=== PATIENT | female | born 1940 | race Caucasian/White ===

== ENCOUNTER 2021-07-31 06:48 | Observation (INO) | payer OTHER ==
[2021-07-31 07:45] LABS: Hematocrit 33.9 % (36.0-45.0); MPV 8.9 fL (7.6-11.3)
--- NOTE | 2021-07-31 08:19 | RAD REPORT ---
EXAM DESCRIPTION: [facility] Single View07/31/2021 8:12 am CLINICAL HISTORY: Shortness of breath COMPARISON: 2016 FINDINGS: Mild to moderate bilateral pulmonary opacities. The heart is mildly enlarged. Pacemaker l daina are in place. Small pleural effusions IMPRESSION: Mild to moderate CHF
[2021-07-31 08:44] LABS: Potassium 4.4 mmol/L (3.5-5.1); Troponin High Sensitivity 46.5 pg/mL (<58.9)
--- NOTE | 2021-07-31 11:03 | ER ---
Nurse's Notes [facility] Name: Shilpi Pierson Age: 80 yrs Sex: Female : 1940 Arrival Date: 07/31/2021 Time: 06:49 Bed 3 Private MD: Diagnosis: Heart failure, unspecified Presentation: 07/31 06:59 Chief complaint: EMS states: pt has been short of breath since yesterday, got worse sm5 throughout the night. Coronavirus screen: Vaccine status: Patient reports receiving the 2nd dose of the covid vaccine. Ebola Screen: No symptoms or risks identified at this time. Initial Sepsis Screen: Does the patient meet any 2 criteria? No. Patient's initial sepsis screen is negative. Does the patient have a suspected source of infection? No. Patient's initial sepsis screen is negative. Risk Assessment: Do you want to hurt yourself or someone else? Patient reports no desire to harm self or others. Onset of symptoms was July 30, 2021. 06:59 Method Of Arrival: EMS: [place] [address] 06:59 Acuity: MARIA D 3 sm5 Triage Assessment: 07:03 General: Appears in no apparent distress. Behavior is cooperative. Pain: Denies pain. sm5 Neuro: No deficits noted. Geronimo Agitation-Sedation Scale (RASS): 0 - Alert and Calm Level of Consciousness is awake, alert, obeys commands, Oriented to person, place, time, situation. Cardiovascular: No deficits noted. Capillary refill < 3 seconds Patient's skin is warm and dry. Respiratory: Reports shortness of breath Airway is patent Trachea midline Respiratory effort is even, unlabored. GI: No deficits noted. Historical: - Allergies: 07:00 Actos; sm5 07:00 Benicar; sm5 07:00 Lisinopril; sm5 07:00 Simvastatin; sm5 07:00 Famotidine; sm5 07:00 Losartan; sm5 07:00 olmesartan; sm5 07:00 pioglitazone; sm5 07:00 Tramadol HCl; sm5 11:05 lactose (bulk); vg1 11:05 Lactulose; vg1 - Home Meds: 11:05 Amlodarone [Active]; clopidogrel 75 mg oral tab [Active]; diphenhydramine HCl 25 mg vg1 Oral tab [Active]; ferrous sulfate 325 mg (65 mg iron) Oral cpER [Active]; apixaban 5 mg oral tab [Active]; folic acid 1 mg Oral tab [Active]; amlodipine 5 mg tab [Active]; clonidine HCl 0.1 mg Oral tab [Active]; ezetimibe 10 mg oral tab [Active]; furosemide 40 mg Oral tab [Active]; isosorbide mononitrate 30 mg Oral Tb24 [Active]; melatonin 5 mg Oral tab [Active]; metformin 500 mg Oral tab [Active]; metoprolol tartrate 50 mg Oral tab [Active]; spironolactone 25 mg Oral tab [Active]; - PMHx: 07:00 Diabetes - NIDDM; Hypertension; Anemia; ventricular tachycardia; Congestive heart sm5 failure; Gastroesophageal reflux disease; - Immunization history:: Client reports receiving the 2nd dose of the Covid vaccine. - Social history:: Smoking status: Patient/guardian denies using tobacco, but has a distant history of tobacco abuse. Screenin:30 Abuse screen: Denies threats or abuse. Denies injuries from another. Nutritional jl7 screening: No deficits noted. Tuberculosis screening: No symptoms or risk factors identified. Fall Risk IV access (20 points). Total Morales Fall Scale indicates No Risk (0-24 pts). Assessment: 07:05 General: Appears in no apparent distress. uncomfortable, Behavior is calm, cooperative, jl7 appropriate for age. Pain: Denies pain. Neuro: Level of Consciousness is awake, alert, obeys commands, Oriented to person, place, time, situation. Cardiovascular: Denies chest pain, Heart tones present Patient's skin is warm and dry. Respiratory: Airway is patent Respiratory effort is even, unlabored, Respiratory pattern is regular, symmetrical, Breath sounds are clear in right upper lobe, left upper lobe, left posterior upper lobe and right posterior upper lobe Breath sounds with crackles in left posterior lower lobe, right posterior middle lobe and right posterior lower lobe. Derm: Skin is pink, warm \T\ dry. 08:00 Reassessment: Patient appears in no apparent distress at this time. No changes from jl7 previously documented assessment. Patient and/or family updated on plan of care and expected duration. Pain level reassessed. Patient is alert, oriented x 3, equal unlabored respirations, skin warm/dry/pink. 09:00 Reassessment: Patient appears in no apparent distress at this time. No changes from jl7 previously documented assessment. Patient and/or family updated on plan of care and expected duration. Pain level reassessed. Patient is alert, oriented x 3, equal unlabored respirations, skin warm/dry/pink. 09:53 Reassessment: Pt's daughter at bedside, Dr. Flores at bedside discussing results and jl7 POC. 11:13 Reassessment: Admitting physician at bedside assessing pt, gave VO for ADA 1800 diet. jl7 12:00 Reassessment: Patient appears in no apparent distress at this time. No changes from jl7 previously documented assessment. Patient and/or family updated on plan of care and expected duration. Pain level reassessed. Patient is alert, oriented x 3, equal unlabored respirations, skin warm/dry/pink. Vital Signs: 06:59 BP 157 / 51; Pulse 63; Resp 18; Temp 97.6(O); Pulse Ox 99% on R/A; Weight 66 kg; Height [facility] 5 ft. (152.40 cm); 07:30 BP 143 / 67; Pulse 61; Resp 15; Pulse Ox 98% on R/A; jl7 08:22 BP 144 / 49; Pulse 61; Resp 17; Pulse Ox 100% ; jl7 09:54 BP 150 / 50; Pulse 67; Resp 15; Pulse Ox 98% on R/A; jl7 11:00 BP 137 / 54; Pulse 67; Resp 15; Pulse Ox 96% ; jl7 12:00 BP 152 / 50; Pulse 75; Resp 16; Pulse Ox 98% ; jl7 13:00 BP 135 / 54; Pulse 70; Resp 15; Pulse Ox 95% ; jl7 14:00 BP 151 / 50; Pulse 73; Resp 16; Pulse Ox 95% ; jl7 06:59 Body Mass Index 28.42 (66.00 kg, 152.40 cm) 5 ED Course: 06:49 Patient arrived in ED. eb 07:00 Triage completed. sm5 07:03 Juan Carlos Flores MD is Attending Physician. kdr 07:03 Arm band placed on right wrist. 5 07:19 Laverne Buckner, CHER is Primary Nurse. jl7 07:30 Patient has correct armband on for positive identification. Bed in low position. Call [facility] light in reach. Side rails up X2. Client placed on continuous cardiac and pulse oximetry monitoring. NIBP monitoring applied. Warm blanket given. 07:30 Initial lab(s) drawn, by me, sent to lab. EKG done, by ED staff, reviewed by Juan Carlos Flores MD. Inserted saline lock: 22 gauge in left forearm, using aseptic technique. Blood collected. 08:14 XRAY Chest (1 view) In Process Unspecified. EDMS 08:24 Lab(s) recollected. jl7 11:01 Gomez Narvaez MD is Hospitalizing Provider. kdr 14:37 Hemoglobin A1c Sent. zm 14:45 No provider procedures requiring assistance completed. Patient admitted, IV remains in jl place. intact, No redness/swelling at site. Administered Medications: No medications were administered Medication: 09:54 VIS not applicable for this client. jl Outcome: 11:02 Decision to Hospitalize by Provider. kdr 14:45 Admitted to Med/surg accompanied by tech, family with patient, via wheelchair, room [facility] 408, with chart, Report called to [facility] 14:45 Condition: stable 14:45 Discharge instructions given to patient, family, Instructed on the need for admit, Demonstrated understanding of instructions. 14:46 Patient left the ED. [facility] Signatures: Dispatcher [employer] EDCT Juan Carlos Flores MD MD kdr Laverne Buckner, RN RN jl7 Ivana Saldana Victoria, RN RN vg1 Randee Hoang, RN RN sm5 Xiao Foss Corrections: (The following items were deleted from the chart) 09:54 09:00 BP 150 / 50; Pulse 67bpm; Resp 15bpm; Pulse Ox 98% RA; 7 7 14:43 11:13 Reassessment: Dr. Beauchamp at bedside assessing pt, gave VO for ADA 1800 [facility]
--- NOTE | 2021-07-31 11:03 | EDPHYS ---
Physician Documentation [facility] Name: Shilpi Pierson Age: 80 yrs Sex: Female : 1940 Arrival Date: 07/31/2021 Time: 06:49 Bed 3 Private MD: ED Physician Juan Carlos Flores HPI: 07/31 08:42 This 80 yrs old Female presents to ER via EMS with complaints of Shortness of breath. kdr 08:42 The patient has shortness of breath at rest, with light activity. Onset: The kdr symptoms/episode began/occurred gradually, yesterday. Duration: The symptoms are continuous, and are steadily getting worse. The patient's shortness of breath is aggravated by exertion, talking, is alleviated by nothing. Associated signs and symptoms: The patient has no apparent associated signs or symptoms. Severity of symptoms: At their worst the symptoms were mild in the emergency department the symptoms are unchanged. The patient has not experienced similar symptoms in the past. The patient has not recently seen a physician. Patient presents from [facility] in via EMS. She is has mild's of breath since yesterday. He has no other complaints. She is awake alert and oriented. She is nontoxic-appearing and knee at this time.. Historical: - Allergies: 07:00 Actos; sm5 07:00 Benicar; sm5 07:00 Lisinopril; sm5 07:00 Simvastatin; sm5 07:00 Famotidine; sm5 07:00 Losartan; sm5 07:00 olmesartan; sm5 07:00 pioglitazone; sm5 07:00 Tramadol HCl; sm5 11:05 lactose (bulk); vg1 11:05 Lactulose; vg1 - Home Meds: 11:05 Amlodarone [Active]; clopidogrel 75 mg oral tab [Active]; diphenhydramine HCl 25 mg vg1 Oral tab [Active]; ferrous sulfate 325 mg (65 mg iron) Oral cpER [Active]; apixaban 5 mg oral tab [Active]; folic acid 1 mg Oral tab [Active]; amlodipine 5 mg tab [Active]; clonidine HCl 0.1 mg Oral tab [Active]; ezetimibe 10 mg oral tab [Active]; furosemide 40 mg Oral tab [Active]; isosorbide mononitrate 30 mg Oral Tb24 [Active]; melatonin 5 mg Oral tab [Active]; metformin 500 mg Oral tab [Active]; metoprolol tartrate 50 mg Oral tab [Active]; spironolactone 25 mg Oral tab [Active]; - PMHx: 07:00 Diabetes - NIDDM; Hypertension; Anemia; ventricular tachycardia; Congestive heart sm5 failure; Gastroesophageal reflux disease; - Immunization history:: Client reports receiving the 2nd dose of the Covid vaccine. - Social history:: Smoking status: Patient/guardian denies using tobacco, but has a distant history of tobacco abuse. ROS: 08:42 Constitutional: Negative for fever, chills, and weight loss, Eyes: Negative for injury, kdr pain, redness, and discharge, ENT: Negative for injury, pain, and discharge, Neck: Negative for injury, pain, and swelling, Cardiovascular: Negative for chest pain, palpitations, and edema, Abdomen/GI: Negative for abdominal pain, nausea, vomiting, diarrhea, and constipation, Back: Negative for injury and pain, : Negative for injury, bleeding, discharge, and swelling, MS/Extremity: Negative for injury and deformity, Skin: Negative for injury, rash, and discoloration, Neuro: Negative for headache, weakness, numbness, tingling, and seizure activity. Psych: Negative for depression, anxiety, suicide ideation, homicidal ideation, and hallucinations, Allergy/Immunology: Negative for hives, rash, and allergies, Endocrine: Negative for neck swelling, polydipsia, polyuria, polyphagia, and marked weight changes, Hematologic/Lymphatic: Negative for swollen nodes, abnormal bleeding, and unusual bruising. 08:42 Respiratory: Positive for cough, with no reported sputum, shortness of breath, at rest. Negative for dyspnea on exertion, hemoptysis, orthopnea, pleurisy, sputum production, wheezing. Exam: 07:31 ECG was reviewed by the Attending Physician. kdr 08:42 Constitutional: This is a well developed, well nourished patient who is awake, alert, kdr and in no acute distress. Head/Face: Normocephalic, atraumatic. Eyes: Pupils equal round and reactive to light, extra-ocular motions intact. Lids and lashes normal. Conjunctiva and sclera are non-icteric and not injected. Cornea within normal limits. Periorbital areas with no swelling, redness, or edema. Neck: Trachea midline, no thyromegaly or masses palpated, and no cervical lymphadenopathy. Supple, full range of motion without nuchal rigidity, or vertebral point tenderness. No Meningismus. Chest/axilla: Normal chest wall appearance and motion. Nontender with no deformity. No lesions are appreciated. Cardiovascular: Regular rate and rhythm with a normal S1 and S2. No gallops, murmurs, or rubs. Normal PMI, no JVD. No pulse deficits. Abdomen/GI: Soft, non-tender, with normal bowel sounds. No distension or tympany. No guarding or rebound. No evidence of tenderness throughout. Back: No spinal tenderness. No costovertebral tenderness. Full range of motion. Skin: Warm, dry with normal turgor. Normal color with no rashes, no lesions, and no evidence of cellulitis. MS/ Extremity: Pulses equal, no cyanosis. Neurovascular intact. Full, normal range of motion. Neuro: Awake and alert, GCS 15, oriented to person, place, time, and situation. Cranial nerves II-XII grossly intact. Motor strength 5/5 in all extremities. Sensory grossly intact. Cerebellar exam normal. Normal gait. Psych: Awake, alert, with orientation to person, place and time. Behavior, mood, and affect are within normal limits. 08:42 Respiratory: the patient does not display signs of respiratory distress, Respirations: normal, Breath sounds: rales, that are mild, are heard diffusely, wheezing: is not appreciated. Vital Signs: 06:59 BP 157 / 51; Pulse 63; Resp 18; Temp 97.6(O); Pulse Ox 99% on R/A; Weight 66 kg; Height sm5 5 ft. (152.40 cm); 07:30 BP 143 / 67; Pulse 61; Resp 15; Pulse Ox 98% on R/A; jl7 08:22 BP 144 / 49; Pulse 61; Resp 17; Pulse Ox 100% ; jl7 09:54 BP 150 / 50; Pulse 67; Resp 15; Pulse Ox 98% on R/A; jl7 11:00 BP 137 / 54; Pulse 67; Resp 15; Pulse Ox 96% ; jl7 12:00 BP 152 / 50; Pulse 75; Resp 16; Pulse Ox 98% ; jl7 13:00 BP 135 / 54; Pulse 70; Resp 15; Pulse Ox 95% ; jl7 14:00 BP 151 / 50; Pulse 73; Resp 16; Pulse Ox 95% ; jl7 06:59 Body Mass Index 28.42 (66.00 kg, 152.40 cm) 5 MDM: 08:42 Data reviewed: vital signs, lab test result(s), radiologic studies. Counseling: I had a kdr detailed discussion with the patient and/or guardian regarding: the historical points, exam findings, and any diagnostic results supporting the discharge/admit diagnosis, lab results, radiology results. 11:02 Patient medically screened. [facility] 07/31 07:16 Order name: Basic Metabolic Panel; Complete Time: 09:46 kdr 07/31 07:16 Order name: CBC with Diff; Complete Time: 09:46 kdr 07/31 07:16 Order name: Troponin HS; Complete Time: 09:46 kdr 07/31 09:47 Order name: PROBNP; Complete Time: 10:40 kdr 07/31 11:25 Order name: SARS-COV-2 RT PCR (Document "Date of Onset" if Symptomatic) 07/31 13:09 Order name: NT PRO-BNP [facility] 07/31 13:09 Order name: T4 Free [facility] 07/31 13:09 Order name: Thyroid Stimulating Hormone [facility] 07/31 13:09 Order name: Urinalysis [facility] 07/31 13:09 Order name: Basic Metabolic Panel [facility] 07/31 13:09 Order name: Basic Metabolic Panel [facility] 07/31 13:09 Order name: CBC with Automated Diff [facility] 07/31 13:09 Order name: CBC with Automated Diff [facility] 07/31 13:14 Order name: Hemoglobin A1c [facility] 07/31 07:16 Order name: XRAY Chest (1 view); Complete Time: 09:46 kdr 07/31 07:16 Order name: EKG; Complete Time: 07:17 kdr 07/31 07:16 Order name: Cardiac monitoring; Complete Time: 07:19 kdr 07/31 07:16 Order name: EKG - Nurse/Tech; Complete Time: 07:19 kdr 07/31 07:16 Order name: IV Saline Lock; Complete Time: 07:19 kdr 07/31 07:16 Order name: Labs collected and sent; Complete Time: 07:19 kdr 07/31 07:16 Order name: O2 Per Protocol; Complete Time: 07:19 kdr 06/12 07:16 Order name: O2 Sat Monitoring; Complete Time: 07:19 kdr 07/31 07:53 Order name: Labs - recollect needed: recollect the green top hemolyzed; Complete Time: iw 08:20 07/31 11:12 Order name: Diet Ada 1800 [place]; Complete Time: 11:13 jl7 07/31 13:14 Order name: Lipid Profile EDMS EC:31 Rate is 64 beats/min. Rhythm is regular, Sinus Rhythm with Right bundle branch block. kdr QRS [place] is Normal. IN interval is normal. QRS interval is normal. QT interval is normal. Clinical impression: Cardiac ischemia. Administered Medications: No medications were administered Disposition Summary: 07/31/21 11:02 Hospitalization Ordered Hospitalization Status: Inpatient Admission kdr Provider: Gomez Narvaez kdr Location: Telemetry/MedSurg (Inpatient) kdr Condition: Fair kdr Problem: an acute exacerbation kdr Symptoms: have improved kdr Bed/Room Type: Standard kdr Room Assignment: 408(07/31/21 14:26) eb Diagnosis - Heart failure, unspecified kdr Forms: - Medication Reconciliation Form kdr - SBAR form kdr Signatures: Dispatcher [employer] EDMS Juan Carlos Flores MD MD kdr Anuradha Davis, RN CHER iw Ivana Saldana Victoria RN RN vg1 Randee Hoang RN RN sm5 Corrections: (The following items were deleted from the chart) 14:26 11:02 kdr eb
[2021-07-31] MEDS ORDERED: ZOLPIDEM TARTRATE 5 MG TABLET PO PRN (13:03)
[2021-07-31] MEDS ORDERED: ACETAMINOPHEN 500 MG TAB PO PRN (13:03)
[2021-07-31] MEDS ORDERED: ONDANSETRON 4 MG/2 ML VIAL IV PRN (13:03)
[2021-07-31] MEDS ORDERED: HYDROCODONE/APAP 5/325 MG TAB PO PRN (13:09)
--- NOTE | 2021-07-31 13:13 | P.HP ---
Certification for Inpatient Patient admitted to: Inpatient With expected LOS: >2 Midnights Patient will require the following post-hospital care: None Practitioner: I am a practitioner with admitting privileges, knowledge of patient current condition, hospital course, and medical plan of care. Services: Services provided to patient in accordance with Admission requirements found in Title 42 Section 412.3 of the Code of Federal Regulations Patient History Date of Service: 07/31/21 Reason for admission: SOB History of Present Illness: Patient is an 80-year-old female with a past medical history significant for hypertension, DM 2, anemia, CHF, GERD who presents with complaint of worsening shortness of breath. Patient is a poor historian and unable to provide accurate history. Patient reported that she has been having shortness of breath for quite long time but symptom become worse this morning. Patient reported associated signs and symptoms of nasal congestion, runny nose, sore throat, cough and orthopnea. Patient denies any other signs or symptoms. Symptoms are aggravated by exertion and relieved by nothing. Patient decided to present to the hospital due to worsening symptoms Allergies lisinopril Allergy (Unverified 07/23/15 15:30) Unknown olmesartan [From Benicar] Allergy (Unverified 07/23/15 15:30) Unknown pioglitazone [From Actos] Allergy (Unverified 07/23/15 15:30) Unknown simvastatin Allergy (Unverified 07/23/15 15:30) Unknown Home medications list reviewed: No - Past Medical/Surgical History -: HLD -: DM2 -: HTN -: CHF -: GERD Past Surgical History: Reviewed- Non-Contributory - Family History Family History: Reviewed- Non-Contributory - Social History Smoking Status: Never smoker Alcohol use: No CD- Drugs: No Caffeine use: Yes Place of Residence: Home Review of Systems General: Unremarkable Eyes: Unremarkable ENT: Nose Congestion, Throat Pain Respiratory: Cough, Shortness of Breath, SOB with Excertion, Other (orthopnea) Cardiovascular: Unremarkable Gastrointestinal: Unremarkable Genitourinary: Unremarkable Integumentary: Unremarkable Neurological: Unremarkable Physical Examination - Physical Exam General: Alert, Oriented x3, Cooperative HEENT: Normocephalic, PERRLA Neck: Supple, 2+ carotid pulse no bruit, JVD not distended Respiratory: Diminished Cardiovascular: No edema, Normal pulses, Regular rate/rhythm Capillary refill: <2 Seconds Gastrointestinal: Normal bowel sounds, Soft and benign Musculoskeletal: No clubbing, No swelling, No erythema, No tenderness Neurological: Normal speech, Normal strength at 5/5 x4 extr - Studies Laboratory Data (last 24 hrs) 07/31/21 08:14: Sodium 140, Potassium 4.4, BUN 14, Creatinine 0.62, Glucose 154 H 07/31/21 07:35: WBC 6.2, Hgb 11.1 L, Hct 33.9 L, Plt Count 216 Assessment and Plan - Plan --Acute on chronic systolic or diastolic CHF exacerbation. Echocardiogram pending. Patient placed on diuresis with Lasix. Daily weight and strict I/O. Continue supportive care. --DM2. BS monitoring sliding scale insulin. --Hypertension. Poorly controlled. Continue home medication when available. We will manage BP with hydralazine as needed.. --GERD. Continue Protonix. --Anemia of chronic disease. H&H stable. We will continue to monitor hemoglobin and transfuse if less than 7.0. --HLD. Continue statin. --Cough. Chest x-ray indicates mild to moderate bilateral pulmonary opacities. CT chest to rule out pneumonia. Continue antitussives and flonase --Allergic rhinitis. Continue home medication. --DVT prophylaxis with heparin subq Plan to discharge in: Greater than 2 days - Advance Directives Does patient have a Living Will: No Does patient have a Durable POA for Healthcare: No - Code Status/Comfort Care Code Status Assessed: Yes Code Status: Full Code Physician Review: Patient Assessed, Agree with Above Assessment and Plan Critical Care: No
[2021-07-31 13:48] LABS: Thyroid Stimulating Hormone 1.1 uIU/mL (0.360-3.740)
[2021-07-31] MEDS ORDERED: MELATONIN 5 MG TABLET PO PRN (14:42)
[2021-07-31] MEDS ORDERED: HYDRALAZINE HCL 20 MG/ML VIAL IV PRN (14:54)
[2021-07-31] MEDS ORDERED: GUAIFENESIN/DM 5 ML UCUP PO PRN (15:00)
[2021-07-31 15:46] VITALS: BMI 28.4
[2021-07-31] MEDS: FUROSEMIDE 40 MG/4 ML VIAL IV SCH (16:49)
[2021-07-31] MEDS: INSULIN -REGULAR HUMAN 50 UNIT/0.5 ML ML SQ SCH ×2 (16:57→21:01)
[2021-07-31] MEDS ORDERED: HEPARIN 5000 UNIT/ML 1 ML VIAL SQ SCH (17:00)
[2021-07-31 17:55] LABS: Urine Bilirubin Negative (Negative); Urine Blood 3+ (Negative); Urine Color Yellow (Yellow); Urine Glucose Trace (Negative); Urine Protein Negative (Negative); Urine Urobilinogen 0.2 mg/dL (0.2-1.0)
[2021-07-31 17:56] LABS: Urine Appearance SL CLOUDY (Clear); Urine Microscopic Reflex ORDER UMIC
[2021-07-31 18:00] LABS: Urine Bacteria <20 /HPF (<20); Urine RBC LOADED /HPF (NONE SEEN)
[2021-07-31] MEDS: cloNIDine HCL 0.1 MG TAB PO SCH (18:39)
[2021-07-31] MEDS: FLUTICASONE 50MCG NASAL SPRAY NAS SCH (20:59)
[2021-07-31] MEDS ORDERED: TRAZODONE 50 MG TABLET PO SCH (21:00)
[2021-07-31] MEDS: AMLODIPINE 5 MG TAB PO SCH (21:00)
[2021-07-31] MEDS: APIXABAN 5 MG TABLET PO SCH (21:00)
[2021-07-31] MEDS: OXYMETAZOLINE HCL 0.05% 15ML NAS SCH (21:00)
[2021-07-31] MEDS: BUSPIRONE HCL 15 MG TABLET PO SCH (21:01)
[2021-08-01 06:42] LABS: Absolute Lymphocytes (CBC) 2.5 K/uL (0.7-4.9); Hematocrit 39.6 % (36.0-45.0); Lymphocytes % 37.3 % (15.3-44.8); MPV 10.2 fL (7.6-11.3); RBC Red Blood Cell Count 4.35 M/uL (3.86-4.86)
[2021-08-01] MEDS: INSULIN -REGULAR HUMAN 50 UNIT/0.5 ML ML SQ SCH ×2 (07:30→12:09)
[2021-08-01] MEDS: OXYMETAZOLINE HCL 0.05% 15ML NAS SCH ×2 (08:15→09:06)
[2021-08-01] MEDS: cloNIDine HCL 0.1 MG TAB PO SCH (08:16)
[2021-08-01] MEDS: AMLODIPINE 5 MG TAB PO SCH (08:16)
[2021-08-01] MEDS: APIXABAN 5 MG TABLET PO SCH (08:17)
[2021-08-01] MEDS: FUROSEMIDE 40 MG/4 ML VIAL IV SCH (08:17)
[2021-08-01 08:18] LABS: Magnesium 1.9 mg/dL (1.8-2.4); Phosphorus 2.8 mg/dL (2.5-4.9); Potassium 3.5 mmol/L (3.5-5.1)
[2021-08-01] MEDS: FLUTICASONE 50MCG NASAL SPRAY NAS SCH (08:18)
[2021-08-01] MEDS ORDERED: FOLIC ACID 1 MG TABLET PO SCH (09:00)
[2021-08-01] MEDS ORDERED: FERROUS SULFATE 325 MG TAB PO SCH (09:00)
[2021-08-01] MEDS ORDERED: DOCUSATE NA 100 MG CAP PO SCH (09:00)
[2021-08-01] MEDS ORDERED: CLOPIDOGREL 75 MG TABLET PO SCH (09:00)
[2021-08-01] MEDS ORDERED: FEXOFENADINE 180 MG TAB PO SCH (09:00)
[2021-08-01] MEDS ORDERED: SPIRONOLACTONE 25 MG TABLET PO SCH (09:00)
[2021-08-01] MEDS ORDERED: POTASSIUM CL SA 10 MEQ TAB PO ONE (09:00)
[2021-08-01] MEDS ORDERED: AMIODARONE HCL 200 MG TAB PO SCH (09:00)
[2021-08-01] MEDS: BUSPIRONE HCL 15 MG TABLET PO SCH ×2 (09:07→13:39)
[2021-08-01 09:15] LABS: Platelet Estimate ADEQ; Platelets, Giant FEW; White Blood Cell Scan OK (OK)
[2021-08-01 09:16] LABS: Blood Morphology Comment NOT SEEN (NOT SEEN)
[2021-08-01 10:18] VITALS: O2SAT 96
[2021-08-01 12:37] VITALS: BP 151/53; TEMP 98.3
--- NOTE | 2021-08-01 13:36 | EKG ---
Test Date: 2021-07-31 Test Time: 07:02:27 Motor Equipment Commanding Officer: JARON MEASUREMENT RESULTS: Intervals: Rate: 64 NE: 204 QRSD: 138 QT: 460 QTc: 474 [place]: P: 78 NE: 204 QRS: 84 T: -62 INTERPRETIVE STATEMENTS: Normal sinus rhythm Right bundle branch block Septal infarct, age undetermined Lateral infarct, age undetermined T wave abnormality, consider inferior ischemia Abnormal ECG Compared to ECG 07/23/2015 11:20:34 Myocardial infarct finding now present T-wave abnormality now present Possible ischemia now present ST (T wave) deviation no longer present Electronically Signed On 08-01-21 13:34:02 CDT by Jason Carroll
--- NOTE | 2021-08-01 13:57 | ECHO ---
HEIGHT: 5 ft 0 in WEIGHT: 137 lb 5 oz DATE OF STUDY: 08/01/[address]: Sakina Bermudez 2-DIMENSIONAL: YES M.MODE: YES DOPPLER: YES COLOR FLOW: YES TDS: PORTABLE: YES DEFINITY: BUBBLE STUDY: DIAGNOSIS: CONGESTIVE HEART FAILURE CARDIAC HISTORY: CATHERIZATION: YES SURGERY: NO PROSTHETIC VALVE: NO PACEMAKER: YES MEASUREMENTS (cm) DIASTOLIC (NORMALS) SYSTOLIC (NORMALS) IVSd 1.2 (0.6-1.2) LA Diam 3.1 (1.9-4.0) LVEF 60-65% LVIDd 4.5 (3.5-5.7) LVIDs 2.7 (2.0-3.5) %FS 40% LVPWd 1.3 (0.6-1.2) Ao Diam 2.4 (2.0-3.7) 2 DIMENSIONAL ASSESSMENT: RIGHT ATRIUM: NORMAL LEFT ATRIUM: NORMAL RIGHT VENTRICLE: NORMAL LEFT VENTRICLE: LEFT VENTRICULAR HYPERTROPHY TRICUSPID VALVE: NORMAL MITRAL VALVE: NORMAL PULMONIC VALVE: NORMAL AORTIC VALVE: NORMAL PERICARDIAL EFFUSION: NONE AORTIC ROOT: NORMAL LEFT VENTRICULAR WALL MOTION: NORMAL DOPPLER/COLOR FLOW: MILD MITRAL REGURGITATION. MILD TRICUSPID REGURGITATION. COMMENTS: NORMAL LEFT VENTRICULAR EJECTION FRACTION 60-65%. NORMAL WALL MOTION. MILD MITRAL REGURGITATION. MILD TRICUSPID REGURGITATION. MILD CONCENTRIC LEFT VENTRICULAR HYPERTROPHY. TECHNOLOGIST: BOY HODGSON
--- NOTE | 2021-08-01 14:33 | P.DS ---
Admission Date: 07/31/21 Discharge Date: 08/01/21 Disposition: [place] HOME/HOME HEALTH CARE Discharge Condition: GOOD Reason for Admission: SOB Brief History of Present Illness: 80-year-old female with a past medical history significant for hypertension, DM 2, anemia, CHF, GERD who presents with complaint of worsening shortness of breath. Patient is a poor historian and unable to provide accurate history. Patient reported that she has been having shortness of breath for quite long time but symptom become worse this morning. Patient reported associated signs and symptoms of nasal congestion, runny nose, sore throat, cough and orthopnea. Patient denies any other signs or symptoms. Symptoms are aggravated by exertion and relieved by nothing. Patient decided to present to the hospital due to worsening symptoms Hospital Course: Problem List acute on chronic diastolic CHF exacerbation DM2 HTN GERD anemia of chronic disease HLD Patient was found to be in mild CHF exacerbation Chest x-ray noted mild-mod bilateral pulmonary edema. She had significant improvement of her symptoms after given IV lasix. Her renal function remained stable and she was breathing comfortably on room air. Cardiology was consulted. Dr. Ribeiro recommended obtaining an echocardiogram prior to discharge. Patient was deemed stable for discharge. Lasix increased from 40mg daily to twice daily. Recommend daily weights. Follow up with Cardiology in 1 week. Echocardiogram (08/01/21): normal LVEF: 60-65%. normal wall motion. mild mitral regurgitation. mild tricuspid regurgitation. mild concentric LVH Vital Signs/Physical Exam: Temp Pulse Resp BP Pulse Ox 98.3 F 72 18 151/53 H 98 08/01/21 12:00 08/01/21 12:00 08/01/21 12:00 08/01/21 12:00 08/01/21 12:00 General: Alert, In no apparent distress, Oriented x3 HEENT: Sclerae nonicteric Respiratory: Clear to auscultation bilaterally Cardiovascular: No edema, Regular rate/rhythm Gastrointestinal: Soft and benign, Non-distended, No tenderness Musculoskeletal: No contractures, No tenderness Laboratory Data at Discharge: WBC 6.7 K/uL (4.3-10.9) 08/01/21 06:00 Hgb 12.7 g/dL (12.0-15.0) 08/01/21 06:00 Hct 39.6 % (36.0-45.0) D 08/01/21 06:00 Plt Count 134 K/uL (152-406) L D 08/01/21 06:00 Sodium 139 mmol/L (136-145) 08/01/21 07:15 Potassium 3.5 mmol/L (3.5-5.1) 08/01/21 07:15 BUN 9 mg/dL (7-18) 08/01/21 07:15 Creatinine 0.55 mg/dL (0.55-1.3) 08/01/21 07:15 Glucose 176 mg/dL (74-106) H 08/01/21 07:15 Phosphorus 2.8 mg/dL (2.5-4.9) 08/01/21 07:15 Magnesium 1.9 mg/dL (1.8-2.4) 08/01/21 07:15 Triglycerides 139 mg/dL (<150) 07/31/21 08:14 Cholesterol 170 mg/dL (<200) 07/31/21 08:14 HDL Cholesterol 49 mg/dL (40-60) 07/31/21 08:14 Cholesterol/HDL Ratio 3.47 07/31/21 08:14 Home Medications: Acetaminophen [Tylenol Extra Strength] 1 tab PO TID 07/31/21 Amiodarone HCl [Cordarone*] 0.5 tab PO DAILY 07/31/21 Amlodipine [Norvasc*] 5 mg PO BID 07/31/21 Apixaban [Eliquis] 5 mg PO BID 07/31/21 Buspirone HCl 15 mg PO TID 07/31/21 Clopidogrel Bisulfate [Plavix*] 1 tab PO DAILY 07/31/21 Docusate Sodium 100 mg PO DAILY 07/31/21 Ezetimibe [Zetia*] 10 mg PO BEDTIME 07/31/21 Ferrous Sulfate [Ferrous Sulfate*] 1 tab PO DAILY 07/31/21 Fexofenadine HCl 180 mg PO DAILY 07/31/21 Folic Acid 1 mg PO DAILY 07/31/21 Melatonin 5 mg PO BEDTIME 07/31/21 Metformin HCl 1,000 mg PO BID 07/31/21 Oxymetazoline HCl [Dristan] 2 spray IH BID 07/31/21 Spironolactone [Aldactone*] 25 mg PO DAILY 07/31/21 Trazodone HCl 50 mg PO BEDTIME 07/31/21 cloNIDine HCL [Clonidine HCl] 1 tab PO BID 07/31/21 glipiZIDE [Glipizide] 1 tab PO DAILY 07/31/21 Furosemide 40 mg PO BID 30 Days #60 tablet 08/01/21 New Medications: Furosemide 40 mg PO BID 30 Days #60 tablet Followup: Tate Ribeiro MD [ACTIVE - CAN ADMIT] - 1 Week (Call for appoint ment) Unknown,U [Primary Care Provider] - 1-2 Weeks (call for appointment.) Time spent managing pt's care (in minutes): 40
--- NOTE | 2021-08-04 20:35 | CON ---
Date of Consultation: 08/01/2021 Reason For Consultation: Congestive heart failure. History Of Present Illness: Ms. Pierson is 80 years old. Has a complicated past medical history includ ing gastroesophageal reflux disease, anemia, ventricular tachycardia, congestive heart failure that i s chronic diastolic, hypertension, diabetes, GERD and dyslipidemia. Came in with congestive heart fa ilure by symptoms on x-ray. Denied chest pain. Denied nausea, vomiting, diaphoresis. Denied pedal edema. Denied palpitations or syncope. Denied fever or chills. Her symptoms were more mostly dyspn ea on exertion. Past Medical History: Status stated above. Allergies: INCLUDE LISINOPRIL, PEPCID, OLMESARTAN, TRAMADOL, LOSARTAN, AND HYDROCHLOROTHIAZIDE. Review of Systems: Negative. Social History: Negative. Family History: Negative. Medications: Include Eliquis, amiodarone, Aldactone, Plavix, insulin, Norvasc, clonidine, Lasix, Zet ia, metformin, and glipizide. Physical Examination: Vital Signs: Stable, afebrile. HEENT: Negative. Neck: Supple with no bruits, lymphadenopathy, JVD, or thyromegaly. Chest: Revealed some rales at both bases. Cardiac: Revealed regular rhythm and rate with S4 gallops. No murmurs or rubs. Abdomen: Benign. Extremities: Revealed no clubbing, cyanosis, or edema. Diagnostic Data: Within normal limits except for a BNP of 2814. Impression And Plan: 1.Congestive heart failure. Has diuresed overnight. She is almost asymptomatic today. I think her congestive heart failure is chronic and diastolic and we will continue her present regimen. 2.Gastroesophageal reflux disease. 3.Anemia, stable. 4.Ventricular tachycardia, on amiodarone and Eliquis, stable at this point. 5.Hypertension, well controlled. 6.Diabetes, well controlled. 7.Dyslipidemia, well controlled. I am comfortable with Ms. Pierson going home. I will follow up with her in the near future. Continue her present regimen at home. I will increase her Lasix on an as-ne eded basis. HORTENSIA/DOCL Voice ID: [id number] Report ID: [id number]
== END 2021-08-01 15:00 | disposition home health service (06) ==
LOC: ER 06:48 → INTOOBSV 12:58 → ERHOLD 12:58 → 4TH 14:41
PROVIDERS: ADMIT Hospitalist; ATTEND Hospitalist
DX: I11.0 Hypertensive heart disease with heart failure (principal); I50.33 Acute on chronic diastolic (congestive) heart failure; I47.2 Ventricular tachycardia; E11.9 Type 2 diabetes mellitus without complications; D63.8 Anemia in other chronic diseases classified elsewhere; E78.5 Hyperlipidemia, unspecified; K21.9 Gastro-esophageal reflux disease without esophagitis; R05.9 Cough, unspecified; J30.9 Allergic rhinitis, unspecified; G89.29 Other chronic pain; M54.9 Dorsalgia, unspecified; Z95.810 Presence of automatic (implantable) cardiac defibrillator; Z79.01 Long term (current) use of anticoagulants; Z79.84 Long term (current) use of oral hypoglycemic drugs; Z79.02 Long term (current) use of antithrombotics/antiplatelets; Z79.4 Long term (current) use of insulin; Z79.899 Other long term (current) drug therapy; Z88.8 Allergy status to other drugs, medicaments and biological substances; Z88.6 Allergy status to analgesic agent; Z20.822 Contact with and (suspected) exposure to COVID-19
CPT/HCPCS: 93005; 93306; 85025 ×2; 80048 ×2; 36415 ×2; 83735; 84100; 80061; 82947 ×4; 84443; 83036; 84484; 84439; 83880 ×2; 71045; 99285; U0003; J1815 ×2; J1940 ×2; G0378 ×3; 81003; 81015; J0360; J1644

== ENCOUNTER 2021-09-02 02:42 | Observation (INO) | payer OTHER ==
[2021-09-02 03:41] LABS: Absolute Lymphocytes (CBC) 0.9 K/uL (0.7-4.9); Hematocrit 28.5 % (36.0-45.0); Lymphocytes % 12.9 % (15.3-44.8); MCV 91.1 fL (80-100); MPV 8.3 fL (7.6-11.3); RBC Red Blood Cell Count 3.13 M/uL (3.86-4.86)
[2021-09-02 03:43] LABS: Protime INR 1.57
[2021-09-02 04:09] LABS: ALT/SGPT 18 U/L (12-78); Albumin 3.2 g/dL (3.4-5.0); Alkaline Phosphatase 96 U/L (45-117); BUN Blood Urea Nitrogen 18 mg/dL (7-18); Bicarbonate 25 mmol/L (21-32); Bilirubin Total 0.2 mg/dL (0.2-1.0); Glomerular Filtration Rate 76 ml/min (=/>90); Glucose Level 125 mg/dL (74-106); NT PRO-BNP 2574 pg/mL (<450); Protein, Total 7.2 g/dL (6.4-8.2); Sodium Level 140 mmol/L (136-145); Troponin High Sensitivity 32.7 pg/mL (<58.9)
[2021-09-02 04:10] LABS: AST/SGOT 15 U/L (15-37); Bilirubin Direct < 0.1 mg/dL (0-0.2); Magnesium 1.6 mg/dL (1.8-2.4); Potassium 3.9 mmol/L (3.5-5.1)
--- NOTE | 2021-09-02 04:31 | ER ---
Nurse's Notes [facility] Name: Shilpi Pierson Age: 80 yrs Sex: Female : 1940 Arrival Date: 09/02/2021 Time: 02:44 Bed 14 Private MD: Diagnosis: Chest pain, unspecified;Acute on chronic combined systolic (congestive) and diastolic (congestive) heart failure Presentation: 09/02 02:44 Chief complaint: EMS states: Pt is from [facility]. She woke up around 0130 to go to [facility] the bathroom and had sudden onset of chest pain that starts at the right side and radiates to the left and to the jaw. She rates it at 2/10 but states that it hasn't gotten any better or worse since it started. She says its Dully and achy. She has a pacemaker. Coronavirus screen: Vaccine status: Patient reports being unvaccinated. Coronavirus screen: Vaccine status: Patient reports receiving the 2nd dose of the covid vaccine. Ebola Screen: No symptoms or risks identified at this time. Initial Sepsis Screen: Does the patient meet any 2 criteria? No. Patient's initial sepsis screen is negative. Does the patient have a suspected source of infection? No. Patient's initial sepsis screen is negative. Risk Assessment: Do you want to hurt yourself or someone else? Patient reports no desire to harm self or others. Onset of symptoms was September 02, 2021. 02:44 Method Of Arrival: EMS: [facility] kd3 02:44 Acuity: MARIA D 3 kd3 Triage Assessment: 02:50 General: Appears in no apparent distress. Behavior is calm, cooperative. Pain: kd3 Complains of pain in chest. Cardiovascular: Patient's skin is warm and dry. Historical: - Allergies: 02:50 Actos; kd3 02:50 Famotidine; kd3 02:50 Benicar; kd3 02:50 lactose (bulk); kd3 02:50 Lactulose; kd3 02:50 Lisinopril; kd3 02:50 Losartan; kd3 02:50 olmesartan; kd3 02:50 pioglitazone; kd3 02:50 Simvastatin; kd3 02:50 Tramadol HCl; kd3 - Home Meds: 02:50 diphenhydramine HCl 25 mg Oral tab [Active]; isosorbide mononitrate 30 mg Oral Tb24 kd3 [Active]; 06:49 amlodipine 5 mg tab 1 tab 2 times a day [Active]; clopidogrel 75 mg Oral tab 1 tab once kd3 daily [Active]; ferrous sulfate 325 mg (65 mg iron) Oral cpER daily [Active]; furosemide 40 mg Oral tab 1 tab 2 times per day [Active]; clonidine HCl 0.1 mg Oral tab 1 tab 2 times per day [Active]; apixaban 5 mg Oral tab 1 tab 2 times per day [Active]; folic acid 1 mg Oral tab once daily [Active]; melatonin 5 mg Oral tab nightly [Active]; metformin 1,000 mg oral tab 1 tab 2 times per day [Active]; ezetimibe 10 mg Oral tab 1 tab nightly [Active]; metoprolol tartrate 50 mg Oral tab 1 tab 2 times per day [Active]; spironolactone 25 mg Oral tab 1 tab once daily [Active]; amiodarone 100 mg Oral tab 1 tab once daily [Active]; buspirone 15 mg Oral tab 1 tab 3 times a day [Active]; docusate sodium 100 mg Oral cap 1 cap once daily [Active]; Dristan Long Lasting 0.05 % nasal spry 2 sprays 2 times per day [Active]; fexofenadine 180 mg Oral tab 1 tab once daily [Active]; fluticasone propionate 50 mcg/actuation nasal spsn 1 spray 2 times per day [Active]; glipizide 5 mg Oral tab 1 tab once daily [Active]; lidocaine patch Q 24 hrs [Active]; trazodone 50 mg Oral tab 1 tab bedtime [Active]; - PMHx: 02:50 Anemia; Congestive heart failure; Diabetes - NIDDM; Hypertension; ventricular kd3 tachycardia; Gastroesophageal reflux disease; - Immunization history:: Adult Immunizations up to date. - Social history:: Smoking status: unknown. Screenin:52 Abuse screen: Denies threats or abuse. Denies injuries from another. Nutritional kd3 screening: No deficits noted. Tuberculosis screening: No symptoms or risk factors identified. Fall Risk None identified. Assessment: 02:53 Pain: Pain radiates to left submandibular area Pain began suddenly. kd3 Vital Signs: 02:44 BP 175 / 45; Pulse 60; Resp 18; Temp 97.7; Pulse Ox 96% ; Weight 66.22 kg; Pain 2/10; kd3 06:13 BP 132 / 44; Pulse 60; Resp 17; Pulse Ox 98% on R/A; kd3 09:25 Weight 65.77 kg; Height 5 ft. (152.40 cm); jl7 09:25 Body Mass Index 28.32 (65.77 kg, 152.40 cm) jl7 ED Course: 02:44 Patient arrived in ED. kd3 02:44 Danna Worthington, RN is Primary Nurse. kd3 02:50 Triage completed. kd3 02:50 Arm band placed on right wrist. kd3 02:52 Patient has correct armband on for positive identification. Client placed on continuous kd3 cardiac and pulse oximetry monitoring. NIBP monitoring applied. 02:52 No provider procedures requiring assistance completed. Patient maintains SpO2 kd3 saturation greater than 95% on room air. 02:57 Mumtaz Guerrero MD is Attending Physician. 7 03:18 XRAY Chest (1 view) In Process Unspecified. EDMS 04:30 Anupam Alves is Hospitalizing Provider. [facility] 07:00 Patient admitted, IV remains in place. intact, No redness/swelling at site. Pt with 22 jl7 G diffusics in left AC inserted on previous shift. 08:22 Primary Nurse role handed off by Danna Worthington, CHER jl7 08:22 Laverne Buckner, CHER is Primary Nurse. jl7 Administered Medications: 04:22 Not Given (Patient Refused): morphine 2 mg IVP once over 4 mins kd3 04:22 Not Given (Patient Refused): Zofran (Ondansetron) 4 mg IVP once; over 2 minutes kd3 04:55 Drug: Lasix (furosemide) 40 mg Route: IVP; Site: left forearm; kd3 06:13 Follow up: Response: No adverse reaction kd3 Medication: 02:53 VIS not applicable for this client. kd3 Outcome: 04:31 Decision to Hospitalize by Provider. 7 07:00 Admitted to ER Hold. Please see [facility] for further documentation. jl7 07:00 Condition: stable 07:00 Discharge instructions given to patient, family, Instructed on the need for admit, Demonstrated understanding of instructions. 10:23 Patient left the ED. jl7 Signatures: Dispatcher [employer] Laverne Banks RN RN jl7 Mumtaz Guerrero MD MD mh7 Danna Worthington RN RN kd3 Corrections: (The following items were deleted from the chart) 07:02 02:50 Home Meds: amlodarone; kd3 kd3 07:02 02:50 Home Meds: amlodipine 5 mg tab; kd3 kd3 07:02 02:50 Home Meds: clopidogrel 75 mg Oral tab; kd3 kd3 07:02 02:50 Home Meds: ferrous sulfate 325 mg (65 mg iron) Oral cpER; kd3 kd3 07:02 02:50 Home Meds: furosemide 40 mg Oral tab; kd3 kd3 07:02 02:50 Home Meds: clonidine HCl 0.1 mg Oral tab; kd3 kd3 07:02 02:50 Home Meds: apixaban 5 mg Oral tab; kd3 kd3 07:02 02:50 Home Meds: folic acid 1 mg Oral tab; kd3 kd3 07:02 02:50 Home Meds: melatonin 5 mg Oral tab; kd3 kd3 07:02 02:50 Home Meds: metformin 500 mg Oral tab; kd3 kd3 07:02 02:50 Home Meds: ezetimibe 10 mg Oral tab; kd3 kd3 07:02 02:50 Home Meds: metoprolol tartrate 50 mg Oral tab; kd3 kd3 07:02 02:50 Home Meds: spironolactone 25 mg Oral tab; kd3 kd3
--- NOTE | 2021-09-02 04:31 | EDPHYS ---
Physician Documentation [facility] Name: Shilpi Pierson Age: 80 yrs Sex: Female : 1940 Arrival Date: 09/02/2021 Time: 02:44 Bed 14 Private MD: ED Physician Mumtaz Guerrero HPI: 09/02 03:05 This 80 yrs old Female presents to ER via EMS with complaints of Chest Pain. [facility] 03:05 The patient or guardian reports chest pain that is located primarily in the anterior mh7 chest wall, left. Onset: just prior to arrival, today. 03:05 The pain radiates to left neck. Associated signs and symptoms: Pertinent negatives: 7 abdominal pain, cough, diaphoresis, dizziness, headache, lower extremity pain, lower extremity swelling, lightheadedness, nausea, near syncope, palpitations, recent travel, shortness of breath, syncope, vomiting. The chest pain is described as aching, dull. Duration: The patient or guardian reports multiple episodes, that are intermittent, that wax and wane, with no pattern. Modifying factors: The symptoms are alleviated by nothing. the symptoms are aggravated by nothing. Severity of pain: At its worst the pain was moderate today, in the emergency department the pain has improved moderately. Historical: - Allergies: 02:50 Actos; kd3 02:50 Famotidine; kd3 02:50 Benicar; kd3 02:50 lactose (bulk); kd3 02:50 Lactulose; kd3 02:50 Lisinopril; kd3 02:50 Losartan; kd3 02:50 olmesartan; kd3 02:50 pioglitazone; kd3 02:50 Simvastatin; kd3 02:50 Tramadol HCl; kd3 - Home Meds: 02:50 diphenhydramine HCl 25 mg Oral tab [Active]; isosorbide mononitrate 30 mg Oral Tb24 kd3 [Active]; 06:49 amlodipine 5 mg tab 1 tab 2 times a day [Active]; clopidogrel 75 mg Oral tab 1 tab once kd3 daily [Active]; ferrous sulfate 325 mg (65 mg iron) Oral cpER daily [Active]; furosemide 40 mg Oral tab 1 tab 2 times per day [Active]; clonidine HCl 0.1 mg Oral tab 1 tab 2 times per day [Active]; apixaban 5 mg Oral tab 1 tab 2 times per day [Active]; folic acid 1 mg Oral tab once daily [Active]; melatonin 5 mg Oral tab nightly [Active]; metformin 1,000 mg oral tab 1 tab 2 times per day [Active]; ezetimibe 10 mg Oral tab 1 tab nightly [Active]; metoprolol tartrate 50 mg Oral tab 1 tab 2 times per day [Active]; spironolactone 25 mg Oral tab 1 tab once daily [Active]; amiodarone 100 mg Oral tab 1 tab once daily [Active]; buspirone 15 mg Oral tab 1 tab 3 times a day [Active]; docusate sodium 100 mg Oral cap 1 cap once daily [Active]; Dristan Long Lasting 0.05 % nasal spry 2 sprays 2 times per day [Active]; fexofenadine 180 mg Oral tab 1 tab once daily [Active]; fluticasone propionate 50 mcg/actuation nasal spsn 1 spray 2 times per day [Active]; glipizide 5 mg Oral tab 1 tab once daily [Active]; lidocaine patch Q 24 hrs [Active]; trazodone 50 mg Oral tab 1 tab bedtime [Active]; - PMHx: 02:50 Anemia; Congestive heart failure; Diabetes - NIDDM; Hypertension; ventricular kd3 tachycardia; Gastroesophageal reflux disease; - Immunization history:: Adult Immunizations up to date. - Social history:: Smoking status: unknown. ROS: 03:05 Constitutional: Negative for fever, chills, and weight loss, Eyes: Negative for injury, mh7 pain, redness, and discharge, Neck: Negative for injury, pain, and swelling, Respiratory: Negative for shortness of breath, cough, wheezing, and pleuritic chest pain, Abdomen/GI: Negative for abdominal pain, nausea, vomiting, diarrhea, and constipation, Back: Negative for injury and pain, : Negative for injury, bleeding, discharge, and swelling, MS/Extremity: Negative for injury and deformity, Skin: Negative for injury, rash, and discoloration, Neuro: Negative for headache, weakness, numbness, tingling, and seizure, Psych: Negative for depression, anxiety, suicide ideation, homicidal ideation, and hallucinations, Allergy/Immunology: Negative for hives, rash, and allergies, Endocrine: Negative for neck swelling, polydipsia, polyuria, polyphagia, and marked weight changes, Hematologic/Lymphatic: Negative for swollen nodes, abnormal bleeding, and unusual bruising. Exam: 03:05 Constitutional: This is a well developed, well nourished patient who is awake, alert, mh7 and in no acute distress. Head/Face: Normocephalic, atraumatic. Eyes: Pupils equal round and reactive to light, extra-ocular motions intact. Lids and lashes normal. Conjunctiva and sclera are non-icteric and not injected. Cornea within normal limits. Periorbital areas with no swelling, redness, or edema. Neck: Trachea midline, no thyromegaly or masses palpated, and no cervical lymphadenopathy. Supple, full range of motion without nuchal rigidity, or vertebral point tenderness. No Meningismus. Chest/axilla: Normal chest wall appearance and motion. Nontender with no deformity. No lesions are appreciated. Cardiovascular: Regular rate and rhythm with a normal S1 and S2. No gallops, murmurs, or rubs. Normal PMI, no JVD. No pulse deficits. Respiratory: Lungs have equal breath sounds bilaterally, clear to auscultation and percussion. No rales, rhonchi or wheezes noted. No increased work of breathing, no retractions or nasal flaring. Abdomen/GI: Soft, non-tender, with normal bowel sounds. No distension or tympany. No guarding or rebound. No evidence of tenderness throughout. Back: No spinal tenderness. No costovertebral tenderness. Full range of motion. Skin: Warm, dry with normal turgor. Normal color with no rashes, no lesions, and no evidence of cellulitis. MS/ Extremity: Pulses equal, no cyanosis. Neurovascular intact. Full, normal range of motion. Neuro: Awake and alert, GCS 15, oriented to person, place, time, and situation. Cranial nerves II-XII grossly intact. Motor strength 5/5 in all extremities. Sensory grossly intact. Cerebellar exam normal. Normal gait. Psych: Awake, alert, with orientation to person, place and time. Behavior, mood, and affect are within normal limits. Vital Signs: 02:44 BP 175 / 45; Pulse 60; Resp 18; Temp 97.7; Pulse Ox 96% ; Weight 66.22 kg; Pain 2/10; kd3 06:13 BP 132 / 44; Pulse 60; Resp 17; Pulse Ox 98% on R/A; kd3 09:25 Weight 65.77 kg; Height 5 ft. (152.40 cm); jl7 09:25 Body Mass Index 28.32 (65.77 kg, 152.40 cm) 7 MDM: 04:28 Differential diagnosis: abnormal EKG, acute myocardial infarction, acute pericarditis, mh7 anxiety, coronary artery disease chest wall pain, congestive heart failure costochondritis, esophagitis, gastroesophageal reflux disease (GERD), peptic ulcer disease, pericarditis, pleurisy, pneumonia, pneumothorax. HEART Score: History: Highly Suspicious (2), ECG: Non specific repolarization disturbance / LBTB / PM (1), Age: > or = 65 years (2), Risk Factors: > or = 3 Risk factors for atherosclerotic disease (2), [Hypercholesterolemia] [Hypertension] [DM] Troponin: < or = 1 x Normal Limit (0), Total Score = 7. Data reviewed: vital signs, nurses notes, old medical records, lab test result(s), cardiac enzymes, CBC, electrolytes, EKG, radiologic studies, plain films. Data interpreted: Pulse oximetry: on room air is 96 %. Interpretation: normal. Counseling: I had a detailed discussion with the patient and/or guardian regarding: the historical points, exam findings, and any diagnostic results supporting the discharge/admit diagnosis, the presence of at least one elevated blood pressure reading (>120/80) during this emergency department visit, lab results, radiology results, the need for further work-up and treatment in the hospital. 04:31 Patient medically screened. 09/02 02:58 Order name: Basic Metabolic Panel; Complete Time: 04:16 09/02 02:58 Order name: CBC with Diff; Complete Time: 03:55 09/02 02:58 Order name: LFT's; Complete Time: 04:16 09/02 02:58 Order name: Magnesium; Complete Time: 04:16 09/02 02:58 Order name: NT PRO-BNP; Complete Time: 04:16 09/02 02:58 Order name: PT-INR; Complete Time: 03:55 09/02 02:58 Order name: Troponin HS; Complete Time: 04:16 09/02 02:58 Order name: XRAY Chest (1 view) [facility] 09/02 03:42 Order name: COVID-19 SARS RT PCR (Document "Date of Onset" if Symptomatic); Complete vc1 Time: 05:04 09/02 08:13 Order name: Urine Dipstick-Ancillary [facility] 09/02 09:39 Order name: Hemoglobin A1c [facility] 09/02 09:46 Order name: Troponin High Sensitivity [facility] 09/02 09:46 Order name: Lipid Profile [facility] 09/02 09:46 Order name: Thyroid Stimulating Hormone [facility] 09/02 02:58 Order name: EKG; Complete Time: 02:59 [facility] 09/02 02:58 Order name: Cardiac monitoring; Complete Time: 03:03 [facility] 09/02 02:58 Order name: EKG - Nurse/Tech; Complete Time: 03:03 [facility] 09/02 02:58 Order name: IV Saline Lock; Complete Time: 03:29 [facility] 09/02 02:58 Order name: Labs collected and sent; Complete Time: 03:27 [facility] 09/02 02:58 Order name: O2 Per Protocol; Complete Time: 03:03 [facility] 09/02 02:58 Order name: O2 Sat Monitoring; Complete Time: 03:03 [facility] Administered Medications: 04:22 Not Given (Patient Refused): morphine 2 mg IVP once over 4 mins kd3 04:22 Not Given (Patient Refused): Zofran (Ondansetron) 4 mg IVP once; over 2 minutes kd3 04:55 Drug: Lasix (furosemide) 40 mg Route: IVP; Site: left forearm; kd3 06:13 Follow up: Response: No adverse reaction kd3 Disposition Summary: 09/02/21 04:31 Hospitalization Ordered Hospitalization Status: Inpatient Admission [facility] Provider: Anupam Alves Condition: Stable [facility] Problem: an acute exacerbation [facility] Symptoms: have improved [facility] Bed/Room Type: Standard [facility]09[facility] 05:21[facility] Room Assignment: ERHOLD-(09/02/21 05:21) mw Diagnosis - Chest pain, unspecified [facility] - Acute on chronic combined systolic (congestive) and diastolic (congestive) heart [facility] failure Forms: - Medication Reconciliation Form [facility] - SBAR form [facility] Signatures: Dispatcher [employer] EDZahra Francisco RN RN mw Mumtaz Guerrero MD MD [facility] Danna Worthington RN RN kd3 Isabel Rodriguez PA PA sb3 Corrections: (The following items were deleted from the chart) 05:21 04:31 Telemetry/MedSurg (Inpatient) [facility] 05:21 04:31 [facility] 07:02 02:50 Home Meds: amlodarone; kd3 kd3 07:02 02:50 Home Meds: amlodipine 5 mg tab; kd3 kd3 07:02 02:50 Home Meds: clopidogrel 75 mg Oral tab; kd3 kd3 07:02 02:50 Home Meds: ferrous sulfate 325 mg (65 mg iron) Oral cpER; kd3 kd3 07:02 02:50 Home Meds: furosemide 40 mg Oral tab; kd3 kd3 07:02 02:50 Home Meds: clonidine HCl 0.1 mg Oral tab; kd3 kd3 07:02 02:50 Home Meds: apixaban 5 mg Oral tab; kd3 kd3 07:02 02:50 Home Meds: folic acid 1 mg Oral tab; kd3 kd3 07:02 02:50 Home Meds: melatonin 5 mg Oral tab; kd3 kd3 07:02 02:50 Home Meds: metformin 500 mg Oral tab; kd3 kd3 07:02 02:50 Home Meds: ezetimibe 10 mg Oral tab; kd3 kd3 07:02 02:50 Home Meds: metoprolol tartrate 50 mg Oral tab; kd3 kd3 07:02 02:50 Home Meds: spironolactone 25 mg Oral tab; kd3 kd3
[2021-09-02] MEDS ORDERED: FUROSEMIDE 20 MG/ 2ML VIAL ONE (04:41)
--- NOTE | 2021-09-02 04:45 | P.HP ---
Certification for Inpatient Patient admitted to: Observation With expected LOS: <2 Midnights Patient will require the following post-hospital care: None Practitioner: I am a practitioner with admitting privileges, knowledge of patient current condition, hospital course, and medical plan of care. Services: Services provided to patient in accordance with Admission requirements found in Title 42 Section 412.3 of the Code of Federal Regulations Patient History Date of Service: 09/02/21 Reason for admission: Chest Pain History of Present Illness: Patient is an 80-year-old female with hypertension, NIDDM, diastolic CHF, anemia, and GERD who presented [facility] the ED [facility]. Patient had a sudden onset of chest pain at 0130 that starts in the right side of her chest and radiates to her left arm and jaw. She reports it as a 2 out of 10 but is constant and dull/achy. Patient is hypertensive at 175/45 upon arrival to ED. EKG within normal limits. Labs significant for hemoglobin 9.5, magnesium 1.6, proBNP 2500, troponin 32.7. Chest x-ray and urine pending. COVID negative. She was given Lasix in the ED. ED provider wishes for patient for observation. Allergies famotidine Allergy (Verified 07/31/21 15:51) Hallucinations lactulose Allergy (Verified 07/31/21 15:51) GI intolerance lisinopril Allergy (Verified 07/31/21 15:51) Hives olmesartan [From Benicar] Allergy (Verified 07/31/21 15:51) Hives pioglitazone [From Actos] Allergy (Verified 07/31/21 15:51) Hives simvastatin Allergy (Verified 07/31/21 15:51) Hives tramadol Allergy (Verified 07/31/21 15:51) Hallucinations hydrochloric acid Allergy (Uncoded 07/31/21 15:51) Hives Losartan potassium Allergy (Uncoded 07/31/21 15:51) Hives Home medications list reviewed: Yes Home Medications: Acetaminophen [Tylenol Extra Strength] 1 tab PO TID 07/31/21 Amiodarone HCl [Cordarone*] 0.5 tab PO DAILY 07/31/21 Amlodipine [Norvasc*] 5 mg PO BID 07/31/21 Apixaban [Eliquis] 5 mg PO BID 07/31/21 Buspirone HCl 15 mg PO TID 07/31/21 Clopidogrel Bisulfate [Plavix*] 1 tab PO DAILY 07/31/21 Docusate Sodium 100 mg PO DAILY 07/31/21 Ezetimibe [Zetia*] 10 mg PO BEDTIME 07/31/21 Ferrous Sulfate [Ferrous Sulfate*] 1 tab PO DAILY 07/31/21 Fexofenadine HCl 180 mg PO DAILY 07/31/21 Folic Acid 1 mg PO DAILY 07/31/21 Melatonin 5 mg PO BEDTIME 07/31/21 Metformin HCl 1,000 mg PO BID 07/31/21 Oxymetazoline HCl [Dristan] 2 spray IH BID 07/31/21 Spironolactone [Aldactone*] 25 mg PO DAILY 07/31/21 Trazodone HCl 50 mg PO BEDTIME 07/31/21 cloNIDine HCL [Clonidine HCl] 1 tab PO BID 07/31/21 glipiZIDE [Glipizide] 1 tab PO DAILY 07/31/21 Furosemide 40 mg PO BID 30 Days #60 tablet 08/01/21 - Past Medical/Surgical History Diabetic: Yes -: HLD -: DM2 -: HTN -: CHF -: Anemia -: GERD -: Cardiac stent x1 -: Pacemaker with Debrillator -: Ablations x2 in April and May 2021 Psychosocial/ Personal History: Patient lives at [facility]. - Family History Father -: Cancer - Social History Smoking Status: Never smoker Alcohol use: No CD- Drugs: No Caffeine use: Yes Place of Residence: [place] Review of Systems Cardiovascular: Chest Pain Physical Examination - Physical Exam General: Alert, In no apparent distress HEENT: Atraumatic, PERRLA, EOMI, Sclerae nonicteric Neck: Supple, 2+ carotid pulse no bruit, No LAD, Without JVD or thyroid abnormality Respiratory: Clear to auscultation bilaterally, Normal air movement Cardiovascular: Regular rate/rhythm, Normal S1 S2 Gastrointestinal: Normal bowel sounds, No tenderness Musculoskeletal: No tenderness Integumentary: No rashes Neurological: Normal speech, Normal strength at 5/5 x4 extr, Normal tone, Normal affect - Studies Laboratory Data (last 24 hrs) 09/02/21 03:28: PT 17.4 H, INR 1.57 09/02/21 03:28: WBC 7.2, Hgb 9.5 L, Hct 28.5 L, Plt Count 268 09/02/21 03:28: Sodium 140, Potassium 3.9, BUN 18, Creatinine 0.79, Glucose 125 H, Magnesium 1.6 L, Total Bilirubin 0.2, AST 15, ALT 18, Alkaline Phosphatase 96 Assessment and Plan - Problems (Diagnosis) (1) Chest pain Current Visit: Yes Status: Acute Qualifiers: Chest pain type: unspecified Qualified Code(s): R07.9 - Chest pain, unspecified (2) CHF (congestive heart failure) Current Visit: Yes Status: Acute Qualifiers: Heart failure type: diastolic Heart failure chronicity: acute on chronic Qualified Code(s): I50.33 - Acute on chronic diastolic (congestive) heart failure (3) Type 2 diabetes mellitus Current Visit: Yes Status: Chronic Qualifiers: Diabetes mellitus watermelon inspector insulin use: without watermelon inspector use Diabetes mellitus complication status: with kidney complications Diabetes mellitus complication detail: with chronic kidney disease Chronic kidney disease stage: stage 2 (mild) Qualified Code(s): E11.22 - Type 2 diabetes mellitus with diabetic chronic kidney disease; N18.2 - Chronic kidney disease, stage 2 (mild) (4) Hypertension Current Visit: Yes Status: Acute (5) Anemia Current Visit: Yes Status: Acute Qualifiers: Anemia type: unspecified type Qualified Code(s): D64.9 - Anemia, unspecified - Plan -Initial troponin negative. Will recheck in 6 hours. -Cardiology consult. Monitor on telemetry. Recent echo with preserved EF -Aspirin daily. We will hold off on statin as patient has simvastatin allergy -Hgb 9.5 (down from 12.7 1 month ago). Continue to monitor CBC. -Lipid panel pending -[facility] Accu-Cheks and mild sliding scale insulin diabetic diet -Hydralazine as needed -Monitor and replete electrolytes per protocol -Reconcile continue home medication -Home Eliquis for VTE PPx -Full code Discharge Plan: [place] Plan to discharge in: 24 Hours - Advance Directives Does patient have a Living Will: No Does patient have a Durable POA for Healthcare: No - Code Status/Comfort Care Code Status Assessed: Yes (Full) Critical Care: No Time Spent Managing Pts Care (In Minutes): 50
[2021-09-02] MEDS ORDERED: INSULIN -REGULAR HUMAN 50 UNIT/0.5 ML ML SQ SCH (07:31)
[2021-09-02] MEDS ORDERED: ONDANSETRON 4 MG/2 ML VIAL IV PRN (07:31)
[2021-09-02] MEDS ORDERED: HYDRALAZINE HCL 20 MG/ML VIAL IV PRN (07:31)
[2021-09-02] MEDS ORDERED: ACETAMINOPHEN 500 MG TAB PO PRN (07:31)
[2021-09-02] MEDS ORDERED: ASPIRIN 325 MG TAB PO ONE (08:00)
[2021-09-02] MEDS ORDERED: APIXABAN 5 MG TABLET PO SCH (09:00)
[2021-09-02 09:30] VITALS: BMI 28.3
[2021-09-02 09:45] LABS: Thyroid Stimulating Hormone 0.935 uIU/mL (0.360-3.740); Troponin High Sensitivity 30.3 pg/mL (<58.9)
[2021-09-02 10:36] VITALS: TEMP 97.7
[2021-09-02 10:38] VITALS: BP 132/44; O2SAT 98
--- NOTE | 2021-09-02 13:06 | P.DS ---
Admission Date: 09/02/21 Discharge Date: 09/02/21 Disposition: ROUTINE DISCHARGE Discharge Condition: GOOD Reason for Admission: Chest Pain - Problems (1) History of ventricular tachycardia Status: Acute (2) Chest pain Status: Acute Qualifiers: Chest pain type: unspecified Qualified Code(s): R07.9 - Chest pain, unspecified (3) Hypertension Status: Acute (4) Type 2 diabetes mellitus Status: Chronic Qualifiers: Diabetes mellitus chcf insulin use: without ad terminal makeup operator use Diabetes mellitus complication status: with kidney complications Diabetes mellitus complication detail: with chronic kidney disease Chronic kidney disease stage: stage 2 (mild) Qualified Code(s): E11.22 - Type 2 diabetes mellitus with diabetic chronic kidney disease; N18.2 - Chronic kidney disease, stage 2 (mild) (5) Chronic diastolic heart failure Status: Acute Brief History of Present Illness: Patient is an 80-year-old female with hypertension, NIDDM, diastolic CHF, anemia, and GERD who presented to the ED via EMS from group home. Patient had a sudden onset of chest pain at 0130 that started in the right side of her chest and radiated to her left arm and jaw. She reported it as a 2 out of 10 but constant and dull/achy. Patient was hypertensive at 175/45 upon arrival to ED. EKG within normal limits. Labs significant for hemoglobin 9.5, magnesium 1.6, proBNP 2500, troponin 32.7. Chest x-ray demonstrated interstitial edema and pleural effusion. COVID negative. She was given Lasix in the ED and hospitalized for further management. Hospital Course: Patient placed under observation on the medical floor. Her troponin trended negative. She was seen by cardiology who recommended no further intervention. She has an appointment to follow-up with an EP next week Sunday. Dr. Ribeiro recommended discharge to follow-up with the EP as outpatient. Patient was asymptomatic during the hospital stay. ACS ruled out. Patient is deemed stable for discharge. Vital Signs/Physical Exam: Temp Pulse Resp BP Pulse Ox 97.7 F 60 17 132/44 L 09/02/21 02:44 09/02/21 06:13 09/02/21 06:13 09/02/21 06:13 General: Alert, In no apparent distress, Oriented x3 HEENT: Mucous membr. moist/pink Neck: JVD not distended Respiratory: Clear to auscultation bilaterally, Normal air movement Cardiovascular: No edema, Regular rate/rhythm, Normal S1 S2 Gastrointestinal: Normal bowel sounds, Soft and benign, Non-distended Musculoskeletal: No swelling Integumentary: No rashes Neurological: Normal strength at 5/5 x4 extr Laboratory Data at Discharge: WBC 7.2 K/uL (4.3-10.9) 09/02/21 03:28 Hgb 9.5 g/dL (12.0-15.0) L 09/02/21 03:28 Hct 28.5 % (36.0-45.0) L 09/02/21 03:28 Plt Count 268 K/uL (152-406) 09/02/21 03:28 PT 17.4 SECONDS (9.5-12.5) H 09/02/21 03:28 INR 1.57 09/02/21 03:28 Sodium 140 mmol/L (136-145) 09/02/21 03:28 Potassium 3.9 mmol/L (3.5-5.1) 09/02/21 03:28 BUN 18 mg/dL (7-18) 09/02/21 03:28 Creatinine 0.79 mg/dL (0.55-1.3) 09/02/21 03:28 Glucose 125 mg/dL (74-106) H 09/02/21 03:28 Magnesium 1.6 mg/dL (1.8-2.4) L 09/02/21 03:28 Total Bilirubin 0.2 mg/dL (0.2-1.0) 09/02/21 03:28 AST 15 U/L (15-37) 09/02/21 03:28 ALT 18 U/L (12-78) 09/02/21 03:28 Alkaline Phosphatase 96 U/L (45-117) 09/02/21 03:28 Triglycerides 155 mg/dL (<150) H 09/02/21 08:55 Cholesterol 155 mg/dL (<200) 09/02/21 08:55 HDL Cholesterol 42 mg/dL (40-60) 09/02/21 08:55 Cholesterol/HDL Ratio 3.69 09/02/21 08:55 Home Medications: Amiodarone HCl [Cordarone*] 0.5 tab PO DAILY 07/31/21 Amlodipine [Norvasc*] 5 mg PO BID 07/31/21 Apixaban [Eliquis] 5 mg PO BID 07/31/21 Buspirone HCl 15 mg PO TID 07/31/21 Clopidogrel Bisulfate [Plavix*] 1 tab PO DAILY 07/31/21 Docusate Sodium 100 mg PO DAILY 07/31/21 Ezetimibe [Zetia*] 10 mg PO BEDTIME 07/31/21 Ferrous Sulfate [Ferrous Sulfate*] 1 tab PO DAILY 07/31/21 Fexofenadine HCl 180 mg PO DAILY 07/31/21 Folic Acid 1 mg PO DAILY 07/31/21 Melatonin 5 mg PO BEDTIME 07/31/21 Metformin HCl 1,000 mg PO BID 07/31/21 Oxymetazoline HCl [Dristan] 2 spray IH BID 07/31/21 Spironolactone [Aldactone*] 25 mg PO DAILY 07/31/21 Trazodone HCl 50 mg PO BEDTIME 07/31/21 cloNIDine HCL [Clonidine HCl] 1 tab PO BID 07/31/21 glipiZIDE [Glipizide] 1 tab PO DAILY 07/31/21 Furosemide 40 mg PO BID 30 Days #60 tablet 08/01/21 Isosorbide Mononitrate [Isosorbide Mononitrate ER] 30 mg PO DAILY 09/02/21 Metoprolol Tartrate [Lopressor] 50 mg PO BID 09/02/21 Diet: AHA Activity: Ad perico Followup: NONE,NONE [Primary Care Provider] -
--- NOTE | 2021-09-03 09:03 | EKG ---
Test Date: 2021-09-02 Test Time: 02:54:36 Linen Room Attendant: STARR MEASUREMENT RESULTS: Intervals: Rate: 60 MI: 218 QRSD: 132 QT: 522 QTc: 522 [place]: P: MI: 218 QRS: 89 T: -45 INTERPRETIVE STATEMENTS: Electronic atrial pacemaker Right bundle branch block Septal infarct, age undetermined Lateral infarct, age undetermined Abnormal ECG Compared to ECG 07/31/2021 07:02:27 Sinus rhythm no longer present T-wave abnormality no longer present Possible ischemia no longer present Myocardial infarct finding still present Electronically Signed On 09-03-21 09:02:39 CDT by Tate Ribeiro
--- NOTE | 2021-09-03 12:18 | CON ---
Date of Consultation: 09/02/[address] Alves for chest pain on 09/02/2021. I saw the patient on 09/02/2021. Reason For Consultation: Chest pain. History Of Present Illness: Ms. Pierson is an 80-year-old woman. She has a past medical history of ane colin, congestive heart failure, diabetes, hypertension, ventricular tachycardia, and gastroesophageal reflux disease. She has a history of defibrillator and multiple ventricular tachycardia ablations by Dr. Thomason in [place]. She has an appointment with them coming up in the near future and come s in with left-sided atypical sharp chest pain without any nausea, vomiting, diaphoresis, PND, orthop karla, pedal edema, palpitations, or syncope. Has not felt that she had any cardiac shocks. Allergies: HER ALLERGY LIST IS LONG AND IT INCLUDES ACTOS, FAMOTIDINE, BENICAR, LACTOSE, LACTULOSE, LISINOPRIL, LOSARTAN, OLMESARTAN, SIMVASTATIN, AND TRAMADOL. Review of Systems: Negative. Social History: Negative. Family History: Negative. Medications: At home include amlodipine, clopidogrel, iron, clonidine, Lasix, Eliquis, melatonin, me tformin, Zetia, metoprolol, spironolactone, amiodarone, buspirone, fexofenadine. She also takes glip izide, trazodone, and Flonase. Physical Examination: General: She was pleasant, in no acute distress. Vital Signs: Stable, afebrile, sinus rhythm. HEENT: Negative. Neck: Supple with no bruit. Chest: Clear to auscultation and percussion. Cardiac: Exam revealed a regular rhythm and rate. No murmurs, gallops, or rubs. Abdomen: Benign. Extremities: Revealed no clubbing, cyanosis, or edema. Diagnostic Data: Hemoglobin was 9.5. Creatinine was normal. BNP was 2574. EKG showed electronic a trial pacemaker. Chest x-ray was unremarkable. Impression And Plan: Atypical chest pain. This is definitely not an acute coronary syndrome. Her E KG is unremarkable. Her troponin is negative. Her BNP is elevated. This elevation is secondary to chronic congestive heart failure. She has followup with the alarm investigator, Dr. Thomason ne xt week and I think she needs to continue to see them in the near future. I do not recommend any car dia workup at this point. She has had an extensive cardiac workup in [place]. I will continue her present regimen as far as the medication is concerned. Her other problems including anemia, diabetes , hypertension, ventricular tachycardia, gastroesophageal reflux disease, congestive heart failure, s eem to be stable at this point. As stated earlier, she has had 2 ablations for her ventricular tachy cardia. An echocardiogram in July of 2021 showed an ejection fraction of 60% to 65%, so surely has m ostly left ventricular hypertrophy and mild diastolic congestive heart failure. Her defibrillator pr esence is for ventricular tachycardia. CTA of the chest was negative for pulmonary embolus. I am co mfortable with her going home. Continue on present regimen and we will be [facility] if she needs to. HORTENSIA/ASHLEY Voice ID: [id number] Report ID: [id number]
--- NOTE | 2021-09-03 20:13 | RAD REPORT ---
EXAM DESCRIPTION: RAD - Chest Single View - 09/02/2021 3:17 am CLINICAL HISTORY: The patient is 80 years old and is Female; CHEST PAIN TECHNIQUE: Frontal view of the chest. COMPARISON: No relevant prior studies available. FINDINGS: Lungs: Prominent interstitial markings suggestive of interstitial edema. Patchy bibasilar opacities. Pleural space: Blunting of the costophrenic angles suggestive of bilateral pleural effusions. No pneumothorax. Heart: Unremarkable. Mediastinum: Unremarkable. Bones/joints: Unremarkable. Vasculature: Aortic calcifications. Tubes, lines and devices: Left-sided pacemaker. IMPRESSION: 1. Blunting of the costophrenic angles suggestive of bilateral pleural effusions. 2. Prominent interstitial markings suggestive of interstitial edema. 3. Patchy bibasilar opacities. Electronically signed by: Rubén Maurer MD 09/02/2021 5:53 AM CDT Due to temporary technical issues with the PACS/Fluency reporting system, reports are being signed by the in house radiologists without review as a courtesy to insure prompt reporting. The interpreting radiologist is fully responsible for the content of the report.
--- OUTSIDE RECORDS SUMMARY | 2021-09-08 06:27 | XMS REPORT | Continuity of Care Document ---
:[address] [facility] t Address [address] [place] [address] Care Team Providers Name Role Phone Yudith Daley MD Primary Care Physician Freddy Nair Attending Clinician Unavailable [id number] Attending Clinician Unavailable EMMANUEL Attending Clinician Unavailable GAMAL Attending Clinician Unavailable Doctor Unassigned, Name Attending Clinician Unavailable Emmanuel HOPE Attending Clinician COSME Attending Clinician Unavailable YAKELIN Attending Clinician Unavailable MINDY PAPPAS Attending Clinician Unavailable SONA NOONAN Attending Clinician Unavailable Keila Attending Clinician Unavailable Freddy Nair Admitting Clinician Unavailable [id number] Admitting Clinician Unavailable COSME Admitting Clinician Unavailable MINDY PAPPAS Admitting Clinician Unavailable SONA NOONAN Admitting Clinician Unavailable Yudith Daley Admitting Clinician Unavailable Physician, Primary or Family Admitting Clinician Unavailabl e Payers Payer Name Policy Type Policy Number Effective Date Expiration Date Sabino MORRELL HUMM [id number] [employer] CHOICE [id number] 2020 00:00:00 Problems Condition Condition Condition Status Onset Resolution Last Treating Co mments Source Name Details Category Date Date Treatment Clinician Date ICD ICD Disease Active Univers (implantab (implantab 5-04 it y of le le 00:00: [place] cardiovert cardiovert 00 Me dical er-defibri er-defibri Br anch llator) in llator) in place place Coronary Coronary Disease Active Unive rs artery artery 5-04 ity of disease disease 00:00: [place] involving involving 00 Medi vee [place] coronary coronary artery of artery of [place] heart heart without without angina angina pectoris pectoris SVT SVT Disease Active Univers (supravent (supravent 3-05 it y of ricular ricular 00:00: [place] tachycardi tachycardi 00 Me dical a) a) Branch V-tach V-tach Disease Active Univers 2-23 ity of 00:00: [place] 00 Medical Branch Chest Chest Disease Active Overview: Univer s pain, pain, 2-23 Formattin ity of unspecifie unspecifie 00:00: g of this [place] d type d type 00 note Medical might be Branch different from the original. Added automatic ally from request for surgery [id number] Wide-compl Wide-compl Disease Active U nivers ex ex 2-10 ity of tachycardi tachycardi 00:[place] a [place] 00 [place] Elevated Elevated Disease Active Unive rs troponin troponin 4-28 ity of 00:00: [place] 00 Medical Branch Hypertensi Hypertensi Disease Active U nivers ve ve 4-28 ity of emergency emergency 00:00: [place] [facility] Medical Branch Altered Altered Disease Active Univers mental mental 4-28 ity of state state 00:00: [place] Medical Branch Epigastric Epigastric Disease Active U nivers pain pain 4-28 ity of 00:00: [place] Medical Branch Diabetes Diabetes Disease Active Unive rs type 2, type 2, ity of controlled controlled [place] [facility] Branch Hyperlipid Hyperlipid Disease Active U nivers emia emia ity of [facility] Benign Benign Disease Active Univers essential essential ity of HTN HTN [facility] Chronic Chronic Disease Active Univers diastolic diastolic ity of heart heart [place] failure failure Medical Branch Osteoporos Osteoporos Disease Active U nivers is is ity of [facility] Allergies, Adverse Reactions, Alerts Allergy Allergy Status Severity Reaction(s) Onset Inactive Treating Comm ents Source Name Type Date Date Clinician olmesjohnathon DA Active [place] HIVES [facility] an 2-23 Clear 00:00: [address] lactulos DA Active [place] NAUSEA, [facility] e VOMITTING 2-23 Clear 00:00: [place] 00 [facility] famotidi DA Active [place] ANXIETY, [facility] ne HALLUCINATIO 2-23 Mary r N 00:00: [place] 00 [facility] simvasta DA Active [place] HIVES [facility] tin 2-23 Clear 00:00: [place] 00 [facility] losartan DA Active MO HIVES [facility] 2-23 Clear 00:00: [place] [facility] pioglita DA Active [place] HIVES [facility] zone 2-23 Clear 00:00: [place] 00 [facility] Famotidi Propensi Active Hallucinatio 2019-0 Univers ne ty to ns 10-28 ity of adverse 00:00: [place] reaction 00 Medical s Branch FAMOTIDI DRUG Active Anxiety 2020-0 Univers NE INGREDI 10-28 ity of 00:00: [place] 00 Medical Branch Pioglita Propensi Active Hives 2020-0 Univer s zone ty to 6- ity of adverse 00:00: [place] reaction 00 Medical s Branch Olmesart Propensi Active Hives 2020-0 Univer s an ty to 6- ity of Medoxomi adverse 00:00: [place] l reaction 00 Medical s Branch Hydrochl Propensi Active Hives 2020-0 Univer s oric ty to 6- ity of Acid adverse 00:00: [place] reaction 00 Medical s Branch Lactose Propensi Active Nausea 2020-0 Univers ty to and/or 6- ity of adverse Vomiting 00:00: [place] reaction 00 Medical s Branch Lisinopr Propensi Active Hives 2020-0 Univer s il ty to 6-03 ity of adverse 00:00: [place] reaction 00 Medical s Branch Losartan Propensi Active Hives 2020-0 Univer s Potassiu ty to 6- ity of m adverse 00:00: [place] reaction 00 Medical s Branch Simvasta Propensi Active Hives 2020-0 Univer s tin ty to 6- ity of adverse 00:00: [place] reaction 00 Medical s Branch PIOGLITA DRUG Active Hives 2020-0 Univers ZONE INGREDI 6- ity of 00:00: [place] 00 Medical Branch OLMESART DRUG Active Hives 2020-0 Univers AN INGREDI 6-03 ity of MEDOXOMI 00:00: [place] L 00 Medical Branch HYDROCHL DRUG Active Hives 2020-0 Univers ORIC INGREDI 6- ity of ACID 00:00: [place] 00 Medical Branch LACTOSE DRUG Active N/V 2020-0 Univers INGREDI 6-03 ity of 00:00: [place] 00 Medical Branch LISINOPR DRUG Active Hives 2020-0 Univers IL INGREDI 6- ity of 00:00: [place] 00 Medical Branch LOSARTAN DRUG Active Hives 2020-0 Univers POTASSIU INGREDI 6- ity of M 00:00: [place] 00 Medical Branch SIMVASTA DRUG Active Hives 2020-0 Univers TIN INGREDI 6- ity of 00:00: [place] 00 Medical Branch Social History Social Habit Start Date Stop Date Quantity Comments Source History of tobacco Cigarette Smoker [facility] Exposure to 2021-07-12 2021-07-22 Not sure [facility] SARS-CoV-2 (event) 00:00:00 15:13:00 [facility] Alcohol intake 2021-06-22 2021-06-22 Ex-drinker [facility] 00:00:00 00:00:00 (finding) [facility] Cigarettes smoked 2021-04-13 2021-04-13 Univers ity of current (pack per 00:00:00 00:00:00 ) - Reported Branch Tobacco use and 2021-04-13 2021-04-13 Former smokeless Uni versity of exposure 00:00:00 00:00:00 tobacco user [facility] Sex [birth year] At [birth year] Universit y of 00:00:00 00:00:00 [facility] Smoking Status Start Date Stop Date Source Ex-smoker 2021-04-13 00:00:00 2021-04-13 00:00:00 Universi ty of [facility] Medications Ordered Filled Start Stop Current Ordering Indication Dosage Frequency Signature Comments Components Source Medication Medication Date Date Medication? Clinician (SIG) Name Name acetaminoph Yes 500mg Take 500 U nivers en 500 mg 5-04 mg by ity of tablet 12:03: mouth [place] [id number] every 6 Medical (six) Branch hours as needed for Pain. Melatonin 5 Yes Take by Un [place] mg tablet 5-04 mouth. ity of 12:03: [place] [id number] Medical Branch acetaminoph 2021-0 Yes 500mg Take 500 U nivers en 500 mg 5-04 mg by ity of tablet 12:03: mouth [place] [id number] every 6 Medical (six) Branch hours as needed for Pain. Melatonin 5 2021-0 Yes Take by Un [place] mg tablet 5-04 mouth. ity of 12:03: [place] [address] Medical Branch acetaminoph 2021-0 Yes 500mg Take 500 U nivers en 500 mg 5-04 mg by ity of tablet 12:03: mouth [place] [id number] every 6 Medical (six) Branch hours as needed for Pain. Melatonin 5 2021-0 Yes Take by Un [place] mg tablet 5-04 mouth. ity of 12:: [place] [address] Medical Branch acetaminoph 0 Yes 500mg Take 500 U nivers en 500 mg 5-04 mg by ity of tablet 12:03: mouth [place] [address] every 6 Medical (six) Branch hours as needed for Pain. Melatonin 5 2021-0 Yes Take by Un [place] mg tablet 5-04 mouth. ity of 12:03: [place] [address] Medical Branch acetaminoph 0 Yes 500mg Take 500 U nivers en 500 mg 5-04 mg by ity of tablet 12:03: mouth [place] [address] every 6 Medical (six) Branch hours as needed for Pain. Melatonin 5 2021-0 Yes Take by Un [place] mg tablet 5-04 mouth. ity of 12:03: [place] [address] Medical Branch acetaminoph 2021-0 Yes 500mg Take 500 U nivers en 500 mg 5-04 mg by ity of tablet 12:03: mouth [place] [id number] every 6 Medical (six) Branch hours as needed for Pain. Melatonin 5 2021-0 Yes Take by Un [place] mg tablet 5-04 mouth. ity of 12:03: [place] [address] Medical Branch clopidogreL 2021-0 Yes [id number] 75mg Take 1 Univers 75 mg 5-04 tablet by ity of tablet 00:00: mouth [place] 00 daily. Medical Branch amiodarone 2021-0 Yes 100mg Take 1 Univ ers 100 mg 5-04 tablet by ity of tablet 00:00: mouth [place] 00 daily. Medical Branch apixaban 5 2021-0 Yes 5mg Take 1 Unive rs mg tablet 5-04 tablet by ity o f 00:00: mouth 2 [place] 00 (two) Medical times Branch daily. clopidogreL 2022-0 Yes [id number] 75mg Take 1 Univers 75 mg 5-04 tablet by ity of tablet 00:00: mouth [place] 00 daily. Medical Branch amiodarone 2-0 Yes 100mg Take 1 Univ ers 100 mg 5-04 tablet by ity of tablet 00:00: mouth [place] 00 daily. Medical Branch apixaban 5 2021-0 Yes 5mg Take 1 Unive rs mg tablet 5-04 tablet by ity o f 00:00: mouth 2 (two) Medical times Branch daily. clopidogreL 2022-0 Yes [id number] 75mg Take 1 Univers 75 mg 5-04 tablet by ity of tablet 00:00: mouth [place] 00 daily. Medical Branch amiodarone 2-0 Yes 100mg Take 1 Univ ers 100 mg 5-04 tablet by ity of tablet 00:00: mouth [place] 00 daily. Medical Branch apixaban 5 2021-0 Yes 5mg Take 1 Unive rs mg tablet 5-04 tablet by ity o f 00:00: mouth (two) Medical times Branch daily. clopidogreL 2-0 Yes [id number] 75mg Take 1 Univers 75 mg 5-04 tablet by ity of tablet 00:00: mouth [place] 00 daily. Medical Branch amiodarone 2-0 Yes 100mg Take 1 Univ ers 100 mg 5-04 tablet by ity of tablet 00:00: mouth [place] 00 daily. Medical Branch apixaban 5 2-0 Yes 5mg Take 1 Unive rs mg tablet 5-04 tablet by ity o f 00:00: mouth (two) Medical times Branch daily. clopidogreL 2022-0 Yes [id number] 75mg Take 1 Univers 75 mg 5-04 tablet by ity of tablet 00:00: mouth [place] 00 daily. Medical Branch amiodarone 2-0 Yes 100mg Take 1 Univ ers 100 mg 5-04 tablet by ity of tablet 00:00: mouth [place] 00 daily. Medical Branch apixaban 5 2-0 Yes 5mg Take 1 Unive rs mg tablet 5-04 tablet by ity o f 00:00: mouth 2 00 (two) Medical times Branch daily. clopidogreL 2022-0 Yes [id number] 75mg Take 1 Univers 75 mg 5-04 tablet by ity of tablet 00:00: mouth 00 daily. Medical Branch amiodarone 2021-0 Yes 100mg Take 1 Univ ers 100 mg 5-04 tablet by ity of tablet 00:00: mouth daily. Medical Branch apixaban 5 2021-0 Yes 5mg Take 1 Unive rs mg tablet 5-04 tablet by ity o f 00:00: mouth (two) Medical times Branch daily. ezetimibe 2021-0 Yes [id number] 10mg Take 1 Un [place] 10 mg 2-26 tablet by ity of tablet 00:00: mouth 00 daily. Medical Branch metoprolol 2021-0 Yes [id number] 50mg Take 1 U nivers tartrate 50 2-26 tablet by ity of mg tablet 00:00: mouth (two) Medical times Branch daily. ezetimibe 2021-0 Yes [id number] 10mg Take 1 [place] 10 mg 2-26 tablet by ity of tablet 00:00: mouth daily. Medical Branch metoprolol 2021-0 Yes [id number] 50mg Take 1 U nivers tartrate 50 2-26 tablet by ity of mg tablet 00:00: mouth (two) Medical times Branch daily. ezetimibe 2021-0 Yes [id number] 10mg Take 1 [place] 10 mg 2-26 tablet by ity of tablet 00:00: mouth daily. Medical Branch metoprolol 2021-0 Yes [id number] 50mg Take 1 U nivers tartrate 50 2-26 tablet by ity of mg tablet 00:00: mouth (two) Medical times Branch daily. ezetimibe 2021-0 Yes [id number] 10mg Take 1 Un [place] 10 mg 2-26 tablet by ity of tablet 00:00: mouth 00 daily. Medical Branch metoprolol 2021-0 Yes [id number] 50mg Take 1 U nivers tartrate 50 2-26 tablet by ity of mg tablet 00:00: mouth (two) Medical times Branch daily. ezetimibe 2021-0 Yes [id number] 10mg Take 1 [place] 10 mg 2-26 tablet by ity of tablet 00:00: mouth 00 daily. Medical Branch metoprolol 2022-0 Yes [id number] 50mg Take 1 U nivers tartrate 50 2-26 tablet by ity of mg tablet 00:00: mouth (two) Medical times Branch daily. ezetimibe 0 Yes [id number] 10mg Take 1 Un [place] 10 mg 2-26 tablet by ity of tablet 00:00: mouth 00 daily. Medical Branch metoprolol 0 Yes [id number] 50mg Take 1 U nivers tartrate 50 2-26 tablet by ity of mg tablet 00:00: mouth (two) Medical times Branch daily. spironolact Yes [id number] 25mg Take 1 Univers one 25 mg 2-17 tablet by ity o f tablet 00:00: mouth 00 daily. Medical Branch cloNIDine Yes [id number] .1mg Take 1 U nivers 0.1 mg 2-17 tablet by ity of tablet 00:00: mouth (two) Medical times Branch daily. furosemide Yes [id number] 40mg Take 1 Un [place] 40 mg 2-17 tablet by ity of tablet 00:00: mouth 00 daily. Medical Branch spironolact Yes [id number] 25mg Take 1 Univers one 25 mg 2-17 tablet by ity o f tablet 00:00: mouth 00 daily. Medical Branch cloNIDine 0 Yes [id number] .1mg Take 1 U nivers 0.1 mg 2-17 tablet by ity of tablet 00:00: mouth (two) Medical times Branch daily. furosemide 0 Yes [id number] 40mg Take 1 Un [place] 40 mg 2-17 tablet by ity of tablet 00:00: mouth 00 daily. Medical Branch spironolact 0 Yes [id number] 25mg Take 1 Univers one 25 mg 2-17 tablet by ity o f tablet 00:00: mouth 00 daily. Medical Branch cloNIDine Yes [id number] .1mg Take 1 U nivers 0.1 mg 2-17 tablet by ity of tablet 00:00: mouth 00 (two) Medical times Branch daily. furosemide 0 Yes [id number] 40mg Take 1 Un [place] 40 mg 2-17 tablet by ity of tablet 00:00: mouth 00 daily. Medical Branch spironolact Yes [id number] 25mg Take 1 Univers one 25 mg 2-17 tablet by ity o f tablet 00:00: mouth 00 daily. Medical Branch cloNIDine Yes [id number] .1mg Take 1 U nivers 0.1 mg 2-17 tablet by ity of tablet 00:00: mouth (two) Medical times Branch daily. furosemide Yes [id number] 40mg Take 1 [place] 40 mg 2-17 tablet by ity of tablet 00:00: mouth 00 daily. Medical Branch spironolact Yes [id number] 25mg Take 1 Univers one 25 mg 2-17 tablet by ity o f tablet 00:00: mouth 00 daily. Medical Branch cloNIDine Yes [id number] .1mg Take 1 U nivers 0.1 mg 2-17 tablet by ity of tablet 00:00: mouth (two) Medical times Branch daily. furosemide Yes [id number] 40mg Take 1 [place] 40 mg 2-17 tablet by ity of tablet 00:00: mouth daily. Medical Branch spironolact Yes [id number] 25mg Take 1 Univers one 25 mg 2-17 tablet by ity o f tablet 00:00: mouth daily. Medical Branch cloNIDine Yes [id number] .1mg Take 1 U nivers 0.1 mg 2-17 tablet by ity of tablet 00:00: mouth (two) Medical times Branch daily. furosemide Yes [id number] 40mg Take 1 [place] 40 mg 2-17 tablet by ity of tablet 00:00: mouth daily. Medical Branch amLODIPine 0 Yes [id number] 5mg Take 1 Un [place] 5 mg tablet 9-01 tablet by ity of 00:00: mouth (two) Medical times Branch daily. metFORMIN 2020-0 Yes [id number] 1000mg Take 2 Univers 500 mg 9-01 tablets by ity of tablet 00:00: mouth (two) Medical times Branch daily with meals. amLODIPine Yes [id number] 5mg Take 1 [place] 5 mg tablet 9-01 tablet by ity of 00:00: mouth (two) Medical times Branch daily. metFORMIN 2020-0 Yes [id number] 1000mg Take 2 Univers 500 mg 9-01 tablets by ity of tablet 00:00: mouth (two) Medical times Branch daily with meals. amLODIPine 2020-0 Yes [id number] 5mg Take 1 [place] 5 mg tablet 9-01 tablet by ity of 00:00: mouth (two) Medical times Branch daily. metFORMIN 2020-0 Yes [id number] 1000mg Take 2 Univers 500 mg 9-01 tablets by ity of tablet 00:00: mouth (two) Medical times Branch daily with meals. amLODIPine 2020-0 Yes [id number] 5mg Take 1 [place] 5 mg tablet 9-01 tablet by ity of 00:00: mouth () Medical times Branch daily. metFORMIN 2020-0 Yes [id number] 1000mg Take 2 Univers 500 mg 9-01 tablets by ity of tablet 00:00: mouth () Medical times Branch daily with meals. amLODIPine 2020-0 Yes [id number] 5mg Take 1 [place] 5 mg tablet 9-01 tablet by ity of 00:00: mouth () Medical times Branch daily. metFORMIN 2020-0 Yes [id number] 1000mg Take 2 Univers 500 mg 9-01 tablets by ity of tablet 00:00: mouth () Medical times Branch daily with meals. amLODIPine 2020-0 Yes [id number] 5mg Take 1 Un [place] 5 mg tablet 9-01 tablet by ity of 00:00: mouth () Medical times Branch daily. metFORMIN 2020-0 Yes [id number] 1000mg Take 2 Univers 500 mg 9-01 tablets by ity of tablet 00:00: mouth (two) Medical times Branch daily with meals. carvediloL 2020-0 Yes Elevated 12.5mg Take 1 Univers 12.5 mg 5-06 troponin tablet by ity of tablet 00:00: mouth (two) Medical times Branch daily with meals. cloNIDine 2020-0 Yes Elevated .1mg Take 1 [place] 0.1 mg 5-06 troponin tablet by ity of tablet 00:00: mouth (two) Medical times Branch daily. carvediloL 2021-0 Yes Elevated 12.5mg Take 1 Univers 12.5 mg 5-06 troponin tablet by ity of tablet 00:00: mouth 2 [place] 00 (two) Medical times Branch daily with meals. cloNIDine Yes Elevated .1mg Take 1 Un [place] 0.1 mg 5-06 troponin tablet by ity of tablet 00:00: mouth 2 [place] 00 (two) Medical times Branch daily. sennosides- Yes Chronic 1{tbl} Take 1 Univers docusate 5-05 diastolic tablet by i ty of sodium 00:00: heart mouth [place] 8.6-50 mg 00 failure daily. Medic al per tablet Branch SITagliptin Yes Chronic 25mg Take 1 U nivers 25 mg 5-05 diastolic tablet by ity of tablet 00:00: heart mouth [place] 00 failure daily. Medical Branch sennosides- Yes Chronic 1{tbl} Take 1 Univers docusate 5-05 diastolic tablet by i ty of sodium 00:00: heart mouth [place] 8.6-50 mg 00 failure daily. Medic al per tablet Branch SITagliptin Yes Chronic 25mg Take 1 U nivers 25 mg 5-05 diastolic tablet by ity of tablet 00:00: heart mouth [place] 00 failure daily. Medical Branch aspirin Yes 81mg Take 81 mg Univ ers (ASPIR-81) 5-04 by mouth ity o f 81 mg EC 19:43: daily. [place] tablet 44 Taking 2 Medical tabs 81mg Branch po daily nitroglycer Yes .4mg Place 0.4 U nivers in 0.4 mg 5-04 mg under ity of sublingual 19:43: the tongue [place] tablet 44 every 5 Medical (five) Branch minutes as needed for Chest pain. fexofenadin Yes 180mg Take 180 U nivers e 180 mg 5-04 mg by ity of tablet 19:43: mouth [place] 44 daily. Medical Branch acetaminoph Yes 500mg Take 500 U nivers en 500 mg 5-04 mg by ity of tablet 19:43: mouth [place] 44 every 6 Medical (six) Branch hours as needed for Pain. Melatonin 5 Yes Take by Un [place] mg tablet 5-04 mouth. ity of 19:43: [place] 44 Medical Branch aspirin Yes 81mg Take 81 mg Univ ers (ASPIR-81) 5-04 by mouth ity o f 81 mg EC 19:43: daily. [place] tablet 44 Taking 2 Medical tabs 81mg Branch po daily nitroglycer Yes .4mg Place 0.4 U nivers in 0.4 mg 5-04 mg under ity of sublingual 19:43: the tongue [place] tablet 44 every 5 Medical (five) Branch minutes as needed for Chest pain. fexofenadin Yes 180mg Take 180 U nivers e 180 mg 5-04 mg by ity of tablet 19:43: mouth [place] 44 daily. Medical Branch acetaminoph Yes 500mg Take 500 U nivers en 500 mg 5-04 mg by ity of tablet 19:43: mouth [place] 44 every 6 Medical (six) Branch hours as needed for Pain. Melatonin 5 Yes Take by Un [place] mg tablet 5-04 mouth. ity of 19:43: [place] 44 Medical Branch carvediloL 2020- No Chronic 12.5mg Take 1 Univers 12.5 mg 5-04 05-06 diastolic tablet by i ty of tablet 00:00: 00:00 heart mouth 2 [place] 00 :00 failure (two) Medical times Branch daily with meals. cloNIDine 2020- No Chronic .1mg Take 1 [place] 0.1 mg 5-04 05-06 diastolic tablet by it y of tablet 00:00: 00:00 heart mouth 2 [place] 00 :00 failure (two) Medical times Branch daily. carvediloL 2020- No Chronic 12.5mg Take 1 Univers 12.5 mg 5-04 05-06 diastolic tablet by i ty of tablet 00:00: 00:00 heart mouth 2 [place] 00 :00 failure (two) Medical times Branch daily with meals. cloNIDine 2020- No Chronic .1mg Take 1 [place] 0.1 mg 5-04 05-06 diastolic tablet by it y of tablet 00:00: 00:00 heart mouth 2 [place] 00 :00 failure (two) Medical times Branch daily. Lancets Yes Controlled TEST BLOOD Univers (ACCU-CHEK 4-01 type 2 SUGAR ity of SOFTCLIX 00:00: diabetes DIRECTED [place] LANCETS) 00 mellitus ( THREE Medi [facility] Misc with other TIMES Branch circulatory DAILY ) complicatio n, without long-term current use of insulin Lancets Yes Controlled TEST BLOOD Univers (ACCU-CHEK 4-01 type 2 SUGAR ity of SOFTCLIX 00:00: diabetes DIRECTED [place] LANCETS) 00 mellitus ( THREE [facility] Misc with other TIMES Branch circulatory DAILY ) complicatio n, without long-term current use of insulin Lancets Yes [id number] TEST BLOOD Univers (ACCU-CHEK 4-01 SUGAR ity o f SOFTCLIX 00:00: DIRECTED [place] LANCETS) 00 ( THREE Medical Misc TIMES Branch DAILY ) Lancets Yes [id number] TEST BLOOD Univers (ACCU-CHEK 4-01 SUGAR ity o f SOFTCLIX 00:00: DIRECTED [place] LANCETS) 00 ( THREE Medical Misc TIMES Branch DAILY ) Lancets Yes [id number] TEST BLOOD Univers (ACCU-CHEK 4-01 SUGAR ity o f SOFTCLIX 00:00: DIRECTED [place] LANCETS) 00 ( THREE Medical Misc TIMES Branch DAILY ) Lancets Yes [id number] TEST BLOOD Univers (ACCU-CHEK 4-01 SUGAR ity o f SOFTCLIX 00:00: DIRECTED [place] LANCETS) 00 ( THREE Medical Misc TIMES Branch DAILY ) Lancets Yes [id number] TEST BLOOD Univers (ACCU-CHEK 4-01 SUGAR ity o f SOFTCLIX 00:00: DIRECTED [place] LANCETS) 00 ( THREE Medical Misc TIMES Branch DAILY ) Lancets Yes [id number] TEST BLOOD Univers (ACCU-CHEK 4-01 SUGAR ity o f SOFTCLIX 00:00: DIRECTED [place] LANCETS) 00 ( THREE Medical Misc TIMES Branch DAILY ) METFORMIN Yes Controlled TAKE 2 Univers 500 mg 3-19 type 2 TABLETS ity of tablet 00:00: diabetes TWICE [place] 00 mellitus DAILY WITH Medic al without MEALS Branch complicatio n, without long-term current use of insulin METFORMIN Yes Controlled TAKE 2 Univers 500 mg 3-19 type 2 TABLETS ity of tablet 00:00: diabetes TWICE [place] 00 mellitus DAILY WITH Medic al without MEALS Branch complicatio n, without long-term current use of insulin ibandronate 2021- No Localized 150mg Take 1 Univers 150 mg 03-11 osteoporosi tablet by ity of tablet 00:00: 05:59 s with mouth once [place] 00 :00 current every Medical pathologica month. Branch l fracture with delayed healing, subsequent encounter ibandronate 2021- No Localized 150mg Take 1 Univers 150 mg 03-11 osteoporosi tablet by ity of tablet 00:00: 05:59 s with mouth once [place] 00 :00 current every Medical pathologica month. Branch l fracture with delayed healing, subsequent encounter ergocalcife 2020- No Vitamin D [id number] Take 1 Univers rol, 03-11 12-30 deficiency capsule by it y of vitamin d2, 00:00: 05:59 mouth once [place] 1,250 mcg 00 :00 every Medical (50,000 month for Branch unit) 12 doses. capsule ergocalcife 2020- No Vitamin D [id number] Take 1 Univers rol, 03-11-30 deficiency capsule by it y of vitamin d2, 00:00: 05:59 mouth once [place] 1,250 mcg 00 :00 every Medical (50,000 month for Branch unit) 12 doses. capsule glycerin, Yes Slow 1{suppo Insert 1 U nivers adult, 02-26 transit sitory} Suppositor i ty of suppository 00:00: constipatio y into 00 n rectum as Medical needed for Branch Constipati on. glipiZIDE Yes Controlled 10mg Take 1 Univers 10 mg 02-26 type 2 tablet by ity of tablet 00:00: diabetes mouth [place] 00 mellitus daily. Medical without Branch complicatio n, without long-term current use of insulin spironolact Yes Essential 12.5mg Take 0.5 Univers one 25 mg 08 hypertensio tablets by ity of tablet 00:00: n mouth [place] 00 daily. Medical Branch glycerin, Yes Slow 1{suppo Insert 1 U nivers adult, 08 transit sitory} Suppositor i ty of suppository 00:00: constipatio y into 00 n rectum as Medical needed for Branch Constipati on. glipiZIDE Yes Controlled 10mg Take 1 Univers 10 mg 08 type 2 tablet by ity of tablet 00:00: diabetes mouth mellitus daily. Medical without Branch complicatio n, without long-term current use of insulin spironolact Yes Essential 12.5mg Take 0.5 Univers one 25 mg 08 hypertensio tablets by ity of tablet 00:00: n mouth daily. Medical Branch glycerin, Yes [id number] 1{suppo Insert 1 Univers adult, 1-08 sitory} Suppositor ity of suppository 00:00: y [place] 00 rectum as Medical needed for Branch Constipati on. glycerin, Yes [id number] 1{suppo Insert 1 Univers adult, 1-08 sitory} Suppositor ity of suppository 00:00: y [place] 00 rectum as Medical needed for Branch Constipati on. glycerin, Yes [id number] 1{suppo Insert 1 Univers adult, 1-08 sitory} Suppositor it[place] Medical needed for Branch Constipati on. glycerin, Yes [id number] 1{suppo Insert 1 Univers adult, 1-08 sitory} Suppositor ity of suppository 00:00[place] rectum as Medical needed for Branch Constipati on. glycerin, Yes [id number] 1{suppo Insert 1 Univers adult, 1-08 sitory} Suppositor ity of suppository 00:00: [place] rectum as Medical needed for Branch Constipati on. glycerin, Yes [id number] 1{suppo Insert 1 Univers adult, 1-08 sitory} Suppositor ity of suppository 00:00: [place] rectum as Medical needed for Branch Constipati on. FUROSEMIDE 2019-02 Yes Benign TAKE 1 Uni vers 40 mg 2-14 essential TABLET ity of tablet 00:00: HTN EVERY DAY Medical Branch AMLODIPINE 2019-02 Yes Benign TAKE 1 Uni vers 5 mg tablet 2-14 essential TABLET i ty of 00:00: HTN TWICE DAILY Medical Branch FUROSEMIDE 2019-02 Yes Benign TAKE 1 Uni vers 40 mg 2-14 essential TABLET ity of tablet 00:00: HTN EVERY DAY [place] 00 Medical Branch AMLODIPINE 2019-02 Yes Benign TAKE 1 Uni vers 5 mg tablet 2-14 essential TABLET i ty of 00:00: HTN TWICE [place] 00 DAILY Medical Branch blood sugar 2019- Yes Controlled Use as Univers diagnostic 2- type 2 directed ity of (CONTOUR 00:00: diabetes [place] NEXT TEST 00 mellitus Medica l STRIPS) with other Branch strip circulatory complicatio n, without long-term current use of insulin blood sugar 2019-02 Yes Controlled Use as Univers diagnostic 2- type 2 directed ity of (CONTOUR 00:00: diabetes [place] NEXT TEST 00 mellitus Medica l STRIPS) with other Branch strip circulatory complicatio n, without long-term current use of insulin blood sugar 2019-02 Yes [id number] Use as Univers diagnostic 2- directed ity o f (CONTOUR 00:00: [place] NEXT TEST 00 Medical STRIPS) Branch strip blood sugar 2019-02 Yes [id number] Use as Univers diagnostic 2- directed ity o f (CONTOUR 00:00: [place] NEXT TEST 00 Medical STRIPS) Branch strip blood sugar 2020 Yes [id number] Use as Univers diagnostic 2-02 directed ity o f (CONTOUR 00:00: [place] NEXT TEST 00 Medical STRIPS) Branch strip blood sugar 2020- Yes [id number] Use as Univers diagnostic 2- directed ity o f (CONTOUR 00:00: [place] NEXT TEST 00 Medical STRIPS) Branch strip blood sugar 2020- Yes [id number] Use as Univers diagnostic 2-02 directed ity o f (CONTOUR 00:00: [place] NEXT TEST 00 Medical STRIPS) Branch strip blood sugar 2020- Yes [id number] Use as Univers diagnostic 2-02 directed ity o f (CONTOUR 00:00: [place] NEXT TEST 00 Medical STRIPS) Branch strip flash 2020-0 Yes Controlled 1{kit} 1 Kit Uni vers glucose 9-10 type 2 CONTINUOUS ity of scanning 00:00: diabetes . [place] reader 00 mellitus Medical (FREESTYLE with other [facility], [facility]1983 MEETA 14 circulatory DAY READER) complicatio Misc n, without long-term current use of insulin flash Yes Controlled 1{each} 1 Each U nivers glucose 9-10 type 2 every 2 ity of sensor 00:00: diabetes (two) [place] (FREESTYLE 00 mellitus weeks. Med ical MEETA 14 with other Branc h DAY SENSOR) circulatory Kit complicatio n, without long-term current use of insulin flash 2020-0 Yes Controlled 1{kit} 1 Kit Uni vers glucose 9-10 type 2 CONTINUOUS ity of scanning 00:00: diabetes . [place] reader 00 mellitus Medical (FREESTYLE with other Bra [facility], [facility]–1983 MEETA 14 circulatory DAY READER) complicatio Misc n, without long-term current use of insulin flash 2020-0 Yes Controlled 1{each} 1 Each U nivers glucose 9-10 type 2 every 2 ity of sensor 00:00: diabetes (two) [place] (FREESTYLE 00 mellitus weeks. Med ical MEETA 14 with other Branc h DAY SENSOR) circulatory Kit complicatio n, without long-term current use of insulin flash 2020-0 Yes [id number] 1{kit} 1 Kit Unive rs glucose 9-10 CONTINUOUS ity of scanning 00:00: . [place] reader 00 Medical (FREESTYLE Branch MEETA 14 DAY READER) Misc flash 2020-0 Yes [id number] 1{each} 1 Each Uni vers glucose 9-10 every 2 ity of sensor 00:00: (two) [place] (FREESTYLE 00 weeks. Medical MEETA 14 Branch DAY SENSOR) Kit flash 2020-0 Yes [id number] 1{kit} 1 Kit Unive rs glucose 9-10 CONTINUOUS ity of scanning 00:00: . [place] reader 00 Medical (FREESTYLE Branch MEETA 14 DAY READER) Misc flash 2020-0 Yes [id number] 1{each} 1 Each Uni vers glucose 9-10 every 2 ity of sensor 00:00: (two) [place] (FREESTYLE 00 weeks. Medical MEETA 14 Branch DAY SENSOR) Kit flash 2020-0 Yes [id number] 1{kit} 1 Kit Unive rs glucose 9-10 CONTINUOUS ity of scanning 00:00: . [place] reader 00 Medical (FREESTYLE Branch MEETA 14 DAY READER) Misc flash 2020-0 Yes [id number] 1{each} 1 Each Uni vers glucose 9-10 every 2 ity of sensor 00:00: (two) [place] (FREESTYLE 00 weeks. Medical MEETA 14 Branch DAY SENSOR) Kit flash 2020-0 Yes [id number] 1{kit} 1 Kit Unive rs glucose 9-10 CONTINUOUS ity of scanning 00:00: . [place] reader 00 Medical (FREESTYLE Branch MEETA 14 DAY READER) Misc flash 2020-0 Yes [id number] 1{each} 1 Each Uni vers glucose 9-10 every 2 ity of sensor 00:00: (two) [place] (FREESTYLE 00 weeks. Medical MEETA 14 Branch DAY SENSOR) Kit flash 2020-0 Yes [id number] 1{kit} 1 Kit Unive rs glucose 9-10 CONTINUOUS ity of scanning 00:00: . [place] reader 00 Medical (FREESTYLE Branch MEETA 14 DAY READER) Misc flash 2020-0 Yes [id number] 1{each} 1 Each Uni vers glucose 9-10 every 2 ity of sensor 00:00: (two) [place] (FREESTYLE 00 weeks. Medical MEETA 14 Branch DAY SENSOR) Kit flash 2020-0 Yes [id number] 1{kit} 1 Kit Unive rs glucose 9-10 CONTINUOUS ity of scanning 00:00: . [place] reader 00 Medical (FREESTYLE Branch MEETA 14 DAY READER) Misc flash 2020-0 Yes [id number] 1{each} 1 Each Uni vers glucose 9-10 every 2 ity of sensor 00:00: (two) [place] (FREESTYLE 00 weeks. Medical MEETA 14 Branch DAY SENSOR) Kit triamcinolo 2020-0 Yes Venous Apply to Univers ne 7-16 stasis area(s) 2 ity of acetonide 00:00: dermatitis (two) [place] 0.1 % cream 00 of both times Medi vee lower daily. Branch extremities ketoconazol 2020-0 Yes Intertrigo Apply to Univers e 2 % cream 7-16 area(s) ity o f 00:00: daily. [place] 00 Beneath Medical breasts Branch triamcinolo 2020-0 Yes Venous Apply to Univers ne 7-16 stasis area(s) 2 ity of acetonide 00:00: dermatitis (two) [place] 0.1 % cream 00 of both times Medi vee lower daily. Branch extremities ketoconazol 2020-0 Yes Intertrigo Apply to Univers e 2 % cream 7-16 area(s) ity o f 00:00: daily. [place] 00 Beneath Medical breasts Branch triamcinolo 2020-0 Yes [id number] Apply to Univers ne 7-16 area(s) 2 ity of acetonide 00:00: (two) [place] 0.1 % cream 00 times Medical daily. Branch ketoconazol 2020-0 Yes [id number] Apply to Univers e 2 % cream 7-16 area(s) ity o f 00:00: daily. [place] 00 Beneath Medical breasts Branch triamcinolo 2020-0 Yes [id number] Apply to Univers ne 7-16 area(s) 2 ity of acetonide 00:00: (two) [place] 0.1 % cream 00 times Medical daily. Branch ketoconazol 2020-0 Yes [id number] Apply to Univers e 2 % cream 7-16 area(s) ity o f 00:00: daily. [place] 00 Beneath Medical breasts Branch triamcinolo 2020-0 Yes [id number] Apply to Univers ne 7-16 area(s) 2 ity of acetonide 00:00: (two) [place] 0.1 % cream 00 times Medical daily. Branch ketoconazol 2020-0 Yes [id number] Apply to Univers e 2 % cream 7-16 area(s) ity o f 00:00: daily. [place] 00 Beneath Medical breasts Branch triamcinolo 2020-0 Yes [id number] Apply to Univers ne 7-16 area(s) 2 ity of acetonide 00:00: (two) [place] 0.1 % cream 00 times Medical daily. Branch ketoconazol 2020-0 Yes [id number] Apply to Univers e 2 % cream 7-16 area(s) ity o f 00:00: daily. [place] 00 Beneath Medical breasts Branch triamcinolo 2020-0 Yes [id number] Apply to Univers ne 7-16 area(s) 2 ity of acetonide 00:00: (two) [place] 0.1 % cream 00 times Medical daily. Branch ketoconazol 2020-0 Yes [id number] Apply to Univers e 2 % cream 7-16 area(s) ity o f 00:00: daily. [place] 00 Beneath Medical breasts Branch triamcinolo 2020-0 Yes [id number] Apply to Univers ne 7-16 area(s) 2 ity of acetonide 00:00: (two) [place] 0.1 % cream 00 times Medical daily. Branch ketoconazol 2020-0 Yes [id number] Apply to Univers e 2 % cream 7-16 area(s) ity o f 00:00: daily. [place] 00 Beneath Medical breasts Branch clotrimazol 2020-0 Yes Tinea pedis Apply to Univers e 1 % 7-02 of both area(s) at ity o f topical 00:00: feet bedtime. [place] cream 00 Medical Branch clotrimazol 2020-0 Yes Tinea pedis Apply to Univers e 1 % 7-02 of both area(s) at ity o f topical 00:00: feet bedtime. [place] cream 00 Medical Branch clotrimazol 2020-0 Yes [id number] Apply to Univers e 1 % 7-02 area(s) at ity of topical 00:00: bedtime. [place] cream 00 Medical Branch clotrimazol 2020-0 Yes [id number] Apply to Univers e 1 % 7-02 area(s) at ity of topical 00:00: bedtime. [place] cream 00 Medical Branch clotrimazol 2020-0 Yes [id number] Apply to Univers e 1 % 7-02 area(s) at ity of topical 00:00: bedtime. [place] cream 00 Medical Branch clotrimazol 2020-0 Yes [id number] Apply to Univers e 1 % 7-02 area(s) at ity of topical 00:00: bedtime. [place] cream 00 Medical Branch clotrimazol 2020-0 Yes [id number] Apply to Univers e 1 % 7-02 area(s) at ity of topical 00:00: bedtime. [place] cream 00 Medical Branch clotrimazol 2020-0 Yes [id number] Apply to Univers e 1 % 7-02 area(s) at ity of topical 00:00: bedtime. [place] cream 00 Medical Branch ciclopirox 2020-0 Yes Onychomycos Apply to Univers (PENLAC) 8 6-03 is area(s) at ity of % solution 00:00: bedtime. [place] 00 Apply to Medical Nails. Branch ciclopirox 2020-0 Yes Onychomycos Apply to Univers (PENLAC) 8 6-03 is area(s) at ity of % solution 00:00: bedtime. [place] 00 Apply to Medical Nails. Branch ciclopirox 2020-0 Yes [id number] Apply to Univers (PENLAC) 8 6-03 area(s) at ity of % solution 00:00: bedtime. [place] 00 Apply to Medical Nails. Branch ciclopirox 2020-0 Yes [id number] Apply to Univers (PENLAC) 8 6-03 area(s) at ity of % solution 00:00: bedtime. [place] 00 Apply to Medical Nails. Branch ciclopirox 2020-0 Yes [id number] Apply to Univers ([facility]) 8 6-03 area(s) at ity of % solution 00:00: bedtime. [place] 00 Apply to Medical Nails. Branch ciclopirox 2020-0 Yes [id number] Apply to [facility]) 8 6-03 area(s) at ity of % solution 00:00: bedtime. [place] 00 Apply to Medical Nails. Branch ciclopirox 2020-0 Yes [id number] Apply to [facility]) 8 6-03 area(s) at ity of % solution 00:00: bedtime. [place] 00 Apply to Medical Nails. Branch ciclopirox 2020-0 Yes [id number] Apply to [facility]) 8 6-03 area(s) at ity of % solution 00:00: bedtime. [place] 00 Apply to Medical Nails. Branch Immunizations Ordered Filled Immunization Date Status Comments [facility] e Immunization Name Name Influenza Virus 2020-11-24 Completed Universit y of Vaccine,quad 00:00:00 [place] Medica l Im,preserve Free Branch 65+ Influenza Virus 2020-11-24 Completed Universit y of Vaccine,quad 00:00:00 [place] Medica [facility] Im,preserve Free Branch 65+ Influenza Virus 2020-11-24 Completed Universit y of Vaccine,quad 00:00:00 [place] Medica l Im,preserve Free Branch 65+ Influenza Virus 2020-11-24 Completed Universit y of Vaccine,quad 00:00:00 [place] Medica l Im,preserve Free Branch 65+ Influenza Virus 2020-11-24 Completed Universit y of Vaccine,quad 00:00:00 [place] Medica l Im,preserve Free Branch 65+ Influenza Virus 2020-11-24 Completed Universit y of Vaccine,quad 00:00:00 [place] Medica l Im,preserve Free Branch 65+ SARS-COV-2 COVID-19 2020-04-28 Completed Unive rsity of MODERNA VACCINE 00:00:00 [place] [facility] ica Branch SARS-COV-2 COVID-19 2020-04-28 Completed Unive rsity of MODERNA VACCINE 00:00:00 [facility] Branch SARS-COV-2 COVID-19 2020-04-28 Completed Unive rsity of MODERNA VACCINE 00:00:00 [place] [facility] ical Branch SARS-COV-2 COVID-19 2020-04-28 Completed Unive rsity of MODERNA VACCINE 00:00:00 [place] [facility] Branch SARS-COV-2 COVID-19 2020-04-28 Completed Unive rsity of MODERNA VACCINE 00:00:00 [place] [facility] Branch SARS-COV-2 COVID-19 2020-04-28 Completed Unive rsity of MODERNA VACCINE 00:00:00 [place] [facility] Branch SARS-COV-2 COVID-19 2020-03-30 Completed Unive rsity of MODERNA VACCINE 00:00:00 [place] [facility] Branch SARS-COV-2 COVID-19 2020-03-30 Completed Unive rsity of MODERNA VACCINE 00:00:00 [facility] Branch SARS-COV-2 COVID-19 2020-03-30 Completed Unive rsity of MODERNA VACCINE 00:00:00 [place] [facility] Branch SARS-COV-2 COVID-19 2020-03-30 Completed Unive rsity of MODERNA VACCINE 00:00:00 [facility] Branch SARS-COV-2 COVID-19 2020-03-30 Completed Unive rsity of MODERNA VACCINE 00:00:00 [facility] Branch SARS-COV-2 COVID-19 2020-03-30 Completed Unive rsity of MODERNA VACCINE 00:00:00 [facility] Branch Influenza High Dose 2019-11-27 Completed Unive rsity of Quad 00:00:00 [place] [facility] Branch Influenza High Dose 2019-11-27 Completed Unive rsity of Quad 00:00:00 [facility] Branch Influenza High Dose 2019-11-27 Completed Unive rsity of Quad 00:00:00 [facility] Branch Influenza High Dose 2019-11-27 Completed Unive rsity of Quad 00:00:00 [facility] Branch Influenza High Dose 2019-11-27 Completed Unive rsity of Quad 00:00:00 [facility] Influenza High Dose 2019-11-27 Completed Unive rsity of Quad 00:00:00 [facility] Influenza High Dose 2019-11-27 Completed Unive rsity of Quad 00:00:00 [facility] Influenza High Dose 2019-11-27 Completed Unive rsity of Quad 00:00:00 [place] [facility] Branch Pneumococcal 13 2014-07-27 Completed Universit y of Conjugate, PCV13 00:00:00 [place] Me dical (Prevnar 13) Branch Pneumococcal 13 2014-07-27 Completed Universit y of Conjugate, PCV13 00:00:00 [place] Me dical (Prevnar 13) Branch Pneumococcal 13 2014-07-27 Completed Universit y of Conjugate, PCV13 00:00:00 [place] Me dical (Prevnar 13) Branch Pneumococcal 13 2014-07-27 Completed Universit y of Conjugate, PCV13 00:00:00 [place] Me dical (Prevnar 13) Branch Pneumococcal 13 2014-07-27 Completed Universit y of Conjugate, PCV13 00:00:00 [place] Me dical (Prevnar 13) Branch Pneumococcal 13 2014-07-27 Completed Universit y of Conjugate, PCV13 00:00:00 [place] Me dical (Prevnar 13) Branch Pneumococcal 13 2014-07-27 Completed Universit y of Conjugate, PCV13 00:00:00 [place] Me dical (Prevnar 13) Branch Pneumococcal 13 2014-07-27 Completed Universit y of Conjugate, PCV13 00:00:00 [place] Me dical (Prevnar 13) Branch Pneumococcal 2010-06-19 Completed University o f Polysaccharide, 00:00:00 [place] Med ical PPSV23 (PNEUMOVAX) Branch Pneumococcal 2010-06-19 Completed University o f Polysaccharide, 00:00:00 [place] Med ical PPSV23 (PNEUMOVAX) Branch Pneumococcal 2010-06-19 Completed University o f Polysaccharide, 00:00:00 [place] Med ical PPSV23 (PNEUMOVAX) Branch Pneumococcal 2010-06-19 Completed University o f Polysaccharide, 00:00:00 [place] Med ical PPSV23 (PNEUMOVAX) Branch Pneumococcal 2010-06-19 Completed University o f Polysaccharide, 00:00:00 [place] Med ical PPSV23 (PNEUMOVAX) Branch Pneumococcal 2010-06-19 Completed University o f Polysaccharide, 00:00:00 [place] Med ical PPSV23 (PNEUMOVAX) Branch Pneumococcal 2010-06-19 Completed University o f Polysaccharide, 00:00:00 [place] Med ical PPSV23 (PNEUMOVAX) Branch Pneumococcal 2010-06-19 Completed University o f Polysaccharide, 00:00:00 [place] Med ical PPSV23 (PNEUMOVAX) Branch Vital Signs Vital Name Observation Time Observation Value Comments Source Systolic blood 2021-07-22 20:31:00 131 mm[Hg] Univer sity of pressure [place] [facility] Diastolic blood 2021-07-22 20:31:00 62 mm[Hg] Unive rsity of pressure [facility] Heart rate 2021-07-22 20:31:00 63 /min Universi ty of [place] [facility] Respiratory rate 2021-07-22 20:31:00 15 /min Univ ersity of [place] [facility] Body weight 2021-07-22 20:31:00 64.864 kg Universi ty of [place] [facility] BMI 2021-07-22 20:31:00 27.93 kg/m2 Universi ty of [place] [facility] [place] Oxygen saturation in 2021-07-22 20:31:00 96 /min [facility] Arterial blood by [facility] Pulse oximetry Branch Systolic blood 2020-06-24 19:53:00 139 mm[Hg] Univer sity of pressure [place] [facility] Diastolic blood 2020-06-24 19:53:00 78 mm[Hg] Unive rsity of pressure [place] [facility] Heart rate 2020-06-24 19:52:00 82 /min Universi ty of [place] [facility] Body temperature 2020-06-24 19:52:00 36.44 [facility] ersity of [place] [facility] Respiratory rate 2020-06-24 19:52:00 18 /min [facility] [place] [facility] [place] Body height 2020-06-24 19:52:00 157.5 cm Universi ty of [place] [facility] Body weight 2020-06-24 19:52:00 67.359 kg Universi ty of [place] [facility] BMI 2020-06-24 19:52:00 27.16 kg/m2 Universi ty of [place] [facility] Procedures Procedure Date / Time Performing Clinician Source Performed AUTHORIZATION FOR 2021-08-25 05:01:00 Doctor Unassigned, No Univ ersity [facility] RELEASE OF PHI Name Medical Branch AUTHORIZATION FOR 2021-08-19 05:01:00 Doctor Unassigned, No Univ ersity [facility] RELEASE OF PHI Name Medical Branch EXTERNAL PROVIDER - ADC 2021-07-22 05:01:00 Doctor Unassigned, N o [facility] CARDIOLOGY Name Medical Branch Plan of Care Planned Activity Planned Date Details Comments Source Future Scheduled 2029-08-12 Screening for University of Test 00:00:00 osteoporosis [place] [facility] (procedure) [code = Branch [id number]] Future Scheduled 2029-08-12 Screening for University of Test 00:00:00 osteoporosis [place] [facility] (procedure) [code = Branch [id number]] Future Scheduled 2021-06-19 Creatinine University of Test 00:00:00 measurement [place] [facility] (procedure) [code = Branch [id number]] Future Scheduled 2021-06-19 Creatinine University of Test 00:00:00 measurement [place] [facility] (procedure) [code = Branch [id number]] Future Scheduled 2021-06-15 Calculated low Universit y of Test 00:00:00 density lipoprotein [place] Me dical cholesterol level Branch (procedure) [code = 903117297] Future Scheduled 2021-06-15 Calculated low Universit y of Test 00:00:00 density lipoprotein [place] Me dical cholesterol level Branch (procedure) [code = 292604232] Future Scheduled 2020-12-15 Hemoglobin A1c Universit y of Test 00:00:00 measurement [place] [facility] (procedure) [code = Branch [id number]] Future Scheduled 2020-12-15 Hemoglobin A1c Universit y of Test 00:00:00 measurement [place] [facility] (procedure) [code = Branch [id number]] Future Scheduled 2020-09-15 Diabetic foot University of Test 00:00:00 examination [place] [facility] (regime/therapy) Branch [code = 733847573] Future Scheduled 2020-09-15 Diabetic foot University of Test 00:00:00 examination [place] [facility] (regime/therapy) Branch [code = 663087838] Future Scheduled 2020-09-11 Examination of Universit y of Test 00:00:00 retina (procedure) [place] Med ical [code = 082134775] Branch Future Scheduled 2020-09-11 Examination of Universit y of Test 00:00:00 retina (procedure) [place] Med ical [code = 166007385] Branch Future Scheduled 2020-08-20 Depression screening Uni versity of Test 00:00:00 (procedure) [code = [place] [facility] dical 310510654] Branch Future Scheduled 2020-08-20 Depression screening Uni versity of Test 00:00:00 (procedure) [code = [place] [facility] dical 166854450] Branch Future Scheduled 2020-07-22 DTaP,Tdap,and Td Postponed from Unive rsity of Test 00:00:00 Vaccines (1 - Tdap) 09/10/1959 [place] Me dical [code = (Alternative Branch DTaP,Tdap,and Td Guidelines) Vaccines (1 - Tdap)] Future Scheduled 2020-07-22 Microalbumin University of Test 00:00:00 measurement, urine, [place] Me dical quantitative Branch (procedure) [code = 182203253] Future Scheduled 2020-07-22 Zoster Recombinant Postponed from Uni versity of Test 00:00:00 Vaccine (SHINGRIX) 1990 [place] Med ical (1 of 2) [code = (Insurance / Branch Zoster Recombinant Financial) Vaccine (SHINGRIX) (1 of 2)] Future Scheduled 2020-07-22 DTaP,Tdap,and Td Postponed from Unive rsity of Test 00:00:00 Vaccines (1 - Tdap) 09/10/1959 [place] Me dical [code = (Alternative Branch DTaP,Tdap,and Td Guidelines) Vaccines (1 - Tdap)] Future Scheduled 2020-07-22 Microalbumin University of Test 00:00:00 measurement, urine, [place] Me dical quantitative Branch (procedure) [code = 431813649] Future Scheduled 2020-07-22 Zoster Recombinant Postponed from Uni versity of Test 00:00:00 Vaccine (SHINGRIX) 1990 [place] Med ical (1 of 2) [code = (Insurance / Branch Zoster Recombinant Financial) Vaccine (SHINGRIX) (1 of 2)] Future Scheduled 2005 Medicare Annual Universi ty of Test 00:00:00 Wellness Visit [place] [facility] (procedure) [code = Branch [id number]] Future Scheduled 2005 Medicare Annual Universi ty of Test 00:00:00 Wellness Visit [place] [facility] (procedure) [code = Branch [id number]] Future Scheduled 1958 Hepatitis C University of Test 00:00:00 screening [place] [facility] (procedure) [code = Branch 063495424] Future Scheduled 1958 Hepatitis C University of Test 00:00:00 screening [place] [facility] (procedure) [code = Branch 964326827] Future Scheduled 1956 SARS-CoV-2 University of Test 00:00:00 (COVID-19) Vaccine [place] [facility] ical (1) [code = Branch SARS-CoV-2 (COVID-19) Vaccine (1)] Future Scheduled 1956 SARS-CoV-2 University [facility] 00:00:00 (COVID-19) Vaccine [place] Med ical (1) [code = Branch SARS-CoV-2 (COVID-19) Vaccine (1)] Encounters Start End Encounter Admission Attending Care Care Encounter Source Date/Time Date/Time Type Type Clinicians Facility Department ID 2021-05-23 Outpatient 3 Korey ENCPL RAMANDEEP [id number] ENC[facility] 09:07:35 Freddy 0404 2021-05-19 Outpatient 3 Korey ENCPL RAMANDEEP [id number] ENC[facility] 10:32:01 Freddy 0331 2021-05-16 Outpatient 3 [id number] [facility] REF [id number] ENC[facility] 14:15:44 0328 2021-05-13 Outpatient 3 [id number] [facility] REF [id number] ENC[facility] 10:38:18 0325 2021-05-12 Outpatient 3 [id number] ENC[facility] REF [id number] ENC[facility] 11:13:53 0324 2021-10-28 2021-10-28 Outpatient Radha BENITEZ [facility] [id number] Univers 13:00:00 13:00:00 FABIANA gipson [facility] 2021-09-05 2021-09-05 Outpatient [facility] [id number] [place] 00:00:00 00:00:[address] 2021-08-25 2021-08-25 Orders Doctor NO [id number] Univers 00:00:00 00:00:00 Only Unassigned, [place] [id number] ity of [place] [facility] [id number] [place] [phone] [address] 2021-08-19 2021-08-19 Orders Doctor NO [id number] Univers 00:00:00 00:00:00 Only Unassigned, [place] [id number] ity of [place] [facility] [id number] [place] [phone] [address] 2021-08-16 2021-08-16 Patient Doctor SCREKHA [id number] Univers 00:00:00 00:00:00 Secure Msg Unassigned, ANGLESUZI [id number] ity of [place] [id number] [place] [phone] [place] [facility] NAL [address] [place] [address] 2021-08-04 2021-08-04 Patient Emmanuel, [facility] [id number] [place] [facility] 00:00:00 00:00:00 Secure Msg Fabiana MOREAU [id number] ity of [id number] [place] [phone] [place] NAL [address] [place] [address] 2021-07-22 2021-07-22 [facility] [id number] Univers 15:00:00 15:47:37 Visit Fabiana MOREAU [id number] ity of [id number] [place] [phone] [facility] NAL [address] [place] [address] 2021-07-22 2021-07-22 Orders Doctor NO [id number] Univers 00:00:00 00:00:00 Only Unassigned, [place] [id number] ity of [place] [facility] [id number] [place] as [phone] [address] 2021-06-20 2021-06-20 Outpatient [facility] [id number] [place] 00:00:00 00:00:00 MONTSE Perez [address] [facility]ardo 2021-05-05 2021-06-08 Inpatient AGUIAR, [facility] 012 [id number] [place] 00:00:00 00:00:00 EVETTE Mdeina Method i 2021-05-27 2021-05-27 Outpatient Radha HAMLIN [facility] [id number] [facility] 11:20:00 11:20:00 GREGG [id number] [facility] 2021-04-18 2021-05-05 Inpatient X ABU [facility] [id number] [facility] 21:13:00 16:22:00 sharonda PAPPAS [facility] 2021-04-13 2021-04-16 Outpatient U SHAISTA [facility] [id number] [facility] 19:50:00 15:30:00 TANYA [facility] 2021-04-13 2021-04-13 Emergency EM Williamsu, [facility] FATOU [id number] [facility] 10:18:00 19:26:00 Jed [id number] [facility] 2021-04-13 2021-04-13 Emergency EM Williamsu, [facility] [id number] [facility] 10:18:00 19:26:00 Jed 20 [facility] Results Test Description Test Time Test Comments Results Result Comments Source SARS-CoV-2 (COVID-19) RNA [Presence] in Respiratory sp ecimen by 2021-06-08 14:03:47 DAYSI with probe detection Test Item Value Reference Range Interpretation Comme nts SARS-CoV-2 (COVID-19) RNA [Presence] in Respiratory specimen by Not detected DAYSI with probe detection (test code = 95558-7) Whether patient is employed in a healthcare setting (test code = Un known 23792-0) Whether the patient has symptoms related to condition of interest U nknown (test code = 48305-1) Whether the patient was hospitalized for condition of interest Unkn own (test code = 68993-0) Whether the patient was admitted to intensive care unit (ICU) for U nknown condition of interest (test code = 89712-5) Whether patient resides in a congregate care setting (test code = U nknown 15326-8) status (test code = 96688-4) Unknown Date and time of symptom onset (test code = 80519-3) Unknown SARS-CoV-2 (COVID-19) RNA [Presence] in Respiratory specimen by DAYSI with probe [id number] 15:19:43 Test Item Value Reference Range Interpretation Comments SARS-CoV-2 (COVID-19) RNA Not detected [Presence] in Respiratory specimen by DAYSI with probe detection (test code = 56802-5) Whether patient is employed in a Unknown healthcare setting (test code = 29040-3) Whether the patient has symptoms Unknown related to condition of interest (test code = 78149-2) Whether the patient was Unknown hospitalized for condition of interest (test code = 77020-5) Whether the patient was admitted Unknown to intensive care unit (ICU) for condition of interest (test code = 48752-0) Whether patient resides in a Unknown congregate care setting (test code = 98155-9) status (test code = Unknown 89081-3) Date and time of symptom onset Unknown (test code = 44242-1) SARS-CoV-2 (COVID-19) RNA [Presence] in Respiratory specimen by DAYSI with probe [id number] 01:10:48 Test Item Value Reference Range Interpretation Comments SARS-CoV-2 (COVID-19) RNA Not detected [Presence] in Respiratory specimen by DAYSI with probe detection (test code = 95017-2) Whether patient is employed in a Unknown healthcare setting (test code = 11192-8) Whether the patient has symptoms Unknown related to condition of interest (test code = 97020-3) Whether the patient was Unknown hospitalized for condition of interest (test code = 76226-6) Whether the patient was admitted Unknown to intensive care unit (ICU) for condition of interest (test code = 40667-2) Whether patient resides in a Unknown congregate care setting (test code = 23068-3) status (test code = Unknown 12234-8) Date and time of symptom onset Unknown (test code = 59776-7) SARS-CoV-2 (COVID-19) RNA [Presence] in Respiratory specimen by DAYSI with probe [id number] 23:22:41 Test Item Value Reference Range Interpretation Comments SARS-CoV-2 (COVID-19) RNA Not detected [Presence] in Respiratory specimen by DAYSI with probe detection (test code = 38512-9) Whether patient is employed in a Unknown healthcare setting (test code = 31610-3) Whether the patient has symptoms Unknown related to condition of interest (test code = 52183-3) Whether the patient was Unknown hospitalized for condition of interest (test code = 99460-6) Whether the patient was admitted Unknown to intensive care unit (ICU) for condition of interest (test code = 01600-9) Whether patient resides in a Unknown congregate care setting (test code = 19181-0) status (test code = Unknown 60544-7) Date and time of symptom onset Unknown (test code = 95149-9) COVID 19 INHOUSE [id number] 18:14:00 Test Item Value Reference Range Interpretation Comments COVID 19 INHOUSE Negative Negative A negative result is AG (test code = presumptive and should be [id number]) confirmedwith a n FDA authorized mole cular assay, if necessary fo rpatient management.A po sitive result does not rule out co-infections w ithother pathogens.This test detects both viable (li ve) and non-viable,SARS -CoV, and SARS-CoV-2. Travis t performance dep ends on theamount of vi mihai (antigen) in e sample.This travis t has not been FDA cleare d or approved; the t est hasbeen authorized by [employer] [facility] [employer] under an Emergency Use Authorization(E UA) for use by laboratories certified under the CLIA thatmeet the requirements to perform moderate, high or waivedcomplexit y tests. TROP-I HIGH [id number] 16:38:00 Test Item Value Reference Range Interpretation Comments TROP-I HIGH 41 ng/L 0-34 H CAUTION: Units of the SENSITIVITY (test current te st methodology code = TROPIHS) (ng/L) diffe rfrom the prior test methodolog y (ng/mL) by a factor of 1000. 99th Percentile Upper Reference Limit (URL): Females: 34 ng/LMales: 54 ng/L In order to distin guish acute elevations of h igh sensitivitytrop onin from other clinical conditions, the FourthUnive rsal Definition of M yocardial Infarction stre ssesclinical assessment and the demonstration o f a rise and/orfall in s erial troponin result s above the URL. These resu lts were obtained using Siemens [employer] IM TnI Hreagent. Results from di fferent methodologies s hould not becompared to o ne another as quantitative results and URLs mayvary by method. TROP-I HIGH [id number] 13:08:00 Test Item Value Reference Range Interpretation Comments TROP-I HIGH 41 ng/L 0-34 H CAUTION: Units of the SENSITIVITY (test current te st methodology code = TROPIHS) (ng/L) diffe rfrom the prior test methodolog y (ng/mL) by a factor of 1000. 99th Percentile Upper Reference Limit (URL): Females: 34 ng/LMales: 54 ng/L In order to distin guish acute elevations of h igh sensitivitytrop onin from other clinical conditions, the FourthUnive rsal Definition of M yocardial Infarction stre ssesclinical assessment and the demonstration o f a rise and/orfall in s erial troponin result s above the URL. These resu lts were obtained using Siemens [employer] IM TnI Hreagent. Results from di fferent methodologies s hould not becompared to o ne another as quantitative results and URLs mayvary by method. LIPOPROTEIN [id number] 12:15:00 Test Item Value Reference Range Interpretation Comments LIPOPROTEIN LDL 145.9 mg/dL 0-100 H <100 OPT [id number] (test code = LDL) NEAR OPTI MAL/ABOVE [id number] [id number] 89 HIGH>OA=901 VE RY HIGH*Guidelines provided by the National Choles terol EducationProgra m Adult Treatment Panel III B-TYPE NATRIURETIC [id number] 11:21:00 Test Item Value Reference Range Interpretation Comments B-TYPE NATRIURETIC PEPTIDE (test 259.0 PG/ML 0-100 H code = BNP) PROTHROMBIN [id number] 11:15:00 Test Item Value Reference Range Interpretation Comments PROTHROMBIN TIME 12.0 SECONDS 9.3-12.9 N PATIENT (test code = PTP) INTERNATIONAL NORMAL 1.1 0.8-1.2 N TARGET RATIO (test code = INR BY IN DICATION INR) Indication INR1. Prophyl axis of venous thrombos is 2.0 - 3. 0 (orthopedic karen prema), Prophylaxis of venous thrombos is (other than hig h-risk surgery), Joy tment of Deep Vein Thrombosis/Pulm onary Embolism, Preve ntion of systemic emb olism - Tissue heart va lves, Acute Myocardia l Infarction (to prevent systemic embo lism), Valvular heart disease, Atri al Fibrillation, Bileaflet mecha nical valve in aortic position.2. Mec hanical prosthetic valv es (high risk), 2.5 - 3.5 Presence of Lupus Anticoagu lant or Antiphospholi pid Antibodies, Pre vention of systemic e mbolism - Acute Myocard ial Infarction (t o prevent recurre nt infarct). BASIC METABOLIC [id number] 11:14:00 Test Item Value Reference Range Interpretation Comments SODIUM (test code = NA) 142 mEq/L 134-147 N POTASSIUM (test code = 4.2 mEq/L 3.4-5.0 N K) CHLORIDE (test code = 105 mEq/L 100-108 N CL) CARBON DIOXIDE (test 26 mEq/l 21-33 N code = CO2) ANION GAP (test code = 16 0-20 N GAP) GLUCOSE (test code = 189 mg/dL 70-110 H GLU) BLOOD UREA NITROGEN 26 mg/dL 7-18 H (test code = BUN) GLOMERULAR FILTRATION 60.2 70-80 L Units of measure = RATE (test code = GFR) ml/mi n/1.73 m2 CREATININE (test code = 0.9 mg/dL 0.6-1.3 N CREAT) CALCIUM (test code = 9.1 mg/dL 8.0-10.5 N CA) HEPATIC FUNCTION [id number] 11:14:00 Test Item Value Reference Range Interpretation Comments TOTAL PROTEIN (test code = PROT) 7.0 g/dL 6.4-8.2 N ALBUMIN (test code = ALB) 4.00 g/dL 3.4-5.0 N BILIRUBIN TOTAL (test code = BILT) 0.60 mg/dL 0.0-1.0 N BILIRUBIN DIRECT (test code = 0.10 MG/DL 0.0-0.30 N BILD) SGOT/AST (test code = AST) 17 IUnit/L 15-37 N SGPT/ALT (test code = ALT) 12 IUnit/L 30-65 L ALKALINE PHOSPHATASE TOTAL (test 82 IUnit/L 20-125 N code = ALKP) BILIRUBIN INDIRECT (test code = 0.50 MG/DL BILIND) [id number] 11:14:00 Test Item Value Reference Range Interpretation Comments MAGNESIUM (test code = MAG) 1.78 mg/dL 1.80-2.40 L TROP-I HIGH [id number] 11:14:00 Test Item Value Reference Range Interpretation Comments TROP-I HIGH 38 ng/L 0-34 H CAUTION: Units of the SENSITIVITY (test current te st methodology code = TROPIHS) (ng/L) diffe rfrom the prior test methodolog y (ng/mL) by a factor of 1000. 99th Percentile Upper Reference Limit (URL): Females: 34 ng/LMales: 54 ng/L In order to distin ish acute elevations of h igh sensitivitytrop onin from other clinical conditions, the FourthUnive rsal Definition of M yocardial Infarction stre ssesclinical assessment and the demonstration o f a rise and/orfall in s erial troponin result s above the URL. These resu lts were obtained using Siemens [employer] IM TnI Hreagent. Results from di fferent methodologies s hould not becompared to o ne another as quantitative results and URLs mayvary by method. CBC W/AUTO [id number] 10:56:00 Test Item Value Reference Range Interpretation Comments WHITE BLOOD CELL (test code = 8.9 x10 3/uL 4.5-11.0 N WBC) RED BLOOD CELL (test code = 3.74 x10 6/uL 3.54-5.02 N RBC) HEMOGLOBIN (test code = HGB) 11.4 g/dL 11.0-15.0 N HEMATOCRIT (test code = HCT) 35.0 % 33.0-45.0 N MEAN CELL VOLUME (test code = 93.6 fL 81.0-99.0 N MCV) MEAN CELL HGB (test code = MCH) 30.5 pg 27.0-33.0 N MEAN CELL HGB CONCETRATION 32.6 g/dL 33.0-37.0 L (test code = MCHC) RED CELL DISTRIBUTION WIDTH CV 13.0 % 11.5-14.5 N (test code = RDW) PLATELET COUNT (test code = 178 x10 3/uL 150-400 N PLT) NEUTROPHIL % (test code = NT%) 78.8 % 56.0-77.0 H LYMPHOCYTE % (test code = LY%) 11.5 % 14.0-32.0 L NEUTROPHIL # (test code = NT#) 7.00 x10 3/uL 2.0-7.6 N LYMPHOCYTE # (test code = LY#) 1.02 x10 3/uL 1.0-3.8 N MANUAL DIFF REQUIRED (test code NO = MDIFF) RED CELL DISTRIBUTION WIDTH SD 44.3 fL 37.0-54.0 N (test code = RDW-SD) MEAN PLATELET VOLUME (test code 11.5 fL 7.0-9.0 H = MPV) IMMATURE GRANULOCYTE % (test 0.3 % 0.0-2.0 N code = IG%) MONOCYTE % (test code = MO%) 7.5 % 4.8-9.0 N EOSINOPHIL % (test code = EO%) 1.3 % 0.3-3.7 N BASOPHIL % (test code = BA%) 0.6 % 0.0-2.0 N NUCLEATED RBC % (test code = 0.0 % 0-0 N NRBC%) IMMATURE GRANULOCYTE # (test 0.03 x10 3/uL 0.00-0.03 N code = IG#) MONOCYTE # (test code = MO#) 0.67 x10 3/uL 0.1-0.8 N EOSINOPHIL # (test code = EO#) 0.12 x10 3/uL 0.0-0.2 N BASOPHIL # (test code = BA#) 0.05 x10 3/uL 0.0-0.2 N NUCLEATED RBC # (test code = 0.00 x10 3/uL 0.0-0.1 N NRBC#) - XR CHEST 1 [id number] 00:00:00 [facility] RADHA LAKEName: SHILPI PIERSON : 1940 Sex: F FAX: Jed Bentley DO [phone] [place]: St: REG Name: [facility]ILPI PIERSON [facility] [place] : 1940 Age/S: 80/F [address] [place] [address] BlvdUnit #: [id number] [place]: [place] [address] Phys: Jed Pedraza DO Acct: [id number] Dis Date: Status: R EG ER PHONE #: [phone] Exam Date: 04/13/20211106 FAX #: [phone] Reason: Chest Pain EXAMS: CPT CODE: [id number] XR CHEST 1 V 06097 PROCEDURE INFORMATION: Exam: XR Chest Exam date and time: 04/13/2021 10:57 AM Age: 80 years old Clinical indication: Pain; Chest pressure; Additional info: Chest pain TECHNIQUE: Imaging protocol: XR of the chest. Views: 1 view. COMPARISON: No relevant prior studies available. FINDINGS: Lungs: The lungs are hypoinflated. No consolidation or interstitial edema. Pleural spaces: No pleural effusion. No pneumothorax. Heart/Mediastinum: Borderline cardiomegaly. Vasculature: Aortic arch calcifications are present. Bones/joints: No acute abnormality. IMPRESSION: No acute cardiopulmonary process. at 1123 Reported and signed by: Alex Grey M.D. CC: Jed Pedraza DO Technologist: RT Tammy(R) TrnscrdDate/Time/By: 04/13/2021 (1123) : By: [email or web address] Orig Print D/T: S: 04/13/2021 (6829) PAGE 1 Signed Report
== END 2021-09-02 10:25 | disposition home or self-care (01) ==
LOC: ER 02:42 → ERHOLD 04:42
PROVIDERS: ADMIT Internal Medicine; ATTEND Internal Medicine
DX: R07.89 Other chest pain (principal); I13.0 Hypertensive heart and chronic kidney disease with heart failure and stage 1 through stage 4 chronic kidney disease, or unspecified chronic kidney disease; I50.32 Chronic diastolic (congestive) heart failure; N18.2 Chronic kidney disease, stage 2 (mild); E11.22 Type 2 diabetes mellitus with diabetic chronic kidney disease; I47.2 Ventricular tachycardia; D64.9 Anemia, unspecified; K21.9 Gastro-esophageal reflux disease without esophagitis; E78.5 Hyperlipidemia, unspecified; Z95.810 Presence of automatic (implantable) cardiac defibrillator; Z95.5 Presence of coronary angioplasty implant and graft; Z79.01 Long term (current) use of anticoagulants; Z79.84 Long term (current) use of oral hypoglycemic drugs; Z79.899 Other long term (current) drug therapy; Z88.6 Allergy status to analgesic agent; Z88.8 Allergy status to other drugs, medicaments and biological substances; Z20.822 Contact with and (suspected) exposure to COVID-19; Z80.9 Family history of malignant neoplasm, unspecified
CPT/HCPCS: 36415; 71045; 80048; 80061; 80076; 83036; 83735; 83880; 84443; 84484; 85025; 85610; 93005; 96374; 97161; 99285; G0378; J1940; U0003

== ENCOUNTER 2021-10-17 21:36 | Inpatient (IN) | payer OTHER ==
--- OUTSIDE RECORDS SUMMARY | 2021-10-17 21:53 | XMS REPORT | Continuity of Care Document ---
:1940 Author Organization [facility] t Address [address] [place] [address] Care Team Providers Name Role Phone KYRA DALEY Primary Care Physician Unavailable Freddy Nair Rahil Attending Clinician Unavailable [id number] Attending Clinician Unavailable FABIANA BENITEZ Attending Clinician Unavailable Angie Tirado MD Attending Clinician Kasia Deleon RN Attending Clinician Unavailable Paddy HOPE, Carlito Jackson Attending Clinician [phone] Doctor Unassigned, [place] Attending Clinician Unavailable Fabiana Benitez MD Attending Clinician Alissa Wright MD Attending Clinician Romaine Rodriguez MD Attending Clinician Aurora Lal CRNA Attending Clinician [phone] Catrina Gonsalez NP Attending Clinician [phone] GREGG HAMLIN Attending Clinician Unavailable Ashley Ramírez MD Attending Clinician Saqib Colón Attending Clinician [phone] Mando Bhakta MD Attending Clinician Sathya Adame Attending Clinician JARED GALICIA Attending Clinician Unavailable DASHAWN NOONAN Attending Clinician Unavailable Jed Pedraza Attending Clinician Unavailable Freddy Nair Rahil Admitting Clinician Unavailable [id number] Admitting Clinician Unavailable ALISSA WRIGHT Admitting Clinician Unavailable JARED GALICIA Admitting Clinician Unavailable DASHAWN NOONAN Admitting Clinician Unavailable Kyra Daley Admitting Clinician Unavailable Physician, No Primary or Family Admitting Clinician Unavaila ble Payers Payer Name Policy Type Policy Number Effective Date Expiration Date Sabino MORRELL HUMM [id number] HU[employer] CHOICE [id number] 2020 00:00:00 Problems Condition Condition Condition Status Onset Resolution Last Treating Co mments Source Name Details Category Date Date Treatment Clinician Date Nonischemi Nonischemi Disease Active M ethodi c c 7-18 st cardiomyop cardiomyop 00:00: [facility] spita athy athy 00 l ICD ICD Disease Active Univers (implantab (implantab 5-04 it y of le le 00:00: [place] cardiovert cardiovert 00 Me dical er-defibri er-defibri Br anch llator) in llator) in place place Coronary Coronary Disease Active Unive rs artery artery 5-04 ity of disease disease 00:00: [place] involving involving 00 Medi vee yocha dehe yocha dehe Branch coronary coronary artery of artery of yocha dehe yocha dehe heart heart without without angina angina pectoris pectoris VT VT Disease Active Overview: Method i (ventricul (ventricul 3-[address] ar ar 00:00: g of this Hospita tachycardi tachycardi 00 note l a) a) might be different from the original. Added automatic ally from request for surgery [id number] SVT SVT Disease Active Univers (supravent (supravent 3-05 it y of ricular ricular 00:00: [place] tachycardi tachycardi 00 Me dical a) a) Branch V-tach V-tach Disease Active Univers 2-23 ity of 00:00: [place] 00 Medical Branch Chest Chest Disease Active Overview: Univer s pain, pain, 2-23 Formattin ity of unspecifie unspecifie 00:00: g of this [place] d type d type 00 note Medical might be Branch different from the original. Added automatic ally from request for surgery [id number] Wide-compl Wide-compl Disease Active U nivers ex ex 2-10 ity of tachycardi [place]cardi [place] Elevated Elevated Disease Active Unive rs troponin troponin 4-28 ity of 00:: [place] [facility] Hypertensi Hypertensi Disease Active U nivers ve ve 4-28 ity of emergency emergency [place] Altered Altered Disease Active [facility] mental mental 4-28 ity of state state 00:00: [place] [facility] Branch Epigastric Epigastric Disease Active U nivers pain pain 4-28 ity of 00:00: [address] Branch Diabetes Diabetes Disease Active Unive rs type 2, type 2, [facility] Hyperlipid Hyperlipid Disease Active U nivers emia emia ity of [facility] Benign Benign Disease Active Univers essential essential ity of HTN HTN [facility] Chronic Chronic Disease Active Univers diastolic diastolic ity of heart heart [place] failure failure [facility] Osteoporos Osteoporos Disease Active U nivers is is ity of [facility] Allergies, Adverse Reactions, Alerts Allergy Allergy Status Severity Reaction(s) Onset Inactive Treating Comm ents Source Name Type Date Date Clinician Tramadol Propensi Active Hallucinatio Per Methodi ty to ns 3-[address] adverse 00:00: (daughter Hospit a reaction 00 s) l s to drug Famotidi Propensi Active Hallucinatio Methodi ne ty to ns 3-17 st adverse 00:00: Hospita reaction 00 l s to drug Hydrochl Propensi Active Hives Method i oric ty to 3-17 st Acid adverse 00:00: Hospita reaction 00 l s to drug Lactose Propensi Active GI Methodi ty to Intolerance 3-17 st adverse 00:00: Hospita reaction 00 l s to drug Lisinopr Propensi Active Hives Method i il ty to 3-17 st adverse 00:00: Hospita reaction 00 l s to drug Losartan Propensi Active Hives Method i Potassiu ty to 3-17 st m adverse 00:00: Hospita reaction 00 l s to drug Olmesart Propensi Active Hives Method i an ty to 3-17 st Medoxomi adverse 00:00: Hospita l reaction 00 l s to drug Pioglita Propensi Active Hives Method i zone ty to 3-17 st adverse 00:00: Hospita reaction 00 l s to drug Simvasta Propensi Active Hives Method i tin ty to 317 st adverse 00:00: Hospita reaction 00 l s to drug ol[place]art DA Active [place] HIVES [facility] an 2-23 Clear 00:00: [place] [facility] lactulos DA Active MO NAUSEA, [facility] e VOMITTING 2-23 Clear 00:00: [place] [facility] famotidi DA Active MO ANXIETY, [facility] ne HALLUCINATIO -23 Mary r N 00:00: [place] [facility] simvasta DA Active MO HIVES [facility] tin 2-23 Clear 00:00: [place] 00 [facility] losartan DA Active MO HIVES H[facility] 2-23 Clear 00:00: [place] 00 [facility] pioglita DA Active MO HIVES [facility] zone 2-23 Clear 00:00: [place] 00 [facility] Lactulos Propensi Active GI Method i e ty to Intolerance 23 st adverse 00:00: Hospita reaction 00 l s to drug Famotidi Propensi Active Hallucinatio 2020-0 Univers ne ty to ns 10-28 ity of adverse 00:00: [place] reaction 00 Medical s Branch FAMOTIDI DRUG Active Anxiety 2020-0 Univers NE INGREDI 10-28 ity of 00:00: [place] 00 Medical Branch Pioglita Propensi Active Hives 2019-0 Univer s zone ty to 07-22 ity of adverse 00:00: [place] reaction 00 Medical s Branch [place] Propensi Active Hives 2020-0 Univer s an ty to 07-22 ity of Medoxomi adverse 00:00: [place] l reaction 00 Medical s Branch Hydrochl Propensi Active Hives 2019-0 Univer s oric ty to 6- ity of Acid adverse 00:00: [place] reaction 00 Medical s Branch Lactose Propensi Active Nausea 2020-0 Univers ty to and/or 6-03 ity of adverse Vomiting 00:00: [place] reaction 00 Medical s Branch Lisinopr Propensi Active Hives 2020-0 Univer s il ty to 6- ity of adverse 00:00: [...] DRUG Active Hives 2020-0 Univers ZONE INGREDI 6-03 ity of 00:00: [place] 00 Medical Branch OLMESART DRUG Active Hives 2020-0 Univers AN INGREDI 6-03 ity of MEDOXOMI 00:00: [place] L 00 Medical Branch HYDROCHL DRUG Active Hives 2020-0 Univers ORIC INGREDI 6-03 ity of ACID 00:00: [place] 00 Medical Branch LACTOSE DRUG Active N/V 2020-0 Univers INGREDI 6-03 ity of 00:00: [place] 00 Medical Branch LISINOPR DRUG Active Hives 2020-0 Univers IL INGREDI 6-03 ity of 00:00: [place] 00 Medical Branch LOSARTAN DRUG Active Hives 2020-0 Univers POTASSIU INGREDI 6-03 ity of M 00:00: [place] 00 Medical Branch SIMVASTA DRUG Active Hives 2020-0 Univers TIN INGREDI 6-03 ity of 00:00: [place] 00 Medical Branch Social History Social Habit Start Date Stop Date Quantity Comments Source History of tobacco Current smoker [facility] Exposure to 2021-07-12 2021-07-22 Not sure [facility] SARS-CoV-2 (event) 00:00:00 15:13:00 [facility] Alcohol intake 2021-06-22 2021-06-22 Ex-drinker [facility] 00:00:00 00:00:00 (finding) [facility] Tobacco use and 2021-05-05 2021-05-05 Smokeless [facility] exposure 00:00:00 00:00:00 tobacco non-user Hospital Cigarettes smoked 2021-04-13 2021-04-13 Univers ity of current (pack per 00:00:00 00:00:00 ) - Reported Branch Sex Ass[birth year] At [birth year] [facility] 00:00:00 00:00:00 Hospital Smoking Status Start Date Stop Date Source Ex-smoker 2021-05-05 00:00:00 2021-05-05 00:00:[address] [facility] Medications Ordered Filled Start Stop Current Ordering Indication Dosage Frequency Signature Comments Components Source Medication Medication Date Date Medication? Clinician (SIG) Name Name fexofenadin Yes 180mg QD Take 1 Met hodi e (MINAL) 10-[address] 180 MG 13:55: (180 mg Hospita tablet 27 total) by l mouth daily. lactase Yes Take by Methodi 9,000 unit 10-[address] tablet 13:51: needed. Hospita 32 l calcium Yes Chew as Methodi carbonate-s 10-[address] imethicone 13:51: Hospita 750-80 mg 32 l tablet,chew able docusate Yes QD Take by Method i sodium 10-[address] (STOOL 13:51: daily. Hospita SOFTENER 32 l ORAL) oxymetazoli Yes Q.5D into each M ethodi ne HCl 10-[address] (DRISTAN 13:51: (two) Hospita LONG 32 times a l LASTING day. NASL) apixaban Yes 5mg Q.5D Take 5 mg Meth medardo (ELIQUIS) 5 - by mouth 2 st mg tablet 13:51: (two) Hospita 32 times a l day. fluticasone 0 Yes 50ug Q.5D 1 spray by Methodi propionate - Each Nare st (FLONASE) 13:51: route 2 Hospi ta 50 32 (two) l mcg/actuati times a on nasal day. spray folic acid Yes 1mg QD Take 1 mg Me thodi (FOLVITE) 1 -[address] MG tablet 13:51: daily. Hospit a 32 l glipiZIDE 0 Yes 5mg QD Take 5 mg Met hodi (GLUCOTROL) - by mouth st 5 MG tablet 13:51: daily. Hosp betty 32 l traZODone 0 Yes 50mg QD Take 50 mg Me thodi (DESYREL) - by mouth st 50 MG 13:51: nightly. Hospita tablet 32 l empaglifloz 2021-0 Yes 25mg QD Take 1 Meth medardo in 10-14 tablet (25 st (Jardiance) 13:51: mg total) H ospita 25 mg 32 by mouth l tablet daily. lidocaine 4 Yes Apply Metho di % adhesive 10-[address] patch,medic 13:51: Hospit a ated 32 l acetaminoph 0 Yes 1000mg Q.[id number] Take 1,000 Methodi en 10-[id number] (TYLENOL) 13:51: 3D mouth 3 Hospi ta 500 MG 32 (three) l tablet times a day. amLODIPine 2021-0 Yes 5mg Q.5D Take 5 mg Me thodi (NORVASC) 5 -[address] mg tablet 13:51: (two) Hospita 32 times a l day. clonIDINE 2021-0 Yes .1mg Q.5D Take 0.1 Meth medardo (CATAPRES) 8-[address] 0.1 MG 13:51: mouth 2 Hospita tablet 32 (two) l times a day. ezetimibe 2021-0 Yes 10mg QD Take 10 mg Me thodi (ZETIA) 10 - by mouth st mg tablet 13:51: daily. Hospit a 32 l furosemide 2021-0 Yes 40mg Q.5D Take 40 mg M ethodi (LASIX) 40 -[address] mg tablet 13:51: (two) Hospita 32 times a l day. isosorbide 2021-0 Yes 30mg QD Take 30 mg M ethodi mononitrate -[address] (IMDUR) 30 13:51: daily. Hospi ta MG 24 hr 32 l tablet melatonin 5 2021-0 Yes 5mg QD Take 1 Meth medardo mg tablet - tablet (5 st tablet 13:51: mg total) Hospit a 32 by mouth l nightly. metFORMIN 2021-0 Yes 1000mg Q.5D Take 1,000 Methodi (GLUCOPHAGE 8-[address] ) 500 mg 13:51: mouth 2 Hospit a tablet 32 (two) l times a day with meals. metoprolol 0 Yes 50mg Q.5D Take 50 mg M ethodi tartrate 8-[address] (LOPRESSOR) 13:51: (two) Hospi ta 50 mg 32 times a l tablet day. sennosides- 0 Yes 1{tbl} QD Take 1 Me thodi docusate 8-[address] sodium 13:51: mouth Hospita (SENOKOT-S) 32 daily. l 8.6-50 mg per tablet spironolact 0 Yes 25mg QD Take 25 mg Methodi one 8-[address] (ALDACTONE) 13:51: daily. Hosp betty 25 MG 32 l tablet busPIRone 0 Yes 15mg Q.[id number] Take 15 mg Methodi (BUSPAR) 15 6-29 [id number] by mouth [address] MG tablet 00:00: 3D (three) Hospi ta 00 times a l day. acetaminoph 0 Yes 500mg Take 500 U nivers en 500 mg 5-04 mg by ity of tablet 12:03: mouth [place] [address] every 6 Medical (six) Branch hours as needed for Pain. Melatonin 5 0 Yes Take by Uni vers mg tablet 5-04 mouth. ity of 12:03: [place] [address] Medical Branch acetaminoph 2021-0 Yes 500mg Take 500 U nivers en 500 mg 5-04 mg by ity of tablet 12:03: mouth [place] [address] every 6 Medical (six) Branch hours as needed for Pain. Melatonin 5 0 Yes Take by Uni vers mg tablet 5-04 mouth. ity of 12:03: [place] [address] Medical Branch acetaminoph 2021-0 Yes 500mg Take 500 U nivers en 500 mg 5-04 mg by ity of tablet 12:03: mouth [place] [address] every 6 Medical (six) Branch hours as needed for Pain. Melatonin 5 0 Yes Take by Uni vers mg tablet 5-04 mouth. ity of 12:03: [place] [address] Medical Branch acetaminoph 2021-0 Yes 500mg Take 500 U nivers en 500 mg 5-04 mg by ity of tablet 12:03: mouth [place] 52 every 6 Medical (six) Branch hours as needed for Pain. Melatonin 5 2021-0 Yes Take by Uni vers mg tablet 5-04 mouth. ity of 12:03: 52 Medical Branch acetaminoph 2021-0 Yes 500mg Take 500 U nivers en 500 mg 5-04 mg by ity of tablet 12:03: mouth [place] 52 every 6 Medical (six) Branch hours as needed for Pain. Melatonin 5 2021-0 Yes Take by Uni vers mg tablet 5-04 mouth. ity of 12:03: 52 Medical Branch acetaminoph 0 Yes 500mg Take 500 U nivers en 500 mg 5-04 mg by ity of tablet 12:03: mouth [place] 52 every 6 Medical (six) Branch hours as needed for Pain. Melatonin 5 2021-0 Yes Take by Uni vers mg tablet 5-04 mouth. ity of 12:03: 52 Medical Branch clopidogreL 2021-0 Yes [id number] 75mg Take 1 Univers 75 mg 5-04 [...] 00 (two) Medical times Branch daily. clopidogreL 2021-0 Yes [id number] 75mg Take 1 Univers 75 mg 5-04 [...] 00 (two) Medical times Branch daily. clopidogreL 2-0 Yes [id number] 75mg Take 1 Univers 75 mg 5-04 [...] mouth (two) Medical times Branch daily. clopidogreL 2021-0 Yes [id number] 75mg Take 1 Univers 75 mg 5-04 [...] mouth (two) Medical times Branch daily. clopidogreL 2021-0 Yes [id number] 75mg Take 1 Univers 75 mg 5-04 tablet by ity of tablet 00:00: mouth 00 daily. Medical Branch amiodarone 2021-0 Yes 100mg Take 1 Univ ers 100 mg 5-04 tablet by ity of tablet 00:00: mouth 00 daily. Medical Branch apixaban 5 2021-0 Yes 5mg Take 1 Unive rs mg tablet 5-04 tablet by ity o f 00:00: mouth (two) Medical times Branch daily. clopidogreL 2021-0 Yes [id number] 75mg Take 1 Univers 75 mg 5-04 tablet by ity of tablet 00:00: mouth 00 daily. Medical Branch amiodarone 2021-0 Yes 100mg Take 1 Univ ers 100 mg 5-04 tablet by ity of tablet 00:00: mouth 00 daily. Medical Branch apixaban 5 2021-0 Yes 5mg Take 1 Unive rs mg tablet 5-04 tablet by ity o f 00:00: mouth (two) Medical times Branch daily. ticagrelor 2021-0 2021- No 90mg Q.5D Take 90 mg Methodi (BRILINTA) 06-20-[address] 90 mg 16:14: 00:00 (two) Hospita tablet 43 :00 times a l day. doxycycline 2021-0 2021- No 100mg Q.5D Take 100 Methodi (VIBRAMYCIN 06-20 05-[address] ) 100 MG 16:13: 00:00 mouth 2 Hospi ta capsule 42 :00 (two) l times a day. SITagliptin 2021- No 25mg QD Take 25 mg Methodi (JANUVIA) 06-[address] 25 MG 15:22: 00:00 daily. Hospita tablet 05 :00 l glipiZIDE No 10mg QD Take 10 mg M ethodi (GlucotroL) 06-[address] 10 MG 15:20: 00:00 daily. Hospita tablet 12 :00 l amIODarone Yes 100mg QD Take 0.5 Me thodi (PACERONE) 06-[address] 200 MG 00:00: (100 mg Hospita tablet 00 total) by l mouth daily. diphenhydrA Yes 25mg Take 1 Meth medardo MINE - tablet (25 st (BENADRYL) 00:00: mg total) Ho spita 25 mg 00 by mouth l tablet as needed for itching. clopidogreL 2022- No 75mg QD Take 1 Met hodi (PLAVIX) 75 06-20-03 tablet (75 s t mg tablet 00:00: 04:59 mg total) Ho spita 00 :00 by mouth l daily. clopidogreL 2021- No 75mg QD Take 1 Met hodi (PLAVIX) 75 -03 26- tablet (75 s t mg tablet 00:00: 00:00 mg total) Ho spita 00 :00 by mouth l daily. amIODarone 2021- No 200mg QD Take 1 Met hodi (PACERONE) -03 26- tablet st 200 MG 00:00: 00:00 (200 mg Hospita tablet 00 :00 total) by l mouth daily. diphenhydrA 2021- No 1{tbl} Take 1 M ethodi MINE -27 05-[address] (BENADRYL) 00:00: 00:00 mouth as Ho spita 25 mg 00 :00 needed. l tablet ferrous 2021- Yes 325mg QD Take 1 Methodi sulfate 325 4-[address] (65 FE) MG 00:00: mouth Hospit a tablet 00 daily. l aspirin 2021- No 81mg QD Take 81 mg Met hodi (ECOTRIN) 06-09-[address] 81 MG 19:00: 00:00 daily. Hospita enteric 10 :00 l coated tablet mexiletine 2021- No 150mg Q.[id number] Take 150 Methodi (MEXITIL) 06-09-[id number] 150 MG 19:00: 00:00 3D mouth 3 Hospita capsule 10 :00 (three) l times a day. ibuprofen Yes 400mg Take 400 Met hodi (ADVIL) 400 4-[address] MG tablet 00:00: mouth as Hosp betty 00 needed. l lidocaine 2021- No 1{patch Q24H Place 1 M ethodi (LIDODERM) 06-09 } patch on st 5 % 00:00: 04:59 the skin Hospita 00 :00 daily for l 30 days. Remove & Discard patch within 12 hours or as directed by folic acid No 1mg QD Take 1 Meth medardo (FOLVITE) 1 06-08 tablet (1 st MG tablet 00:00: 04:59 mg total) Ho spita 00 :00 by mouth l daily for 30 days. triamcinolo 2021- No .625mg Q.5D Apply Me thodi ne 06-[address] acetonide 00:00: 04:59 topically Ho spita (triamcinol 00 :00 2 (two) l one 50 mg times a in day for 30 lubriderm) days. 50 mg lotion pantoprazol 2021- No 40mg QD Take 1 Met hodi e 06-08 tablet (40 st (PROTONIX) 00:00: 00:00 mg total) H ospita 40 MG EC 00 :00 by mouth l tablet daily for 30 days. apixaban 2021- No 5mg Q.5D Take 1 Method i (ELIQUIS) 5 06-07- tablet (5 st mg tablet 00:00: 04:59 mg total) Ho spita 00 :00 by mouth 2 l (two) times a day for 30 days. amIODarone 0 2021- No 200mg Q.5D Take 1 Met hodi (PACERONE) 4-19 05-[address] 200 MG 00:00: 00:00 (200 mg Hospita tablet 00 :00 total) by l mouth every 12 (twelve) hours for 30 days. ezetimibe 2021-0 Yes [id number] 10mg Take 1 Un [place] 10 mg 2-26 tablet by ity of tablet 00:00: mouth 00 daily. Medical Branch metoprolol 2021-0 Yes [id number] 50mg Take 1 U nivers tartrate 50 2-26 tablet by ity of mg tablet 00:00: mouth (two) Medical times Branch daily. ezetimibe 2021-0 Yes [id number] 10mg Take 1 Un [place] 10 mg 2-26 tablet by ity of tablet 00:00: mouth 00 daily. Medical Branch metoprolol 2021-0 Yes [id number] 50mg Take 1 U nivers tartrate 50 2-26 tablet by ity of mg tablet 00:00: mouth (two) Medical times Branch daily. ezetimibe 2021-0 Yes [id number] 10mg Take 1 Un [place] 10 mg 2-26 tablet by ity of tablet 00:00: mouth 00 daily. Medical Branch metoprolol 2021-0 Yes [id number] 50mg Take 1 U nivers tartrate 50 2-26 tablet by ity of mg tablet 00:00: mouth (two) Medical times Branch daily. ezetimibe 2021-0 Yes [id number] 10mg Take 1 Un [place] 10 mg 2-26 tablet by ity of tablet 00:00: mouth 00 daily. Medical Branch metoprolol 2021-0 Yes [id number] 50mg Take 1 U nivers tartrate 50 2-26 tablet by ity of mg tablet 00:00: mouth (two) Medical times Branch daily. ezetimibe 2021-0 Yes [id number] 10mg Take 1 Un [place] 10 mg 2-26 tablet by ity of tablet 00:00: mouth 00 daily. Medical Branch metoprolol 2021-0 Yes [id number] 50mg Take 1 U nivers tartrate 50 2-26 tablet by ity of mg tablet 00:00: mouth (two) Medical times Branch daily. ezetimibe 0 Yes [id number] 10mg Take 1 Un [place] 10 mg 2-26 tablet by ity of tablet 00:00: mouth 00 daily. Medical Branch metoprolol 0 Yes [id number] 50mg Take 1 U nivers tartrate 50 2-26 tablet by ity of mg tablet 00:00: mouth (two) Medical times Branch daily. spironolact 0 Yes [id number] 25mg Take 1 Univers one 25 mg 2-17 tablet by ity o f tablet 00:00: mouth 00 daily. Medical Branch cloNIDine Yes [id number] .1mg Take 1 U nivers 0.1 mg 2-17 tablet by ity of tablet 00:00: mouth (two) Medical times Branch daily. furosemide 0 Yes [id number] 40mg Take 1 Un [place] 40 mg 2-17 tablet by ity of tablet 00:00: mouth 00 daily. Medical Branch spironolact 0 Yes [id number] 25mg Take 1 Univers one 25 mg 2-17 tablet by ity o f tablet 00:00: mouth 00 daily. Medical Branch cloNIDine 0 Yes [id number] .1mg Take 1 U nivers 0.1 mg 2-17 tablet by ity of tablet 00:00: mouth (two) Medical times Branch daily. furosemide 0 Yes [id number] 40mg Take 1 Un [place] 40 mg 2-17 tablet by ity of tablet 00:00: mouth 00 daily. Medical Branch spironolact 0 Yes [id number] 25mg Take 1 Univers one 25 mg 2-17 tablet by ity o f tablet 00:00: mouth 00 daily. Medical Branch cloNIDine 2021-0 Yes [id number] .1mg Take 1 U nivers 0.1 mg 2-17 tablet by ity of tablet 00:00: mouth (two) Medical times Branch daily. furosemide 2021-0 Yes [id number] 40mg Take 1 Un [place] 40 mg 2-17 tablet by ity of tablet 00:00: mouth 00 daily. Medical Branch spironolact 0 Yes [id number] 25mg Take 1 Univers one 25 mg 2-17 tablet by ity o f tablet 00:00: mouth daily. Medical Branch cloNIDine 2021-0 Yes [id number] .1mg Take 1 U nivers 0.1 mg 2-17 tablet by ity of tablet 00:00: mouth (two) Medical times Branch daily. furosemide 2021-0 Yes [id number] 40mg Take 1 Un [place] 40 mg 2-17 tablet by ity of tablet 00:00: mouth 00 daily. Medical Branch spironolact 2021-0 Yes [id number] 25mg Take 1 Univers one 25 mg 2-17 tablet by ity o f tablet 00:00: mouth 00 daily. Medical Branch cloNIDine 2021-0 Yes [id number] .1mg Take 1 U nivers 0.1 mg 2-17 tablet by ity of tablet 00:00: mouth (two) Medical times Branch daily. furosemide Yes [id number] 40mg Take 1 Un [place] 40 mg 2-17 tablet by ity of tablet 00:00: mouth daily. Medical Branch spironolact 0 Yes [id number] 25mg Take 1 Univers one 25 mg 2-17 tablet by ity o f tablet 00:00: mouth daily. Medical Branch cloNIDine 0 Yes [id number] .1mg Take 1 U nivers 0.1 mg 2-17 tablet by ity of tablet 00:00: mouth (two) Medical times Branch daily. furosemide 2021-0 Yes [id number] 40mg Take 1 Un [place] 40 mg 2-17 tablet by ity of tablet 00:00: mouth daily. Medical Branch amLODIPine 2020-0 Yes [id number] 5mg Take 1 Un [place] 5 mg tablet 9-01 tablet by ity of 00:00: mouth (two) Medical times Branch daily. metFORMIN 2020-0 Yes [id number] 1000mg Take 2 Univers 500 mg 9-01 tablets by ity of tablet 00:00: mouth (two) Medical times Branch daily with meals. amLODIPine 2020-0 Yes [id number] 5mg Take 1 Un [place] 5 mg tablet 9-01 tablet by ity of 00:00: mouth (two) Medical times Branch daily. metFORMIN 2020-0 Yes [id number] 1000mg Take 2 Univers 500 mg 9-01 tablets by ity of tablet 00:00: mouth (two) Medical times Branch daily with meals. amLODIPine 2021-0 Yes [id number] 5mg Take 1 Un [place] 5 mg tablet 9-01 tablet by ity of 00:00: mouth (two) Medical times Branch daily. metFORMIN 2020-0 Yes [id number] 1000mg Take 2 Univers 500 mg 9-01 tablets by ity of tablet 00:00: mouth (two) Medical times Branch daily with meals. amLODIPine 2020-0 Yes [id number] 5mg Take 1 Un [place] 5 mg tablet 9-01 tablet by ity of 00:00: mouth (two) Medical times Branch daily. metFORMIN 2020-0 Yes [id number] 1000mg Take 2 Univers 500 mg 9-01 tablets by ity of tablet 00:00: mouth (two) Medical times Branch daily with meals. amLODIPine 2020-0 Yes [id number] 5mg Take 1 Un [place] 5 mg tablet 9-01 tablet by ity of 00:00: mouth (two) Medical times Branch daily. metFORMIN 2020-0 Yes [id number] 1000mg Take 2 Univers 500 mg 9-01 tablets by ity of tablet 00:00: mouth (two) Medical times Branch daily with meals. amLODIPine 2020-0 Yes [id number] 5mg Take 1 Un [place] 5 mg tablet 9-01 tablet by ity of 00:00: mouth (two) Medical times Branch daily. metFORMIN 2020-0 Yes [id number] 1000mg Take 2 Univers 500 mg 9-01 tablets by ity of tablet 00:00: mouth (two) Medical times Branch daily with meals. carvediloL 2020-0 Yes Elevated 12.5mg Take 1 Univers 12.5 mg 5-06 troponin tablet by ity of tablet 00:00: mouth (two) Medical times Branch daily with meals. cloNIDine 2021-0 Yes Elevated .1mg Take 1 Un hayley [...] i ty of sodium 00:00: heart mouth [place] 8.6-50 mg 00 failure daily. Medic al [...] for Pain. Melatonin 5 Yes Take by Uni vers mg tablet 5-04 mouth. ity of 19:43: [...] for Pain. Melatonin 5 Yes Take by Uni vers mg tablet 5-04 mouth. ity of 19:43: [place] 44 Medical Branch carvediloL 2020- No Chronic 12.5mg Take 1 Univers 12.5 mg 5-04 05-06 diastolic tablet by i ty of tablet 00:00: 00:00 heart mouth 2 [place] 00 :00 failure (two) Medical times Branch daily with meals. cloNIDine 2020- No Chronic .1mg Take 1 Un [place] 0.1 mg 5-04 05-06 diastolic tablet by it y of tablet 00:00: 00:00 heart mouth 2 [place] 00 :00 failure (two) Medical times Branch daily. carvediloL 2020- No Chronic 12.5mg Take 1 Univers 12.5 mg 5-04 05-06 diastolic tablet by i ty of tablet 00:00: 00:00 heart mouth 2 [place] 00 :00 failure (two) Medical times Branch daily with meals. cloNIDine 2020- No Chronic .1mg Take 1 Un hayley 0.1 mg 5-04 05-06 diastolic tablet by it y of tablet 00:00: 00:00 heart mouth 2 [place] 00 :00 failure (two) Medical times Branch daily. Lancets Yes Controlled TEST BLOOD Univers (ACCU-CHEK 4-01 type 2 SUGAR ity of SOFTCLIX 00:00: diabetes DIRECTED ( [place] [facility] 00 mellitus THREE Medica l Misc with other TIMES Branch circulatory DAILY ) complicatio n, without long-term current use of insulin Lancets Yes Controlled TEST BLOOD Univers (ACCU-CHEK 4-01 type 2 SUGAR ity of SOFTCLIX 00:00: diabetes DIRECTED ( [place] LANCETS) 00 mellitus THREE Medica l Misc with other TIMES Branch circulatory DAILY ) complicatio n, without long-term current use of insulin Lancets Yes [id number] TEST BLOOD Univers (ACCU-CHEK 4-01 SUGAR ity o f SOFTCLIX 00:00: DIRECTED ( [place] LANCETS) 00 THREE Medical Misc TIMES Branch DAILY ) Lancets Yes [id number] TEST BLOOD Univers (ACCU-CHEK 4-01 SUGAR ity o f SOFTCLIX 00:00: DIRECTED ( [place] LANCETS) 00 THREE Medical Misc TIMES Branch DAILY ) Lancets Yes [id number] TEST BLOOD Univers (ACCU-CHEK 4-01 SUGAR ity o f SOFTCLIX 00:00: DIRECTED ( [place] LANCETS) 00 THREE Medical Misc TIMES Branch DAILY ) Lancets Yes [id number] TEST BLOOD Univers (ACCU-CHEK 4-01 SUGAR ity o f SOFTCLIX 00:00: DIRECTED ( [place] LANCETS) 00 THREE Medical Misc TIMES Branch DAILY ) Lancets Yes [id number] TEST BLOOD Univers (ACCU-CHEK 4-01 SUGAR ity o f SOFTCLIX 00:00: DIRECTED ( [place] LANCETS) 00 THREE Medical Misc TIMES Branch DAILY ) Lancets Yes [id number] TEST BLOOD Univers (ACCU-CHEK 4-01 SUGAR ity o f SOFTCLIX 00:00: DIRECTED ( [place] LANCETS) 00 THREE Medical Misc TIMES Branch DAILY ) [...] subsequent encounter ergocalcife 2020- No Vitamin D 00233V Take 1 Univers rol, 03-11 12-30 deficiency capsule by it y of vitamin d2, 00:00: 05:59 mouth once [place] 1,250 mcg 00 :00 every Medical (50,000 month for Branch unit) 12 doses. capsule ergocalcife 2020- No Vitamin D 94293D Take 1 Univers rol, 03-11-30 deficiency capsule by it y of vitamin d2, 00:00: 05:59 mouth once [place] 1,250 mcg 00 :00 every Medical (50,000 month for Branch unit) 12 doses. capsule glycerin, Yes Slow 1{suppo Insert 1 U nivers adult, 02-26 transit sitory} Suppositor i ty of suppository 00:00: constipatio y into n rectum as Medical needed for Branch Constipati on. glipiZIDE Yes Controlled 10mg Take 1 Univers 10 mg 08 type 2 tablet by ity of tablet 00:00: diabetes mouth 00 mellitus daily. Medical without Branch complicatio n, without long-term current use of insulin spironolact Yes Essential 12.5mg Take 0.5 Univers one 25 mg 02-26 hypertensio tablets by ity of tablet 00:00: [...] 12.5mg Take 0.5 Univers one 25 mg 1-08 hypertensio tablets by ity of tablet 00:00: n mouth 00 daily. Medical Branch glycerin, Yes [id number] 1{suppo Insert 1 Univers adult, 1-08 sitory} Suppositor ity of suppository 00:00: [place] rectum as Medical needed for Branch Constipati on. glycerin, Yes [id number] 1{suppo Insert 1 Univers adult, 1-08 sitory} Suppositor ity of suppository 00:00: [place] rectum as Medical needed for Branch Constipati on. glycerin, Yes [id number] 1{suppo Insert 1 Univers adult, 1-08 sitory} Suppositor ity of suppository 00:00: y [place] rectum as Medical needed for Branch Constipati on. glycerin, Yes [id number] 1{suppo Insert 1 Univers adult, 1-08 sitory} Suppositor ity of suppository 00:00: y [place] 00 rectum as Medical needed for Branch Constipati on. glycerin, Yes [id number] 1{suppo Insert 1 Univers adult, 1-08 sitory} Suppositor ity of suppository 00:00: y [place] 00 rectum as Medical needed for Branch Constipati on. glycerin, Yes [id number] 1{suppo Insert 1 Univers adult, 1-08 sitory} [...] HTN TWICE [place] 00 DAILY Medical Branch FUROSEMIDE 2019-02 Yes Benign TAKE 1 Uni vers 40 mg 2-14 essential TABLET ity of tablet 00:00: HTN EVERY DAY Medical Branch AMLODIPINE 2020-1 Yes Benign TAKE 1 Uni vers 5 mg tablet 2-14 essential TABLET i ty of 00:00: HTN TWICE [place] 00 DAILY Medical Branch blood sugar 2020- Yes Controlled Use as Univers diagnostic 2-02 type 2 directed ity of (CONTOUR 00:00: diabetes [place] NEXT TEST 00 mellitus Medica l STRIPS) with other Branch strip circulatory complicatio n, without long-term current use of insulin blood sugar 2020 Yes Controlled Use as Univers diagnostic 2-02 type 2 directed ity of (CONTOUR 00:00: diabetes [place] NEXT TEST 00 mellitus Medica l STRIPS) with other Branch strip circulatory complicatio n, without long-term current use of insulin blood sugar 2020 Yes [id number] Use as Univers diagnostic 2-02 directed ity o f (CONTOUR 00:00: [place] NEXT TEST 00 Medical STRIPS) Branch strip blood sugar 2020- Yes [id number] Use as Univers diagnostic 2-02 directed ity o f (CONTOUR 00:00: [place] NEXT TEST 00 Medical STRIPS) Branch strip blood sugar 2020- Yes [id number] Use as Univers diagnostic 2-02 directed ity o f (CONTOUR 00:00: [place] NEXT TEST 00 Medical STRIPS) Branch strip blood sugar 2020- Yes [id number] Use as Univers diagnostic 2-02 directed ity o f (CONTOUR 00:00: [place] NEXT TEST 00 Medical STRIPS) Branch strip blood sugar 2020- Yes [id number] Use as Univers diagnostic 2-02 directed ity o f (CONTOUR 00:00: [place] NEXT TEST 00 Medical STRIPS) Branch strip blood sugar 2020- Yes [id number] Use as Univers diagnostic 2-02 directed ity o f (CONTOUR 00:00: [place] NEXT TEST 00 Medical STRIPS) Branch strip flash 2020-0 Yes Controlled 1{kit} 1 Kit Uni vers glucose 9-10 type 2 CONTINUOUS ity of scanning 00:00: diabetes . [place] reader 00 mellitus Medical (FREESTYLE with other [facility] MEETA 14 circulatory DAY READER) complicatio Misc n, without long-term current use of insulin flash 2020-0 Yes Controlled 1{each} 1 Each U nivers glucose 9-10 type 2 every 2 ity of sensor 00:00: diabetes (two) [place] (FREESTYLE 00 mellitus weeks. Med ical MEETA 14 with other Branc h DAY SENSOR) circulatory Kit complicatio n, without long-term current use of insulin flash 2020-0 Yes Controlled 1{kit} 1 Kit Uni vers glucose 9-10 type 2 CONTINUOUS ity of scanning 00:00: diabetes . [place] reader 00 mellitus Medical (FREESTYLE with other [facility] MEETA 14 circulatory DAY READER) complicatio Misc n, without long-term current use of insulin flash 2020-0 Yes Controlled 1{each} 1 Each U nivers glucose 9-10 type 2 every 2 ity of sensor 00:00: diabetes (two) [place] (FREESTYLE 00 mellitus weeks. Med ical MEETA 14 with other Branc h DAY SENSOR) circulatory Kit complicatio n, without long-term current use of insulin flash 2020-0 Yes [id number] 1{kit} 1 Kit Unive rs glucose 9-10 CONTINUOUS ity of scanning 00:00: . [place] reader 00 Medical (FREESTYLE Branch MEETA 14 DAY READER) Misc flash 2020-0 Yes [id number] 1{each} 1 Each Uni vers glucose 9-10 every 2 ity of sensor 00:00: (two) [place] (FREESTYLE 00 weeks. Medical MEETA 14 Branch DAY SENSOR) Kit flash 2020-0 Yes [id number] 1{kit} 1 Kit Unive rs glucose 9-10 CONTINUOUS ity of scanning 00:00: . [place] reader 00 Medical (FREESTYLE Branch MEETA 14 DAY READER) Misc flash 2020-0 Yes [id number] 1{each} 1 Each Uni vers glucose 9-10 every 2 ity of sensor 00:00: (two) [place] (FREESTYLE 00 weeks. Medical MEETA 14 Branch DAY SENSOR) Kit flash 2020-0 Yes [id number] 1{kit} 1 Kit Unive rs glucose 9-10 CONTINUOUS ity of scanning 00:00: . [place] reader 00 Medical (FREESTYLE Branch MEETA 14 DAY READER) Misc flash 2020-0 Yes [id number] 1{each} 1 Each Uni vers glucose 9-10 every 2 ity of sensor 00:00: (two) [place] (FREESTYLE 00 weeks. Medical MEETA 14 Branch DAY SENSOR) Kit flash 2020-0 Yes [id number] 1{kit} 1 Kit Unive rs glucose 9-10 CONTINUOUS ity of scanning 00:00: . [place] reader 00 Medical (FREESTYLE Branch MEETA 14 DAY READER) Misc flash 2020-0 Yes [id number] 1{each} 1 Each Uni vers glucose 9-10 every 2 ity of sensor 00:00: (two) [place] (FREESTYLE 00 weeks. Medical MEETA 14 Branch DAY SENSOR) Kit flash 2020-0 Yes [id number] 1{kit} 1 Kit Unive rs glucose 9-10 CONTINUOUS ity of scanning 00:00: . [place] reader 00 Medical (FREESTYLE Branch MEETA 14 DAY READER) Misc flash 2020-0 Yes [id number] 1{each} 1 Each Uni vers glucose 9-10 every 2 ity of sensor 00:00: (two) [place] (FREESTYLE 00 weeks. Medical MEETA 14 Branch DAY SENSOR) Kit flash 2020-0 Yes [id number] 1{kit} 1 Kit Unive rs glucose 9-10 CONTINUOUS ity of scanning 00:00: . [place] reader 00 Medical (FREESTYLE Branch MEETA 14 DAY READER) Misc flash 2020-0 Yes [id number] 1{each} 1 Each Uni vers glucose 9-10 every 2 ity of sensor 00:00: (two) [place] (FREESTYLE 00 weeks. Medical MEETA 14 Branch [...] Beneath Medical breasts Branch triamcinolo 2020-0 Yes [id number] Apply to Univers ne 7-16 area(s) 2 ity of acetonide 00:00: (two) [place] 0.1 % cream 00 times Medical daily. Branch ketoconazol 2020-0 Yes [id number] Apply to Univers e 2 % cream 7-16 area(s) ity o f 00:00: daily. [place] 00 Beneath Medical breasts Branch triamcinolo 2020-0 Yes [id number] Apply to Univers ne 7-16 area(s) 2 ity of acetonide 00:00: (two) [place] 0.1 % cream 00 times Medical daily. Branch ketoconazol 2020-0 Yes [id number] Apply to Univers e 2 % cream 7-16 area(s) ity o f 00:00: daily. [place] 00 Beneath Medical breasts Branch triamcinolo 2020-0 Yes [id number] Apply to Univers ne 7-16 area(s) 2 ity of acetonide 00:00: (two) [place] 0.1 % cream 00 times Medical daily. Branch ketoconazol 2020-0 Yes [id number] Apply to Univers e 2 % cream 7-16 area(s) ity o f 00:00: daily. [place] 00 Beneath Medical breasts Branch triamcinolo 2020-0 Yes [id number] Apply to Univers ne 7-16 area(s) 2 ity of acetonide 00:00: (two) [place] 0.1 % cream 00 times Medical daily. Branch ketoconazol 2020-0 Yes [id number] Apply to Univers e 2 % cream 7-16 area(s) ity o f 00:00: daily. [place] 00 Beneath Medical breasts Branch triamcinolo 2020-0 Yes [id number] Apply to Univers ne 7-16 area(s) 2 ity of acetonide 00:00: (two) [place] 0.1 % cream 00 times Medical daily. Branch ketoconazol 2020-0 Yes [id number] Apply to Univers e 2 % cream 7-16 area(s) ity o f 00:00: daily. [place] 00 Beneath Medical breasts Branch triamcinolo 2020-0 Yes [id number] Apply to Univers ne 7-16 area(s) 2 ity of acetonide 00:00: (two) [place] 0.1 % cream 00 times Medical daily. Branch ketoconazol 2020-0 Yes [id number] Apply to Univers e 2 % cream 7-16 area(s) ity o f 00:00: daily. [place] 00 Beneath Medical breasts Branch ketoconazol 2020-0 Yes Apply Metho di e (NIZORAL) 7-[address] 2 % cream 00:00: Hospita 00 l triamcinolo 2020-0 Yes Apply Metho di ne 7-[address] (KENALOG) 00:00: Hospita 0.1 % cream 00 l clotrimazol 2020-0 Yes Tinea pedis Apply to Univers e 1 % 7-02 of both area(s) at ity o f topical 00:00: feet bedtime. [place] cream 00 Medical Branch clotrimazol 2020-0 Yes Tinea pedis Apply to Univers e 1 % 7-02 of both area(s) at ity o f topical 00:00: feet bedtime. [place] cream 00 Medical Branch clotrimazol 2020-0 Yes [id number] Apply to Univers e 1 % 7-02 area(s) at ity of topical 00:00: bedtime. [place] cream 00 Medical Branch clotrimazol 2020-0 Yes [id number] Apply to Univers e 1 % 7-02 area(s) at ity of topical 00:00: bedtime. [place] cream 00 Medical Branch clotrimazol 2020-0 Yes [id number] Apply to Univers e 1 % 7-02 area(s) at ity of topical 00:00: bedtime. [place] cream 00 Medical Branch clotrimazol 2020-0 Yes [id number] Apply to Univers e 1 % 7-02 area(s) at ity of topical 00:00: bedtime. [place] cream 00 Medical Branch clotrimazol 2020-0 Yes [id number] Apply to Univers e 1 % 7-02 area(s) at ity of topical 00:00: bedtime. [place] cream 00 Medical Branch clotrimazol 2020-0 Yes [id number] Apply to Univers e 1 % 7-02 area(s) at ity of topical 00:00: bedtime. [place] cream 00 Medical Branch clotrimazol 2020-0 Yes Apply Metho di e 7-[address] (LOTRIMIN) 00:00: Hospita 1 % cream 00 l ciclopirox 2020-0 Yes Onychomycos Apply to Univers (PENLAC) 8 6-03 is area(s) at ity of % solution 00:00: bedtime. [place] 00 Apply to Medical Nails. Branch ciclopirox 2020-0 Yes Onychomycos Apply to Univers (PENLAC) 8 6-03 is area(s) at ity of % solution 00:00: bedtime. [place] 00 Apply to Medical Nails. Branch ciclopirox 2020-0 Yes [id number] Apply to Univers ([facility]) 8 6-03 area(s) at ity of % solution 00:00: bedtime. [place] 00 Apply to Medical Nails. Branch ciclopirox 2020-0 Yes [id number] Apply to Univers ([facility]) 8 6-03 area(s) at ity of % solution 00:00: bedtime. [place] 00 Apply to Medical Nails. Branch ciclopirox 2020-0 Yes [id number] Apply to Univers ([facility]) 8 6-03 area(s) at ity of % solution 00:00: bedtime. [place] 00 Apply to Medical Nails. Branch ciclopirox 2020-0 Yes [id number] Apply to Univers ([facility]) 8 6-03 area(s) at ity of % solution 00:00: bedtime. [place] 00 Apply to Medical Nails. Branch ciclopirox 2020-0 Yes [id number] Apply to Univers ([facility]) 8 6-03 area(s) at ity of % solution 00:00: bedtime. [place] 00 Apply to Medical Nails. Branch ciclopirox 2020-0 Yes [id number] Apply to Univers ([facility]) 8 6-03 area(s) at ity of % solution 00:00: bedtime. [place] 00 Apply to Medical Nails. Branch ciclopirox 2020-0 Yes Apply Method i ([facility]) 8 6-[address] % solution 00:00: Hospita 00 l Immunizations Ordered Filled Immunization Date Status Comments [facility] e Immunization Name Name Influenza Virus [...] Completed Unive rsity of MODERNA VACCINE 00:00:00 [facility] Branch SARS-COV-2 COVID-19 2020-04-28 Completed Unive rsity of MODERNA VACCINE 00:00:00 [facility] SARS-COV-2 COVID-19 2020-04-28 Completed Unive rsity of MODERNA VACCINE 00:00:00 [facility] SARS-COV-2 COVID-19 2020-04-28 Completed Unive rsity of MODERNA VACCINE 00:00:00 [facility] SARS-COV-2 COVID-19 2020-04-28 Completed Unive rsity of MODERNA VACCINE 00:00:00 [facility] SARS-COV-2 COVID-19 2020-04-28 Completed Unive rsity of MODERNA VACCINE 00:00:00 [facility] SARS-COV-2 COVID-19 2020-03-30 Completed Unive rsity of MODERNA VACCINE 00:00:00 [facility] SARS-COV-2 COVID-19 2020-03-30 Completed Unive rsity of MODERNA VACCINE 00:00:00 [facility] SARS-COV-2 COVID-19 2020-03-30 Completed Unive rsity of MODERNA VACCINE 00:00:00 [facility] SARS-COV-2 COVID-19 2020-03-30 Completed Unive rsity of MODERNA VACCINE 00:00:00 [facility] SARS-COV-2 COVID-19 2020-03-30 Completed Unive rsity of MODERNA VACCINE 00:00:00 [facility] SARS-COV-2 COVID-19 2020-03-30 Completed Unive rsity of MODERNA VACCINE 00:00:00 [facility] Influenza High Dose 2019-11-27 Completed Unive rsity of Quad 00:00:00 [facility] Influenza High Dose 2019-11-27 Completed Unive rsity of Quad 00:00:00 [facility] Influenza High Dose 2019-11-27 Completed Unive rsity of Quad 00:00:00 [facility] Influenza High Dose 2019-11-27 Completed Unive rsity of Quad 00:00:00 [facility] Influenza High Dose 2019-11-27 Completed Unive rsity of Quad 00:00:00 [facility] Influenza High Dose 2019-11-27 Completed Unive rsity of Quad 00:00:00 [facility] Influenza High Dose 2019-11-27 Completed Unive rsity of Quad 00:00:00 [facility] Influenza High Dose 2019-11-27 Completed Unive rsity of Quad 00:00:00 [facility] Pneumococcal 13 2014-07-27 Completed Universit y of Conjugate, PCV13 00:00:00 [place] Me dical (Prevnar 13) Branch Pneumococcal 13 2014-07-27 Completed Universit y of Conjugate, PCV13 00:00:00 [place] Ne dical (Prevnar 13) Branch Pneumococcal 13 2014-07-27 [...] 2010-06-19 Completed University o f Polysaccharide, 00:00:00 [place] Med ical PPSV23 (PNEUMOVAX) Branch Vital Signs Vital Name Observation Time Observation Value Comments Source Systolic blood 2021-07-22 20:31:00 131 mm[Hg] Univer sity [facility] Diastolic blood 2021-07-22 20:31:00 62 [facility]Hg[facility] 2021-07-22 20:31:00 63 /min [facility] Respiratory rate 2021-07-22 20:31:00 15 /min [facility] Body weight 2021-07-22 20:31:00 64.864 kg [facility] BMI 2021-07-22 20:31:00 27.93 kg/m2 [facility] Oxygen saturation in 2021-07-22 20:31:00 96 /min [facility] Arterial blood by [facility] Pulse oximetry Branch Systolic blood 2020-06-24 19:53:00 139 mm[Hg] Univer [facility] Diastolic blood 2020-06-24 19:53:00 78 mm[Hg] [facility] rate 2020-06-24 19:52:00 82 /min [facility] Body temperature 2020-06-24 19:52:00 36.44 Almaz [facility] Respiratory rate 2020-06-24 19:52:00 18 /min [facility] Body height 2020-06-24 19:52:00 157.5 cm [facility] Body weight 2020-06-24 19:52:00 67.359 kg [facility] BMI 2020-06-24 19:52:00 27.16 kg/m2 [facility] Systolic blood 2021-10-14 18:41:00 119 mm[Hg] [facility] pressure Diastolic blood 2021-10-14 18:41:00 64 mm[Hg] [facility] pressure Heart rate 2021-10-14 18:41:00 72 /min [facility] Respiratory rate 2021-10-14 18:41:00 16 /min [facility] Body height 2021-10-14 18:41:00 152.4 cm [facility] Body weight 2021-10-14 18:41:00 58.514 kg [facility] BMI 2021-10-14 18:41:00 25.19 kg/m2 [facility] Oxygen saturation in 2021-10-14 18:41:00 100 /min [facility] Arterial blood by Pulse oximetry Body temperature 2021-06-08 12:28:12 36.17 Almaz [facility] Procedures Procedure Date / Time Performing Clinician Source Performed INTERLEUKIN 2 RECEPTOR 2021-10-14 21:00:00 [facility] C-REACTIVE PROTEIN 2021-10-14 21:00:00 [facility] SEDIMENTATION RATE 2021-10-14 21:00:00 [facility] ANGIOTENSIN CONVERTING 2021-10-14 21:00:00 [facility] ENZYME KAPPA LAMBDA FREE LIGHT 2021-10-14 21:00:00 [facility] CHAIN WITH RATIO T3 2021-10-14 21:00:00 [facility] spital T4, FREE 2021-10-14 21:00:00 [facility] spital THYROID STIMULATING 2021-10-14 21:00:00 [facility] HORMONE T4 2021-10-14 21:00:00 [facility] spital BASIC METABOLIC PANEL 2021-10-14 21:00:00 [facility] NT-PROBNP 2021-10-14 21:00:00 [facility] spital HC COMPLETE BLD COUNT 2021-10-14 21:00:00 [facility] W/AUTO DIFF ESTIMATED GFR 2021-10-14 21:00:00 Angie Tirado [facility] TROPONIN T 2021-10-14 21:00:00 Angie Tirado [facility] ECG 12-LEAD 2021-09-05 18:31:44 Paddy [facility] V. AUTHORIZATION FOR RELEASE 2021-08-25 05:01:00 Doctor Unassigned, No [facility] AUTHORIZATION FOR RELEASE 2021-08-19 05:01:00 Doctor Unassigned, No [facility] EXTERNAL PROVIDER - ADC 2021-07-22 05:01:00 Doctor Unassigned, N o [facility] CARDIOLOGY [facility] ECG 12-LEAD 2021-06-20 20:30:59 Paddy [facility] V. POC GLUCOSE 2021-06-08 22:01:00 Alissa Wright Ho spital POC GLUCOSE 2021-06-08 17:28:00 WrightAlissa larson Ho spital XR CHEST 1 VW PORTABLE 2021-06-08 14:39:00 Bhupinder Vizcaino [facility] [place] [facility] COVID-19 QUALITATIVE 2021-06-08 14:35:00 Simone Hull [facility] RT-PCR POC GLUCOSE 2021-06-08 13:30:00 Alissa Wright Ho spital POC GLUCOSE 2021-06-08 11:01:00 WrightAlissa larson Ho spital POC GLUCOSE 2021-06-08 05:37:00 WrightAlissa larson Ho spital POC GLUCOSE 2021-06-08 01:34:00 Alissa Wright Ho spital POC GLUCOSE 2021-06-07 23:18:00 WrightAlissa larson Ho spital POC GLUCOSE 2021-06-07 18:50:00 Alissa Wright Ho spital COVID-19 QUALITATIVE 2021-06-07 18:17:00 [facility] 2021-06-07 13:07:00 Wright, Alissa [facility] POC GLUCOSE 2021-06-07 09:38:00 Wright, Alissa [facility] POC GLUCOSE 2021-06-07 02:49:00 Wright, Alissa [facility] POC GLUCOSE 2021-06-06 22:42:00 Wright, Alissa [facility] POC GLUCOSE 2021-06-06 16:48:00 Wright, Alissa [facility] POC GLUCOSE 2021-06-06 12:38:00 Wright, Alissa [facility] HC COMPLETE BLD COUNT 2021-06-06 09:30:00 Kurtis [facility] W/AUTO DIFF BASIC METABOLIC PANEL 2021-06-06 09:30:00 Kurtis [facility] ESTIMATED GFR 2021-06-06 09:30:00 Wright, Alissa [facility] POC GLUCOSE 2021-06-06 09:29:00 Wright, Alissa [facility] POC GLUCOSE 2021-06-06 05:32:00 Wright, Alissa [facility] POC GLUCOSE 2021-06-06 01:43:00 Wright, Alissa [facility] POC GLUCOSE 2021-06-05 21:58:00 Wright, Alissa [facility] POC GLUCOSE 2021-06-05 17:02:00 Wright, Alissa [facility] HC COMPLETE BLD COUNT 2021-06-05 15:55:00 Simone Hull [facility] W/AUTO DIFF TTE LIMITED, WO CONTRAST, 2021-06-05 14:21:00 Rangel Pan, [facility] WO DOPPLER ([id number]) Dorothy POC GLUCOSE 2021-06-05 12:29:00 Wright, Alissa [facility] BASIC METABOLIC PANEL 2021-06-05 09:01:00 Jaydon Hill [facility] [place] HC COMPLETE BLD COUNT 2021-06-05 09:01:00 Jaydon Hill [facility] W/AUTO DIFF [place] MAGNESIUM LEVEL 2021-06-05 09:01:00 Jaydon Hill [facility] PHOSPHORUS LEVEL 2021-06-05 09:01:00 [facility] 2021-06-05 09:01:00 [facility]SE 2021-06-05 05:37:00 Alissa Wright Ho spital POC GLUCOSE 2021-06-05 02:04:00 WrightAlissa larson [facility] POC GLUCOSE 2021-06-04 21:56:00 WrightAlissa larson [facility] HC COMPLETE BLD COUNT 2021-06-04 19:34:[address] [facility] W/AUTO DIFF PROTHROMBIN TIME WITH INR 2021-06-04 19:34:00 [facility] PARTIAL THROMBOPLASTIN 2021-06-04 19:34:[address] [facility] TIME (PTT) POC GLUCOSE 2021-06-04 17:28:00 Alissa Wright Ho spital POC GLUCOSE 2021-06-04 12:20:00 WrightAlissa larson [facility] POC GLUCOSE 2021-06-04 09:48:00 WrightAlissa larson Ho spital MAGNESIUM LEVEL 2021-06-04 08:58:00 [place] [facility] COMPLETE BLD COUNT 2021-06-04 08:58:[address] [facility] W/AUTO DIFF BASIC METABOLIC PANEL 2021-06-04 08:58:[address] [facility] ESTIMATED GFR 2021-06-04 08:58:00 WrightAlissa larson Ho spital POC GLUCOSE 2021-06-04 06:02:00 Alissa Wright [facility] POC GLUCOSE 2021-06-04 02:21:00 Alissa Wright [facility] POC GLUCOSE 2021-06-04 01:48:00 Alissa Wright [facility] POC GLUCOSE 2021-06-04 01:46:00 Alissa Wright [facility] POC GLUCOSE 2021-06-03 21:19:00 Alissa Wright [facility] POC GLUCOSE 2021-06-03 17:21:00 WrightOrin larsonta [facility] POC GLUCOSE 2021-06-03 13:00:00 WrightOrin larsonta [facility] POC GLUCOSE 2021-06-03 09:31:00 Wright, Alissa [facility] sp[facility] HC COMPLETE BLD COUNT 2021-06-03 09:27:00 [facility]/AUTO DIFF COMPREHENSIVE METABOLIC 2021-06-03 09:27:00 [facility] PANEL MAGNESIUM LEVEL 2021-06-03 09:27:00 Beverley Eldridge Ho spital ESTIMATED GFR 2021-06-03 09:27:00 Beverley Eldridge [facility] POC GLUCOSE 2021-06-03 05:40:00 WrightOrin larsonta [facility] POC GLUCOSE 2021-06-03 02:11:00 WrightOrinta [facility] POC GLUCOSE 2021-06-02 21:55:00 WrightOrinta [facility] sp[facility] HEMOGLOBIN & HEMATOCRIT 2021-06-02 21:38:00 [facility] 2021-06-02 19:00:00 Norman Johnson [facility] W DOPPLER ([id number]) [facility] POC GLUCOSE 2021-06-02 15:26:00 Orin Wrightta [facility] POC GLUCOSE 2021-06-02 12:22:00 WrightOrinta [facility] HC COMPLETE BLD COUNT 2021-06-02 10:37:00 [facility] DIFF COMPREHENSIVE METABOLIC 2021-06-02 10:37:00 Chente, [facility] PANEL MAGNESIUM LEVEL 2021-06-02 10:37:00 Beverley Eldridge Ho [facility]ital ESTIMATED GFR 2021-06-02 10:37:00 Michelle Eldridge [facility] POC GLUCOSE 2021-06-02 10:36:00 WrightOrinta [facility] POC GLUCOSE 2021-06-02 06:56:00 Abiodun Wrightchita [facility] spital POC GLUCOSE 2021-06-02 01:23:00 [facility]SE 2021-06-01 21:23:00 [facility] POC GLUCOSE 2021-06-01 19:43:00 [facility] POC GLUCOSE 2021-06-01 18:02:00 [facility] ECG PRE/POST OP 2021-06-01 17:57:45 [facility] V. EP COMPLETE EP STUDY W 2021-06-01 17:20:17 [facility] ABLATION [place] F. CV SELECTIVE CORONARY 2021-06-01 17:20:17 [facility] ANGIOGRAPHY F. ACTIVATED CLOTTING TIME 2021-06-01 17:11:00 [facility] ARTERIAL BLOOD GAS, 2021-06-01 17:06:00 [facility] CORRECTED SODIUM LEVEL, SYRINGE 2021-06-01 17:06:00 [facility] POTASSIUM, SYRINGE 2021-06-01 17:06:00 [facility] HEMOGLOBIN, SYRINGE 2021-06-01 17:06:00 [facility] IONIZED CALCIUM, ARTERIAL 2021-06-01 17:06:00 [facility] GLUCOSE LEVEL, SYRINGE 2021-06-01 17:06:00 [facility] HC COMPLETE BLD COUNT 2021-06-01 17:00:00 [facility] W/AUTO DIFF V. BASIC METABOLIC PANEL 2021-06-01 17:00:00 [facility] V. PROTHROMBIN TIME WITH INR 2021-06-01 17:00:00 [facility] V. PARTIAL THROMBOPLASTIN 2021-06-01 17:00:00 [facility] TIME (PTT) V. ESTIMATED GFR 2021-06-01 17:00:00 Paddy [facility] V. ACTIVATED CLOTTING TIME 2021-06-01 16:56:00 [facility] ARTERIAL BLOOD GAS, 2021-06-01 16:17:00 [facility] CORRECTED SODIUM LEVEL, SYRINGE 2021-06-01 16:17:00 [facility] POTASSIUM, SYRINGE 2021-06-01 16:17:00 [facility] IONIZED CALCIUM, ARTERIAL 2021-06-01 16:17:00 [facility] HEMOGLOBIN, SYRINGE 2021-06-01 16:17:00 [facility] GLUCOSE LEVEL, SYRINGE 2021-06-01 16:17:00 [facility] LACTIC ACID, SYRINGE 2021-06-01 16:17:00 [facility] ARTERIAL LINE 2021-06-01 14:00:52 [facility] ANESTHESIA INTUBATION 2021-06-01 13:54:00 [facility] POC GLUCOSE 2021-06-01 12:28:00 Alissa Wright [facility] POC GLUCOSE 2021-06-01 10:27:00 Alissa Wright [facility] HC COMPLETE BLD COUNT 2021-06-01 10:20:00 [facility]FF COMPREHENSIVE METABOLIC 2021-06-01 10:20:00 Chente [facility] PANEL MAGNESIUM LEVEL 2021-06-01 10:20:00 Beverley Eldridge Ho spital PHOSPHORUS LEVEL 2021-06-01 10:20:00 Beverley Eldridge H ospital ESTIMATED GFR 2021-06-01 10:20:00 Beverley Eldridge Ho spital POC GLUCOSE 2021-06-01 05:46:00 Alissa Wright [facility]ital POC GLUCOSE 2021-06-01 01:48:00 Alissa Wright [facility]ital POC GLUCOSE 2021-05-31 22:58:00 Alissa Wright [facility]ital POC GLUCOSE 2021-05-31 16:21:00 Alissa Wright Ho [facility]ital POC GLUCOSE 2021-05-31 12:36:00 Alissa Wright [facility]ital TYPE AND SCREEN 2021-05-31 10:53:00 [facility] F. BASIC METABOLIC PANEL 2021-05-31 10:53:00 [facility] HC COMPLETE BLD COUNT 2021-05-31 10:53:00 [facility] W/AUTO DIFF MAGNESIUM LEVEL 2021-05-31 10:53:00 Kalee Cordero Ho spital ESTIMATED GFR 2021-05-31 10:53:00 Kalee Cordero spital POC GLUCOSE 2021-05-31 10:52:00 Alissa Wright Ho [facility]ital POC GLUCOSE 2021-05-31 07:13:00 Alissa Wright [facility] US RENAL 2021-05-31 02:35:00 Bhupinder Vizcaino Ho spital POC GLUCOSE 2021-05-31 02:17:00 Alissa Wright Ho spital COVID-19 QUALITATIVE 2021-05-30 23:25:00 [facility] RT-PCR F. POC GLUCOSE 2021-05-30 22:44:00 Alissa Wright Ho [facility]ital POC GLUCOSE 2021-05-30 16:47:00 Alissa Wright [facility] POC GLUCOSE 2021-05-30 12:48:00 Alissa Wright [facility] HC COMPLETE BLD COUNT 2021-05-30 09:23:00 [facility] W/AUTO DIFF BASIC METABOLIC PANEL 2021-05-30 09:23:00 [facility] MAGNESIUM LEVEL 2021-05-30 09:23:00 [facility] PHOSPHORUS LEVEL 2021-05-30 09:23:00 [facility] ESTIMATED GFR 2021-05-30 09:23:00 Maxime [facility] POC GLUCOSE 2021-05-30 09:04:00 Alissa Wright [facility] POC GLUCOSE 2021-05-30 05:31:00 Alissa Wright [facility] POC GLUCOSE 2021-05-30 01:53:00 Alissa Wright [facility] CV PACEMAKER DEFIB ILR 2021-05-30 00:00:00 Catrina Gonsalez [facility] INTERROGATION F. POC GLUCOSE 2021-05-29 21:39:00 Alissa Wright [facility] POC GLUCOSE 2021-05-29 19:50:00 Alissa Wright spital POC GLUCOSE 2021-05-29 17:04:00 Alissa Wright [facility] POC GLUCOSE 2021-05-29 13:14:00 Alissa Wright spital URINE CULTURE 2021-05-29 11:55:00 [facility] URINALYSIS SCREEN AND 2021-05-29 11:55:00 [facility] MICROSCOPY, WITH REFLEX TO CULTURE XR ABDOMEN 1 VW PORTABLE 2021-05-29 11:30:00 [facility] HC COMPLETE BLD COUNT 2021-05-29 10:09:00 [facility] W/AUTO DIFF COMPREHENSIVE METABOLIC 2021-05-29 10:09:00 [facility] PANEL MAGNESIUM LEVEL 2021-05-29 10:09:00 [facility] PHOSPHORUS LEVEL 2021-05-29 10:09:00 [facility] ESTIMATED GFR 2021-05-29 10:09:00 [facility] POC GLUCOSE 2021-05-29 08:49:00 Alissa Wright spital POC GLUCOSE 2021-05-29 04:29:00 Wright, Alissa [facility] POC GLUCOSE 2021-05-29 00:57:00 Wright, Alissa [facility] POC GLUCOSE 2021-05-28 20:50:00 Wright, Alissa [facility] POC GLUCOSE 2021-05-28 16:20:00 Wright, Alissa [facility] POC GLUCOSE 2021-05-28 12:39:00 Wright, Alissa [facility] BASIC METABOLIC PANEL 2021-05-28 10:33:00 [facility] COMPLETE BLD COUNT 2021-05-28 10:33:00 [facility] W/AUTO DIFF MAGNESIUM LEVEL 2021-05-28 10:33:00 [facility] PHOSPHORUS LEVEL 2021-05-28 10:33:00 [facility] ESTIMATED GFR 2021-05-28 10:33:00 [facility] POC GLUCOSE 2021-05-28 09:39:00 Wright, Alissa [facility] POC GLUCOSE 2021-05-28 06:40:00 Wright, Alissa [facility] POC GLUCOSE 2021-05-28 06:05:00 Wright, Alissa [facility] POC GLUCOSE 2021-05-28 03:43:00 Wright, Alissa [facility] POC GLUCOSE 2021-05-28 02:09:00 Wright, Alissa [facility] POC GLUCOSE 2021-05-27 21:00:00 Wright, Alissa [facility] POC GLUCOSE 2021-05-27 16:51:00 Wright, Alissa [facility] POC GLUCOSE 2021-05-27 12:28:00 Wright, Alissa [facility] POC GLUCOSE 2021-05-27 10:48:00 Wright, Alissa [facility] BASIC METABOLIC PANEL 2021-05-27 10:46:00 Princess Carvalho [facility] HC COMPLETE BLD COUNT 2021-05-27 10:46:00 [facility] W/AUTO DIFF MAGNESIUM LEVEL 2021-05-27 10:46:00 Adi [facility] PHOSPHORUS LEVEL 2021-05-27 10:46:00 Adi [facility] ESTIMATED GFR 2021-05-27 10:46:00 Jasbirabraham [facility] POC GLUCOSE 2021-05-27 08:35:00 WrightAlissa larson [facility] POC GLUCOSE 2021-05-27 06:22:00 Wright, Alissa [facility] POC GLUCOSE 2021-05-27 01:42:00 WrightAlissa [facility] POC GLUCOSE 2021-05-26 21:22:00 WrightAlissa larson [facility] POC GLUCOSE 2021-05-26 16:37:00 WrightAlissa alrson [facility] POC GLUCOSE 2021-05-26 12:44:00 WrightAlissa larson [facility] POC GLUCOSE 2021-05-26 09:59:00 WrightAbiodun larsonAlissaevans [facility] spital MAGNESIUM LEVEL 2021-05-26 05:53:00 Sudario, [facility] BASIC METABOLIC PANEL 2021-05-26 05:53:00 Sudario, [facility] ESTIMATED GFR 2021-05-26 05:53:00 Sudario, [facility] PHOSPHORUS LEVEL 2021-05-26 05:53:00 Sudario, [facility] POC GLUCOSE 2021-05-26 05:30:00 Alissa Wright spital ECG 12-LEAD 2021-05-26 05:25:53 [facility] F. POC GLUCOSE 2021-05-26 01:45:00 Alissa Wright Ho spital POC GLUCOSE 2021-05-25 20:43:00 WrightAlissa larson [facility] ECG 12-LEAD 2021-05-25 17:39:01 [facility] POC [facility]SE 2021-05-25 16:38:00 WrightAlissa larson [facility] POC GLUCOSE 2021-05-25 13:25:00 WrightAlissa larson Ho spital HC COMPLETE BLD COUNT 2021-05-25 09:56:00 [facility] W/AUTO DIFF COMPREHENSIVE METABOLIC 2021-05-25 09:56:00 SudBhupinder alfaro [facility] PANEL MAGNESIUM LEVEL 2021-05-25 09:56:00 [facility] ESTIMATED GFR 2021-05-25 09:56:00 Sudario [facility] POC GLUCOSE 2021-05-25 09:48:00 WrightAlissa larson [facility] POC GLUCOSE 2021-05-25 09:18:00 WrightOrin larsonta [facility] POC GLUCOSE 2021-05-25 05:34:00 WrightAlissa larson [facility] POC GLUCOSE 2021-05-25 01:55:00 WrightOrin larsonta [facility] POC GLUCOSE 2021-05-24 22:15:00 Alissa Wright [facility] POC GLUCOSE 2021-05-24 16:56:00 WrightAlissa larson [facility] POC GLUCOSE 2021-05-24 12:53:00 WrightOrin larsonta [facility] POC GLUCOSE 2021-05-24 10:35:00 WrightAlissa larson [facility] HC COMPLETE BLD COUNT 2021-05-24 10:32:00 [facility] W/AUTO DIFF BASIC METABOLIC PANEL 2021-05-24 10:32:00 [facility] MAGNESIUM LEVEL 2021-05-24 10:32:00 [facility] PHOSPHORUS LEVEL 2021-05-24 10:32:00 [facility] ESTIMATED GFR 2021-05-24 10:32:00 [facility] POC GLUCOSE 2021-05-24 05:55:00 WrightAlissa larson [facility] POC GLUCOSE 2021-05-24 02:46:00 WrightAlissa larson [facility] POC GLUCOSE 2021-05-24 00:30:00 WrightAlissa larson [facility] POC GLUCOSE 2021-05-23 22:30:00 WrightAlissa larson Ho spital TTE LIMITED, WO CONTRAST, 2021-05-23 19:00:00 Norman Johnson [facility] W DOPPLER ([id number]) [facility] POC GLUCOSE 2021-05-23 16:54:00 WrightAlissa larson Ho [facility]ital POC GLUCOSE 2021-05-23 12:42:00 WrightAlissa larson Ho spital POC GLUCOSE 2021-05-23 10:36:00 WrightAlissa larson Ho spital HC COMPLETE BLD COUNT 2021-05-23 09:42:00 [facility] W/AUTO DIFF BASIC METABOLIC PANEL 2021-05-23 09:42:00 [facility] ESTIMATED GFR 2021-05-23 09:42:00 [facility] MAGNESIUM LEVEL 2021-05-23 09:42:00 [facility] ECG 12-LEAD 2021-05-23 06:59:26 Alissa Wright Ho spital POC GLUCOSE 2021-05-23 06:24:00 WrightAlissa larson Ho spital POC GLUCOSE 2021-05-23 01:09:00 WrightAlissa larson Ho spital CV PACEMAKER DEFIB ILR 2021-05-23 00:00:00 Catrina Gonsalez [facility] INTERROGATION F. POC GLUCOSE 2021-05-22 21:49:00 Alissa Wright Ho spital POC GLUCOSE 2021-05-22 16:29:00 WrightAlissa larson Ho spital POC GLUCOSE 2021-05-22 12:56:00 WrightAlissa larson Ho spital POC GLUCOSE 2021-05-22 09:29:00 Alissa Wright Ho spital BASIC METABOLIC PANEL 2021-05-22 09:25:00 Alissa Wright [facility] MAGNESIUM LEVEL 2021-05-22 09:25:00 Alissa Wright Ho spital PHOSPHORUS LEVEL 2021-05-22 09:25:00 Alissa Wright H ospital ESTIMATED GFR 2021-05-22 09:25:00 lAissa Wright Ho spital MAGNESIUM LEVEL 2021-05-22 08:12:00 [facility] BASIC METABOLIC PANEL 2021-05-22 08:12:00 [facility] COMPLETE BLD COUNT 2021-05-22 08:12:00 [facility] W/AUTO DIFF HEPATIC FUNCTION PANEL 2021-05-22 08:12:00 [facility] THYROID STIMULATING 2021-05-22 08:12:00 [facility] HORMONE ECG 12-LEAD 2021-05-22 08:02:08 [facility] Zoroastrian Ho spital ECG 12-LEAD 2021-05-22 07:27:49 Misael [facility] POC GLUCOSE 2021-05-22 04:24:00 WrightAlissa larson [facility] POC GLUCOSE 2021-05-22 01:32:00 WrightAlissa larson [facility] POC GLUCOSE 2021-05-21 22:30:00 Alissa Wright [facility] POC GLUCOSE 2021-05-21 17:13:00 Alissa Wright [facility] POC GLUCOSE 2021-05-21 12:34:00 Alissa Wright [facility] POC GLUCOSE 2021-05-21 09:09:00 WrightAlissa larson [facility] HC COMPLETE BLD COUNT 2021-05-21 09:04:00 [facility] W/AUTO DIFF BASIC METABOLIC PANEL 2021-05-21 09:04:00 [facility] MAGNESIUM LEVEL 2021-05-21 09:04:00 [facility] ESTIMATED GFR 2021-05-21 09:04:00 [facility] POC GLUCOSE 2021-05-21 00:48:00 Alissa Wright [facility] POC GLUCOSE 2021-05-20 21:36:00 Alissa Wright spital ARTERIAL BLOOD GAS 2021-05-20 20:50:00 [facility] AMMONIA LEVEL 2021-05-20 20:49:00 [facility]iodun [facility] IONIZED CALCIUM 2021-05-20 18:31:00 [facility] IONIZED CALCIUM 2021-05-20 16:37:00 [facility] POC GLUCOSE 2021-05-20 16:27:00 Abiodun Wrightchievans [facility] TROPONIN T 2021-05-20 13:44:00 [facility] POC GLUCOSE 2021-05-20 12:41:00 [facility] URINE CULTURE 2021-05-20 11:26:00 [facility] URINALYSIS SCREEN AND 2021-05-20 08:45:00 [facility] MICROSCOPY, WITH REFLEX TO CULTURE HC COMPLETE BLD COUNT 2021-05-20 06:06:00 Olga Lidia Dominguez [facility] W/AUTO DIFF Izu[place]or BASIC METABOLIC PANEL 2021-05-20 06:05:00 [facility] MAGNESIUM LEVEL 2021-05-20 06:05:00 [facility] PHOSPHORUS LEVEL 2021-05-20 06:05:00 [facility] ESTIMATED GFR 2021-05-20 06:05:00 [facility] TROPONIN T 2021-05-20 06:05:00 [facility] POC GLUCOSE 2021-05-20 06:05:00 [facility]iodun [facility] spital ECG 12-LEAD 2021-05-20 06:03:04 [facility] POC GLUCOSE 2021-05-20 02:09:00 Abiodun Wrightchita [facility] POC GLUCOSE 2021-05-19 21:30:00 Alissa Wright spital POC GLUCOSE 2021-05-19 16:37:00 Kyle Alissa [facility] POC GLUCOSE 2021-05-19 12:32:00 Wright, Alissa [facility] HC COMPLETE BLD COUNT 2021-05-19 09:58:00 [facility]FF Izu[place]or COMPREHENSIVE METABOLIC 2021-05-19 09:58:00 Alberto [facility] PANEL Izu[place] PHOSPHORUS LEVEL 2021-05-19 09:58:00 Olga Lidia Dominguez [facility] [place] ESTIMATED GFR 2021-05-19 09:58:00 Olga Lidia Dominguez [facility] [place] POC GLUCOSE 2021-05-19 09:57:00 WrightAbiodun larsonAlissa [facility] POC GLUCOSE 2021-05-19 06:28:00 Wright, Alissa [facility] POC GLUCOSE 2021-05-19 05:54:00 WrightAbiodunAlissa [facility] POC GLUCOSE 2021-05-19 02:01:00 WrightAbiodunAlissa [facility] POC GLUCOSE 2021-05-18 21:40:00 Wright, Alissa [facility] POC GLUCOSE 2021-05-18 16:47:00 Wright, Alissa [facility] POC GLUCOSE 2021-05-18 12:36:00 Wright, Alissa [facility] HC COMPLETE BLD COUNT 2021-05-18 09:57:00 [facility] Izu[place]or COMPREHENSIVE METABOLIC 2021-05-18 09:57:00 Alberto [facility] PANEL I[place] PHOSPHORUS LEVEL 2021-05-18 09:57:00 Olga Lidia Dominguez [facility] [place] ESTIMATED GFR 2021-05-18 09:57:00 Olga Lidia Dominguez [facility] [place] POC GLUCOSE 2021-05-18 09:54:00 WrightAbiodun larsonAlissa [facility] POC GLUCOSE 2021-05-18 04:57:00 WrightAbiodunAlissa [facility] POC GLUCOSE 2021-05-18 01:02:00 Alissa Wright Ho spital POC GLUCOSE 2021-05-17 21:30:00 Alissa Wright Ho spital ECG 12-LEAD 2021-05-17 16:17:37 Alissa Wright Ho spital POC GLUCOSE 2021-05-17 15:56:00 Alissa Wright Ho spital CV MRI W CONTRAST FOR 3D 2021-05-17 14:40:57 Norman Johnson [facility] LV SCAR ASSESSMENT [place] POC GLUCOSE 2021-05-17 12:33:00 Alissa Wright Ho spital CBC WITH PLATELET AND 2021-05-17 12:15:00 Kurtis [facility] DIFFERENTIAL BASIC METABOLIC PANEL 2021-05-17 12:15:00 Kurtis [facility] ESTIMATED GFR 2021-05-17 12:15:00 Alissa Wright Ho spital POC GLUCOSE 2021-05-17 09:56:00 Alissa Wright Ho spital URINALYSIS, AUTOMATED 2021-05-17 07:34:00 Sherie Sánchez [facility] WITH MICROSCOPY POC GLUCOSE 2021-05-17 05:00:00 Alissa Wright Ho spital POC GLUCOSE 2021-05-17 01:14:00 Alissa Wright Ho spital POC GLUCOSE 2021-05-16 22:47:00 Alissa Wright Ho spital VENIPUNC NEED PHYS 2021-05-16 20:04:01 Rosa M Kurtz [facility] SKILL,DX OR RX POC GLUCOSE 2021-05-16 16:24:00 Alissa Wright Ho spital POC GLUCOSE 2021-05-16 13:45:00 Alissa Wright Ho spital POC GLUCOSE 2021-05-16 13:42:00 Alissa Wright Ho spital BASIC METABOLIC PANEL 2021-05-16 09:12:00 Princess Carvalho [facility] HC COMPLETE BLD COUNT 2021-05-16 09:12:00 Princess Carvalho [facility] W/AUTO DIFF MAGNESIUM LEVEL 2021-05-16 09:12:00 Sherie Sánchez [facility] ESTIMATED GFR 2021-05-16 09:12:[address] [facility] POC GLUCOSE 2021-05-16 01:42:00 Alissa Wright Ho spital POC GLUCOSE 2021-05-15 21:59:00 Alissa Wright Ho spital POC GLUCOSE 2021-05-15 18:06:00 Alissa Wright Ho spital POC GLUCOSE 2021-05-15 18:01:00 Alissa Wright Ho spital POC GLUCOSE 2021-05-15 13:26:00 Alissa Wright Ho spital BASIC METABOLIC PANEL 2021-05-15 09:50:00 Jasbir [facility] ESTIMATED GFR 2021-05-15 09:50:00 [facility] HC COMPLETE BLD COUNT 2021-05-15 09:49:00 Jasbir [facility] W/AUTO DIFF POC GLUCOSE 2021-05-15 02:12:00 Alissa Wright Ho spital POC GLUCOSE 2021-05-14 23:26:00 Alissa Wright Ho spital POC GLUCOSE 2021-05-14 17:08:00 Alissa Wright Ho spital POC GLUCOSE 2021-05-14 12:31:00 Alissa Wright Ho spital POC GLUCOSE 2021-05-14 10:21:00 Alissa Wright Ho spital ECG 12-LEAD 2021-05-14 08:37:57 [facility]OL[facility] 2021-05-14 07:36:00 Chad [facility] MAGNESIUM LEVEL 2021-05-14 07:36:00 [facility] ESTIMATED GFR 2021-05-14 07:36:00 [facility] 2021-05-14 05:59:00 Alissa Wright Ho spital POC GLUCOSE 2021-05-14 02:44:00 Alissa Wright [facility] POC GLUCOSE 2021-05-13 21:39:00 Alissa Wright Ho spital URINALYSIS, AUTOMATED 2021-05-13 21:21:00 Alissa Wrgiht [facility] WITH MICROSCOPY POC GLUCOSE 2021-05-13 16:55:00 Alissa Wright Ho spital ECG 12-LEAD 2021-05-13 12:34:33 Alissa Wright Ho spital POC GLUCOSE 2021-05-13 12:32:00 Alissa Wright Ho spital ECG 12-LEAD 2021-05-13 12:30:53 Alissa Wright Ho spital VITAMIN D 25 HYDROXY 2021-05-13 08:26:00 Celestina Garcia [facility] LEVEL COMPREHENSIVE METABOLIC 2021-05-13 08:26:00 Chad [facility] PANEL MAGNESIUM LEVEL 2021-05-13 08:26:00 Chad, [facility] CBC HEMOGRAM 2021-05-13 08:26:00 [facility] ESTIMATED GFR 2021-05-13 08:26:00 [facility] POC GLU[facility]SE 2021-05-13 08:26:00 Alissa Wright spital ECG 12-LEAD 2021-05-13 07:57:[address] HEAD WO CONTRAST 2021-05-13 07:43:17 No Holley [facility] POC GLUCOSE 2021-05-13 04:56:00 Alissa Wright [facility] POC GLUCOSE 2021-05-13 02:18:00 Alissa Wright Ho spital POC GLUCOSE 2021-05-12 21:22:00 Alissa Wright [facility] POC GLUCOSE 2021-05-12 16:30:00 Alissa Wright Ho spital XR CHEST 1 VW PORTABLE 2021-05-12 14:10:00 [facility] POC GLUCOSE 2021-05-12 12:54:00 Alissa Wright spital LACTIC ACID LEVEL 2021-05-12 11:37:00 [facility] POC GLUCOSE 2021-05-12 09:52:00 Alissa Wright spital XR ABDOMEN 1 VW PORTABLE 2021-05-12 09:24:46 [facility] ARTERIAL BLOOD GAS 2021-05-12 09:15:00 [facility] ECG 12-LEAD 2021-05-12 07:54:27 [address] [facility] URINE CULTURE 2021-05-12 07:05:00 Alissa Wright [facility] spital URINALYSIS SCREEN AND 2021-05-12 07:05:00 Sybil [facility] MICROSCOPY, WITH REFLEX TO CULTURE MAGNESIUM LEVEL 2021-05-12 06:46:00 Sathya Adame spital [facility] COMPLETE BLD COUNT 2021-05-12 06:46:00 [facility] W/AUTO DIFF [place] BASIC METABOLIC PANEL 2021-05-12 06:46:00 [facility] LIPID PANEL 2021-05-12 06:46:00 [facility] THYROID STIMULATING 2021-05-12 06:46:00 [facility] HORMONE T4, FREE 2021-05-12 06:46:00 [facility] ESTIMATED GFR 2021-05-12 06:46:00 [facility] VITAMIN B12 LEVEL 2021-05-12 06:45:00 [facility] FOLATE LEVEL 2021-05-12 06:45:00 [facility] BLOOD CULTURE, AEROBIC & 2021-05-12 06:44:00 Kevin giuliana [facility] ANAEROBIC BLOOD CULTURE, AEROBIC & 2021-05-12 06:43:00 [facility] ANAEROBIC LACTIC ACID LEVEL 2021-05-12 06:43:00 Josh Goodman [facility] [place] HEMOGLOBIN A1C 2021-05-12 06:43:00 [facility] POC GLUCOSE 2021-05-12 06:23:00 Alissa Wright Ho spital CT ANGIOGRAM HEAD W WO 2021-05-12 05:35:00 [facility] CONTRAST CT ANGIOGRAM NECK W WO 2021-05-12 05:35:00 [facility] CONTRAST CT HEAD WO CONTRAST 2021-05-12 05:09:16 [facility] POC GLUCOSE 2021-05-12 03:21:00 Alissa Wright spital ECG 12-LEAD 2021-05-12 02:18:33 [facility] XR CHEST 1 VW PORTABLE 2021-05-12 02:15:44 [facility] CBC HEMOGRAM 2021-05-12 02:04:00 [facility] BASIC METABOLIC PANEL 2021-05-12 02:04:00 [facility] LACTIC ACID LEVEL 2021-05-12 02:04:00 [facility] VENOUS BLOOD GAS 2021-05-12 02:04:00 [facility] ESTIMATED GFR 2021-05-12 02:04:00 Alissa Wright Ho spital HEPATIC FUNCTION PANEL 2021-05-12 02:04:00 Alissa Wright [facility] POC GLUCOSE 2021-05-12 01:52:00 Alissa Wright [facility] POC GLUCOSE 2021-05-11 21:49:00 Alissa Wright [facility] POC GLUCOSE 2021-05-11 21:46:00 Alissa Wright spital ECG 12-LEAD 2021-05-11 20:22:49 [facility] Johnson harpreet Mcdermott EP COMPLETE EP STUDY W 2021-05-11 19:51:41 [facility] ABLATION [place] V. ACTIVATED CLOTTING TIME 2021-05-11 19:38:00 [facility] ACTIVATED CLOTTING TIME 2021-05-11 19:16:00 [facility] ACTIVATED CLOTTING TIME 2021-05-11 18:26:00 [facility] ACTIVATED CLOTTING TIME 2021-05-11 17:42:00 [facility] ACTIVATED CLOTTING TIME 2021-05-11 17:06:00 [facility] ACTIVATED CLOTTING TIME 2021-05-11 16:30:00 [facility] ACTIVATED CLOTTING TIME 2021-05-11 15:56:00 [facility] ACTIVATED CLOTTING TIME 2021-05-11 15:33:00 [facility] ACTIVATED CLOTTING TIME 2021-05-11 15:10:00 [facility] ACTIVATED CLOTTING TIME 2021-05-11 13:55:00 [facility] ARTERIAL LINE 2021-05-11 13:50:29 Katarzyna [facility] [place] PA AN ELECTIVE 2021-05-11 13:24:00 Katarzyna [facility] ENDOTRACHEAL AIRWAY [place] POC GLUCOSE 2021-05-11 12:37:00 Alissa Wright Ho spital PROTHROMBIN TIME WITH INR 2021-05-11 09:28:00 [facility] TYPE AND SCREEN 2021-05-11 09:17:00 [facility] V. MAGNESIUM LEVEL 2021-05-11 09:17:00 Sathya Adame Ho spital Kody HC COMPLETE BLD COUNT 2021-05-11 09:17:00 Bhupinder Young [facility] W/AUTO DIFF BASIC METABOLIC PANEL 2021-05-11 09:17:00 [facility] 2021-05-11 09:17:00 Alissa Wright Ho spital POC GLUCOSE 2021-05-11 09:13:00 Alissa Wright Ho spital POC GLUCOSE 2021-05-11 06:44:00 Alissa Wright Ho spital POC GLUCOSE 2021-05-11 06:29:00 Alissa Wright Ho spital POC GLUCOSE 2021-05-11 02:27:00 Alissa Wright Ho spital POC GLUCOSE 2021-05-10 22:31:00 Alissa Wright Ho spital COVID-19 QUALITATIVE 2021-05-10 20:37:00 Wendi [facility] RT-PCR Kody POC GLUCOSE 2021-05-10 17:48:00 Alissa Wright Ho spital MAGNESIUM LEVEL 2021-05-10 11:10:00 Wendi [facility] Kody POC GLUCOSE 2021-05-10 02:48:00 Alissa Wright Ho spital POC GLUCOSE 2021-05-09 23:01:00 Alissa Wright Ho spital CV MRI STRESS TEST W 2021-05-09 15:13:28 Wendi [facility] CONTRAST Kody POC GLUCOSE 2021-05-09 02:38:00 Alissa Wright spital CV PACEMAKER DEFIB ILR 2021-05-09 00:00:00 [facility] POC GLUCOSE 2021-05-08 23:06:00 Alissa Wright Ho spital POC GLUCOSE 2021-05-08 17:38:00 Alissa Wright Ho spital POC GLUCOSE 2021-05-08 12:36:00 Alissa Wright Ho spital HC COMPLETE BLD COUNT 2021-05-08 11:00:00 Kyle [facility] W/AUTO DIFF COMPREHENSIVE METABOLIC 2021-05-08 11:00:00 Wright, [facility] PANEL ESTIMATED GFR 2021-05-08 11:00:00 Alissa Wright Ho spital POC GLUCOSE 2021-05-08 02:08:00 Alissa Wright Ho spital POC GLUCOSE 2021-05-07 21:44:00 WrightAlissa larson Ho spital POC GLUCOSE 2021-05-07 13:04:00 WrightAlissa Ho spital POC GLUCOSE 2021-05-07 10:17:00 WrightAlissa Ho spital COVID-19 ANTI-SPIKE IGG 2021-05-07 09:33:00 [facility] Dashawn HC COMPLETE BLD COUNT 2021-05-07 09:33[facility]00 [facility] COMPREHENSIVE METABOLIC 2021-05-07 09:33:00 [facility] PANEL COVID-19 SEROLOGY PATIENT 2021-05-07 09:33:00 Jovan [facility] SURVEILLANCE Dashawn ESTIMATED GFR 2021-05-07 09:33:00 WrightAlissa larson spital POC GLUCOSE 2021-05-07 04:52:00 WrightAlissa larson Ho spital POC GLUCOSE 2021-05-07 02:10:00 WrightAlissa larson spital TTE COMPLETE, WO 2021-05-06 22:35:00 Pandat [facility] CONTRAST, W DOPPLER Kody (45091) POC GLUCOSE 2021-05-06 22:30:00 WrightAlissa larson spital POC GLUCOSE 2021-05-06 16:22:00 WrightAlissa larson Ho spital POC GLUCOSE 2021-05-06 12:42:00 WrightAlissa larson spital HC COMPLETE BLD COUNT 2021-05-06 09:57:00 Kyle [facility] W/AUTO DIFF COMPREHENSIVE METABOLIC 2021-05-06 09:57:00 Wright, [facility] PANEL ESTIMATED GFR 2021-05-06 09:57:00 WrightAlissa larson spital XR CHEST 1 VW PORTABLE 2021-05-06 01:15:00 PandatSathya [facility] Kody POC GLUCOSE 2021-05-06 00:39:00 WrightAlissa larson spital CV PACEMAKER DEFIB ILR 2021-05-06 00:00:00 Sathya Adame [facility] INTERROGATION Kody ECG 12-LEAD 2021-05-05 23:15:36 Sathya Adame spital Kody POC GLUCOSE 2021-05-05 21:42:00 Alissa Wright spieric Plan of Care Planned Activity Planned Date Details Comments Source Future Scheduled 2029-08-12 Screening for University of Test 00:00:00 osteoporosis [facility] (procedure) [code = Branch [id number]] Future Scheduled 2029-08-12 Screening for University of Test 00:00:00 osteoporosis [facility] (procedure) [code = Branch 239637509] Future Scheduled 2021-10-17 HEPATITIS B VACCINES Met hodist Test 19:06:58 (1 of 3 - 3-dose Hospital series) [code = HEPATITIS B VACCINES (1 of 3 - 3-dose series)] Future Scheduled 2021-10-17 SHINGLES VACCINES (1 Met hodist Test 19:06:58 of 2) [code = Hospital SHINGLES VACCINES (1 of 2)] Future Scheduled 2021-10-17 INFLUENZA VACCINE Method ist Test 19:06:58 [code = INFLUENZA Hospital VACCINE] Future Scheduled 2021-06-19 Creatinine University of Test 00:00:00 measurement [facility] (procedure) [code = Branch 37210041] Future Scheduled 2021-06-19 Creatinine University of Test 00:00:00 measurement [facility] (procedure) [code = Branch 55197914] Future Scheduled 2021-06-15 Calculated low Universit y of Test 00:00:00 density lipoprotein [facility] cholesterol level [facility] (procedure) [code = 025863664] Future Scheduled 2021-06-15 Calculated low Universit y of Test 00:00:00 density lipoprotein [facility] cholesterol level [facility] (procedure) [code = 107586424] Future Scheduled 2020-12-15 Hemoglobin A1c Universit y of Test 00:00:00 measurement [facility] (procedure) [code = Branch 41756365] Future Scheduled 2020-12-15 Hemoglobin A1c Universit y of Test 00:00:00 measurement [facility] (procedure) [code = Branch 82379758] Future Scheduled 2020-09-15 Diabetic foot University of Test 00:00:00 examination [facility] (regime/therapy) Branch [code = 174654134] Future Scheduled 2020-09-15 Diabetic foot University of Test 00:00:00 examination [facility] (regime/therapy) Branch [code = 690388220] Future Scheduled 2020-09-11 Examination of Universit y of Test 00:00:00 retina (procedure) [place] [facility] [code = 927790532] Branch Future Scheduled 2020-09-11 Examination of Universit y of Test 00:00:00 retina (procedure) [facility] [code = 025058006] Branch Future Scheduled 2020-08-20 Depression screening Uni versity of Test 00:00:00 (procedure) [code = [place] [facility] 166130901] Branch Future Scheduled 2020-08-20 Depression screening Uni versity of Test 00:00:00 (procedure) [code = [place] [facility] 930631365] Branch Future Scheduled 2020-07-22 DTaP,Tdap,and Td Postponed from Unive rsity of Test 00:00:00 Vaccines (1 - Tdap) 09/10/1959 [facility] dical [code = (Alternative Branch DTaP,Tdap,and Td Guidelines) Vaccines (1 - Tdap)] Future Scheduled 2020-07-22 Microalbumin University of Test 00:00:00 measurement, urine, [facility] dical quantitative Branch (procedure) [code = 569640288] Future Scheduled 2020-07-22 Zoster Recombinant Postponed from [...] Microalbumin University of Test 00:00:00 measurement, urine, [facility] dical quantitative Branch (procedure) [code = 633931790] Future Scheduled 2020-07-22 Zoster Recombinant Postponed from Uni versity of Test 00:00:00 Vaccine (SHINGRIX) 1990 [facility] (1 of 2) [code = (Insurance / Branch Zoster Recombinant Financial) Vaccine (SHINGRIX) (1 of 2)] Future Scheduled 2005 Medicare Annual Universi ty of Test 00:00:00 Wellness Visit [facility] (procedure) [code = Branch [id number]] Future Scheduled 2005 Medicare Annual Universi ty of Test 00:00:00 Wellness Visit [facility] (procedure) [code = Branch 914682149268780] Future Scheduled 1958 Hepatitis C University of Test 00:00:00 screening [facility] (procedure) [code = Branch 096004514] Future Scheduled 1958 Hepatitis C University of Test 00:00:00 screening [facility] (procedure) [code = Branch 121178142] Future Scheduled 1956 SARS-CoV-2 University of Test 00:00:00 (COVID-19) Vaccine [facility] (1) [code = Branch SARS-CoV-2 (COVID-19) Vaccine (1)] Future Scheduled 1956 SARS-CoV-2 University of Test 00:00:00 (COVID-19) Vaccine [facility] (1) [code = Branch SARS-CoV-2 (COVID-19) Vaccine (1)] Encounters Start End Encounter Admission Attending Care Care Encounter Source Date/Time Date/Time Type Type Clinicians Facility Department ID 2021-05-23 Outpatient 3 YULISSA Nair RAMANDEEP [id number] ENCPL 09:07:35 Freddy 0404 2021-05-19 Outpatient 3 PernellemersonYULISSA RAMANDEEP [id number] ENCPL 10:32:01 Freddy 0331 2021-05-16 Outpatient 3 [id number] ENC[facility] REF [id number] ENCPL 14:15:44 0328 2021-05-13 Outpatient 3 [id number] ENCPL REF [id number] ENCPL 10:38:18 0325 2021-05-12 Outpatient 3 [id number] ENCPL REF [id number] ENCPL 11:13:53 0324 2021-10-28 2021-10-28 [facility] [id number] Univers 13:00:00 13:00:00 FABIANA gipson [facility] 2021-10-17 2021-10-17 Travel 1.2.840.1 1.2.093.665 [id number] Methodi 00:00:00 00:00:[address] 3.430.2.7 0.2.7.3.698 Ho spita .3.600251 084.8 l .8 2021-10-14 2021-10-14 Lab Candida, 1.2.840.1 [id number] 6284 Methodi 15:35:00 15:40:00 [facility] [address]1601.1.[address] 3.430.2.7 Hospit a .3.116818 l .8 2021-10-14 2021-10-14 Office Candida, 1.2.840.1 [id number] 2398 Methodi 13:00:00 15:29:30 Visit [facility] [address]453.1.[address] 3.430.2.7 Hospit a .3.299323 l .8 2021-10-14 2021-10-14 Outpatient [facility] [id number] [place] 00:00:00 00:00:00 [facility] [address] 2021-10-14 2021-10-14 Outpatient [facility] [id number] [place] 00:00:00 00:00:00 [facility] [address] 2021-10-14 2021-10-14 Travel 1.2.840.1 1.2.820.664 0438 [id number] Methodi 00:00:00 00:00:[address] 3.430.2.7 0.2.7.3.698 Ho spita .3.682982 084.8 l .8 2021-10-14 2021-10-14 Telephone Adrienne, 1.2.840.1 [id number] Methodi 00:00:00 00:00:[address] 3.430.2.7 Hospit a .3.569619 l .8 2021-09-05 2021-09-05 Office Valderraban 1.2.840.1 [id number] 21 [id number] Methodi 13:00:00 13:15:00 Visit Carlito perez 44323.1.[address] V. 3.430.2.7 Hospit a .3.309854 l .8 2021-09-05 2021-09-05 Outpatient VALDERRABAN [facility] 209 [id number] [place] 00:00:00 00:00:00 CARLITO Perez [address] 2021-09-05 2021-09-05 Orders Valderraban 1.2.840.1 [id number] 21 [id number] Methodi 00:00:00 00:00:00 Only raghavSumeetCarlito 70964.1.[address] V. 3.430.2.7 Hospit a .3.310319 l .8 2021-09-05 2021-09-05 Travel 1.2.840.1 1.2.374.948 1385 [id number] Methodi 00:00:00 00:00:[address] 3.430.2.7 0.2.7.3.698 Ho spita .3.287356 084.8 l .8 2021-08-25 2021-08-25 Orders Doctor NO 1.2.840.114 [id number] Univers 00:00:00 00:00:00 Only Unassigned, EL 350.1.13.10 ity of [place] [facility] 4.2.7.2.686 Gregory as [phone] [place] [address] Branch 2021-08-19 2021-08-19 Orders Doctor NO 1.2.840.114 [id number] Univers 00:00:00 00:00:00 Only Unassigned, EL 350.1.13.10 ity of [place] [facility] 4.2.7.2.686 Gregory as [phone] [place] [address] Branch 2021-08-16 2021-08-16 Patient Doctor SAUL 1.2.840.114 [id number] Univers 00:00:00 00:00:00 Secure Msg Unassigned, LIZZETH 350.1.13.10 [place] [phone] Ne dicnh NAL 9 [facility] 2021-08-10 2021-08-10 Telephone Valderraban 1.2.840.1 [id number] Methodi 00:00:00 00:00:[address] V. 3.430.2.7 Hospit a .3.894454 l .8 2021-08-10 2021-08-10 Travel 1.2.840.1 1.2.067.436 9383 [id number] Methodi 00:00:00 00:00:[address] 3.430.2.7 0.2.7.3.698 Ho spita .3.628352 084.8 l .8 2021-08-04 2021-08-04 Patient [facility] 1.2.840.114 [id number] Univers 00:00:00 00:00:00 Secure Msg Fabiana MOREAU 350.1.13.10 [place] [phone] [address] 2021-07-22 2021-07-22 Office [facility] 1.2.840.114 [id number] Univers 15:00:00 15:47:37 Visit Fabiana MOREAU 350.1.13.10 it[place] [phone] [address] 2021-07-22 2021-07-22 Orders Doctor NO 1.2.840.114 [id number] Univers 00:00:00 00:00:00 Only Unassigned, EL 350.1.13.10 ity of [place] [facility] 4.2.7.2.686 Gregory as [phone] [facility] 009 Branch 2021-06-22 2021-06-22 Telephone Valderraban 1.2.840.1 [id number] Methodi 00:00:00 00:00:[address] V. 3.430.2.7 Hospit a .3.832363 l .8 2021-06-21 2021-06-21 Telephone Valderraban 1.2.840.1 [id number] Methodi 00:00:00 00:00:[address] V. 3.430.2.7 Hospit a .3.965420 l .8 2021-06-20 2021-06-20 Office Valderraban 1.2.840.1 [id number] 21 [id number] Methodi 15:15:00 16:36:35 Visit oCarlito 25999.1.[address] V. 3.430.2.7 Hospit a .3.541793 l .8 2021-06-20 2021-06-20 Outpatient VALDERRABAN [facility] [id number] [place] 00:00:00 00:00:00 OCARLITO [address] 2021-06-20 2021-06-20 Refill Valderraban 1.2.840.1 [id number] 21 [id number] Methodi 00:00:00 00:00:[address] V. 3.430.2.7 Hospit a .3.090242 l .8 2021-06-20 2021-06-20 Travel 1.2.840.1 1.2.267.522 0111 197640 Methodi 00:00:00 00:00:[address] 3.430.2.7 0.2.7.3.698 Ho spita .3.628806 084.8 l .8 2021-05-05 2021-06-08 [facility], 1.2.840.1 [id number] Methodi 16:25:00 19:00:00 Encounter Alissa 87410.1.[address] 3.430.2.7 Hospit a .3.803211 l .8 2021-05-05 2021-06-08 [facility] [id number] [address] [place] 00:00:00 00:00:00 ALISSA [address] 2021-06-01 2021-06-01 Anesthesia Romaine Rodriguez 1.2.840.1 [id number] Methodi 08:35:00 13:00:00 Event Aurora Lal 45649.1.[address] 3.430.2.7 Hospit a .3.939738 l .8 2021-06-01 2021-06-01 Surgery Valderraban 1.2.840.1 [id number] Methodi 09:00:00 12:10:00 [address]30[address]1.[address] V. 3.430.2.7 Hospit a .3.809092 l .8 2021-05-30 2021-05-30 Orders Delos 1.2.840.1 [id number] Methodi 00:00:00 00:00:00 Only Davin 24723.1.[address] Catrina F. 3.430.2.7 Hosp betty .3.451905 l .8 2021-05-27 2021-05-27 Outpatient Radha [facility] [id number] -[id number] [facility] 11:20:00 11:20:00 GREGG [id number] [facility] 2021-05-23 2021-05-23 Orders Delos 1.2.840.1 [id number] [id number] Methodi 00:00:00 00:00:00 Only Davin 75142.1.[address] Catrina F. 3.430.2.7 Hosp betty .3.614189 l .8 2021-05-19 2021-05-19 Orders Valderraban 1.2.840.1 [id number] Methodi 00:00:00 00:00:00 Only Carlito perez 37018.1.[address] V. 3.430.2.7 Hospit a .3.065552 l .8 2021-05-11 2021-05-11 Anesthesia Ashley Ramírez 1.2.840.1 [id number] [id number] Methodi 08:08:00 15:19:00 Event Saqib Colón 16334.1.[address] 3.430.2.7 Hospit a .3.378477 l .8 2021-05-11 2021-05-11 Surgery Valderraban 1.2.840.1 [id number] 21 [id number] Methodi 08:15:00 11:25:[address] V. 3.430.2.7 Hospit a .3.279110 l .8 2021-05-09 2021-05-09 Orders Nabi, 1.2.840.1 [id number] Methodi 00:00:00 00:00:00 Only Mando 59285.1.[address] 3.430.2.7 Hospit a .3.584413 l .8 2021-05-06 2021-05-06 Orders Pandat, 1.2.840.1 [id number] Methodi 00:00:00 00:00:00 Only [place] [address]183.1.[address] Kody 3.430.2.7 Hospit a .3.132429 l .8 2021-04-18 2021-05-05 Inpatient X U [facility] [id number] Univers 21:13:00 16:22:00 [facility] 2021-05-05 2021-05-05 Orders Valderraban 1.2.840.1 [id number] 21 [id number] Methodi 00:00:00 00:00:00 Only Carlito perez 13650.1.[address] V. 3.430.2.7 Hospit a .3.057561 l .8 2021-04-13 2021-04-16 [facility] [id number] Univers 19:50:00 15:30:00 DASHAWN [facility]cd[facility] 2021-04-13 2021-04-13 Emergency EM AIDEE Pedraza [id number] [facility] 10:18:00 19:26:00 Jed [id number] [facility] 2021-04-13 2021-04-13 Emergency EM Keila, AIDEE HCACL [id number] [facility] 10:18:00 19:26:00 Jed 20 [facility] Results Test Description Test Time Test Comments Results Result Comments Source ECG 12 lead 2021-09-06 16:36:51 Test Item Value Reference Range Interpretation Comme nts Ventricular rate (test code = 253) Atrial rate (test code = 255) PA interval (test code = 266) QRSD interval (test code = 260) QT interval (test code = 264) QTC interval (test code = 265) P axis 1 (test code = 267) QRS axis 1 (test code = 268) T wave axis (test code = 270) EKG impression (test code = 273) Normal sinus rhythm-Right bundle b ranch block-T wave abnormality, consider inferior ischemia-Abnormal ECG-- [facility] [id number] 22:02:00 Test Item Value Reference Range Interpretation Comments POC glucose (test 70 mg/dL 65-99 [employer] N aiden: Bertin code = 48338-0) NarcisaDevic e ID: [id number] able: [facility] [Presence] in Respiratory specimen by DAYSI with probe [id number] 14:03:47 Test Item Value Reference Range Interpretation Comments SARS-CoV-2 (COVID-19) RNA Not detected [Presence] in Respiratory specimen by DAYSI with probe detection (test code = 24189-1) Whether patient is employed in a Unknown healthcare setting (test code = 94544-2) Whether the patient has symptoms Unknown related to condition of interest (test code = 38414-0) Whether the patient was Unknown hospitalized for condition of interest (test code = 17023-6) Whether the patient was admitted Unknown to intensive care unit (ICU) for condition of interest (test code = 16699-0) Whether patient resides in a Unknown congregate care setting (test code = 64116-0) status (test code = Unknown 36430-0) Date and time of symptom onset Unknown (test code = 88948-2) SARS-CoV-2 (COVID-19) RNA [Presence] in Respiratory specimen by DAYSI with probe [id number] 15:19:43 Test Item Value Reference Range Interpretation Comments SARS-CoV-2 (COVID-19) RNA Not detected [Presence] in Respiratory specimen by DAYSI with probe detection (test code = 66935-4) Whether patient is employed in a Unknown healthcare setting (test code = 42436-6) Whether the patient has symptoms Unknown related to condition of interest (test code = 29956-9) Whether the patient was Unknown hospitalized for condition of interest (test code = 13080-2) Whether the patient was admitted Unknown to intensive care unit (ICU) for condition of interest (test code = 03649-8) Whether patient resides in a Unknown congregate care setting (test code = 01314-2) status (test code = Unknown 79329-9) Date and time of symptom onset Unknown (test code = 96601-6) ECG Pre/Post [id number] 01:41:54 Test Item Value Reference Range Interpretation Comments Ventricular rate (test code = 253) Atrial rate (test code = 255) PA interval (test code = 266) QRSD interval (test code = 260) QT interval (test code = 264) QTC interval (test code = 265) P axis 1 (test code = 267) QRS axis 1 (test code = 268) T wave axis (test code = 270) EKG impression (test AV dual-paced rhythm code = 273) with prolonged AV conduction-Abnormal [facility] [id number] 18:07:00 Test Item Value Reference Range Interpretation Comments Activated clotting See_Comment [employer] Name: time (test code = Elianmarian Jarrett 5298) ID: [id number] [A utomated message] The sy stem which generated this result transmitted ref erence range: 96 - 152 sec. The reference range was not used to interpr et this result as robby l/abnormal. [facility], [id number] 17:14:00 Test Item Value Reference Range Interpretation Comments pH, arterial (test code 7.35-7.45 = 2744-1) pCO2, arterial (test See_Comment [Autom ated message] code = 2019-8) The system ich generated this result transmitted ref erence range: 35 - 45 mmHg. The reference r alissa was not used to interpret this result as normal/abnor mal. pO2, arterial (test code See_Comment H [A utomated message] = 2703-7) The system ic h generated this result transmitted ref erence range: 80 - 90 mmHg. The reference r alissa was not used to interpret this result as normal/abnor mal. Temperature, Celsius Degrees C (test code = 8310-5) O2 saturation, arterial 100 % 95-100 (test code = 2708-6) pH, arterial corrected (test code = 49309-1) pCO2, arterial corrected mmHg (test code = 21228-4) pO2, arterial corrected mmHg (test code = 91886-4) Base excess, arterial See_Comment [Auto mated message] (test code = 1925-7) The s tem which generated this result transmitted ref erence range: -2 - 2 m Eq/L. The reference r alissa was not used to interpret this result as normal/abnor mal. Lab Interpretation (test Abnormal code = 29918-6) [facility], [id number] 17:14:00 Test Item Value Reference Range Interpretation Comments Glucose, syringe (test code = 241 mg/dL 65-99 H 2345-7) Lab Interpretation (test code = Abnormal 38981-1) [facility] [id number] 17:14:00 Test Item Value Reference Range Interpretation Comments Hemoglobin, syringe (test code = 8.9 g/dL 12-16 L 718-7) Lab Interpretation (test code = Abnormal 47969-7) [facility], [id number] 17:14:00 Test Item Value Reference Range Interpretation Comments Ionized calcium, arterial (test 1.06 mmol/L 1.11-1.32 L code = 52487-7) Lab Interpretation (test code = Abnormal 25669-5) [facility], [id number] 17:14:00 Test Item Value Reference Range Interpretation Comments Potassium, syringe (test See_Comment H [A utomated message] code = 2007) The system Strobe generated this result transmitted ref erence range: 3.5 - 5. 0 mEq/L. The refe rence range was not u sed to interpret this result as normal/abnor mal. Lab Interpretation (test Abnormal code = 14611-8) [facility], [id number] 17:14:00 Test Item Value Reference Range Interpretation Comments Sodium, syringe (test See_Comment [Auto mated message] The code = 2947-0) system which generated this result tra nsmitted reference range : 135 - 148 mEq/L. The refe rence range was not used to interpret this result as normal/abnormal . [facility], [id number] 16:20:00 Test Item Value Reference Range Interpretation Comments Lactic acid, syringe (test code = 1.3 mmol/L 0.5-2.2 97420-1) [facility]-CoV-2 (COVID-19) RNA [Presence] in Respiratory specimen by DAYSI with probe [id number] 01:10:48 Test Item Value Reference Range Interpretation Comments SARS-CoV-2 (COVID-19) RNA Not detected [Presence] in Respiratory specimen by DAYSI with probe detection (test code = 95973-4) Whether patient is employed in a Unknown healthcare setting (test code = 04855-9) Whether the patient has symptoms Unknown related to condition of interest (test code = 67650-0) Whether the patient was Unknown hospitalized for condition of interest (test code = 76852-2) Whether the patient was admitted Unknown to intensive care unit (ICU) for condition of interest (test code = 73929-8) Whether patient resides in a Unknown congregate care setting (test code = 66317-8) status (test code = Unknown 07322-0) Date and time of symptom onset Unknown (test code = 19465-3) Urine [id number] 13:16:00 Test Item Value Reference Range Interpretation Comments Urine culture (test SEE COMMENT Bacteriu nanette screen code = 6983007) negative. [facility] RNA [Presence] in Respiratory specimen by DAYSI with probe [id number] 23:22:41 Test Item Value Reference Range Interpretation Comments SARS-CoV-2 (COVID-19) RNA Not detected [Presence] in Respiratory specimen by DAYSI with probe detection (test code = 00416-0) Whether patient is employed in a Unknown healthcare setting (test code = 18527-2) Whether the patient has symptoms Unknown related to condition of interest (test code = 07496-2) Whether the patient was Unknown hospitalized for condition of interest (test code = 34663-2) Whether the patient was admitted Unknown to intensive care unit (ICU) for condition of interest (test code = 13897-9) Whether patient resides in a Unknown congregate care setting (test code = 79729-5) status (test code = Unknown 84194-2) Date and time of symptom onset Unknown (test code = 23173-8) COVID 19 INHOUSE [id number] 18:14:00 Test Item Value Reference Range Interpretation Comments COVID 19 INHOUSE Negative Negative A negative result is AG (test code = presumptive and should be [id number]) confirmedwith a n FDA authorized mole cular [...] high or waivedcomplexit y tests. TROP-I HIGH [id number] 16:38:00 Test Item Value Reference Range Interpretation Comments TROP-I HIGH 41 ng/L 0-34 H CAUTION: Units of the SENSITIVITY (test current te st methodology code = TROPIHS) (ng/L) diffe rfrom the prior test methodolog y (ng/mL) by a factor of 1000. 99th Percentile Upper Reference Limit (URL): Females: 34 ng/LMales: 54 n g/L In order to distinguish acute elevations of h igh sensitivitytrop onin from other clinical conditions, the Fourthive rsal Definition of M yocardial Infarction stre ssesclinical assessment and the demonstration o f a rise and/orfall in s erial troponin result s above the URL. These resu lts were obtained using Siemens [employer]ellica IM TnI Hreagent. Results from di fferent methodologies s hould not becompared to o ne another as quantitative results and URLs mayvary by method. TROP-I HIGH [id number] 13:08:00 Test Item Value Reference Range Interpretation Comments TROP-I HIGH 41 ng/L 0-34 H CAUTION: Units of the SENSITIVITY (test current te st methodology code = TROPIHS) (ng/L) diffe rfrom the prior test methodolog y (ng/mL) by a factor of 1000. 99th Percentile Upper Reference Limit (URL): Females: 34 ng/LMales: 54 n g/L In order to distinguish acute elevations of h igh sensitivitytrop onin from other clinical conditions, the Fourthive rsal Definition of M yocardial Infarction stre ssesclinical assessment and the demonstration o f a rise and/orfall in s erial troponin result s above the URL. These resu lts were obtained using Siemens Atellica IM TnI Hreagent. Results from di fferent methodologies s hould not becompared to o ne another as quantitative results and URLs mayvary by method. LIPOPROTEIN [id number] 12:15:00 Test Item Value Reference Range Interpretation Comments LIPOPROTEIN LDL 145.9 mg/dL 0-100 H <100 OPTIMAL 100-129 (test code = LDL) NEAR OPTIM AL/ABOVE [id number] HIGH>BO=173 ELIAN Y HIGH*Guidelines provided by the National [facility] terol EducationProgra m Adult Treatment Panel III B-TYPE NATRIURETIC [id number] 11:21:00 Test Item Value Reference Range Interpretation Comments B-TYPE NATRIURETIC PEPTIDE (test 259.0 PG/ML 0-100 H code = BNP) PROTHROMBIN [id number] 11:15:00 Test Item Value Reference Range Interpretation Comments PROTHROMBIN TIME 12.0 SECONDS 9.3-12.9 N PATIENT (test code = PTP) INTERNATIONAL NORMAL 1.1 0.8-1.2 N TARGET INR BY RATIO (test code = INDICATIO N Indication INR) INR1. Prophylax is of venous thrombos is 2.0 - 3.0 (orthoped ic surgery), Proph ylaxis of venous throm bosis (other than hig h-risk surgery), Treat ment of Deep Vein Thrombosis/Pulm onary Embolism, Preve ntion of systemic emb olism - Tissue heart va lves, Acute Myocardia l Infarction (to prevent systemic emboli sm), Valvular heart disease, Atrial Fibrillation, Bileaflet mecha nical valve in aortic position.2. Mec hanical prosthetic valv es (high risk), 2. 5 - 3.5 Presence of Lup us Anticoagulant o r Antiphospholipi d Antibodies, Pre vention of systemic emb olism - Acute Myocardia l Infarction (to prevent recurrent infar ct). BASIC METABOLIC [id number] 11:14:00 Test Item Value Reference Range Interpretation [...] 9.1 mg/dL 8.0-10.5 N CA) HEPATIC FUNCTION [id number] 11:14:00 Test Item Value Reference Range Interpretation [...] INDIRECT (test code = 0.50 MG/DL BILIND) [id number] 11:14:00 Test Item Value Reference Range Interpretation Comments MAGNESIUM (test code = MAG) 1.78 mg/dL 1.80-2.40 L TROP-I HIGH [id number] 11:14:00 Test Item Value Reference Range Interpretation Comments TROP-I HIGH 38 ng/L 0-34 H CAUTION: Units of the SENSITIVITY (test current te st methodology code = TROPIHS) (ng/L) diffe rfrom the prior test methodolog y (ng/mL) by a factor of 1000. 99th Percentile Upper Reference Limit (URL): Females: 34 ng/LMales: 54 n g/L In order to distinguish acute elevations of h igh sensitivitytrop onin [...] and URLs mayvary by method. CBC W/AUTO [id number] 10:56:00 Test Item Value Reference Range Interpretation [...] 0.0-0.1 N NRBC#) - XR CHEST 1 [id number] 00:00:00 [facility] 1940 Sex: F FAX: Jed Dumont DO [phone] [place]: St: REG Name: FLY FUENTES [facility] : 1940 Age/S: 80/F [address] [place] [address] Bl Unit #: [id number] Loc: [place] [address] Phys: Jed Pedraza DO Acct: [id number] Date: Status: REG ER PHONE #: [phone] Exam Date: 04/13/2021 110 FAX #: [phone] Reason: Chest Pain EXAMS: CPT CODE: [id number] XR CHEST 1 V 97316 PROCEDURE INFORMATION: Exam: XR Chest Exam date and time: 04/13/2021 10:57 AM Age: 80 years old Clinical indication: Pain; Chest pressure; Additional info: Chest pain TECHNIQUE: Imaging protocol: XR of the chest. Views: 1 view. COMPARISON: No relevant prior studies available. FINDINGS: Lungs: The lungs are hypoinflated. No consolidation or int erstitial edema. Pleural spaces: No pleural effusion. No pneumothorax. Heart/Mediastinum: Borderlinecardiomegaly. Vasculature: Aortic arch calcifications are present. Bones/joints: No acute abnormality. IMPRESSION: No acute cardiopulmonary process. at 1123 Reported and signed by: Alex Grey M.D. CC: Jed Pedraza DOTechnologist: RT Munoz (R) Trnscrd Date/Time/By: 04/13/2021 (1992) : By: [email or web address] Orig Print D/T: S: 04/13/2021 (0557) PAGE 1 Signed Report
[2021-10-17 22:12] LABS: Urine Blood 3+ (Negative); Urine Glucose 3+ (Negative); Urine Protein Negative (Negative)
--- NOTE | 2021-10-17 22:31 | RAD REPORT ---
EXAM DESCRIPTION: CT - Head Brain Wo Cont - 10/17/2021 10:23 pm CLINICAL HISTORY: Mental status change, unknown cause COMPARISON: No comparisons TECHNIQUE: Axial 5 mm thick images of the head were obtained without IV contrast. All CT scans are performed using dose optimization technique as appropriate and may include automated exposure control or mA/KV adjustment according to patient size. FINDINGS: No intracranial hemorrhage, mass, edema or shift of mid-line structures. No acute infarcti on changes seen. No cortical edema or sulcal effacement. Physiologic basal ganglia calcifications are present. Moderate severity atrophy seen with ventricles in proportion. Mild for age chronic ischemic change seen in the cerebral white matter. Mastoid air cells and visualized portions of the paranasal sinuses are clear. No acute bony findings. Asymmetry is created by head tilt. IMPRESSION: Negative non-contrast CT head examination for acute finding.
[2021-10-17 23:10] LABS: Absolute Lymphocytes (CBC) 1.4 K/uL (0.7-4.9); Lymphocytes % 18.2 % (15.3-44.8); MCV 92.1 fL (80-100); MPV 8.3 fL (7.6-11.3); RBC Red Blood Cell Count 2.13 M/uL (3.86-4.86)
[2021-10-17 23:13] LABS: Protime INR 1.95
[2021-10-17 23:17] LABS: Hematocrit 19.6 % (36.0-45.0)
[2021-10-17] MEDS ORDERED: CEFTRIAXONE 1000 MG/VIAL ONE (23:32)
[2021-10-17 23:35] LABS: ALT/SGPT 15 U/L (12-78); AST/SGOT 7 U/L (15-37); Albumin 3.5 g/dL (3.4-5.0); Alkaline Phosphatase 61 U/L (45-117); BUN Blood Urea Nitrogen 27 mg/dL (7-18); Bicarbonate 22 mmol/L (21-32); Bilirubin Total 0.4 mg/dL (0.2-1.0); Glomerular Filtration Rate 44 ml/min (=/>90); Glucose Level 177 mg/dL (74-106); Lipase 258 U/L (73-393); Magnesium 2.8 mg/dL (1.8-2.4); NT PRO-BNP 2895 pg/mL (<450); Potassium 3.7 mmol/L (3.5-5.1); Protein, Total 6.8 g/dL (6.4-8.2); Sodium Level 140 mmol/L (136-145); Troponin High Sensitivity 25.5 pg/mL (<58.9)
[2021-10-17 23:36] LABS: Bilirubin Direct < 0.1 mg/dL (0-0.2)
--- NOTE | 2021-10-17 23:37 | ER ---
Nurse's Notes [facility] Name: Shilpi Pierson Age: 81 yrs Sex: Female : 1940 Arrival Date: 10/17/2021 Time: 21:42 Bed 8 Private MD: Diagnosis: GI Bleed/ Gastrointestinal hemorrhage, unspecified;Anemia, unspecified;Altered mental status, unspecified;UTI/ Urinary tract infection, site not specified;Weakness Presentation: 10/17 21:46 Chief complaint: EMS states: AMS off and on x 2 weeks per EMS pt awake and alert x 4 kl upon arirval. Coronavirus screen: Vaccine status: Patient reports receiving the 2nd dose of the covid vaccine. Ebola Screen: Patient negative for fever greater than or equal to 101.5 degrees Fahrenheit, and additional compatible Ebola Virus Disease symptoms. Initial Sepsis Screen: Does the patient meet any 2 criteria? Yes Does the patient have a suspected source of infection? No. Patient's initial sepsis screen is negative. Risk Assessment: Do you want to hurt yourself or someone else? Patient reports no desire to harm self or others. Note pt reports was seen by PCP last week. Onset of symptoms was October 03, 2021. 21:46 Method Of Arrival: EMS: [facility] kl 21:46 Acuity: MARIA D 3 kl Historical: - Allergies: 21:48 Actos; kl 21:48 Benicar; kl 21:48 Famotidine; kl 21:48 lactose (bulk); kl 21:48 Lactulose; kl 21:48 Lisinopril; kl 21:48 Losartan; kl 21:48 olmesartan; kl 21:48 pioglitazone; kl 21:48 Simvastatin; kl 21:48 Tramadol HCl; kl - Home Meds: 21:48 amiodarone 100 mg Oral tab 1 tab once daily [Active]; amlodipine 5 mg tab 1 tab 2 times kl a day [Active]; apixaban 5 mg Oral tab 1 tab 2 times per day [Active]; buspirone 15 mg Oral tab 1 tab 3 TIMES A DAY [Active]; clonidine HCl 0.1 mg Oral tab 1 tab 2 times per day [Active]; clopidogrel 75 mg Oral tab 1 tab once daily [Active]; diphenhydramine HCl 25 mg Oral tab [Active]; docusate sodium 100 mg Oral cap 1 cap once daily [Active]; Dristan Long Lasting 0.05 % nasal spry 2 sprays 2 times per day [Active]; ezetimibe 10 mg Oral tab 1 tab nightly [Active]; ferrous sulfate 325 mg (65 mg iron) Oral cpER daily [Active]; fexofenadine 180 mg Oral tab 1 tab once daily [Active]; fluticasone propionate 50 mcg/actuation nasal spsn 1 spray 2 times per day [Active]; folic acid 1 mg Oral tab once daily [Active]; furosemide 40 mg Oral tab 1 tab 2 times per day [Active]; glipizide 5 mg Oral tab 1 tab once daily [Active]; isosorbide mononitrate 30 mg Oral Tb24 [Active]; lidocaine patch Q 24 hrs [Active]; melatonin 5 mg Oral tab nightly [Active]; metformin 1,000 mg Oral tab 1 tab 2 times per day [Active]; metoprolol tartrate 50 mg Oral tab 1 tab 2 times per day [Active]; spironolactone 25 mg Oral tab 1 tab once daily [Active]; trazodone 50 mg Oral tab 1 tab bedtime [Active]; - PMHx: 21:48 Anemia; Congestive heart failure; Diabetes - NIDDM; Gastroesophageal reflux disease; kl Hypertension; ventricular tachycardia; - Immunization history:: Adult Immunizations up to date. - Social history:: Smoking status: Patient denies any tobacco usage or history of. Screenin:56 Abuse screen: Denies threats or abuse. Nutritional screening: No deficits noted. kl Tuberculosis screening: No symptoms or risk factors identified. Fall Risk None identified. Assessment: 21:54 General: Appears in no apparent distress. comfortable, well groomed, well developed, kl Behavior is calm, cooperative. Pain: Denies pain. Neuro: No deficits noted. Geronimo Agitation-Sedation Scale (RASS): 0 - Alert and Calm Level of Consciousness is awake, alert, obeys commands, Oriented to person, place, time, situation, Security Assurance Analyst are equal bilaterally Moves all extremities. Speech is normal, Facial symmetry appears normal. Cardiovascular: No deficits noted. Rhythm is Respiratory: No deficits noted. Airway is patent Trachea midline Respiratory effort is even, unlabored, Breath sounds are clear bilaterally. GI: No deficits noted. No signs and/or symptoms were reported involving the gastrointestinal system. : No deficits noted. No signs and/or symptoms were reported regarding the genitourinary system. EENT: No deficits noted. No signs and/or symptoms were reported regarding the EENT system. Vital Signs: 21:46 BP 125 / 35; Pulse 70; Resp 16; Temp 98(O); Pulse Ox 100% on R/A; Pain 0/10; kl ED Course: 21:42 Patient arrived in ED. jb 21:46 Tomas Richmond MD is Attending Physician. [facility] 21:48 Triage completed. kl 22:25 CT Head Brain wo Cont In Process Unspecified. EDMS 22:50 XRAY Chest (1 view) In Process Unspecified. EDMS 23:36 Anupam Alves is Hospitalizing Provider. [facility] 10/18 03:15 Missed attempt(s): 18 gauge in right upper arm. Bleeding controlled, band aid applied, bb catheter tip intact. 03:23 Missed attempt(s): 18 gauge in left antecubital area. Bleeding controlled, band aid bb applied, catheter tip intact. 03:47 Type And Screen Sent. 07:00 No provider procedures requiring assistance completed. Patient admitted, IV remains in jl7 place. intact, No redness/swelling at site. 07:00 Patient has correct armband on for positive identification. Client placed on continuous jl7 cardiac and pulse oximetry monitoring. NIBP monitoring applied. 07:00 Arm band placed on right wrist. jl7 07:14 Laverne Buckner, RN is Primary Nurse. jl7 Administered Medications: 10/17 23:45 Drug: Rocephin (cefTRIAXone) 1 grams Route: IV; Rate: per protocol; Site: left forearm; jb4 23:48 Follow up: IV Status: Completed infusion; IV Intake: 10ml [facility] 10/18 00:56 Drug: ProTONIX (pantoprazole) 8 mg/hr Route: IV; Rate: 25 ml/hr; Site: left forearm; kl 01:24 Drug: ProTONIX (pantoprazole) 80 mg Route: IVP; Site: right forearm; kl 04:40 Not Given (Other Intervention Used): NS 0.9% 500 ml IV at bolus once jb4 04:41 Drug: NS 0.9% 250 ml Route: IV; Rate: bolus; Site: right jugular; jb4 Medication: 13:07 VIS not applicable for this client. jl7 Intake: 10/17 23:48 IV: 10ml; Total: 10ml. jb4 Outcome: 23:37 Decision to Hospitalize by Provider. rosa maria 10/18 02:01 Admitted to ER Hold. Please see [facility] for further documentation. paulina 07:00 Condition: stable osmani7 13:07 Patient left the ED. [email or web address] Signatures: Dispatcher [employer] EDMS Rosmery Gallego, CHER RN Tomas García MD MD cha Ballard, Brenda, RN RN Naveen Nur RN RN jbLaverne Vidal RN RN jl7
--- NOTE | 2021-10-17 23:38 | EDPHYS ---
Physician Documentation [facility] Name: Shilpi Pierson Age: 81 yrs Sex: Female : 1940 Arrival Date: 10/17/2021 Time: 21:42 Bed 8 Private MD: ED Physician Tomas Richmond HPI: 10/17 22:06 This 81 yrs old Female presents to ER via EMS with complaints of ams at [place] x rosa maria 2 weeks. 22:06 The patient presents with confusion. Onset: The symptoms/episode began/occurred 2 rosa maria week(s) ago. Possible causes: CVA or TIA, head injury, low blood sugar, sepsis. Associated signs and symptoms: The patient has no apparent associated signs or symptoms. Current symptoms: In the emergency department the patient's symptoms are unchanged from the initial presentation, despite home interventions. Patient's baseline: Neuro:. The patient has not experienced similar symptoms in the past. Historical: - Allergies: 21:48 Actos; kl 21:48 Benicar; kl 21:48 Famotidine; kl 21:48 lactose (bulk); kl 21:48 Lactulose; kl 21:48 Lisinopril; kl 21:48 Losartan; kl 21:48 olmesartan; kl 21:48 pioglitazone; kl 21:48 Simvastatin; kl 21:48 Tramadol HCl; kl - Home Meds: 21:48 amiodarone 100 mg Oral tab 1 tab once daily [Active]; amlodipine 5 mg tab 1 tab 2 times kl a day [Active]; apixaban 5 mg Oral tab 1 tab 2 times per day [Active]; buspirone 15 mg Oral tab 1 tab 3 TIMES A DAY [Active]; clonidine HCl 0.1 mg Oral tab 1 tab 2 times per day [Active]; clopidogrel 75 mg Oral tab 1 tab once daily [Active]; diphenhydramine HCl 25 mg Oral tab [Active]; docusate sodium 100 mg Oral cap 1 cap once daily [Active]; Dristan Long Lasting 0.05 % nasal spry 2 sprays 2 times per day [Active]; ezetimibe 10 mg Oral tab 1 tab nightly [Active]; ferrous sulfate 325 mg (65 mg iron) Oral cpER daily [Active]; fexofenadine 180 mg Oral tab 1 tab once daily [Active]; fluticasone propionate 50 mcg/actuation nasal spsn 1 spray 2 times per day [Active]; folic acid 1 mg Oral tab once daily [Active]; furosemide 40 mg Oral tab 1 tab 2 times per day [Active]; glipizide 5 mg Oral tab 1 tab once daily [Active]; isosorbide mononitrate 30 mg Oral Tb24 [Active]; lidocaine patch Q 24 hrs [Active]; melatonin 5 mg Oral tab nightly [Active]; metformin 1,000 mg Oral tab 1 tab 2 times per day [Active]; metoprolol tartrate 50 mg Oral tab 1 tab 2 times per day [Active]; spironolactone 25 mg Oral tab 1 tab once daily [Active]; trazodone 50 mg Oral tab 1 tab bedtime [Active]; - PMHx: 21:48 Anemia; Congestive heart failure; Diabetes - NIDDM; Gastroesophageal reflux disease; kl Hypertension; ventricular tachycardia; - Immunization history:: Adult Immunizations up to date. - Social history:: Smoking status: Patient denies any tobacco usage or history of. ROS: 22:07 Constitutional: Negative for fever, chills, and weight loss, Eyes: Negative for injury, rosa maria pain, redness, and discharge, ENT: Negative for injury, pain, and discharge, Neck: Negative for injury, pain, and swelling, Cardiovascular: Negative for chest pain, palpitations, and edema, Respiratory: Negative for shortness of breath, cough, wheezing, and pleuritic chest pain, Abdomen/GI: Negative for abdominal pain, nausea, vomiting, diarrhea, and constipation, Back: Negative for injury and pain, : Negative for injury, bleeding, discharge, and swelling, MS/Extremity: Negative for injury and deformity, Skin: Negative for injury, rash, and discoloration, Psych: Negative for depression, anxiety, suicide ideation, homicidal ideation, and hallucinations, Allergy/Immunology: Negative for hives, rash, and allergies, Endocrine: Negative for neck swelling, polydipsia, polyuria, polyphagia, and marked weight changes, Hematologic/Lymphatic: Negative for swollen nodes, abnormal bleeding, and unusual bruising. 22:07 Neuro: Positive for altered mental status, weakness. Exam: 22:07 Constitutional: This is a well developed, well nourished patient who is awake, alert, rosa maria and in no acute distress. Head/Face: Normocephalic, atraumatic. Eyes: Pupils equal round and reactive to light, extra-ocular motions intact. Lids and lashes normal. Conjunctiva and sclera are non-icteric and not injected. Cornea within normal limits. Periorbital areas with no swelling, redness, or edema. ENT: Nares patent. No nasal discharge, no septal abnormalities noted. Tympanic membranes are normal and external auditory canals are clear. Oropharynx with no redness, swelling, or masses, exudates, or evidence of obstruction, uvula midline. Mucous membranes moist. Neck: Trachea midline, no thyromegaly or masses palpated, and no cervical lymphadenopathy. Supple, full range of motion without nuchal rigidity, or vertebral point tenderness. No Meningismus. Chest/axilla: Normal chest wall appearance and motion. Nontender with no deformity. No lesions are appreciated. Cardiovascular: Regular rate and rhythm with a normal S1 and S2. No gallops, murmurs, or rubs. Normal PMI, no JVD. No pulse deficits. Respiratory: Lungs have equal breath sounds bilaterally, clear to auscultation and percussion. No rales, rhonchi or wheezes noted. No increased work of breathing, no retractions or nasal flaring. Abdomen/GI: Soft, non-tender, with normal bowel sounds. No distension or tympany. No guarding or rebound. No evidence of tenderness throughout. Back: No spinal tenderness. No costovertebral tenderness. Full range of motion. Skin: Warm, dry with normal turgor. Normal color with no rashes, no lesions, and no evidence of cellulitis. MS/ Extremity: Pulses equal, no cyanosis. Neurovascular intact. Full, normal range of motion. Neuro: Awake and alert, GCS 15, oriented to person, place, time, and situation. Cranial nerves II-XII grossly intact. Motor strength 5/5 in all extremities. Sensory grossly intact. Cerebellar exam normal. Normal gait. Psych: Awake, alert, with orientation to person, place and time. Behavior, mood, and affect are within normal limits. 22:07 Musculoskeletal/extremity: DVT Exam: No signs of deep vein thrombosis. no pain, no swelling, no tenderness, negative Homans' sign noted on exam, no appreciated bluish discoloration, no erythema, no increased warmth. 23:43 Abdomen/GI: Rectal exam: is unremarkable, rectal tone normal, Stool: guaiac positive, rosa maria black, hemorrhoid(s), are not appreciated, mass, is not appreciated, swelling, is not appreciated, tenderness, is not appreciated, fecal impaction, is not appreciated, Indicators: McBurney's point Liver: no appreciated palpable abnormalities. 23:45 ECG was reviewed by the Attending Physician. [facility] Vital Signs: 21:46 BP 125 / 35; Pulse 70; Resp 16; Temp 98(O); Pulse Ox 100% on R/A; Pain 0/10; kl MDM: 21:46 Patient medically screened. [facility] 22:08 Differential Diagnosis: CVA, electrolyte abnormality, hypoglycemia, pneumonia, sepsis, rosa maria TIA, UTI, volume depletion. Data reviewed: vital signs, nurses notes, lab test result(s), EKG, radiologic studies, CT scan, plain films. Data interpreted: laboratory monitor: rate is 70 beats/min, rhythm is regular, Pulse oximetry: on room air is 100 %. Test interpretation: by ED physician or midlevel provider: ECG, plain radiologic studies. Counseling: I had a detailed discussion with the patient and/or guardian regarding: the historical points, exam findings, and any diagnostic results supporting the discharge/admit diagnosis, lab results, radiology results. 10/17 22:05 Order name: Basic Metabolic Panel; Complete Time: 00: [facility] 10/17 22:05 Order name: CBC with Diff; Complete Time: 23:18 [facility] 10/17 22:05 Order name: LFT's; Complete Time: 00: [facility] 10/17 22:05 Order name: Magnesium; Complete Time: 00:26 [facility] 10/17 22:05 Order name: NT PRO-BNP; Complete Time: 00:26 [facility] 10/17 22:05 Order name: PT-INR; Complete Time: 23:16 [facility] 10/17 22:05 Order name: Troponin HS; Complete Time: 00:26 [facility] 10/17 22:05 Order name: Urine Culture [facility] 10/17 22:05 Order name: SARS RAPID [facility] 10/17 22:05 Order name: Lipase; Complete Time: 00: [facility] 10/17 22:12 Order name: Urine Dipstick-Ancillary; Complete Time: 22:33 [facility] 10/17 23:57 Order name: Type And Screen kl 10/18 00:18 Order name: Packed RBC Leukored [facility] 10/17 22:05 Order name: XRAY Chest (1 view) [facility] 10/17 22:05 Order name: EKG; Complete Time: 22:06 [facility] 10/17 22:05 Order name: CT Head Brain wo Cont; Complete Time: 22:34 [facility] 10/18 04:05 Order name: ABO/RH no charge [facility] 10/18 06:58 Order name: Glucose, Ancillary Testing [facility] 10/18 08:22 Order name: Glucose, Ancillary Testing [facility] 10/18 11:07 Order name: CBC with Automated Diff [facility] 10/18 11:32 Order name: Basic Metabolic Panel [facility] 10/18 11:32 Order name: Magnesium [facility] 10/18 12:01 Order name: Hemoglobin A1c [facility] 10/18 12:12 Order name: Glucose, Ancillary Testing [facility] 10/17 22:05 Order name: Cardiac monitoring; Complete Time: 23:12 [facility] 10/17 22:05 Order name: EKG - Nurse/Tech; Complete Time: 07:41 [facility] 10/17 22:05 Order name: IV Saline Lock; Complete Time: 23:13 [facility] 10/17 22:05 Order name: Labs collected and sent; Complete Time: 23:13 [facility] 10/17 22:05 Order name: O2 Per Protocol; Complete Time: 23:12 [facility] 10/17 22:05 Order name: O2 Sat Monitoring; Complete Time: 23:12 [facility] 10/17 22:05 Order name: Urine Dipstick-Ancillary (obtain specimen) [facility] 10/17 23:34 Order name: IV Saline Lock - Large Bore [facility] 10/17 23:34 Order name: Transfuse [facility] EC:45 Rate is 69 beats/min. Rhythm is regular. QRS [place] is Normal. NE interval is normal. QRS rosa maria interval is normal. QT interval is normal. No Q waves. T waves are Normal. No ST changes noted. Clinical impression: NSR w/ Non-specific ST/T Changes and No evidence of ischemia. Interpreted by me. Reviewed by me. Administered Medications: 23:45 Drug: Rocephin (cefTRIAXone) 1 grams Route: IV; Rate: per protocol; Site: left forearm; [facility] 23:48 Follow up: IV Status: Completed infusion; IV Intake: 10ml 4 10/18 00:56 Drug: ProTONIX (pantoprazole) 8 mg/hr Route: IV; Rate: 25 ml/hr; Site: left forearm; kl 01:24 Drug: ProTONIX (pantoprazole) 80 mg Route: IVP; Site: right forearm; kl 04:40 Not Given (Other Intervention Used): NS 0.9% 500 ml IV at bolus once jb4 04:41 Drug: NS 0.9% 250 ml Route: IV; Rate: bolus; Site: right jugular; jb4 Disposition: 10/17 23:46 Critical Care:. rosa maria Disposition Summary: 10/17/21 23:37 Hospitalization Ordered Hospitalization Status: Inpatient Admission rosa maria Provider: Anupam Alves cha Condition: Fair rosa maria Problem: new rosa maria Symptoms: have improved rosa maria Bed/Room Type: Standard [facility] Location: [facility] ER HOLD(10/17/21 23:53) Room Assignment: ERHOLD-(10/17/21 23:53) Diagnosis - GI Bleed/ Gastrointestinal hemorrhage, unspecified rosa maria - Anemia, unspecified rosa maria - Altered mental status, unspecified rosa maria - UTI/ Urinary tract infection, site not specified rosam aria - Weakness rosa maria Forms: - Medication Reconciliation Form rosa maria - SBAR form rosa maria Critical care time excluding procedures: 23:46 Critical care time: Bedside Care: 20 minutes, Consultation: 5 minutes, Family rosa maria Intervention: 10 minutes. Total time: 35 minutes Signatures: Dispatcher [employer] Rosmery Abel RN RN kl Webb, Martha RN Tomas Perkins MD MD cha Bryson, James, RN RN jb4 Brown, Sophia, PA PA sb3 Corrections: (The following items were deleted from the chart) 23:53 23:37 Telemetry/MedSurg (Inpatient) [facility] 23:53 23:37 [facility]
--- NOTE | 2021-10-18 00:46 | P.HP ---
Certification for Inpatient Patient admitted to: Inpatient With expected LOS: >2 Midnights Patient will require the following post-hospital care: None Practitioner: I am a practitioner with admitting privileges, knowledge of patient current condition, hospital course, and medical plan of care. Services: Services provided to patient in accordance with Admission requirements found in Title 42 Section 412.3 of the Code of Federal Regulations <Isabel Rodriguez - Last Filed: 10/18/21 03:20> Patient History Date of Service: 10/18/21 Primary Care Provider: Leah Reason for admission: AMS, GI Bleed History of Present Illness: Patient is an 80-year-old female with hypertension, NIDDM, diastolic CHF, anemia, afib on eliquis, and GERD who [facility]. FDC reports that patient has been altered on and off for 2 weeks now, however she is oriented x4 upon arrival to the ED. Her labs are significant for hemoglobin 6 (9.5 1.5 months ago), hematocrit 19.6, guaiac positive, urine positive for UTI. She was given Rocephin and started on Protonix drip and 2 units PRBC. Vital signs stable. Head CT negative. During my assessment, patient does appear confused but it is intermittent. She is much more with it when her daughter is present. She is admitted for further evaluation and treatment. Home medications list reviewed: Yes - Past Medical/Surgical History Diabetic: Yes -: HLD -: DM2 -: HTN -: CHF -: Anemia -: GERD -: V TACH -: Cardiac stent x1 -: Pacemaker with Debrillator -: Ablations x2 in April and May 2021 Psychosocial/ Personal History: Patient lives at [facility]. - Family History Father -: Cancer - Social History Smoking Status: Never smoker Alcohol use: No CD- Drugs: No Caffeine use: Yes Place of Residence: Home <MichaelIsabel - Last Filed: 10/18/21 03:20> Date of Service: 10/18/21 <Gomez Narvaez - Last Filed: 10/18/21 17:56> Allergies famotidine Allergy (Verified 07/31/21 15:51) Hallucinations lactulose Allergy (Verified 07/31/21 15:51) GI intolerance lisinopril Allergy (Verified 07/31/21 15:51) Hives olmesartan [From Benicar] Allergy (Verified 07/31/21 15:51) Hives pioglitazone [From Actos] Allergy (Verified 07/31/21 15:51) Hives simvastatin Allergy (Verified 07/31/21 15:51) Hives tramadol Allergy (Verified 07/31/21 15:51) Hallucinations hydrochloric acid Allergy (Uncoded 07/31/21 15:51) Hives Losartan potassium Allergy (Uncoded 07/31/21 15:51) Hives Home Medications: Amiodarone HCl [Cordarone*] 0.5 tab PO DAILY 07/31/21 Amlodipine [Norvasc*] 5 mg PO BID 07/31/21 Apixaban [Eliquis] 5 mg PO BID 07/31/21 Buspirone HCl 15 mg PO TID 07/31/21 Clopidogrel Bisulfate [Plavix*] 1 tab PO DAILY 07/31/21 Docusate Sodium 100 mg PO DAILY 07/31/21 Ezetimibe [Zetia*] 10 mg PO BEDTIME 07/31/21 Folic Acid 1 mg PO DAILY 07/31/21 Melatonin 5 mg PO BEDTIME 07/31/21 Metformin HCl 1,000 mg PO BID 07/31/21 Oxymetazoline HCl [Dristan] 2 spray IH BID 07/31/21 Spironolactone [Aldactone*] 25 mg PO DAILY 07/31/21 Trazodone HCl 50 mg PO BEDTIME 07/31/21 cloNIDine HCL [Clonidine HCl] 1 tab PO BID 07/31/21 glipiZIDE [Glipizide] 1 tab PO DAILY 07/31/21 Furosemide 40 mg PO BID 30 Days #60 tablet 08/01/21 Isosorbide Mononitrate [Isosorbide Mononitrate ER] 30 mg PO DAILY 09/02/21 Review of Systems 10-point ROS is otherwise unremarkable <Isabel Rodriguez - Last Filed: 10/18/21 03:20> Physical Examination - Physical Exam General: Alert, In no apparent distress, Confused, Other (pale) HEENT: Atraumatic, PERRLA, EOMI, Sclerae nonicteric Neck: Supple, 2+ carotid pulse no bruit, No LAD, Without JVD or thyroid abnormality Respiratory: Clear to auscultation bilaterally, Normal air movement Cardiovascular: Regular rate/rhythm, Normal S1 S2 Gastrointestinal: Normal bowel sounds, No tenderness Musculoskeletal: No tenderness Integumentary: No rashes Neurological: Normal speech, Normal strength at 5/5 x4 extr, Normal tone, Normal affect - Studies Laboratory Data (last 24 hrs) 10/17/21 22:50: PT 21.7 H, INR 1.95 10/17/21 22:50: WBC 7.70, Hgb 6.0 L*, Hct 19.6 L*, Plt Count 273 10/17/21 22:50: Sodium 140, Potassium 3.7, BUN 27 H, Creatinine 1.24, Glucose 177 H, Magnesium 2.8 H D, Total Bilirubin 0.4, AST 7 L, ALT 15, Alkaline Phosphatase 61, Lipase 258 <Isabel Rodriguez - Last Filed: 10/18/21 03:20> - Studies Laboratory Data (last 24 hrs) 10/17/21 22:50: PT 21.7 H, INR 1.95 10/17/21 22:50: WBC 7.70, Hgb 6.0 L*, Hct 19.6 L*, Plt Count 273 10/17/21 22:50: Sodium 140, Potassium 3.7, BUN 27 H, Creatinine 1.24, Glucose 177 H, Magnesium 2.8 H D, Total Bilirubin 0.4, AST 7 L, ALT 15, Alkaline Phosphatase 61, Lipase 258 <Gomez Narvaez - Last Filed: 10/18/21 17:56> Assessment and Plan - Problems (Diagnosis) (1) GI bleed Current Visit: Yes Status: Acute Qualifiers: GI bleed type/associated pathology: unspecified gastrointestinal hemorrhage type Qualified Code(s): K92.2 - Gastrointestinal hemorrhage, unspecified (2) AMS (altered mental status) Current Visit: Yes Status: Acute Qualifiers: Altered mental status type: unspecified Qualified Code(s): R41.82 - Altered mental status, unspecified (3) Anemia Current Visit: Yes Status: Acute Qualifiers: Anemia type: unspecified type Qualified Code(s): D64.9 - Anemia, unspecified (4) CHF (congestive heart failure) Current Visit: Yes Status: Chronic Qualifiers: Heart failure type: diastolic Heart failure chronicity: acute on chronic Qualified Code(s): I50.33 - Acute on chronic diastolic (congestive) heart failure (5) Hypertension Current Visit: No Status: Chronic Qualifiers: Hypertension type: primary hypertension Qualified Code(s): I10 - Essential (primary) hypertension (6) Type 2 diabetes mellitus Current Visit: Yes Status: Chronic Qualifiers: Diabetes mellitus half-way insulin use: without intermediate designer use Diabetes mellitus complication status: with kidney complications Diabetes mellitus complication detail: with chronic kidney disease Chronic kidney disease stage: stage 4 (severe) Qualified Code(s): E11.22 - Type 2 diabetes mellitus with diabetic chronic kidney disease; N18.4 - Chronic kidney disease, stage 4 (severe) - Plan -Continue Protonix drip. GI consult -2 units PRBC transfusing. Recheck CBC posttransfusion. -NPO at midnight -Neuro checks -Q6H glucose checks with mild sliding scale. A1C ordered -Physical therapy consult -Continue Rocephin for UTI. Follow urine cultures -Monitor and replete electrolytes per protocol -Reconcile and continue home medications. HOLD home eliquis. -SCDs for VTE ppx -Full code Discharge Plan: Retirement Plan to discharge in: Greater than 2 days - Advance Directives Does patient have a Living Will: No Does patient have a Durable POA for Healthcare: No - Code Status/Comfort Care Code Status Assessed: Yes (Full) Critical Care: No Time Spent Managing Pts Care (In Minutes): 50 <Isabel Rodriguez - Last Filed: 10/18/21 03:20> - Plan Patient seen and examined on rounds this morning. Agree with plan of care as noted above Receiving blood transfusions Reports feeling a little bit better, has had intermittent confusion, feels like it is hard to distinguish reality and from dreams currently patient GI consulted, plan for EGD later today <Gomez Narvaez - Last Filed: 10/18/21 17:56>
[2021-10-18] MEDS ORDERED: PANTOPRAZOLE 40 MG INJ ONE ×3 (00:49→01:06)
[2021-10-18] MEDS ORDERED: NA CHLORIDE 0.9% 250 ML ONE ×3 (00:50→08:25)
[2021-10-18 03:14] LABS: SARS-CoV-2 Antigen Rapid Res Negative (Negative)
[2021-10-18] MEDS ORDERED: NA CHLORIDE 0.9% 500 ML ONE ×2 (04:44→13:26)
[2021-10-18] MEDS: INSULIN -REGULAR HUMAN 50 UNIT/0.5 ML ML SQ SCH ×4 (06:08→21:11)
[2021-10-18] MEDS ORDERED: PANTOPRAZOLE INJ 80 MG in NA CHLORIDE 0.9% 250 ML IV SCH ×2 (06:08→11:00)
[2021-10-18] MEDS ORDERED: ONDANSETRON 4 MG/2 ML VIAL IV PRN (06:08)
[2021-10-18] MEDS ORDERED: ACETAMINOPHEN 500 MG TAB PO PRN (06:08)
--- NOTE | 2021-10-18 08:13 | EKG ---
Test Date: 2021-10-17 Test Time: 23:45:30 Blacksmith Assistant: ALEJANDRO MEASUREMENT RESULTS: Intervals: Rate: 69 [place]: 202 QRSD: 138 QT: 492 QTc: 527 [place]: P: 94 [place]: 202 QRS: 85 T: -58 INTERPRETIVE STATEMENTS: Sinus rhythm with premature atrial complexes Right bundle branch block Possible Lateral infarct, age undetermined T wave abnormality, consider inferior ischemia Abnormal ECG Compared to ECG 09/02/2021 02:54:36 Atrial premature complex(es) now present T-wave abnormality now present Possible ischemia now present Atrial-paced complex(es) or rhythm no longer present Myocardial infarct finding still present Electronically Signed On 10-18-21 08:11:56 CDT by Tate Ribeiro
[2021-10-18] MEDS ORDERED: NA CHLORIDE 0.9% 50 ML ONE (08:25)
[2021-10-18] MEDS ORDERED: CEFTRIAXONE 1000 MG/VIAL ONE (08:25)
[2021-10-18] MEDS: CEFTRIAXONE 1,000 MG in NA CHLORIDE 0.9% 50 ML IVPB SCH (09:00)
[2021-10-18 11:06] LABS: Absolute Lymphocytes (CBC) 1.5 K/uL (0.7-4.9); Hematocrit 29.4 % (36.0-45.0); Lymphocytes % 20.9 % (15.3-44.8); MCV 89.8 fL (80-100); MPV 8.3 fL (7.6-11.3); Magnesium 2.9 mg/dL (1.8-2.4); Potassium 3.6 mmol/L (3.5-5.1); RBC Red Blood Cell Count 3.28 M/uL (3.86-4.86)
[2021-10-18 12:12] VITALS: BMI 26.4
--- NOTE | 2021-10-18 12:38 | RAD REPORT ---
EXAM DESCRIPTION: RAD - Chest Single View - 10/17/2021 10:48 pm CLINICAL HISTORY: 81 years Female COUGH TECHNIQUE: One view of the chest is compared to the prior dated 09/02/2021. FINDINGS: Left chest wall pacemaker again noted. Stable cardiomediastinal silhouette with aortic ath erosclerosis. No evidence of congestive failure. The lungs are clear without focal consolidation, effusion, or pneumothorax. No acute osseous abnormal ities. IMPRESSION: No acute cardiopulmonary abnormalities. Stable exam. Electronically signed by: Ijeoma Hernandez MD 10/17/2021 11:09 PM CDT Due to temporary technical issues with the PACS/Fluency reporting system, reports are being signed by the in house radiologists without review as a courtesy to insure prompt reporting. The interpreting radiologist is fully responsible for the content of the report.
[2021-10-18] MEDS ORDERED: LIDOCAINE 1% MPF 5 ML VIAL ONE (14:27)
[2021-10-18] MEDS ORDERED: propofoL 200 MG/20 ML VIAL IV ONE (14:27)
[2021-10-18] MEDS ORDERED: Phenylephrine HCl 10 MG/ML 1 ML VIAL ONE (14:28)
[2021-10-18] MEDS ORDERED: EPHEDRINE SULF 50 MG/ML VIAL ONE (14:28)
--- NOTE | 2021-10-18 15:35 | OP ---
Surgeon: Dalton Jimenez MD Procedure Performed: Esophagogastroduodenoscopy. Indication For Procedure: Severe anemia, rule out upper GI source of bleeding. Plan For Anesthesia: Monitored anesthesia care. Complexity: Average. Technique: After obtaining informed consent from the patient and her daughter and explaining risks a nd complications, which include, but are not limited to bleeding, infection, perforation, and anesthe margarito complication, the patient was placed in left lateral position and sedation was given. From then on, the scope was advanced to the mouth and carefully guided up to the second portion of the duodenum . After completion of examination and all therapeutic maneuvers, scope and equipment were withdrawn and procedure terminated in a safe manner. Findings: Esophagus: No gross lesion seen in the entire esophagus. Z-line was irregular. Stomach: Mild patchy erythema seen in the body and antrum. In the antral region, a small angiodyspl damien was seen. This was not actively bleeding. This was ablated completely. In the duodenal bulb, two small angiodysplasias were seen. These were also ablated. The second portion of the duodenum ap peared normal. Complications: None. Tolerance To Anesthesia: Excellent. Postoperative Diagnoses: Gastric and duodenal AVM, status post ablation. Estimated Blood Loss: None. Plan: Continue current management, oral PPI, further evaluation of anemia by hematological workup. May need an outpatient colonoscopy. US/MODL Voice ID: [id number] Report ID: [id number]
[2021-10-18] MEDS: PANTOPRAZOLE 40MG TABLET PO SCH (17:15)
[2021-10-18] MEDS: EZETIMIBE 10 MG TAB PO SCH (21:11)
[2021-10-18] MEDS: BUSPIRONE HCL 15 MG TABLET PO SCH (21:11)
[2021-10-18] MEDS: TRAZODONE 50 MG TABLET PO PRN (23:32)
[2021-10-19] MEDS ORDERED: MORPHINE 2 MG/ML SYR IV PRN (01:50)
[2021-10-19] MEDS ORDERED: DIPHENHYDRAMINE 50 MG/ML VIAL IV ONE (02:10)
[2021-10-19] MEDS ORDERED: FENTANYL CITR 100 MCG/2 ML IV PRN (02:10)
--- NOTE | 2021-10-19 06:19 | P.PN ---
Date of Service: 10/19/21 Subjective: had a few short runs of tachycarrhythmia overnight, asymptomatic patient feels ok, slight confusion ROS: 10 point ROS as noted above, otherwise negative Physical exam GEN: Alert, orientedx2, NAD HEENT: Normal conjunctiva, sclera anicteric CV: Regular rate and rhythm, no edema Pulm: Nonlabored respirations on room air ABD: Soft, nontender, nondistended Neuro: moves all extremities equally, generalized weakness, EOMI intact, slight word finding difficulty Problem List GI Bleed AMS chronic diastolic CHF exacerbation DM2 HTN GERD anemia of chronic disease, with acute blood loss HLD s/p 2u PRBC with good respons no BM here to see if bloody s/p EGD by Dr. Jimenez on 10/18 - areas of erythema, small angiodyspasia, no active bleed seen ok to start diet H/H stable sliding scale / accucheks ACHS PT consulted UA concerning for uti - may be cause of patient's AMS; f/u culture - +GNR dc home eliquis, ok for plavix family report patient has had AMS last few days, mixing up words / stuttering, word finding difficulty CT head negative possibly from UTI family requesting neuro consult patient with pacemaker, unable to get MRI here VTE: SCDs Code: full Dispo: home, ~2 days Time Spent Managing Pts Care (In Minutes): 35
[2021-10-19] MEDS: PANTOPRAZOLE 40MG TABLET PO SCH (06:35)
[2021-10-19 06:58] LABS: Magnesium 2.6 mg/dL (1.8-2.4); Potassium 3.8 mmol/L (3.5-5.1)
[2021-10-19 07:25] LABS: Absolute Lymphocytes (CBC) 1.9 K/uL (0.7-4.9); Hematocrit 42.3 % (36.0-45.0); Lymphocytes % 20.5 % (15.3-44.8); MCV 90.1 fL (80-100); MPV 8.2 fL (7.6-11.3); RBC Red Blood Cell Count 4.69 M/uL (3.86-4.86)
[2021-10-19] MEDS: INSULIN -REGULAR HUMAN 50 UNIT/0.5 ML ML SQ SCH ×4 (07:30→21:00)
[2021-10-19] MEDS ORDERED: POTASSIUM CL SA 10 MEQ TAB PO ONE (09:00)
[2021-10-19] MEDS: BUSPIRONE HCL 15 MG TABLET PO SCH ×3 (09:02→22:01)
[2021-10-19] MEDS: FOLIC ACID 1 MG TABLET PO SCH (09:03)
[2021-10-19] MEDS: AMIODARONE HCL 200 MG TAB PO SCH (09:03)
[2021-10-19] MEDS: DOCUSATE NA 100 MG CAP PO SCH (09:03)
[2021-10-19] MEDS: CLOPIDOGREL 75 MG TABLET PO SCH (09:04)
[2021-10-19] MEDS: CEFTRIAXONE 1,000 MG in NA CHLORIDE 0.9% 50 ML IVPB SCH (09:05)
--- NOTE | 2021-10-19 18:29 | EKG ---
Test Date: 2021-10-19 Test Time: 03:47:50 Homogenizer Operator: MIMA MEASUREMENT RESULTS: Intervals: Rate: 80 UT: 180 QRSD: 128 QT: 466 QTc: 537 Cullen: P: 83 UT: 180 QRS: 77 T: -38 INTERPRETIVE STATEMENTS: Normal sinus rhythm Right bundle branch block Septal infarct, age undetermined Possible Lateral infarct, age undetermined T wave abnormality, consider inferior ischemia Abnormal ECG Compared to ECG 10/17/2021 23:45:30 Atrial premature complex(es) no longer present Myocardial infarct finding still present T-wave abnormality still present Possible ischemia still present Electronically Signed On 10-19-21 18:28:03 CDT by Tate Ribeiro
[2021-10-19] MEDS: EZETIMIBE 10 MG TAB PO SCH (22:01)
[2021-10-19] MEDS: TRAZODONE 50 MG TABLET PO PRN (22:01)
[2021-10-20 06:27] LABS: Absolute Lymphocytes (CBC) 1.1 K/uL (0.7-4.9); Hematocrit 27.4 % (36.0-45.0); Lymphocytes % 18.3 % (15.3-44.8); MCV 89.8 fL (80-100); MPV 7.9 fL (7.6-11.3); RBC Red Blood Cell Count 3.06 M/uL (3.86-4.86)
[2021-10-20 06:37] LABS: Magnesium 2.8 mg/dL (1.8-2.4); Potassium 3.7 mmol/L (3.5-5.1)
--- NOTE | 2021-10-20 06:52 | P.PN ---
Date of Service: 10/20/21 Subjective: improving speech is much more clear Denies any chest pain, no shortness of breath feeling better ROS: 10 point ROS as noted above, otherwise negative Physical exam GEN: Alert, orientedx3, NAD HEENT: Normal conjunctiva, sclera anicteric CV: Regular rate and rhythm, no edema Pulm: Nonlabored respirations on room air ABD: Soft, nontender, nondistended Neuro: moves all extremities equally, generalized weakness, EOMI intact, normal speech, normal affect Problem List GI Bleed AMS chronic diastolic CHF exacerbation DM2 HTN GERD anemia of chronic disease, with acute blood loss HLD s/p 2u PRBC with good response; hgb stable no BM here yet to see if bloody; unclear if had [place] blood in stool or not; daughter unsure s/p EGD by Dr. Jimenez on 10/18 - areas of erythema, small angiodyspasia, no active bleed seen H/H stable sliding scale / accucheks ACHS PT consulted UTI, suspect this is cause of AMS cardiology consulted - pt with irregular rhythm, pacemaker malfunction, afib with aberrancy, dc home eliquis, ok for plavix family report patient has had AMS last few days, mixing up words / stuttering, word finding difficulty CT head negative improving, suspect from UTI, anemia possibly contributed family requesting neuro consult patient with pacemaker, unable to get MRI here VTE: SCDs Code: full Dispo: back to [facility], ~1-2 days Time Spent Managing Pts Care (In Minutes): 35
[2021-10-20] MEDS: PANTOPRAZOLE 40MG TABLET PO SCH (07:12)
[2021-10-20] MEDS: INSULIN -REGULAR HUMAN 50 UNIT/0.5 ML ML SQ SCH ×4 (07:30→20:52)
[2021-10-20 08:34] VITALS: O2SAT 98
[2021-10-20] MEDS ORDERED: POTASSIUM CL SA 10 MEQ TAB PO ONE (09:00)
[2021-10-20] MEDS: AMIODARONE HCL 200 MG TAB PO SCH (09:29)
[2021-10-20] MEDS: FOLIC ACID 1 MG TABLET PO SCH (09:29)
[2021-10-20] MEDS: CLOPIDOGREL 75 MG TABLET PO SCH (09:29)
[2021-10-20] MEDS: DOCUSATE NA 100 MG CAP PO SCH (09:29)
[2021-10-20] MEDS: BUSPIRONE HCL 15 MG TABLET PO SCH ×3 (09:29→20:49)
[2021-10-20] MEDS: CEFTRIAXONE 1,000 MG in NA CHLORIDE 0.9% 50 ML IVPB SCH (09:30)
--- NOTE | 2021-10-20 12:14 | CON ---
Date of Consultation: 10/19/2021 Reason For Consultation: Altered mental status, GI bleed, and cardiac clearance for EGD. History Of Present Illness: Ms. Pierson is 81. Has had a history of ventricular tachycardia, CHF, hype rtension, diabetes, anemia. Has been in the hospital, has had what appeared to be a pacemaker relate d rhythm or atrial fibrillation with aberrancy. I do not think she was having ventricular tachycardi a. Nevertheless, she is on amiodarone, Eliquis, Norvasc, Plavix, clonidine, Lasix, Zetia, glipizide, metformin, and Aldactone. No cardiac symptoms reported, but she came in with a hemoglobin of 6. En doscopy is planned. Cardiac clearance is granted. Past Medical History: As stated above that includes CHF, hypertension, ventricular tachycardia, diab etes, and anemia. Allergies: SHE IS ALLERGIC TO ACTOS, BENICAR, LISINOPRIL, LOSARTAN, ZOCOR, OLMESARTAN, AND TRAMADOL. Medications: Listed earlier. Review of Systems: Negative. Social History: Negative. Family History: Negative. Physical Examination: Vital Signs: Paced rhythm. Vital signs stable, afebrile. No acute distress. HEENT: Negative. Neck: Supple with no bruit. Chest: Clear. Cardiac: Revealed a paced rhythm. No murmurs, gallops, or rubs. Abdomen: Benign. Extremities: Revealed no clubbing, cyanosis, or edema. Diagnostic Data: Showed hemoglobin of 6. Chest x-ray is normal. Echo is normal. BNP is 2895. Impression And Plan: Anemia with elevated BNP secondary to demand ischemia. Normal echo, normal carlos st x-ray, normal EKG. I would hold her Eliquis. She is cleared for endoscopy. She is cleared for t ransfusion. Her other problems include chronic diastolic congestive heart failure, hypertension, lilliam betes, these are all stable. I do not think she would have a ventricular tachycardia. Her rate is s low. This irregular. This is more likely to be related to pacemaker malfunction or atrial fibrillat ion with aberrancy. I will continue the amiodarone and Eliquis, make sure her potassium and magnesiu m are adequate. I will sign off her case. HORTENSIA/ASHLEY Voice ID: [id number] Report ID: [id number]
--- NOTE | 2021-10-20 13:47 | EEG ---
CHART: [id number] TEST ID#: [id number] DATE OF STUDY: 10-20-2021 THE EEG WAS RECORDED PORTABLE IN THE PATIENT'S ROOM ON A 17 CHANNEL MACHINE. ELECTRODES WERE APPLIED IN THE USUAL MANNER USING THE INTERNATIONAL 10-20 SYSTEM. THE WAKING BACKGROUND RHYTHM IN THIS RECORD CONSISTS OF FAIRLY WELL DEVELOPED AND FAIRLY WELL ORGANIZED WAVES OF 8 HZ., MAXIMAL IN THE POSTERIOR HEAD REGIONS WHICH ATTENUATE NORMALLY WITH EYE OPENING. MODERATE VOTLAGE 1.5-3 HZ ACTIVITY IS EXPRESSED OCCASIONALLY IN THE FRONTAL AND CENTRAL REGIONS. LOW-VOLTAGE 15-18 HZ ACTIVITY IS EXPRESSED IN THE FRONTAL REGIONS. THERE ARE NO FOCAL OR LATERALIZING FEATURES. NO EPILEPTIFORM ACTIVITY APPEARS. SLEEP OCCURRED NATURALLY. IN ADDITION NORMAL SLEEP PATTERNS ARE PRESENT. HYPERVENTILATION WAS NOT PERFORMED. PHOTIC STIMULATION PRODUCED POOR DRIVING BILATERALLY. IMPRESSION: THIS IS A MILDLY ABNORMAL ROUTINE EEG DUE TO THE PRESENCE OF A MIDLY SLOW BACKGROUND. THIS IS A NON-SPECIFIC FINDING INDICATING THE PRESENCE OF A MILD DIFFUSE DISTURBANCE IN CEREBRAL FUNCTION.
[2021-10-20 17:52] LABS: RBC Red Blood Cell Count 3.49 M/uL (3.86-4.86)
[2021-10-20 18:04] LABS: Ferritin 26.7 ng/mL (8-388)
[2021-10-20] MEDS: EZETIMIBE 10 MG TAB PO SCH (20:49)
[2021-10-20] MEDS: TRAZODONE 50 MG TABLET PO PRN (20:49)
[2021-10-20] MEDS: AMLODIPINE 5 MG TAB PO SCH (20:49)
[2021-10-20] MEDS: cloNIDine HCL 0.1 MG TAB PO SCH (20:50)
[2021-10-21 06:21] LABS: Absolute Lymphocytes (CBC) 0.9 K/uL (0.7-4.9); Lymphocytes % 19.8 % (15.3-44.8); MCV 88.1 fL (80-100); MPV 7.7 fL (7.6-11.3); RBC Red Blood Cell Count 3.18 M/uL (3.86-4.86)
[2021-10-21 06:43] LABS: Magnesium 2.9 mg/dL (1.8-2.4); Potassium 3.8 mmol/L (3.5-5.1)
[2021-10-21] MEDS: INSULIN -REGULAR HUMAN 50 UNIT/0.5 ML ML SQ SCH (07:30)
[2021-10-21] MEDS ORDERED: POTASSIUM CL SA 10 MEQ TAB PO ONE (09:00)
[2021-10-21] MEDS: CEFTRIAXONE 1,000 MG in NA CHLORIDE 0.9% 50 ML IVPB SCH (09:00)
[2021-10-21] MEDS ORDERED: ISOSORBIDE MONO SR 30 MG TAB PO SCH (09:00)
[2021-10-21] MEDS: FOLIC ACID 1 MG TABLET PO SCH (09:39)
[2021-10-21] MEDS: AMIODARONE HCL 200 MG TAB PO SCH (09:40)
[2021-10-21] MEDS: DOCUSATE NA 100 MG CAP PO SCH (09:40)
[2021-10-21] MEDS: CLOPIDOGREL 75 MG TABLET PO SCH (09:40)
[2021-10-21] MEDS: PANTOPRAZOLE 40MG TABLET PO SCH (09:40)
[2021-10-21] MEDS: cloNIDine HCL 0.1 MG TAB PO SCH (09:41)
[2021-10-21] MEDS: AMLODIPINE 5 MG TAB PO SCH (09:41)
[2021-10-21] MEDS: BUSPIRONE HCL 15 MG TABLET PO SCH (09:42)
[2021-10-21 12:24] VITALS: BP 119/43; TEMP 97.7
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
== END 2021-10-21 14:08 | disposition home health service (06) | DRG 377 ==
LOC: ER 21:36 → ERHOLD 10-18 01:14 → 4TH 10-18 16:50
PROVIDERS: ADMIT Internal Medicine; ATTEND Hospitalist
PROC: 0DJ08ZZ Inspection of Upper Intestinal Tract, Via Natural or Artificial Opening Endoscopic (ICD-10-PCS; 2021-10-18)
PROC: 30233N1 Transfusion of Nonautologous Red Blood Cells into Peripheral Vein, Percutaneous Approach (ICD-10-PCS; principal; 2021-10-18 13:15)
DX: K31.811 Angiodysplasia of stomach and duodenum with bleeding (principal); I50.33 Acute on chronic diastolic (congestive) heart failure; N39.0 Urinary tract infection, site not specified; N18.4 Chronic kidney disease, stage 4 (severe); I13.0 Hypertensive heart and chronic kidney disease with heart failure and stage 1 through stage 4 chronic kidney disease, or unspecified chronic kidney disease; D62 Acute posthemorrhagic anemia; I24.8 Other forms of acute ischemic heart disease; E11.22 Type 2 diabetes mellitus with diabetic chronic kidney disease; K21.9 Gastro-esophageal reflux disease without esophagitis; D64.9 Anemia, unspecified; E78.5 Hyperlipidemia, unspecified; I48.91 Unspecified atrial fibrillation; B96.20 Unspecified Escherichia coli [E. coli] as the cause of diseases classified elsewhere; Z79.01 Long term (current) use of anticoagulants; Z88.5 Allergy status to narcotic agent; Z88.8 Allergy status to other drugs, medicaments and biological substances; Z95.5 Presence of coronary angioplasty implant and graft; Z79.84 Long term (current) use of oral hypoglycemic drugs; Z95.810 Presence of automatic (implantable) cardiac defibrillator; Z79.899 Other long term (current) drug therapy; Z20.822 Contact with and (suspected) exposure to COVID-19
CPT/HCPCS: 36415; 36430; 70450; 71045; 80048; 80076; 81003; 82607; 82728; 82947; 83010; 83036; 83540; 83690; 83735; 83880; 84466; 84484; 85025; 85044; 85610; 86850; 86900; 86901; 87077; 87086; 87088; 87186; 87811; 93005; 95819; 97116; 97161; 99285; C9113; J1200; J1815; J2001; J2270; J2370; J2704; J7040; J7050; P9016

== ENCOUNTER 2021-12-22 15:33 | Inpatient (IN) | payer OTHER ==
--- OUTSIDE RECORDS SUMMARY | 2021-12-22 15:42 | XMS REPORT | Continuity of Care Document ---
:1940 Author Organization [facility] t Address [address] Angela[address] [place] [address] Care Team Providers Name Role Phone KYRA DALEY Primary Care Physician Unavailable Freddy Nair Rahil Attending Clinician Unavailable [id number] Attending Clinician Unavailable ERICKSON ESCAMILLA Attending Clinician Unavailable Erickson Escamilla MD Attending Clinician FABIANA WHITE Attending Clinician Unavailable Rosangela Bone MA Attending Clinician Unavailable Angie Tirado MD Attending Clinician Kasia Deleon RN Attending Clinician Unavailable Carlito Thomason MD, V. Attending Clinician [phone] Doctor Unassigned, [place] Attending Clinician Unavailable Fabiana White MD Attending Clinician SWAPNA HERNADEZ Attending Clinician Unavailable Alissa Aguiar MD Attending Clinician Romaine Rodriguez MD Attending Clinician Aurora Lal CRNA Attending Clinician [phone] Zia Jin NP, Catrina Vela Attending Clinician [phone] TEN HAMLIN Attending Clinician Unavailable Darrell HOPE, Ashley Li Attending Clinician Saqib Colón Attending Clinician [phone] Livia HOPE, Mando Attending Clinician Shireen David RN Attending Clinician Unavailable Sathya Adame Attending Clinician JARED GALICIA Attending Clinician Unavailable Karina HOPE, Virgilio Attending Clinician Kevin Chinchilla MD Attending Clinician Wally HOPE, Ten Attending Clinician Kyra Daley MD Attending Clinician [phone] Venkata ALCANTAR, Jed Brown Attending Clinician DASHAWN NOONAN Attending Clinician Unavailable Jed Pedraza Attending Clinician Unavailable Andressa HOPE, Josiah Attending Clinician Enrique Rai MD Attending Clinician Betzy [facility] Attending Clinician JOSIAH SIMONS Attending Clinician Unavailable Isidro KWON, Angy Delgadillo Attending Clinician Unavailable EPIFANIO DICKINSON Attending Clinician Unavailable Felicia Chilel MD Attending Clinician Epifanio Dickinson DO Attending Clinician Celestina Giraldo MD Attending Clinician [phone] CELESTINA GIRALDO Attending Clinician Unavailable [facility] Attending Clinician KYRA DALEY Attending Clinician Unavailable Antonia Choe MD Attending Clinician ANTONIA CHOE Attending Clinician Unavailable ANTONIA CHOE Attending Clinician Unavailable [facility] Attending Clinician Unavailable Only, Adc Test Attending Clinician Unavailable Fallon HOPE, Rubén Attending Clinician Renea Haney Attending Clinician [phone] RENEA RIVERA Attending Clinician Unavailable Alesha HOPE, Anselmo Jimeenz Attending Clinician Karma KWON, Sylvia Perez Attending Clinician Unavailable Brendan Zuniga Attending Clinician Unavailable Maricarmen WANG, Swapna Dempsey Attending Clinician [phone] Jean-Paul Durant DO Attending Clinician Carissa KWON, Keisha Attending Clinician Unavailable Darwin OLSON, Laurence Attending Clinician [phone] Adam Valdes MD Attending Clinician ADAM VALDES Attending Clinician Unavailable ADAM VALDES Attending Clinician Unavailable iT KWON, Amilcar Perez Attending Clinician Unavailable Jessica Davis DO Attending Clinician Alena Schafer MD Attending Clinician Pérez Vegas DO Attending Clinician Leonel Veliz MD Attending Clinician LEONEL VELIZ Attending Clinician Unavailable LAURENCE SMITH Attending Clinician Unavailable Seth Colmenares DO Attending Clinician Jeannette Drake MD Attending Clinician JEANNETTE DRAKE Attending Clinician Unavailable Velvet Travis Attending Clinician Sofía Truong PHD Attending Clinician SOFÍA TRUONG Attending Clinician Unavailable Nurse, Pollo Gutiérrez Attending Clinician Unavailable LLOYD ENCINAS Attending Clinician Unavailable Berenice Garcia LMSW Attending Clinician Freddy Nair Rahil Admitting Clinician Unavailable [id number] Admitting Clinician Unavailable ALISSA AGUIAR Admitting Clinician Unavailable JARED GALICIA Admitting Clinician Unavailable DASHAWN NOONAN Admitting Clinician Unavailable Kyra Daley Admitting Clinician Unavailable JOSIAH SIMONS Admitting Clinician Unavailable EPIFANIO DICKINSON Admitting Clinician Unavailable Epifanio Dickinson DO Admitting Clinician Pérez Vegas DO Admitting Clinician PÉREZ VEGAS Admitting Clinician Unavailable KYRA DALEY Admitting Clinician Unavailable Payers Payer Name Policy Type Policy Number Effective Date Expiration Date Sabino MORRELL [id number] [employer] [id number] 2017 00:00:00 Problems Condition Condition Condition Status Onset [...] 00:00: [place] involving involving 00 Medi vee [place] 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 Added automatic ally from request for surgery [id number] SVT SVT Disease Active Univers (supravent (supravent [...] Added automatic ally from request for surgery [id number] Wide-compl Wide-compl Disease Active U nivers ex ex 2-10 [place] tachycardi [place] Wide-compl Wide-compl Disease Active U nivers ex ex 2-10 [place] tachycardi [place] Elevated Elevated Disease Active Unive rs troponin troponin 4-28 ity of 00:00: [place] [id number] Medical Branch Hypertensi Hypertensi Disease Active U nivers ve ve 4-28 [place] of emergency emergency [place] Altered Altered Disease Active Univers mental mental 4-28 ity of state state 00:00: [place] [facility] Epigastric Epigastric Disease Active U nivers pain pain 4-28 ity of 00:00: [place] [facility] Elevated Elevated Disease Active Unive rs troponin troponin 4- ity of 00:00: [address] Branch Diabetes Diabetes Disease Active Unive rs type 2, type 2, [facility] Hyperlipid Hyperlipid Disease Active U nivers emia emia ity of [facility] Benign Benign Disease Active Univers essential essential ity of HTN HTN [facility] Chronic Chronic Disease Active Univers diastolic diastolic ity of heart heart [place] failure failure Medical Branch Osteoporos Osteoporos Disease Active U nivers is is ity of [facility] Allergies, Adverse Reactions, Alerts Allergy [...] Active Hives Method i an ty to [address] Medoxomi adverse 00:00: Hospita l reaction 00 l s to drug Pioglita Propensi Active Hives Method i zone ty to [address] adverse 00:00: Hospita reaction 00 l s to drug Simvasta Propensi Active Hives Method i tin ty to [address] adverse 00:00: Hospita reaction 00 l s to drug olmesart DA Active [place] HIVES [facility] an 2-23 Clear 00:00: [place] 00 [facility] lactulos DA Active [place] NAUSEA, [facility] e VOMITTING 2-23 Clear 00:00: [place] [facility] famotidi DA Active [place] ANXIETY, [facility] ne HALLUCINATIO 2-23 Mary r N 00:00: [place] [facility] Lactulos Propensi Active GI Method i e ty to Intolerance 23 st adverse 00:00: Hospita reaction 00 l s to drug simvasta DA Active [place] HIVES [facility] tin 2-23 Clear 00:00: [place] [facility] losartan DA Active [place] HIVES HCA 2-23 Clear 00:00: [place] [facility] pioglita DA Active [place] HIVES [facility] zone 2-23 Clear 00:00: [place] [facility] Famotidi Propensi Active Hallucinatio 2019-0 Univers ne ty to ns 10-28 ity of adverse 00:00: [place] reaction 00 Medical s Branch FAMOTIDI DRUG Active Anxiety 2020-0 Univers NE INGREDI 10-28 ity of 00:00: [place] 00 Medical Branch Pioglita Propensi Active Hives 2020-0 Univer s zone ty to 07-22 ity [...] Comments Source History of tobacco Cigarette Smoker [facility] use [facility] Exposure to 2021-07-12 2021-07-22 Not sure University of SARS-CoV-2 (event) 00:00:00 15:13:00 [facility] Alcohol intake 2021-06-22 2021-06-22 Ex-drinker University of 00:00:00 00:00:00 (finding) [facility] Tobacco use and 2021-05-05 2021-05-05 Smokeless [facility] exposure 00:00:00 00:00:00 tobacco non-user Hospital Cigarettes smoked 2021-04-13 2021-04-13 Univers ity of current (pack per 00:00:00 00:00:00 ) - Reported Branch Sex Assigned At [birth year] [facility] 00:00:00 00:00:00 Hospital Smoking Status Start Date Stop Date Source Ex-smoker 2021-05-05 00:00:00 2021-05-05 00:00:00 [facility] Medications Ordered Filled Start Stop Current Ordering Indication Dosage Frequency Signature Comments Components Source Medication Medication Date Date Medication? Clinician (SIG) Name Name diatrizoate 2021-02 No [id number] 240mL 240 mL, Univers radha-diatriz 02-20 Oral, ity of oat sod 15:15: 15:05 ONCE, 1 [place] (GASTROGRAF 00 :00 dose, On Medi vee IN) 66-10 % Wed Branch oral 12/21/21 at solution 1015, 240 mL Routine isosorbide 2021-02 No 30mg QD Take 30 mg [facility] mononitrate [address] (IMDUR) 30 22:47: 00:00 daily. Hosp betty MG 24 hr 30 :00 l tablet fexofenadin Yes 180mg QD Take 1 Met hodi e (MINAL) 8- tablet st 180 MG 13:55: (180 mg Hospita tablet 27 total) by l mouth daily. fexofenadin Yes 180mg QD Take 1 Met hodi e (MINAL) 8- tablet st 180 MG 13:55: (180 mg [...] times a l LASTING day. NASL) apixaban 2021-0 Yes 5mg Q.5D Take 5 mg Meth medardo (ELIQUIS) 5 10-[address] mg tablet 13:51: (two) Hospita 32 times a l day. fluticasone 2021-0 Yes 50ug Q.5D 1 spray by [facility] propionate 10-[address] (FLONASE) 13:51: route 2 Hospi ta 50 32 (two) l mcg/actuati times a on nasal day. spray folic acid 2021-0 Yes 1mg QD Take 1 mg Me thodi (FOLVITE) 1 10-[address] MG tablet 13:51: daily. Hospit a 32 l glipiZIDE 2021-0 Yes 5mg QD Take 5 mg Met hodi (GLUCOTROL) 10-[address] 5 MG tablet 13:51: daily. Hosp betty 32 l traZODone 2021-0 Yes 50mg QD Take 50 mg Me [facility] (DESYREL) 10-[address] 50 MG 13:51: nightly. Hospita tablet 32 l empaglifloz 2021-0 Yes 25mg QD Take 1 Meth medardo in 10-14 tablet (25 st (Jardiance) 13:51: mg total) H ospita 25 mg 32 by mouth l tablet daily. lidocaine 4 0 Yes Apply Metho di % adhesive 10-[address] patch,medic 13:51: Hospit a ated 32 l acetaminoph 2021-0 Yes 1000mg Q.[id number] Take 1,000 [facility] en 10-[id number] (TYLENOL) 13:51: 3D mouth 3 Hospi ta 500 MG 32 (three) l tablet times a day. amLODIPine 2021-0 Yes 5mg Q.5D Take 5 mg Me [facility] (NORVASC) 5 -[address] mg tablet 13:51: (two) Hospita 32 times a l day. clonIDINE 2-0 Yes .1mg Q.5D Take 0.1 Meth medardo (CATAPRES) 8-[address] 0.1 MG 13:51: mouth 2 Hospita tablet 32 (two) l times a day. ezetimibe 2021-0 Yes 10mg QD Take 10 mg Me th[facility] (ZETIA) 10 8-[address] mg tablet 13:51: daily. Hospit a 32 l furosemide 2021-0 Yes 40mg Q.5D Take 40 mg M ethodi (LASIX) 40 8-[address] mg tablet 13:51: (two) Hospita 32 times a l day. melatonin 5 2021-0 Yes 5mg QD Take 1 Meth medardo mg tablet 8-26 tablet (5 st tablet 13:51: mg total) Hospit a 32 by mouth l nightly. metFORMIN 2021-0 Yes 1000mg Q.5D Take 1,000 [facility] (GLUCOPHAGE 8-[address] ) 500 mg 13:51: mouth 2 Hospit a tablet 32 (two) l times a day with meals. metoprolol 2021-0 Yes 50mg Q.5D Take 50 mg M ethodi tartrate 8-[address] (LOPRESSOR) 13:51: (two) Hospi ta 50 mg 32 times a l tablet day. sennosides- 2021-0 Yes 1{tbl} QD Take 1 Me thodi docusate 8-[address] sodium 13:51: mouth Hospita (SENOKOT-S) 32 daily. l 8.6-50 mg per tablet spironolact 2021-0 Yes 25mg QD Take 25 mg [facility] one 8-[address] (ALDACTONE) 13:51: daily. Hosp betty 25 MG 32 l tablet acetaminoph 2021-0 Yes 1000mg Q.[id number] Take 1,000 [facility] en 8-[id number] (TYLENOL) 13:51: 3D mouth 3 Hospi ta 500 MG 32 (three) l tablet times a day. amLODIPine 2021-0 Yes 5mg Q.5D Take 5 mg Me thodi (NORVASC) 5 8-[address] mg tablet 13:51: (two) Hospita 32 times a l day. clonIDINE 2-0 Yes .1mg Q.5D Take 0.1 Meth medardo (CATAPRES) 8-[address] 0.1 MG 13:51: mouth 2 Hospita tablet 32 (two) l times a day. ezetimibe 2022-0 Yes 10mg QD Take 10 mg Me thodi (ZETIA) 10 8-[address] mg tablet 13:51: daily. Hospit a 32 l furosemide 0 Yes 40mg Q.5D Take 40 mg M ethodi (LASIX) 40 8-[address] mg tablet 13:51: (two) Hospita 32 times a l day. isosorbide 0 Yes 30mg QD Take 30 mg M ethodi mononitrate 8-[address] (IMDUR) 30 13:51: daily. Hospi ta MG 24 hr 32 l tablet melatonin 5 0 Yes 5mg QD Take 1 Meth medardo mg tablet 8-26 tablet (5 st tablet 13:51: mg total) Hospit a 32 by mouth l nightly. metFORMIN 0 Yes 1000mg Q.5D Take 1,000 [facility] (GLUCOPHAGE 8-[address] ) 500 mg 13:51: mouth 2 Hospit a tablet 32 (two) l times a day with meals. metoprolol 0 Yes 50mg Q.5D Take 50 mg M ethodi tartrate 8-[address] (LOPRESSOR) 13:51: (two) Hospi ta 50 mg 32 times a l tablet day. sennosides- Yes 1{tbl} QD Take 1 Me thodi docusate 8-[address] sodium 13:51: mouth Hospita (SENOKOT-S) 32 daily. l 8.6-50 mg per tablet spironolact Yes 25mg QD Take 25 mg [facility] one 8-[address] (ALDACTONE) 13:51: daily. Hosp betty 25 MG 32 l tablet lactase Yes Take by [facility] 9,000 unit 8-[address] tablet 13:51: needed. Hospita 32 l calcium 0 Yes Chew as [facility] carbonate-s 8-[address] imethicone 13:51: Hospita 750-80 mg 32 l tablet,chew able docusate 0 Yes QD Take by Method i sodium 8-[address] (STOOL 13:51: daily. Hospita SOFTENER 32 l ORAL) oxymetazoli 2021-0 Yes Q.5D into each M ethodi ne HCl 8- nostril 2 st (DRISTAN 13:51: (two) Hospita LONG 32 times a l LASTING day. NASL) apixaban 2021-0 Yes 5mg Q.5D Take 5 mg Meth medardo (ELIQUIS) 5 10-[address] mg tablet 13:51: (two) Hospita 32 times a l day. fluticasone 2021-0 Yes 50ug Q.5D 1 spray by [facility] propionate 10-[address] (FLONASE) 13:51: route 2 Hospi ta 50 32 (two) l mcg/actuati times a on nasal day. spray folic acid 2021-0 Yes 1mg QD Take 1 mg Me thodi (FOLVITE) 1 10-[address] MG tablet 13:51: daily. Hospit a 32 l glipiZIDE 2021-0 Yes 5mg QD Take 5 mg Met hodi (GLUCOTROL) 10-[address] 5 MG tablet 13:51: daily. Hosp betty 32 l traZODone 2021-0 Yes 50mg QD Take 50 mg Me [facility] (DESYREL) 10-[address] 50 MG 13:51: nightly. Hospita tablet 32 l empaglifloz 2021-0 Yes 25mg QD Take 1 Meth medardo in 10-14 tablet (25 st (Jardiance) 13:51: mg total) H ospita 25 mg 32 by mouth l tablet daily. lidocaine 4 0 Yes Apply Metho di % adhesive 10-[address] patch,medic 13:51: Hospit a ated 32 l busPIRone 2021-0 Yes 15mg Q.[id number] Take 15 mg [facility] (BUSPAR) 15 - [id number] by mouth 3 st MG tablet 00:00: 3D (three) Hospi ta 00 times a l day. busPIRone 2021-0 Yes 15mg Q.19367471 Take 15 mg [facility] (BUSPAR) 15 6-29 [id number] [address] mouth [address] MG tablet 00:00: 3D (three) Hospi ta 00 times a l day. acetaminoph 2-0 Yes 500mg Take 500 U nivers en 500 mg 5-04 mg by ity of tablet 12:03: mouth [place] 52 every 6 Medical (six) Branch hours as needed for Pain. Melatonin 5 2021-0 Yes Take by Uni vers mg tablet 5-04 mouth. ity of 12:03: [place] [address] Medical Branch acetaminoph 2021-0 Yes 500mg Take 500 U nivers en 500 mg 5-04 mg by ity of tablet 12:03: mouth [place] [address] every 6 Medical (six) Branch hours as needed for Pain. Melatonin 5 2021-0 Yes Take by Uni vers mg tablet 5-04 mouth. ity of 12:03: [place] [address] Medical Branch acetaminoph 2021-0 Yes 500mg Take 500 U nivers en 500 mg 5-04 mg by ity of tablet 12:03: mouth [place] [address] every 6 Medical (six) Branch hours as needed for Pain. Melatonin 5 2021-0 Yes Take by Uni vers mg tablet 5-04 mouth. ity of 12:03: [address] Branch acetaminoph 0 Yes 500mg Take 500 U nivers en 500 mg 5-04 mg by ity of tablet 12:03: mouth [place] [address] every 6 Medical (six) Branch hours as needed for Pain. Melatonin 5 0 Yes Take by Uni vers mg tablet 5-04 mouth. ity of 12:03: [place] [address] Medical Branch acetaminoph 0 Yes 500mg Take 500 U nivers en 500 mg 5-04 mg by ity of tablet 12:03: mouth [place] [address] every 6 Medical (six) Branch hours as needed for Pain. Melatonin 5 2021-0 Yes Take by Uni vers mg tablet 5-04 mouth. ity of 12:03: [address] Branch acetaminoph 0 Yes 500mg Take 500 U nivers en 500 mg 5-04 mg by ity of tablet 12:03: mouth [place] [address] every 6 Medical (six) Branch hours as needed for Pain. Melatonin 5 2021-0 Yes Take by Uni vers mg tablet 5-04 mouth. ity of 12:03: [place] [address] Medical Branch acetaminoph 0 Yes 500mg Take 500 U nivers en 500 mg 5-04 mg by ity of tablet 12:03: mouth [place] [address] every 6 Medical (six) Branch hours as needed for Pain. Melatonin 5 2021-0 Yes Take by Uni vers mg tablet 5-04 mouth. ity of 12:03: [address] Branch clopidogreL 2021-0 Yes [id number] 75mg Take 1 Univers 75 mg 5-04 [...] 2 (two) Medical times Branch daily. clopidogreL 2-0 Yes [id number] 75mg Take 1 Univers 75 mg 5-04 [...] 2 (two) Medical times Branch daily. clopidogreL 2021-0 Yes [id number] 75mg Take 1 Univers 75 mg 5-04 [...] 2 (two) Medical times Branch daily. clopidogreL 2-0 Yes [id number] 75mg Take 1 Univers 75 mg 5-04 [...] 2 (two) Medical times Branch daily. clopidogreL 2-0 Yes [id number] 75mg Take 1 Univers 75 mg 5-04 tablet by ity of tablet 00:00: mouth [place] 00 daily. Medical Branch amiodarone 2022-0 Yes 100mg Take 1 Univ ers 100 mg 5-04 tablet by ity of tablet 00:00: mouth 00 daily. Medical Branch apixaban 5 2021-0 Yes 5mg Take 1 Unive rs mg tablet 5-04 tablet by ity o f 00:00: mouth 2 (two) Medical times Branch daily. clopidogreL 2021-0 Yes [id number] 75mg Take 1 Univers 75 mg 5-04 [...] 2 (two) Medical times Branch daily. clopidogreL 2021-0 Yes [id number] 75mg Take 1 Univers 75 mg 5-04 [...] mouth 2 (two) Medical times Branch daily. ticagrelor 2021-0 2021- No 90mg Q.5D Take 90 mg [facility] (BRILINTA) 5- 05-[address] 90 mg 16:14: 00:00 (two) Hospita tablet 43 :00 times a l day. ticagrelor 2021-0 2021- No 90mg Q.5D Take 90 mg [facility] (BRILINTA) 5-02 05-[address] 90 mg 16:14: 00:00 (two) Hospita tablet 43 :00 times a l day. doxycycline 2021-0 2- No 100mg Q.5D Take 100 [facility] (VIBRAMYCIN 5-02 05-[address] ) 100 MG 16:13: 00:00 mouth 2 Hospi ta capsule 42 :00 (two) l times a day. doxycycline 2021-0 2021- No 100mg Q.5D Take 100 [facility] (VIBRAMYCIN 06-20-[address] ) 100 MG 16:13: 00:00 mouth 2 Hospi ta capsule 42 :00 (two) l times a day. SITagliptin 2021- No 25mg QD Take 25 mg [facility] (JANUVIA) 06-[address] 25 MG 15:22: 00:00 daily. Hospita tablet 05 :00 l SITagliptin 2021- No 25mg QD Take 25 mg [facility] (JANUVIA) 06-[address] 25 MG 15:22: 00:00 daily. Hospita tablet 05 :00 l glipiZIDE 2021- No 10mg QD Take 10 mg M ethodi (GlucotroL) 06-[address] 10 MG 15:20: 00:00 daily. Hospita tablet 12 :00 l glipiZIDE 2021- No 10mg QD Take 10 mg M ethodi (GlucotroL) 06-[address] 10 MG 15:20: 00:00 daily. Hospita tablet 12 :00 l diphenhydrA 0 Yes 25mg Take 1 Meth medardo MINE 5-02 tablet (25 st (BENADRYL) 00:00: mg total) Ho spita 25 mg 00 by mouth l tablet as needed for itching. amIODarone Yes 100mg QD Take 0.5 Me thodi (PACERONE) 5-[address] 200 MG 00:00: (100 mg Hospita tablet 00 total) by l mouth daily. amIODarone 2021-0 Yes 100mg QD Take 0.5 Me thodi (PACERONE) 5-[address] 200 MG 00:00: (100 mg Hospita tablet 00 total) by l mouth daily. diphenhydrA 2021-0 Yes 25mg Take 1 Meth medardo MINE 5-02 tablet (25 st (BENADRYL) 00:00: mg total) Ho spita 25 mg 00 by mouth l tablet as needed for itching. clopidogreL 2022- No 75mg QD Take 1 Met hodi (PLAVIX) 75 06-20 05-03 tablet (75 s t mg tablet 00:00: 04:59 mg total) Ho spita 00 :00 by mouth l daily. clopidogreL 2022- No 75mg QD Take 1 Met hodi (PLAVIX) 75 5- 05-03 tablet (75 s t mg tablet 00:00: 04:59 mg total) Ho spita 00 :00 by mouth l daily. clopidogreL 2021- No 75mg QD Take 1 Met hodi (PLAVIX) 75 5- 05-02 tablet (75 s t mg tablet 00:00: 00:00 mg total) Ho spita 00 :00 by mouth l daily. amIODarone 2021- No 200mg QD Take 1 Met hodi (PACERONE) 5-03 26- tablet st 200 MG 00:00: 00:00 (200 mg Hospita tablet 00 :00 total) by l mouth daily. clopidogreL No 75mg QD Take 1 Met hodi (PLAVIX) 75 06-20- tablet (75 s t mg tablet 00:00: 00:00 mg total) Ho spita 00 :00 by mouth l daily. amIODarone 2021- No 200mg QD Take 1 Met hodi (PACERONE) 06-20- tablet st 200 MG 00:00: 00:00 (200 mg Hospita tablet 00 :00 total) by l mouth daily. diphenhydrA 2021- No 1{tbl} Take 1 M ethodi MINE 4-27 05-[address] (BENADRYL) 00:00: 00:00 mouth as Ho spita 25 mg 00 :00 needed. l tablet diphenhydrA 2021- No 1{tbl} Take 1 M ethodi MINE 4-27 05-[address] (BENADRYL) 00:00: 00:00 mouth as Ho spita 25 mg 00 :00 needed. l tablet ferrous 2021-0 Yes 325mg QD Take 1 [facility] sulfate 325 4-[address] (65 FE) MG 00:00: mouth Hospit a tablet 00 daily. l ferrous 2-0 Yes 325mg QD Take 1 [facility] sulfate 325 4-[address] (65 FE) MG 00:00: mouth Hospit a tablet 00 daily. l aspirin 2021-2021- No 81mg QD Take 81 mg Met hodi (ECOTRIN) 06-09-[address] 81 MG 19:00: 00:00 daily. Hospita enteric 10 :00 l coated tablet mexiletine 2021- No 150mg Q.[id number] Take 150 [facility] (MEXITIL) 06-09-[id number] 150 MG 19:00: 00:00 3D mouth 3 Hospita capsule 10 :00 (three) l times a day. aspirin 2021- No 81mg QD Take 81 mg Met hodi (ECOTRIN) 06-09-[address] 81 MG 19:00: 00:00 daily. Hospita enteric 10 :00 l coated tablet mexiletine 2021- No 150mg Q.[id number] Take 150 [facility] (MEXITIL) 06-09- [id number] mg by st 150 MG 19:00: 00:00 3D mouth 3 Hospita capsule 10 :00 (three) l times a day. ibuprofen Yes 400mg Take 400 Met hodi (ADVIL) 400 4-[address] MG tablet 00:00: mouth as Hosp betty 00 needed. l ibuprofen 2021-0 Yes 400mg Take 400 Met hodi (ADVIL) 400 4-[address] MG tablet 00:00: mouth as Hosp betty 00 needed. l lidocaine 2021- No 1{patch Q24H Place 1 M ethodi (LIDODERM) 06-09 } patch on st 5 % 00:00: 04:59 the skin Hospita 00 :00 daily for l 30 days. Remove & Discard patch within 12 hours or as directed by lidocaine 2021- No 1{patch Q24H Place 1 M ethodi (LIDODERM) 06-0922 } patch on st 5 % 00:00: 04:59 the skin Hospita 00 :00 daily for l 30 days. Remove & Discard patch within 12 hours or as directed by folic acid 2021- No 1mg QD Take 1 Meth medardo (FOLVITE) 1 06-08- tablet (1 st MG tablet 00:00: 04:59 mg total) Ho spita 00 :00 by mouth l daily for 30 days. triamcinolo 2021-0 2021- No .625mg Q.5D Apply Me thodi ne -08 07- 0.[address] acetonide 00:00: 04:59 topically Ho spita (triamcinol 00 :00 2 (two) l one 50 mg times a in day for 30 lubriderm) days. 50 mg lotion folic acid 2021- No 1mg QD Take 1 Meth medardo (FOLVITE) 1 06-08- tablet (1 st MG tablet 00:00: 04:59 mg total) Ho spita 00 :00 by mouth l daily for 30 days. triamcinolo 2021-0 2021- No .625mg Q.5D Apply Me thodi ne 06-08- 0.[address] acetonide 00:00: 04:59 topically Ho spita (triamcinol 00 :00 2 (two) l one 50 mg times a in day for 30 lubriderm) days. 50 mg lotion pantoprazol 2021- No 40mg QD Take 1 Met hodi e -08 07-02 tablet (40 st (PROTONIX) 00:00: 00:00 mg total) H ospita 40 MG EC 00 :00 by mouth l tablet daily for 30 days. pantoprazol 2021- No 40mg QD Take 1 Met hodi e 4-08 07-02 tablet (40 st (PROTONIX) 00:00: 00:00 mg total) H ospita 40 MG EC 00 :00 by mouth l tablet daily for 30 days. apixaban 2021- No 5mg Q.5D Take 1 Method i (ELIQUIS) 5 - 05-20 tablet (5 st mg tablet 00:00: 04:59 mg total) Ho spita 00 :00 by mouth 2 l (two) times a day for 30 days. apixaban 2021-2021- No 5mg Q.5D Take 1 Method i (ELIQUIS) 5 4-19 05-20 tablet (5 st mg tablet 00:00: 04:59 mg total) Ho spita 00 :00 by mouth 2 l (two) times a day for 30 days. amIODarone 0 2022- No 200mg Q.5D Take 1 Met hodi (PACERONE) 06-07- tablet st 200 MG 00:00: 00:00 (200 mg Hospita tablet 00 :00 total) by l mouth every 12 (twelve) hours for 30 days. amIODarone 0 2021- No 200mg Q.5D Take 1 Met hodi (PACERONE) -07 07- tablet st 200 MG 00:00: 00:00 (200 mg Hospita tablet 00 :00 total) by l mouth every 12 (twelve) hours for 30 days. ezetimibe 0 Yes [id number] 10mg Take 1 Un [place] 10 mg 2-26 tablet by ity of tablet 00:00: mouth 00 daily. Medical Branch metoprolol 2021-0 Yes [id number] 50mg Take 1 U nivers tartrate 50 2-26 tablet by ity of mg tablet 00:00: mouth (two) Medical times Branch daily. ezetimibe 2021-0 Yes [id number] 10mg Take 1 [facility] [place] 10 mg 2-26 tablet by ity of tablet 00:00: mouth 00 daily. Medical Branch metoprolol 2021-0 Yes [id number] 50mg Take 1 U nivers tartrate 50 2-26 tablet by ity of mg tablet 00:00: mouth (two) Medical times Branch daily. ezetimibe 2021-0 Yes [id number] 10mg Take 1 [facility] [place] 10 mg 2-26 tablet by ity of tablet 00:00: mouth 00 daily. Medical Branch metoprolol 2021-0 Yes [id number] 50mg Take 1 U nivers tartrate 50 2-26 tablet by ity of mg tablet 00:00: mouth (two) Medical times Branch daily. ezetimibe 2021-0 Yes [id number] 10mg Take 1 [facility] [place] 10 mg 2-26 tablet by ity of tablet 00:00: mouth 00 daily. Medical Branch metoprolol 2021-0 Yes [id number] 50mg Take 1 U nivers tartrate 50 2-26 tablet by ity of mg tablet 00:00: mouth (two) Medical times Branch daily. ezetimibe 2021-0 Yes [id number] 10mg Take 1 [facility] [place] 10 mg 2-26 tablet by ity of tablet 00:00: mouth 00 daily. Medical Branch metoprolol 2021-0 Yes [id number] 50mg Take 1 U nivers tartrate 50 2-26 tablet by ity of mg tablet 00:00: mouth (two) Medical times Branch daily. ezetimibe 2021-0 Yes [id number] 10mg Take 1 [facility] [place] 10 mg 2-26 tablet by ity of tablet 00:00: mouth 00 daily. Medical Branch metoprolol 2021-0 Yes [id number] 50mg Take 1 U nivers tartrate 50 2-26 tablet by ity of mg tablet 00:00: mouth (two) Medical times Branch daily. ezetimibe 2021-0 Yes [id number] 10mg Take 1 [facility] [place] 10 mg 2-26 tablet by ity of tablet 00:00: mouth 00 daily. Medical Branch metoprolol 2021-0 Yes [id number] 50mg Take 1 U nivers tartrate 50 2-26 tablet by ity of mg tablet 00:00: mouth (two) Medical times Branch daily. spironolact 2021-0 Yes [id number] 25mg Take 1 [facility] one 25 mg 2-17 tablet by ity o f tablet 00:00: mouth 00 daily. Medical Branch cloNIDine 2021-0 Yes [id number] .1mg Take 1 U nivers 0.1 mg 2-17 tablet by ity of tablet 00:00: mouth (two) Medical times Branch daily. furosemide 2021-0 Yes [id number] 40mg Take 1 [facility] [place] 40 mg 2-17 tablet by ity of tablet 00:00: mouth 00 daily. Medical Branch spironolact 2021-0 Yes [id number] 25mg Take 1 [facility] one 25 mg 2-17 tablet by ity o f tablet 00:00: mouth 00 daily. Medical Branch cloNIDine 2021-0 Yes [id number] .1mg Take 1 U nivers 0.1 mg 2-17 tablet by ity of tablet 00:00: mouth (two) Medical times Branch daily. furosemide 2021-0 Yes [id number] 40mg Take 1 [facility] [place] 40 mg 2-17 tablet by ity of tablet 00:00: mouth 00 daily. Medical Branch spironolact 2021-0 Yes [id number] 25mg Take 1 [facility] one 25 mg 2-17 tablet by ity o f tablet 00:00: mouth [place] 00 daily. Medical Branch cloNIDine 2021-0 Yes [id number] .1mg Take 1 U nivers 0.1 mg 2-17 tablet by ity of tablet 00:00: mouth 2 00 (two) Medical times Branch daily. furosemide 2021-0 Yes [id number] 40mg Take 1 [facility] [place] 40 mg 2-17 tablet by ity of tablet 00:00: mouth [place] 00 daily. Medical Branch spironolact 0 Yes [id number] 25mg Take 1 [facility] one 25 mg 2-17 tablet by ity o f tablet 00:00: mouth [place] 00 daily. Medical Branch cloNIDine 2021-0 Yes [id number] .1mg Take 1 [facility] nivers 0.1 mg 2-17 tablet by ity of tablet 00:00: mouth 00 (two) Medical times Branch daily. furosemide 2021-0 Yes [id number] 40mg Take 1 [facility] [place] 40 mg 2-17 tablet by ity of tablet 00:00: mouth 00 daily. Medical Branch spironolact 0 Yes [id number] 25mg Take 1 [facility] one 25 mg 2-17 tablet by ity o f tablet 00:00: mouth 00 daily. Medical Branch cloNIDine 2021-0 Yes [id number] .1mg Take 1 [facility] nivers 0.1 mg 2-17 tablet by ity of tablet 00:00: mouth (two) Medical times Branch daily. furosemide 2021-0 Yes [id number] 40mg Take 1 [facility] [place] 40 mg 2-17 tablet by ity of tablet 00:00: mouth 00 daily. Medical Branch spironolact 2021-0 Yes [id number] 25mg Take 1 [facility] one 25 mg 2-17 tablet by ity o f tablet 00:00: mouth [place] 00 daily. Medical Branch cloNIDine 2021-0 Yes [id number] .1mg Take 1 U nivers 0.1 mg 2-17 tablet by ity of tablet 00:00: mouth 2 00 (two) Medical times Branch daily. furosemide 2021-0 Yes [id number] 40mg Take 1 [facility] [place] 40 mg 2-17 tablet by ity of tablet 00:00: mouth [place] 00 daily. Medical Branch spironolact 2021-0 Yes [id number] 25mg Take 1 [facility] one 25 mg 2-17 tablet by ity o f tablet 00:00: mouth daily. Medical Branch cloNIDine 2021-0 Yes [id number] .1mg Take 1 [facility] n[facility] 0.1 mg 2-17 tablet by ity of tablet 00:00: mouth (two) Medical times Branch daily. furosemide 2021-0 Yes [id number] 40mg Take 1 [facility] [place] 40 mg 2-17 tablet by ity of tablet 00:00: mouth daily. Medical Branch amLODIPine 2020-0 Yes [id number] 5mg Take 1 [facility] [place] 5 mg tablet 9-01 tablet by ity of 00:00: mouth (two) Medical times Branch daily. metFORMIN 2020-0 Yes [id number] 1000mg Take 2 [facility] 500 mg 9-01 tablets by ity of tablet 00:00: mouth (two) Medical times Branch daily with meals. amLODIPine 2020-0 Yes [id number] 5mg Take 1 [facility] [place] 5 mg tablet 9-01 tablet by ity of 00:00: mouth (two) Medical times Branch daily. metFORMIN 2020-0 Yes [id number] 1000mg Take 2 [facility] 500 mg 9-01 tablets by ity of tablet 00:00: mouth (two) Medical times Branch daily with meals. amLODIPine 2020-0 Yes [id number] 5mg Take 1 [facility] [place] 5 mg tablet 9-01 tablet by ity of 00:00: mouth (two) Medical times Branch daily. metFORMIN 2020-0 Yes [id number] 1000mg Take 2 [facility] 500 mg 9-01 tablets by ity of tablet 00:00: mouth (two) Medical times Branch daily with meals. amLODIPine 2020-0 Yes [id number] 5mg Take 1 [facility] [place] 5 mg tablet 9-01 tablet by ity of 00:00: mouth (two) Medical times Branch daily. metFORMIN 2020-0 Yes [id number] 1000mg Take 2 [facility] 500 mg 9-01 tablets by ity of tablet 00:00: mouth (two) Medical times Branch daily with meals. amLODIPine 2020-0 Yes [id number] 5mg Take 1 [facility] [place] 5 mg tablet 9-01 tablet by ity of 00:00: mouth (two) Medical times Branch daily. metFORMIN 0 Yes [id number] 1000mg Take 2 [facility] 500 mg 9-01 tablets by ity of tablet 00:00: mouth (two) Medical times Branch daily with meals. amLODIPine 2020-0 Yes [id number] 5mg Take 1 [facility] [place] 5 mg tablet 9-01 tablet by ity of 00:00: mouth (two) Medical times Branch daily. metFORMIN 2020-0 Yes [id number] 1000mg Take 2 [facility] 500 mg 9-01 tablets by ity of tablet 00:00: mouth (two) Medical times Branch daily with meals. amLODIPine 2020-0 Yes [id number] 5mg Take 1 [facility] [place] 5 mg tablet 9-01 tablet by ity of 00:00: mouth (two) Medical times Branch daily. metFORMIN Yes [id number] 1000mg Take 2 [facility] 500 mg 9-01 tablets by ity of tablet 00:00: mouth (two) Medical times Branch daily with meals. carvediloL Yes Elevated 12.5mg Take 1 [facility] 12.5 mg 5-06 troponin tablet by ity of tablet 00:00: mouth (two) Medical times Branch daily with meals. cloNIDine Yes Elevated .1mg Take 1 [facility] [place] 0.1 mg 5-06 troponin tablet by ity of tablet 00:00: mouth (two) Medical times Branch daily. carvediloL Yes Elevated 12.5mg Take 1 [facility] 12.5 mg 5-06 troponin tablet by ity of tablet 00:00: mouth (two) Medical times Branch daily with meals. cloNIDine Yes Elevated .1mg Take 1 [facility] [place] 0.1 mg 5-06 troponin tablet by ity of tablet 00:00: mouth (two) Medical times Branch daily. sennosides- Yes Chronic 1{tbl} Take 1 [facility] docusate 5-05 diastolic tablet by i ty of sodium 00:00: heart mouth [place] 8.6-50 mg 00 failure daily. Medic al per tablet Branch SITagliptin Yes Chronic 25mg Take 1 U nivers 25 mg 5-05 diastolic tablet by ity of tablet 00:00: heart mouth [place] 00 failure daily. Medical Branch sennosides- Yes [...] of tablet 00:00: 00:00 heart mouth 2 [place] 00 :00 failure (two) Medical times Branch daily with meals. cloNIDine 2020- No Chronic .1mg Take 1 [facility] [place] 0.1 mg 5-04 05-06 diastolic tablet by it y of tablet 00:00: 00:00 heart mouth 2 [place] 00 :00 failure (two) Medical times Branch daily. carvediloL 2020- No Chronic 12.5mg Take 1 [facility] 12.5 mg 5-04 05-06 diastolic tablet by i ty of tablet 00:00: 00:00 heart mouth 2 [place] 00 :00 failure (two) Medical times Branch daily with meals. cloNIDine 2020- No Chronic .1mg Take 1 [facility] [place] 0.1 mg 5-04 05-06 diastolic tablet by it y of tablet 00:00: 00:00 heart mouth 2 [place] 00 :00 failure (two) Medical times Branch daily. Lancets Yes [id number] TEST BLOOD [facility] (ACCU-CHEK 4-01 SUGAR ity o f SOFTCLIX 00:00: DIRECTED ( [place] LANCETS) 00 THREE Medical Misc TIMES Branch DAILY ) Lancets Yes [id number] TEST BLOOD [facility] (ACCU-CHEK 4-01 SUGAR ity o f SOFTCLIX 00:00: DIRECTED ( [place] LANCETS) 00 THREE Medical Misc TIMES Branch DAILY ) Lancets Yes [id number] TEST BLOOD [facility] (ACCU-CHEK 4-01 SUGAR ity o f SOFTCLIX 00:00: DIRECTED ( [place] LANCETS) 00 THREE Medical Misc TIMES Branch DAILY ) Lancets Yes [id number] TEST BLOOD [facility] (ACCU-CHEK 4-01 SUGAR ity o f SOFTCLIX 00:00: DIRECTED ( [place] LANCETS) 00 THREE Medical Misc TIMES Branch DAILY ) Lancets Yes [id number] TEST BLOOD [facility] (ACCU-CHEK 4-01 SUGAR ity o f SOFTCLIX 00:00: DIRECTED ( [place] LANCETS) 00 THREE Medical Misc TIMES Branch DAILY ) Lancets Yes [id number] TEST BLOOD [facility] (ACCU-CHEK 4-01 SUGAR ity o f SOFTCLIX 00:00: DIRECTED ( [place] LANCETS) 00 THREE Medical Misc TIMES Branch DAILY ) Lancets Yes [id number] TEST BLOOD [facility] (ACCU-CHEK 4-01 SUGAR ity o f SOFTCLIX 00:00: DIRECTED ( [place] LANCETS) 00 THREE Medical Misc TIMES Branch DAILY ) Lancets Yes Controlled TEST BLOOD [facility] (ACCU-CHEK [...] subsequent encounter ergocalcife 2020- No Vitamin D [id number] Take 1 [facility] rol, 1- 12-30 deficiency capsule by it y of vitamin d2, 00:00: 05:59 mouth once [place] 1,250 mcg 00 :00 every Medical (50,000 month for Branch unit) 12 doses. capsule ergocalcife 2020- No Vitamin D [id number] Take 1 [facility] rol, - 12-30 deficiency capsule by it y of vitamin d2, 00:00: 05:59 mouth once [place] 1,250 mcg 00 :00 every Medical (50,000 month for Branch unit) 12 doses. capsule glycerin, Yes [id number] 1{suppo Insert 1 [facility] adult, 1-08 sitory} Suppositor [facility] of suppository 00:00: [place] rectum as Medical needed for Branch Constipati on. glycerin, Yes [id number] 1{suppo Insert 1 [facility] adult, 1-08 sitory} Suppositor [facility] of suppository 00:00: y [place] 00 rectum as Medical needed for Branch Constipati on. glycerin, Yes [id number] 1{suppo Insert 1 [facility] adult, 1-08 sitory} Suppositor [facility] of suppository 00:00: y [place] 00 rectum as Medical needed for Branch Constipati on. glycerin, Yes [id number] 1{suppo Insert 1 [facility] adult, 1-08 sitory} Suppositor ity of suppository 00:00: y [place] 00 rectum as Medical needed for Branch Constipati on. glycerin, Yes [id number] 1{suppo Insert 1 [facility] adult, 1-08 sitory} Suppositor ity of suppository 00:00: y [place] 00 rectum as Medical needed for Branch Constipati on. glycerin, Yes [id number] 1{suppo Insert 1 [facility] adult, 1-08 sitory} Suppositor ity of suppository 00:00: y [place] 00 rectum as Medical needed for Branch Constipati on. glycerin, Yes [id number] 1{suppo Insert 1 [facility] adult, 1-08 sitory} Suppositor ity of suppository 00:00: y [place] 00 rectum as Medical needed for Branch Constipati on. glycerin, Yes Slow 1{suppo Insert 1 U nivers adult, 1-08 transit sitory} Suppositor i ty of suppository 00:00: constipatio y into [place] 00 n rectum as Medical needed for Branch Constipati on. glipiZIDE Yes Controlled 10mg Take 1 [facility] 10 mg 1-08 type 2 tablet by ity of tablet 00:00: diabetes mouth 00 mellitus daily. Medical without Branch complicatio n, without long-term current use of insulin spironolact Yes Essential 12.5mg Take 0.5 [facility] one 25 mg -08 hypertensio tablets by ity of tablet 00:00: n mouth 00 daily. Medical Branch glycerin, Yes Slow 1{suppo Insert 1 U lele[facility] adult, 08 transit sitory} Suppositor i ty of suppository 00:00: constipatio y into [place] 00 n rectum as Medical needed for Branch Constipati on. glipiZIDE Yes Controlled 10mg Take 1 [facility] 10 mg -08 type 2 tablet by ity of tablet 00:00: diabetes mouth 00 mellitus daily. Medical without Branch complicatio n, without long-term current use of insulin spironolact Yes Essential 12.5mg Take 0.5 [facility] one 25 mg -08 hypertensio tablets by ity of tablet 00:00: n mouth 00 daily. Medical Branch FUROSEMIDE 2019-02 Yes Benign TAKE 1 [facility] vers 40 mg 2-14 essential TABLET ity of tablet 00:00: HTN EVERY DAY Medical Branch AMLODIPINE 2019-02 Yes Benign TAKE 1 [facility] vers 5 mg tablet 2-14 essential TABLET i ty of 00:00: HTN TWICE [place] 00 DAILY Medical Branch FUROSEMIDE 2019-02 Yes Benign TAKE 1 [facility] vers 40 mg 2-14 essential TABLET ity of tablet 00:00: HTN EVERY DAY Medical Branch AMLODIPINE 2019-02 Yes Benign TAKE 1 [facility] vers 5 mg tablet 2-14 essential TABLET i ty of 00:00: HTN TWICE [place] 00 DAILY Medical Branch blood sugar 2019-02 Yes [id number] Use as [facility] diagnostic 2- directed ity o f (CONTOUR 00:00: [place] NEXT TEST 00 Medical STRIPS) Branch strip blood sugar 2020- Yes [id number] Use as [facility] diagnostic 2- directed ity o f (CONTOUR 00:00: [place] NEXT TEST 00 Medical STRIPS) Branch strip blood sugar 2020- Yes [id number] Use as [facility] diagnostic 2- directed ity o f (CONTOUR 00:00: [place] NEXT TEST 00 Medical STRIPS) Branch strip blood sugar 2020- Yes [id number] Use as [facility] diagnostic 2- directed ity o f (CONTOUR 00:00: [place] NEXT TEST 00 Medical STRIPS) Branch strip blood sugar 2020 Yes [id number] Use as [facility] diagnostic 2- directed ity o f (CONTOUR 00:00: [place] NEXT TEST 00 Medical STRIPS) Branch strip blood sugar 2020- Yes [id number] Use as [facility] diagnostic 2- directed ity o f (CONTOUR 00:00: [place] NEXT TEST 00 Medical STRIPS) Branch strip blood sugar 2020- Yes [id number] Use as [facility] diagnostic 2- directed ity o f (CONTOUR 00:00: [place] NEXT TEST 00 Medical STRIPS) Branch strip blood sugar 2019-02 Yes Controlled Use as [facility] diagnostic 2 type 2 directed ity of (CONTOUR 00:00: diabetes [place] NEXT TEST 00 mellitus Medica l STRIPS) with other Branch strip circulatory complicatio n, without long-term current use of insulin blood sugar 2020 Yes Controlled Use as [facility] diagnostic 2 type 2 directed ity of (CONTOUR 00:00: diabetes [place] NEXT TEST 00 mellitus Medica l STRIPS) with other Branch strip circulatory complicatio n, without long-term current use of insulin flash 2020-0 Yes Controlled 1{each} 1 Each U nivers glucose 9-10 type 2 every 2 ity of sensor 00:00: diabetes (two) [place] (FREESTYLE 00 mellitus weeks. Med ical MEETA 14 with other Branc h DAY SENSOR) circulatory Kit complicatio n, without long-term current use of insulin flash 2020-0 Yes [id number] 1{kit} 1 Kit Unive rs glucose 9-10 CONTINUOUS ity of scanning 00:00: . [place] reader 00 Medical (FREESTYLE Branch MEETA 14 DAY READER) Misc flash 2020-0 Yes [id number] 1{each} 1 Each [facility] vers glucose 9-10 every 2 ity of sensor 00:00: (two) [place] (FREESTYLE 00 weeks. Medical MEETA 14 Branch DAY SENSOR) Kit flash 2020-0 Yes [id number] 1{kit} 1 Kit Unive rs glucose 9-10 CONTINUOUS ity of scanning 00:00: . [place] reader 00 Medical (FREESTYLE Branch MEETA 14 DAY READER) Misc flash 2020-0 Yes [id number] 1{each} 1 Each Uni vers glucose 9-10 every 2 ity of sensor 00:00: (two) [place] (FREESTYLE 00 weeks. Medical MEETA 14 Branch DAY SENSOR) Kit flash 2020-0 Yes [id number] 1{kit} 1 Kit Unive rs glucose 9-10 CONTINUOUS ity of scanning 00:00: . [place] reader 00 Medical (FREESTYLE Branch MEETA 14 DAY READER) Misc flash 2020-0 Yes [id number] 1{each} 1 Each [facility] vers glucose 9-10 every 2 ity of sensor 00:00: (two) [place] (FREESTYLE 00 weeks. Medical MEETA 14 Branch DAY SENSOR) Kit flash 2020-0 Yes [id number] 1{kit} 1 Kit Unive rs glucose 9-10 CONTINUOUS ity of scanning 00:00: . [place] reader 00 Medical (FREESTYLE Branch MEETA 14 DAY READER) Misc flash 2020-0 Yes [id number] 1{each} 1 Each [facility] vers glucose 9-10 every 2 ity of sensor 00:00: (two) [place] (FREESTYLE 00 weeks. Medical MEETA 14 Branch DAY SENSOR) Kit flash 2020-0 Yes [id number] 1{kit} 1 Kit Unive rs glucose 9-10 CONTINUOUS ity of scanning 00:00: . [place] reader 00 Medical (FREESTYLE Branch MEETA 14 DAY READER) Misc flash 2020-0 Yes [id number] 1{each} 1 Each Uni vers glucose 9-10 every 2 ity of sensor 00:00: (two) [place] (FREESTYLE 00 weeks. Medical MEETA 14 Branch DAY SENSOR) Kit flash 2020-0 Yes [id number] 1{kit} 1 Kit Unive rs glucose 9-10 CONTINUOUS ity of scanning 00:00: . [place] reader 00 Medical (FREESTYLE Branch EMETA 14 DAY READER) Misc flash 2020-0 Yes [id number] 1{each} 1 Each Uni vers glucose 9-10 every 2 ity of sensor 00:00: (two) [place] (FREESTYLE 00 weeks. Medical MEETA 14 Branch DAY SENSOR) Kit flash 2020-0 Yes [id number] 1{kit} 1 Kit Unive rs glucose 9-10 CONTINUOUS ity of scanning 00:00: . [place] reader 00 Medical (FREESTYLE Branch MEETA 14 DAY READER) Misc flash 2020-0 Yes [id number] 1{each} 1 Each Uni vers glucose 9-10 every 2 ity of sensor 00:00: (two) [place] (FREESTYLE 00 weeks. Medical MEETA 14 Branch DAY SENSOR) Kit flash 2020-0 Yes Controlled 1{kit} 1 Kit Uni vers glucose 9-10 type 2 CONTINUOUS ity of scanning 00:00: diabetes . [place] reader 00 mellitus Medical (FREESTYLE with other Bra nc MEETA 14 circulatory DAY READER) complicatio Misc n, without long-term current use of insulin flash 2020-0 Yes Controlled 1{each} 1 Each U nivers glucose 9-10 type 2 every 2 ity of sensor 00:00: diabetes (two) [place] (FREESTYLE 00 mellitus weeks. Med ical MEETA 14 with other Branc h DAY SENSOR) circulatory Kit complicatio n, without long-term current use of insulin flash 2020-0 Yes Controlled 1{kit} 1 Kit Uni vers glucose 9-10 type 2 CONTINUOUS ity of scanning 00:00: diabetes . [place] reader 00 mellitus Medical (FREESTYLE with other Bra [facility] MEETA 14 circulatory DAY READER) complicatio Misc n, without long-term current use of insulin triamcinolo 2020-0 Yes Venous Apply to Univers [...] Beneath Medical breasts Branch triamcinolo 2020-0 Yes [id number] Apply to Univers ne 7-16 area(s) 2 ity of acetonide 00:00: (two) [place] 0.1 % cream 00 times Medical daily. Branch ketoconazol 2020-0 Yes [id number] Apply to Univers e 2 % cream 7-16 area(s) ity o f 00:00: daily. [place] 00 Beneath Medical breasts Branch triamcinolo 2020-0 Yes [id number] Apply to Univers ne 7-16 area(s) 2 ity of acetonide 00:00: (two) [place] 0.1 % cream 00 times Medical daily. Branch ketoconazol 2020-0 Yes [id number] Apply to Univers e 2 % cream 7-16 area(s) ity o f 00:00: daily. [place] 00 Beneath Medical breasts Branch triamcinolo 2020-0 Yes [id number] Apply to Univers ne 7-16 area(s) 2 ity of acetonide 00:00: (two) [place] 0.1 % cream 00 times Medical daily. Branch ketoconazol 2020-0 Yes [id number] Apply to Univers e 2 % cream 7-16 area(s) ity o f 00:00: daily. [place] 00 Beneath Medical breasts Branch triamcinolo 2020-0 Yes [id number] Apply to Univers ne 7-16 area(s) 2 ity of acetonide 00:00: (two) [place] 0.1 % cream 00 times Medical daily. Branch ketoconazol 2020-0 Yes [id number] Apply to Univers e 2 % cream 7-16 area(s) ity o f 00:00: daily. [place] 00 Beneath Medical breasts Branch triamcinolo 2020-0 Yes [id number] Apply to Univers ne 7-16 area(s) 2 ity of acetonide 00:00: (two) [place] 0.1 % cream 00 times Medical daily. Branch ketoconazol 2020-0 Yes [id number] Apply to Univers e 2 % cream 7-16 area(s) ity o f 00:00: daily. [place] 00 Beneath Medical breasts Branch triamcinolo 2020-0 Yes [id number] Apply to Univers ne 7-16 area(s) 2 ity of acetonide 00:00: (two) [place] 0.1 % cream 00 times Medical daily. Branch ketoconazol 2020-0 Yes [id number] Apply to Univers e 2 % cream 7-16 area(s) ity o f 00:00: daily. [place] 00 Beneath Medical breasts Branch triamcinolo 2020-0 Yes [id number] Apply to Univers ne 7-16 area(s) 2 ity of acetonide 00:00: (two) [place] 0.1 % cream 00 times Medical daily. Branch ketoconazol 2020-0 Yes [id number] Apply to Univers e 2 % cream 7-16 area(s) ity o f 00:00: daily. [place] 00 Beneath Medical breasts Branch ketoconazol 2020-0 Yes Apply Metho di e (NIZORAL) 7-[address] 2 % cream 00:00: [facility] 00 l triamcinolo 2020-0 Yes Apply Metho di ne 7-[address] (KENALOG) 00:00: [facility] 0.1 % cream 00 l ketoconazol 2020-0 2021- No Apply Meth medardo e (NIZORAL) 7-16 10-03 topically. s t 2 % cream 00:00: 00:00 [facility] 00 :00 l triamcinolo 2020-0 2021- No Apply Meth medardo ne 7-16 10-[address] (KENALOG) 00:00: 00:00 [facility] 0.1 % cream 00 :00 l clotrimazol 2020-0 Yes Tinea pedis Apply to Univers e 1 % 7-02 of both area(s) at ity o f topical 00:00: feet bedtime. [place] cream 00 Medical Branch clotrimazol 2020-0 Yes Tinea pedis Apply to Univers e 1 % 7-02 of both area(s) at ity o f topical 00:00: feet bedtime. [place] cream 00 Medical Branch clotrimazol 2020-0 Yes [id number] Apply to Univers e 1 % 7-02 area(s) at ity of topical 00:00: bedtime. [place] cream 00 Medical Branch clotrimazol 2020-0 Yes [id number] Apply to Univers e 1 % 7-02 area(s) at ity of topical 00:00: bedtime. [place] cream 00 Medical Branch clotrimazol 2020-0 Yes [id number] Apply to Univers e 1 % 7-02 area(s) at ity of topical 00:00: bedtime. [place] cream 00 Medical Branch clotrimazol 2020-0 Yes [id number] Apply to Univers e 1 % 7-02 area(s) at ity of topical 00:00: bedtime. [place] cream 00 Medical Branch clotrimazol 2020-0 Yes [id number] Apply to Univers e 1 % 7-02 area(s) at ity of topical 00:00: bedtime. [place] cream 00 Medical Branch clotrimazol 2020-0 Yes [id number] Apply to Univers e 1 % 7-02 area(s) at ity of topical 00:00: bedtime. [place] cream 00 Medical Branch clotrimazol 2020-0 Yes [id number] Apply to Univers e 1 % 7-02 area(s) at ity of topical 00:00: bedtime. [place] cream 00 Medical Branch clotrimazol 2020-0 Yes Apply Metho di e 7-[address] (LOTRIMIN) 00:00: [facility]ospita 1 % cream 00 l clotrimazol 2020-0 Yes Apply Metho di e [...] to Medical Nails. Branch ciclopirox 2020-0 Yes [id number] Apply to Univers (PENLAC) 8 6-03 area(s) at ity of % solution 00:00: bedtime. [place] 00 Apply to Medical Nails. Branch ciclopirox 2020-0 Yes [id number] Apply to Univers (PENLAC) 8 6-03 area(s) at ity of % solution 00:00: bedtime. [place] 00 Apply to Medical Nails. Branch ciclopirox 2020-0 Yes [id number] Apply to Univers (PENLAC) 8 6-03 area(s) at ity of % solution 00:00: bedtime. [place] 00 Apply to Medical Nails. Branch ciclopirox 2020-0 Yes [id number] Apply to Univers ([facility]) 8 6-03 area(s) at ity of % solution 00:00: bedtime. [place] 00 Apply to Medical Nails. Branch ciclopirox 2020-0 Yes [id number] Apply to Univers ([facility]) 8 6-03 area(s) at ity of % solution 00:00: bedtime. [place] 00 Apply to Medical Nails. Branch ciclopirox 2020-0 Yes [id number] Apply to Univers ([facility]) 8 6-03 area(s) at ity of % solution 00:00: bedtime. [place] 00 Apply to Medical Nails. Branch ciclopirox 2020-0 Yes [id number] Apply to Univers ([facility]) 8 6-03 area(s) at ity of % solution 00:00: bedtime. [place] 00 Apply to Medical Nails. Branch ciclopirox 2020-0 Yes Apply Method i ([facility]) 8 6-[address] % solution 00:00: Hospita 00 l ciclopirox 2020-0 2021- No Apply Metho di ([facility]) 8 6-03 10-[address] % solution 00:00: 00:00 [facility] 00 :00 l Immunizations Ordered Filled Immunization Date Status Comments [facility] e Immunization Name Name Influenza Virus 2020-11-24 [...] Unive rsity of MODERNA VACCINE 00:00:00 [place] Med ical Branch SARS-COV-2 COVID-19 2020-04-28 Completed Unive rsity of MODERNA VACCINE 00:00:00 [place] Med ical Branch SARS-COV-2 COVID-19 2020-04-28 Completed Unive rsity of MODERNA VACCINE 00:00:00 [place] Med ical Branch SARS-COV-2 COVID-19 2020-04-28 Completed Unive rsity of MODERNA VACCINE 00:00:00 [place] Med ical Branch SARS-COV-2 COVID-19 2020-04-28 Completed Unive rsity of MODERNA VACCINE 00:00:00 [place] Med ical Branch SARS-COV-2 COVID-19 2020-04-28 Completed Unive rsity of MODERNA VACCINE 00:00:00 [place] Med ical Branch SARS-COV-2 COVID-19 2020-04-28 Completed Unive rsity of MODERNA 12+ YRS 00:00:00 [place] Med ical VACCINE Branch SARS-COV-2 COVID-19 2020-03-30 Completed Unive rsity of MODERNA VACCINE 00:00:00 [place] Med ical Branch SARS-COV-2 COVID-19 2020-03-30 Completed Unive rsity of MODERNA VACCINE 00:00:00 [place] Med ical Branch SARS-COV-2 COVID-19 2020-03-30 Completed Unive rsity of MODERNA VACCINE 00:00:00 [place] Med ical Branch SARS-COV-2 COVID-19 2020-03-30 Completed Unive rsity of MODERNA VACCINE 00:00:00 [place] Med ical Branch SARS-COV-2 COVID-19 2020-03-30 Completed Unive rsity of MODERNA VACCINE 00:00:00 [place] Med ical Branch SARS-COV-2 COVID-19 2020-03-30 Completed [facility]ive [facility] of [facility] VACCINE 00:00:00 [place] [facility] SARS-COV-2 COVID-19 2020-03-30 Completed Unive rsity of MODERNA 12+ YRS 00:00:00 [facility] ical VACCINE Branch Influenza High Dose 2019-11-27 Completed Unive rsity of Quad 00:00:00 [facility] Branch Influenza High Dose 2019-11-27 Completed Unive rsity of [facility] 00:00:00 [facility] Influenza High Dose 2019-11-27 Completed Unive rsity of [facility] 00:00:00 [facility] Branch Influenza High Dose 2019-11-27 Completed Unive rsity of [facility] 00:00:00 [facility] Branch Influenza High Dose 2019-11-27 Completed Unive rsity of [facility] 00:00:00 [facility] Branch Influenza High Dose 2019-11-27 Completed [facility] rsity of [facility] 00:00:00 [facility] Influenza High Dose 2019-11-27 Completed [facility]ity of [facility] 00:00:00 [facility] Influenza High Dose 2019-11-27 Completed [facility] of [facility] 00:00:00 [facility] Influenza High Dose 2019-11-27 Completed Unive rsity of [facility] 00:00:00 [facility] Pneumococcal 13 2014-07-27 Completed Universit [...] 00:00:00 [place] [facility] PPSV23 (PNEUMOVAX) Branch Vital Signs Vital Name Observation Time Observation Value Comments Source Systolic blood 2021-07-22 20:31:00 131 mm[facility]Hg[facility] 2021-07-22 20:31:00 62 mm[facility]Hg[facility] 2021-07-22 20:31:00 63 /min [facility] Respiratory rate 2021-07-22 20:31:00 15 /min [facility] Body weight 2021-07-22 20:31:00 64.864 kg [facility] BMI 2021-07-22 20:31:00 27.93 kg/m2 [facility] Oxygen saturation in 2021-07-22 20:31:00 96 /min [facility] Arterial blood by [facility] Pulse oximetry Branch Systolic blood 2020-06-24 19:53:00 139 mm[Hg] [facility] Diastolic blood 2020-06-24 19:53:00 78 mm[Hg] Unive rsity of pressure [facility] Heart rate 2020-06-24 19:52:00 82 /min [facility] Body temperature 2020-06-24 19:52:00 36.44 [place] [facility] Respiratory rate 2020-06-24 19:52:00 18 /min [facility] ers[facility] Body height 2020-06-24 19:52:00 157.[address] [facility] Body weight 2020-06-24 19:52:[address] [facility] BMI 2020-06-24 19:52:00 27.16 kg/m2 [facility] Systolic blood 2020-06-24 19:53:00 139 mm[Hg] Univer sity of pressure [facility] Diastolic blood 2020-06-24 19:53:00 78 mm[Hg] Unive rsity of pressure [facility] Heart rate 2020-06-24 19:52:00 82 /min [facility] Body temperature 2020-06-24 19:52:00 36.44 Almaz Univ ersity [facility] Respiratory rate 2020-06-24 19:52:00 18 /min Univ ersity [facility] Body height 2020-06-24 19:52:00 157[address] [facility] Body weight 2020-06-24 19:52:[address] [facility] BMI 2020-06-24 19:52:00 27.16 kg/m2 [facility] Systolic blood 2021-10-14 18:41:00 119 mm[Hg] [facility] pressure Diastolic blood 2021-10-14 18:41:00 64 mm[Hg] [facility] pressure Heart rate 2021-10-14 18:41:00 72 /min [facility] Respiratory rate 2021-10-14 18:41:00 16 /min [facility] Body height 2021-10-14 18:41:00 152.4 cm [facility] Body weight 2021-10-14 18:41:00 58.514 kg [facility] BMI 2021-10-14 18:41:00 25.19 kg/m2 [facility] Oxygen saturation in 2021-10-14 18:41:00 100 /min [facility] Arterial blood by Pulse oximetry Body temperature 2021-06-08 12:28:12 36.17 [facility] Procedures Procedure Date / Time Performing Clinician Source Performed INTERLEUKIN 2 RECEPTOR 2021-10-14 21:00:00 [facility] C-REACTIVE PROTEIN 2021-10-14 21:00:00 [facility] SEDIMENTATION RATE 2021-10-14 21:00:00 [facility] ANGIOTENSIN CONVERTING 2021-10-14 21:00:00 [facility] ENZYME KAPPA LAMBDA FREE LIGHT 2021-10-14 21:00:00 [facility] CHAIN WITH RATIO T3 2021-10-14 21:00:00 [facility] spital T4, FREE 2021-10-14 21:00:00 [facility] spital THYROID STIMULATING 2021-10-14 21:00:00 [facility] HORMONE T4 2021-10-14 21:00:00 [facility] spital BASIC METABOLIC PANEL 2021-10-14 21:00:00 [facility] NT-PROBNP 2021-10-14 21:00:00 [facility] spital HC COMPLETE BLD COUNT 2021-10-14 21:00:00 [facility] W/AUTO DIFF ESTIMATED GFR 2021-10-14 21:00:00 [facility] spital TROPONIN T 2021-10-14 21:00:00 [facility] spital ECG 12-LEAD 2021-09-05 18:31:44 Carlito Thomason [facility] AUTHORIZATION FOR RELEASE 2021-08-25 05:01:00 Doctor Unassigned, No [facility] AUTHORIZATION FOR RELEASE 2021-08-19 05:01:00 Doctor Unassigned, No [facility] EXTERNAL PROVIDER - ADC 2021-07-22 05:01:00 Doctor Unassigned, N o [facility] CARDIOLOGY [facility] ECG 12-LEAD 2021-06-20 20:30:59 Carlito Thomason [facility] V. POC GLUCOSE 2021-06-08 22:01:00 AguiarAlissa larson [facility] POC GLUCOSE 2021-06-08 17:28:00 AguiarOrinta [facility] XR CHEST 1 VW PORTABLE 2021-06-08 14:39:00 Bhupinder Vizcaino [facility] COVID-19 QUALITATIVE 2021-06-08 14:35:00 Simone Hull [facility] RT-PCR POC GLUCOSE 2021-06-08 13:30:00 AguiarOrin larsonta [facility] POC GLUCOSE 2021-06-08 11:01:00 Aguiar, Alissa [facility] POC GLUCOSE 2021-06-08 05:37:00 AguiarAbiodun larsonAlissa [facility] POC GLUCOSE 2021-06-08 01:34:00 Aguiar, Alissa [facility] POC GLUCOSE 2021-06-07 23:18:00 Aguiar, Alissa [facility] POC GLUCOSE 2021-06-07 18:50:00 Aguiar, Alissa [facility] COVID-19 QUALITATIVE 2021-06-07 18:17:00 [facility] 2021-06-07 13:07:00 AguiarAbiodun alrsonAlissa [facility] POC GLUCOSE 2021-06-07 09:38:00 Aguiar, Alissa [facility] POC GLUCOSE 2021-06-07 02:49:00 Aguiar, Alissa [facility] POC GLUCOSE 2021-06-06 22:42:00 Aguiar, Alissa [facility] POC GLUCOSE 2021-06-06 16:48:00 Aguiar, Alissa [facility] POC GLUCOSE 2021-06-06 12:38:00 Aguiar, Alissa [facility] HC COMPLETE BLD COUNT 2021-06-06 09:30:00 Simone Hull [facility] W/AUTO DIFF BASIC METABOLIC PANEL 2021-06-06 09:30:00 KurtisSimone Naveen [facility] ESTIMATED GFR 2021-06-06 09:30:00 Alissa Aguiar Ho spital POC GLUCOSE 2021-06-06 09:29:00 Alissa Aguiar [facility] POC GLUCOSE 2021-06-06 05:32:00 Alissa Aguiar Ho spital POC GLUCOSE 2021-06-06 01:43:00 Alissa Aguiar [facility] POC GLUCOSE 2021-06-05 21:58:00 Alissa Aguiar [facility] POC GLUCOSE 2021-06-05 17:02:00 Alissa Aguiar Ho spital HC COMPLETE BLD COUNT 2021-06-05 15:55:00 Simone Hull [facility] W/AUTO DIFF TTE LIMITED, WO CONTRAST, 2021-06-05 14:21:00 Rangel Pan, [facility] WO DOPPLER ([id number]) Dorothy POC GLUCOSE 2021-06-05 12:29:00 Alissa Aguiar Ho spital BASIC METABOLIC PANEL 2021-06-05 09:01:00 Jaydon Hill [facility] HC COMPLETE BLD COUNT 2021-06-05 09:01:00 Jaydon Hill [facility] W/AUTO DIFF [facility] MAGNESIUM LEVEL 2021-06-05 09:01:00 [facility]OS[facility] 2021-06-05 09:01:00 Jaydon Hill [facility] ESTIMATED GFR 2021-06-05 09:01:00 [facility] POC GLUCOSE 2021-06-05 05:37:00 Alissa Aguiar Ho spital POC GLUCOSE 2021-06-05 02:04:00 Alissa Aguiar Ho spital POC GLUCOSE 2021-06-04 21:56:00 Alissa Aguiar Ho spital HC COMPLETE BLD COUNT 2021-06-04 19:34:00 Kurtis, [facility] W/AUTO DIFF PROTHROMBIN TIME WITH INR 2021-06-04 19:34:00 Simone Hull [facility] PARTIAL THROMBOPLASTIN 2021-06-04 19:34:00 Simone Hull [facility] TIME (PTT) POC GLUCOSE 2021-06-04 17:28:00 Orin Aguiarta [facility] POC GLUCOSE 2021-06-04 12:20:00 Aguiar, Alissa [facility] POC GLUCOSE 2021-06-04 09:48:00 Aguiar, Alissa [facility] MAGNESIUM LEVEL 2021-06-04 08:58:00 Kurtis [facility] HC COMPLETE BLD COUNT 2021-06-04 08:58:00 Kurtis [facility] W/AUTO DIFF BASIC METABOLIC PANEL 2021-06-04 08:58:00 Kurtis [facility] ESTIMATED GFR 2021-06-04 08:58:00 Aguiar, Alissa [facility] POC GLUCOSE 2021-06-04 06:02:00 Aguiar, Alissa [facility] POC GLUCOSE 2021-06-04 02:21:00 Aguiar, Alissa [facility] POC GLUCOSE 2021-06-04 01:48:00 Aguiar, Alissa [facility] POC GLUCOSE 2021-06-04 01:46:00 Aguiar, Alissa [facility] POC GLUCOSE 2021-06-03 21:19:00 Aguiar, Alissa [facility] POC GLUCOSE 2021-06-03 17:21:00 Aguiar, Alissa [facility] POC GLUCOSE 2021-06-03 13:00:00 Aguiar, Alissa [facility] POC GLUCOSE 2021-06-03 09:31:00 Aguiar, Alissa [facility] HC COMPLETE BLD COUNT 2021-06-03 09:27:00 ChenteBeverley [facility] W/AUTO DIFF COMPREHENSIVE METABOLIC 2021-06-03 09:27:00 [facility] PANEL MAGNESIUM LEVEL 2021-06-03 09:27:00 Beverley Eldridge Ho spital ESTIMATED GFR 2021-06-03 09:27:00 Beverley Eldridge Ho spital POC GLUCOSE 2021-06-03 05:40:00 AguiarAlissa larson Ho spital POC GLUCOSE 2021-06-03 02:11:00 AguiarAlissa larson Ho spital POC GLUCOSE 2021-06-02 21:55:00 AguiarAlissa larson Ho spital HEMOGLOBIN & HEMATOCRIT 2021-06-02 21:38:00 Princess Carvalho [facility] TTE LIMITED, WO CONTRAST, 2021-06-02 19:00:00 Alex [facility] W DOPPLER ([id number]) Baldemar POC GLUCOSE 2021-06-02 15:26:00 AguiarAlissa larson Ho spital POC GLUCOSE 2021-06-02 12:22:00 AguiarAlissa larson Ho spital HC COMPLETE BLD COUNT 2021-06-02 10:37:00 Beverley Eldridge [facility] W/AUTO DIFF COMPREHENSIVE METABOLIC 2021-06-02 10:37:00 Beverley Eldridge [facility] PANEL MAGNESIUM LEVEL 2021-06-02 10:37:00 Beverley Eldridge Ho spital ESTIMATED GFR 2021-06-02 10:37:00 Beverley Eldridge Ho spital POC GLUCOSE 2021-06-02 10:36:00 Alissa Aguiar Ho spital POC GLUCOSE 2021-06-02 06:56:00 Alissa Aguiar [facility] POC GLUCOSE 2021-06-02 01:23:00 AguiarOrin larsonta [facility] POC GLUCOSE 2021-06-01 21:23:00 AguiarOrin larsonta [facility] POC GLUCOSE 2021-06-01 19:43:00 AguiarAlissa larson [facility] POC GLUCOSE 2021-06-01 18:02:00 Alissa Aguiar Ho spital ECG PRE/POST OP 2021-06-01 17:57:45 Carlito Thomason [facility] V. CV DRAINAGE HEMATOMA OR 2021-06-01 17:20:17 [facility] FLUID F. EP COMPLETE EP STUDY W 2021-06-01 17:20:17 [facility] ABLATION VT F. ACTIVATED CLOTTING TIME 2021-06-01 17:11:00 [facility] ARTERIAL BLOOD GAS, 2021-06-01 17:06:00 [facility] CORRECTED SODIUM LEVEL, SYRINGE 2021-06-01 17:06:00 [facility] POTASSIUM, SYRINGE 2021-06-01 17:06:00 [facility] HEMOGLOBIN, SYRINGE 2021-06-01 17:06:00 [facility] IONIZED CALCIUM, ARTERIAL 2021-06-01 17:06:00 [facility] GLUCOSE LEVEL, SYRINGE 2021-06-01 17:06:00 [facility] HC COMPLETE BLD COUNT 2021-06-01 17:00:00 [facility] W/AUTO DIFF V. BASIC METABOLIC PANEL 2021-06-01 17:00:00 [facility] V. PROTHROMBIN TIME WITH INR 2021-06-01 17:00:00 [facility] V. PARTIAL THROMBOPLASTIN 2021-06-01 17:00:00 [facility] TIME (PTT) V. ESTIMATED GFR 2021-06-01 17:00:00 [facility] V. ACTIVATED CLOTTING TIME 2021-06-01 16:56:00 [facility] ARTERIAL BLOOD GAS, 2021-06-01 16:17:00 [facility] CORRECTED SODIUM LEVEL, SYRINGE 2021-06-01 16:17:00 [facility] POTASSIUM, SYRINGE 2021-06-01 16:17:00 [facility] IONIZED CALCIUM, ARTERIAL 2021-06-01 16:17:00 [facility] HEMOGLOBIN, SYRINGE 2021-06-01 16:17:00 [facility] GLUCOSE LEVEL, SYRINGE 2021-06-01 16:17:00 Aguiar, [facility] LACTIC ACID, SYRINGE 2021-06-01 16:17:00 Aguiar, [facility] ARTERIAL LINE 2021-06-01 14:00:52 [facility] ANESTHESIA INTUBATION 2021-06-01 13:54:00 [facility] POC GLUCOSE 2021-06-01 12:28:00 AguiarAlissa larson spital POC GLUCOSE 2021-06-01 10:27:00 AguiarAlissa larson Ho spital HC COMPLETE BLD COUNT 2021-06-01 10:20:00 Chente [facility] W/AUTO DIFF COMPREHENSIVE METABOLIC 2021-06-01 10:20:00 Chente [facility] PANEL MAGNESIUM LEVEL 2021-06-01 10:20:00 Beverley Eldridge Ho spital PHOSPHORUS LEVEL 2021-06-01 10:20:00 Beverley Eldridge H ospital ESTIMATED GFR 2021-06-01 10:20:00 Beverley Eldridge Ho spital POC GLUCOSE 2021-06-01 05:46:00 AguiarAlissa larson Ho spital POC GLUCOSE 2021-06-01 01:48:00 Alissa Aguiar Ho spital POC GLUCOSE 2021-05-31 22:58:00 Aguiar, Alissa Banuelos Ho spital POC GLUCOSE 2021-05-31 16:21:00 Aguiar, Alissa Banuelos Ho spital POC GLUCOSE 2021-05-31 12:36:00 AguiarAlissa Ho spital TYPE AND SCREEN 2021-05-31 10:53:00 Catrina Gonsalez [facility] F. BASIC METABOLIC PANEL 2021-05-31 10:53:00 Kalee Cordero [facility] HC COMPLETE BLD COUNT 2021-05-31 10:53:00 Kalee Cordero [facility] W/AUTO DIFF MAGNESIUM LEVEL 2021-05-31 10:53:00 Kalee Cordero Ho spital ESTIMATED GFR 2021-05-31 10:53:00 Kalee Cordero Ho spital POC GLUCOSE 2021-05-31 10:52:00 Alissa Aguiar Ho spital POC GLUCOSE 2021-05-31 07:13:00 Alissa Aguiar Ho spital US RENAL 2021-05-31 02:35:00 Bhupinder Vizcaino spital POC GLUCOSE 2021-05-31 02:17:00 Alissa Aguiar Ho spital COVID-19 QUALITATIVE 2021-05-30 23:25:00 [facility] RT-PCR F. POC GLUCOSE 2021-05-30 22:44:00 Alissa Aguiar Ho spital POC GLUCOSE 2021-05-30 16:47:00 Alissa Aguiar Ho spital POC GLUCOSE 2021-05-30 12:48:00 Alissa Aguiar Ho spital HC COMPLETE BLD COUNT 2021-05-30 09:23:00 [facility] W/AUTO DIFF BASIC METABOLIC PANEL 2021-05-30 09:23:00 [facility] MAGNESIUM LEVEL 2021-05-30 09:23:00 [facility] PHOSPHORUS LEVEL 2021-05-30 09:23:00 [facility] ESTIMATED GFR 2021-05-30 09:23:00 [facility] POC GLUCOSE 2021-05-30 09:04:00 Alissa Aguiar spital POC GLUCOSE 2021-05-30 05:31:00 Alissa Aguiar Ho spital POC GLUCOSE 2021-05-30 01:53:00 Alissa Aguiar Ho spital CV PACEMAKER DEFIB ILR 2021-05-30 00:00:00 [facility] INTERROGATION F. POC GLUCOSE 2021-05-29 21:39:00 Alissa Aguiar Ho spital POC GLUCOSE 2021-05-29 19:50:00 AguiarAlissa Alevism Ho spital POC GLUCOSE 2021-05-29 17:04:00 AguiarAlissa Alevism Ho spital POC GLUCOSE 2021-05-29 13:14:00 Alissa Aguiar Ho spital URINE CULTURE 2021-05-29 11:55:00 [facility] URINALYSIS SCREEN AND 2021-05-29 11:55:00 [facility] MICROSCOPY, WITH REFLEX TO CULTURE XR ABDOMEN 1 VW PORTABLE 2021-05-29 11:30:[address] [facility] HC COMPLETE BLD COUNT 2021-05-29 10:09:00 [facility] W/AUTO DIFF COMPREHENSIVE METABOLIC 2021-05-29 10:09:[address] [facility] PANEL MAGNESIUM LEVEL 2021-05-29 10:09:00 [facility] PHOSPHORUS LEVEL 2021-05-29 10:09:00 [facility] ESTIMATED GFR 2021-05-29 10:09:00 [facility] POC GLUCOSE 2021-05-29 08:49:00 Alissa Aguiar spital POC GLUCOSE 2021-05-29 04:29:00 Alissa Aguiar spital POC GLUCOSE 2021-05-29 00:57:00 AguiarAlissa larson [facility] POC GLUCOSE 2021-05-28 20:50:00 AguiarAlissa larson [facility] POC GLUCOSE 2021-05-28 16:20:00 AguiarAlissa larson [facility] POC GLUCOSE 2021-05-28 12:39:00 AguiarAlissa larson Ho spital BASIC METABOLIC PANEL 2021-05-28 10:33:00 Princess Carvalho [facility] HC COMPLETE BLD COUNT 2021-05-28 10:33:00 Haylee Joshi [facility] W/AUTO DIFF MAGNESIUM LEVEL 2021-05-28 10:33:[address] [facility] PHOSPHORUS LEVEL 2021-05-28 10:33:[address] [facility] ESTIMATED GFR 2021-05-28 10:33:00 JasbirPrincess [facility] POC GLUCOSE 2021-05-28 09:39:00 AguiarOrin larsonta [facility] POC GLUCOSE 2021-05-28 06:40:00 Aguiar, Alissa [facility] POC GLUCOSE 2021-05-28 06:05:00 Aguiar, Alissa [facility] POC GLUCOSE 2021-05-28 03:43:00 Aguiar, Alissa [facility] spital POC GLUCOSE 2021-05-28 02:09:00 AguiarAbiodun larsonAlissa Alevism Ho spital POC GLUCOSE 2021-05-27 21:00:00 AguiarAbiodun larsonAlissa Alevism Ho spital POC GLUCOSE 2021-05-27 16:51:00 AguiarAbiodun larsonAlissa Alevism Ho spital POC GLUCOSE 2021-05-27 12:28:00 Aguiar, Alissa Alevism Ho spital POC GLUCOSE 2021-05-27 10:48:00 AguiarAbiodun larsonAlissa Alevism Ho spital BASIC METABOLIC PANEL 2021-05-27 10:46:00 Princess Carvalho [facility] HC COMPLETE BLD COUNT 2021-05-27 10:46:00 [facility] W/AUTO DIFF MAGNESIUM LEVEL 2021-05-27 10:46:[address] [facility] PHOSPHORUS LEVEL 2021-05-27 10:46:[address] [facility] ESTIMATED GFR 2021-05-27 10:46:00 [facility] POC GLUCOSE 2021-05-27 08:35:00 AguiarOrin larsonta [facility] POC GLUCOSE 2021-05-27 06:22:00 Orin Aguiarta [facility] POC GLUCOSE 2021-05-27 01:42:00 AguiarOrinta Alev[facility] Ho spital POC GLUCOSE 2021-05-26 21:22:00 Alissa Aguiar [facility] POC GLUCOSE 2021-05-26 16:37:00 Alissa Aguiar [facility] POC GLUCOSE 2021-05-26 12:44:00 Alissa Aguiar Ho spital POC GLUCOSE 2021-05-26 09:59:00 AguiarAlissa larson Ho spital MAGNESIUM LEVEL 2021-05-26 05:53:00 [facility] BASIC METABOLIC PANEL 2021-05-26 05:53:00 [facility] ESTIMATED GFR 2021-05-26 05:53:00 [facility] 2021-05-26 05:53:00 [facility] POC GLUCOSE 2021-05-26 05:30:00 Abiodun Aguiarraheel Banuelos Ho spital ECG 12-LEAD 2021-05-26 05:25:53 [facility] F. POC GLUCOSE 2021-05-26 01:45:00 Abiodun Aguiarraheel Baconist Ho spital POC GLUCOSE 2021-05-25 20:43:00 Abiodun Aguiarraheel [facility] spital ECG 12-LEAD 2021-05-25 17:39:01 [facility] F. POC GLUCOSE 2021-05-25 16:38:00 Abiodun Aguiarraheel Banuelos Ho spital POC GLUCOSE 2021-05-25 13:25:00 Abiodun Aguiarraheel Banuelos Ho spital HC COMPLETE BLD COUNT 2021-05-25 09:56:00 [facility] W/AUTO DIFF COMPREHENSIVE METABOLIC 2021-05-25 09:56:[address] [facility] PANEL MAGNESIUM LEVEL 2021-05-25 09:56:00 [facility] ESTIMATED GFR 2021-05-25 09:56:00 [facility] POC GLUCOSE 2021-05-25 09:48:00 Aguiar Alissa Banuelos Ho spital POC GLUCOSE 2021-05-25 09:18:00 Aguiar, Alissa Alevism Ho spital POC GLUCOSE 2021-05-25 05:34:00 Aguiar, Alissa Alevism Ho spital POC GLUCOSE 2021-05-25 01:55:00 Aguiar, Alissa Alevism Ho spital POC GLUCOSE 2021-05-24 22:15:00 Aguiar, Alissa Alevism Ho spital POC GLUCOSE 2021-05-24 16:56:00 Aguiar, Alissa Alevism Ho spital POC GLUCOSE 2021-05-24 12:53:00 Aguiar, Alissa Alevism Ho spital POC GLUCOSE 2021-05-24 10:35:00 Aguiar, Alissa Alevism Ho spital HC COMPLETE BLD COUNT 2021-05-24 10:32:00 [facility] W/AUTO DIFF BASIC METABOLIC PANEL 2021-05-24 10:32:00 [facility] MAGNESIUM LEVEL 2021-05-24 10:32:00 [facility] PHOSPHORUS LEVEL 2021-05-24 10:32:00 [facility] ESTIMATED GFR 2021-05-24 10:32:00 [facility] POC GLUCOSE 2021-05-24 05:55:00 Aguiar, Alissa Alevism spital POC GLUCOSE 2021-05-24 02:46:00 Aguiar, Alissa Alevism Ho spital POC GLUCOSE 2021-05-24 00:30:00 Aguiar, Alissa Alevism Ho spital POC GLUCOSE 2021-05-23 22:30:00 Aguiar, Alissa Alevism Ho spital TTE LIMITED, WO CONTRAST, 2021-05-23 19:00:00 [facility] W DOPPLER ([id number]) Baldemar POC GLUCOSE 2021-05-23 16:54:00 Aguiar, Alissa Alevism Ho spital POC GLUCOSE 2021-05-23 12:42:00 Aguiar, Alissa Alevism Ho spital POC GLUCOSE 2021-05-23 10:36:00 Aguiar, Alissa Alevism Ho spital HC COMPLETE BLD COUNT 2021-05-23 09:42:00 [facility] W/AUTO DIFF BASIC METABOLIC PANEL 2021-05-23 09:42:00 [facility] ESTIMATED GFR 2021-05-23 09:42:00 [facility] MAGNESIUM LEVEL 2021-05-23 09:42:00 [facility] ECG 12-LEAD 2021-05-23 06:59:26 Alissa Augiar spital POC GLUCOSE 2021-05-23 06:24:00 Alissa Aguiar spital POC GLUCOSE 2021-05-23 01:09:00 AguiarAlissa larson spital CV PACEMAKER DEFIB ILR 2021-05-23 00:00:00 Catrina Gonsalez [facility] INTERROGATION F. POC GLUCOSE 2021-05-22 21:49:00 Alissa Aguiar spital POC GLUCOSE 2021-05-22 16:29:00 Alissa Aguiar spital POC GLUCOSE 2021-05-22 12:56:00 Alissa Aguira spital POC GLUCOSE 2021-05-22 09:29:00 Alissa Aguiar spital BASIC METABOLIC PANEL 2021-05-22 09:25:00 Alissa Aguiar [facility] MAGNESIUM LEVEL 2021-05-22 09:25:00 Alissa Aguiar spital PHOSPHORUS LEVEL 2021-05-22 09:25:00 Alissa Aguiarist H ospital ESTIMATED GFR 2021-05-22 09:25:00 [facility] L[facility] 2021-05-22 08:12:00 [facility]OLIC [facility]EL 2021-05-22 08:12:00 [facility] HC COMPLETE BLD COUNT 2021-05-22 08:12:00 [facility] W/AUTO DIFF HEPATIC FUNCTION PANEL 2021-05-22 08:12[facility]00 [facility] THYROID STIMULATING 2021-05-22 08:12:00 [facility] HORMONE ECG 12-LEAD 2021-05-22 08:02:08 [facility] Elsa Alevism Ho spital ECG 12-LEAD 2021-05-22 07:27:49 Tejas Reidjonathanmariel Madrigal [facility] POC GLUCOSE 2021-05-22 04:24:00 Alissa Aguiar Ho spital POC GLUCOSE 2021-05-22 01:32:00 Alissa Aguiar Ho spital POC GLUCOSE 2021-05-21 22:30:00 AguiarAlissa larson Ho spital POC GLUCOSE 2021-05-21 17:13:00 Alissa Aguiar Ho spital POC GLUCOSE 2021-05-21 12:34:00 Alissa Aguiar Ho spital POC GLUCOSE 2021-05-21 09:09:[address] [facility] spital HC COMPLETE BLD COUNT 2021-05-21 09:04:00 [facility] W/AUTO DIFF BASIC METABOLIC PANEL 2021-05-21 09:04:00 [facility] MAGNESIUM LEVEL 2021-05-21 09:04:00 [facility] ESTIMATED GFR 2021-05-21 09:04:00 [facility] POC GLUCOSE 2021-05-21 00:48:00 Abiodun Aguiarchita [facility] POC GLUCOSE 2021-05-20 21:36:00 Abiodun Aguiarchievans Banuelos spital ARTERIAL BLOOD GAS 2021-05-20 20:50:00 [facility] LEV[facility] 2021-05-20 20:49:00 [facility]un [facility] ION[facility]ED CALCIUM 2021-05-20 18:31:00 [facility] IONIZED CALCIUM 2021-05-20 16:37:00 Jasbir [facility] POC GLUCOSE 2021-05-20 16:27:00 Alissa Aguiar spital TROPONIN T 2021-05-20 13:44:00 [facility] POC GLUCOSE 2021-05-20 12:41:00 Alissa Aguiar [facility] URINE CULTURE 2021-05-20 11:26:00 Alissa Aguiar [facility] URINALYSIS SCREEN AND 2021-05-20 08:45:00 [facility] WITH REFLEX TO CULTURE HC COMPLETE BLD COUNT 2021-05-20 06:06:00 Olga Lidia Dominguez [facility] W/AUTO DIFF Izu[place]or BASIC METABOLIC PANEL 2021-05-20 06:05:00 [facility] MAGNESIUM LEVEL 2021-05-20 06:05:00 [facility] PHOSPHORUS LEVEL 2021-05-20 06:05:00 [facility] ESTIMATED GFR 2021-05-20 06:05:00 [facility] TROPONIN T 2021-05-20 06:05:00 [facility] POC GLUCOSE 2021-05-20 06:05:00 Alissa Aguiar Ho spital ECG 12-LEAD 2021-05-20 06:03:04 [facility] POC GLUCOSE 2021-05-20 02:09:00 Alissa Aguiar Ho spital POC GLUCOSE 2021-05-19 21:30:00 Alissa Aguiar Ho [facility]ital POC GLUCOSE 2021-05-19 16:37:00 Alissa Aguiar [facility] POC GLUCOSE 2021-05-19 12:32:00 Alissa Aguiar Ho [facility]ital HC COMPLETE BLD COUNT 2021-05-19 09:58:00 Olga Lidia Dominguez [facility] W/AUTO DIFF I[place] COMPREHENSIVE METABOLIC 2021-05-19 09:58:00 Olga Lidia Dominguez [facility] PANEL Izuakor PHOSPHORUS LEVEL 2021-05-19 09:58:00 Olga Lidia Dominguez H ospital [place] ESTIMATED GFR 2021-05-19 09:58:00 Olga Lidia Dominguez Ho spital [place] POC GLUCOSE 2021-05-19 09:57:00 AguiarAlissa larson [facility] POC GLUCOSE 2021-05-19 06:28:00 Aguira, Alissa [facility] POC GLUCOSE 2021-05-19 05:54:00 Aguiar, Alissa [facility] POC GLUCOSE 2021-05-19 02:01:00 Aguiar, Alissa [facility] POC GLUCOSE 2021-05-18 21:40:00 Aguiar, Alissa [facility] POC GLUCOSE 2021-05-18 16:47:00 Aguiar, Alissa [facility] POC GLUCOSE 2021-05-18 12:36:00 Aguiar, Alissa Banuelos Ho spital HC COMPLETE BLD COUNT 2021-05-18 09:57:00 [facility] [place] COMPREHENSIVE METABOLIC 2021-05-18 09:57:00 Alberto [facility] PANEL [place] PHOSPHORUS LEVEL 2021-05-18 09:57:00 Olga Lidia Dominguez H ospital [place] ESTIMATED GFR 2021-05-18 09:57:00 Olga Lidia Dominguez Ho spital [place] POC GLUCOSE 2021-05-18 09:54:00 AguiarAlissa larson Ho spital POC GLUCOSE 2021-05-18 04:57:00 Alissa Aguiar Ho spital POC GLUCOSE 2021-05-18 01:02:00 AguiarAlissa larson Ho spital POC GLUCOSE 2021-05-17 21:30:00 AguiarAlissa larson [facility] ECG 12-LEAD 2021-05-17 16:17:37 AguiarAlissa larson [facility] POC GLUCOSE 2021-05-17 15:56:00 AguiarAlissa larson Ho spital CV MRI W CONTRAST FOR 3D 2021-05-17 14:40:57 Nomran Johnson [facility] LV SCAR ASSESSMENT Baldemar POC GLUCOSE 2021-05-17 12:33:00 Alissa Aguiar Ho spital CBC WITH PLATELET AND 2021-05-17 12:15:00 Kutris, [facility] DIFFER[facility] BASIC METABOLIC PANEL 2021-05-17 12:15:00 [facility] EST[facility]FR 2021-05-17 12:15:00 Alissa Aguiar Ho spital POC GLUCOSE 2021-05-17 09:56:00 Alissa Aguiar Ho spital URINALYSIS, AUTOMATED 2021-05-17 07:34:00 [facility] WITH MICROSCOPY POC GLUCOSE 2021-05-17 05:00:00 Alissa Aguiar Ho spital POC GLUCOSE 2021-05-17 01:14:00 Alissa Aguiar Ho spital POC GLUCOSE 2021-05-16 22:47:00 Alissa Aguiar Ho spital VENIPUNC NEED PHYS 2021-05-16 20:04:01 Jerardo [facility] SKILL,DX OR RX POC GLUCOSE 2021-05-16 16:24:00 Alissa Aguiar Ho spital POC GLUCOSE 2021-05-16 13:45:00 Alissa Aguiar Ho spital POC GLUCOSE 2021-05-16 13:42:00 Alissa Aguiar Ho spital BASIC METABOLIC PANEL 2021-05-16 09:12:00 [facility] HC COMPLETE BLD COUNT 2021-05-16 09:12:00 [facility] W/AUTO DIFF MAGNESIUM LEVEL 2021-05-16 09:12:00 [facility] ESTIMATED GFR 2021-05-16 09:12:00 [facility] POC GLUCOSE 2021-05-16 01:42:00 Alissa Aguiar Ho spital POC GLUCOSE 2021-05-15 21:59:00 Alissa Aguiar Ho spital POC GLUCOSE 2021-05-15 18:06:00 Alissa Aguiar Ho spital POC GLUCOSE 2021-05-15 18:01:00 Alissa Aguiar Ho spital POC GLUCOSE 2021-05-15 13:26:00 Alissa Aguiar Ho spital BASIC METABOLIC PANEL 2021-05-15 09:50:00 Princess CarvalhoJuan [facility] ESTIMATED GFR 2021-05-15 09:50:00 [facility] COMPLETE BLD COUNT 2021-05-15 09:49:00 Princess CarvalhoJuan [facility] W/AUTO DIFF POC GLUCOSE 2021-05-15 02:12:00 Alissa Aguiar Ho spital POC GLUCOSE 2021-05-14 23:26:00 Alissa Aguiar Ho spital POC GLUCOSE 2021-05-14 17:08:00 Alissa Aguiar Ho spital POC GLUCOSE 2021-05-14 12:31:00 Alissa Aguiar Ho spital POC GLUCOSE 2021-05-14 10:21:00 Alissa Aguiar Ho spital ECG 12-LEAD 2021-05-14 08:37:57 Nar, [facility] BASIC METABOLIC PANEL 2021-05-14 07:36:00 Nard, [facility] MAGNESIUM LEVEL 2021-05-14 07:36:00 [facility] ESTIMATED GFR 2021-05-14 07:36:00 [facility] POC GLUCOSE 2021-05-14 05:59:00 Alissa Aguiar Ho spital POC GLUCOSE 2021-05-14 02:44:00 Alissa Aguiar Ho spital POC GLUCOSE 2021-05-13 21:39:00 Alissa Aguiar Ho spital URINALYSIS, AUTOMATED 2021-05-13 21:21:00 Alissa Aguiar [facility] WITH MICROSCOPY POC GLUCOSE 2021-05-13 16:55:00 Alissa Aguiar Ho spital ECG 12-LEAD 2021-05-13 12:34:33 Alissa Aguiar Ho spital POC GLUCOSE 2021-05-13 12:32:00 Alissa Aguiar Ho spital ECG 12-LEAD 2021-05-13 12:30:53 Alissa Aguiar Ho spital VITAMIN D 25 HYDROXY 2021-05-13 08:26:00 Celestina Garcia [facility] LEVEL COMPREHENSIVE METABOLIC 2021-05-13 08:26:00 [facility] PANEL MAGNESIUM LEVEL 2021-05-13 08:26:00 [facility] CBC HEMOGRAM 2021-05-13 08:26:00 [facility] [place] ESTIMATED GFR 2021-05-13 08:26:00 [facility] POC GLUCOSE 2021-05-13 08:26:00 Alissa Aguiar Ho spital ECG 12-LEAD 2021-05-13 07:57:[address] sp[address] HEAD WO CONTRAST 2021-05-13 07:43:17 No [facility] POC GLUCOSE 2021-05-13 04:56:00 Alissa Aguiar Ho spital POC GLUCOSE 2021-05-13 02:18:00 Alissa Aguiar Ho spital POC GLUCOSE 2021-05-12 21:22:00 Alissa Aguiar Ho spital POC GLUCOSE 2021-05-12 16:30:00 Alissa Aguiar Ho spital XR CHEST 1 PORTABLE 2021-05-12 14:10:00 Princess Carvalho [facility] POC GLUCOSE 2021-05-12 12:54:00 Alissa Aguiar Ho spital LACTIC ACID LEVEL 2021-05-12 11:37:00 [facility] POC GLUCOSE 2021-05-12 09:52:00 Alissa Aguiar Ho spital XR ABDOMEN 1 PORTABLE 2021-05-12 09:24:46 [facility] ARTERIAL BLOOD GAS 2021-05-12 09:15:00 [facility] ECG 12-LEAD 2021-05-12 07:54:27 Swartz, [facility] URINE CULTURE 2021-05-12 07:05:[address] [facility] spital URINALYSIS SCREEN AND 2021-05-12 07:05:00 Sybil Brown [facility] MICROSCOPY, WITH REFLEX TO CULTURE MAGNESIUM LEVEL 2021-05-12 06:46:00 [facility] HC COMPLETE BLD COUNT 2021-05-12 06:46:00 [facility]O [facility]FF [place] BASIC METABOLIC PANEL 2021-05-12 06:46:00 [facility] LIPID PANEL 2021-05-12 06:46:00 [facility] THYROID STIMULATING 2021-05-12 06:46:00 [facility] HORMONE T4, FREE 2021-05-12 06:46:00 [facility] ESTIMATED GFR 2021-05-12 06:46:00 [facility] VITAMIN B12 LEVEL 2021-05-12 06:45:00 [facility] FOLATE LEVEL 2021-05-12 06:45:00 [facility] BLOOD CULTURE, AEROBIC & 2021-05-12 06:44:00 [facility] ANAEROBIC BLOOD CULTURE, AEROBIC & 2021-05-12 06:43:00 [facility] ANAEROBIC LACTIC ACID LEVEL 2021-05-12 06:43:00 Josh Goodman [facility] HEMOGLOBIN A1C 2021-05-12 06:43:00 [facility] POC GLUCOSE 2021-05-12 06:23:[address] [facility] spital CT ANGIOGRAM HEAD W WO 2021-05-12 05:35:00 [facility] CONTRAST CT ANGIOGRAM NECK W WO 2021-05-12 05:35:00 [facility] CONTRAST CT HEAD WO CONTRAST 2021-05-12 05:09:16 [facility] POC GLUCOSE 2021-05-12 03:21:00 Alissa Aguiar spital ECG 12-LEAD 2021-05-12 02:18:33 Kevin [facility] XR CHEST 1 VW PORTABLE 2021-05-12 02:15:44 Sybil Brown [facility] CBC HEMOGRAM 2021-05-12 02:04:00 [facility] BASIC METABOLIC PANEL 2021-05-12 02:04:00 [facility] LACTIC ACID LEVEL 2021-05-12 02:04:00 [facility] VENOUS BLOOD GAS 2021-05-12 02:04:00 [facility] 2021-05-12 02:04:00 Alissa Aguiar Ho spital HEPATIC FUNCTION PANEL 2021-05-12 02:04:00 [facility]SE 2021-05-12 01:52:00 Alissa Aguiar Ho spital POC GLUCOSE 2021-05-11 21:49:00 Alissa Aguiar Ho spital POC GLUCOSE 2021-05-11 21:46:00 [facility] ECG 12-LEAD 2021-05-11 20:22:49 Norman Johnson H ospital Baldemar EP ALCOHOL ABLATION 2021-05-11 19:51:41 Carlito Thomason [facility] V. ACTIVATED CLOTTING TIME 2021-05-11 19:38:00 [facility] ACTIVATED CLOTTING TIME 2021-05-11 19:16:00 [facility] ACTIVATED CLOTTING TIME 2021-05-11 18:26:00 [facility] ACTIVATED CLOTTING TIME 2021-05-11 17:42:00 [facility] ACTIVATED CLOTTING TIME 2021-05-11 17:06:00 [facility] ACTIVATED CLOTTING TIME 2021-05-11 16:30:00 [facility] ACTIVATED CLOTTING TIME 2021-05-11 15:56:00 [facility] ACTIVATED CLOTTING TIME 2021-05-11 15:33:00 [facility] ACTIVATED CLOTTING TIME 2021-05-11 15:10:00 [facility] ACTIVATED CLOTTING TIME 2021-05-11 13:55:00 [facility] ARTERIAL LINE 2021-05-11 13:50:29 [facility] [place] [facility] AN ELECTIVE 2021-05-11 13:24:00 Saqib [facility] ENDOTRACHEAL AIRWAY [place] POC GLUCOSE 2021-05-11 12:37:00 Alissa Aguiar Ho spital PROTHROMBIN TIME WITH INR 2021-05-11 09:28:00 [facility] TYPE AND SCREEN 2021-05-11 09:17:00 Paddy Carlito [facility] V. MAGNESIUM LEVEL 2021-05-11 09:17:00 Sathya Adame Ho spital Kody HC COMPLETE BLD COUNT 2021-05-11 09:17:00 SudarioBhupinder Oj [facility] W/AUTO DIFF BASIC METABOLIC PANEL 2021-05-11 09:17:00 Kyle [facility] ESTIMATED GFR 2021-05-11 09:17:00 Alissa Aguiar Ho spital POC GLUCOSE 2021-05-11 09:13:00 Alissa Aguiar Ho spital POC GLUCOSE 2021-05-11 06:44:00 Alissa Aguiar Ho spital POC GLUCOSE 2021-05-11 06:29:00 Alissa Aguiar Ho spital POC GLUCOSE 2021-05-11 02:27:00 Alissa Aguiar Ho spital POC GLUCOSE 2021-05-10 22:31:00 Alissa Aguiar Ho spital COVID-19 QUALITATIVE 2021-05-10 20:37:00 Wendi Coles [facility] RT-PCR Kody POC GLUCOSE 2021-05-10 17:48:00 Alissa Aguiar Ho spital MAGNESIUM LEVEL 2021-05-10 11:10:00 JessatSathya Alevism Ho spital Kody POC GLUCOSE 2021-05-10 02:48:00 Alissa Aguiar Ho spital POC GLUCOSE 2021-05-09 23:01:00 Alissa Aguiar Ho spital CV MRI STRESS TEST W 2021-05-09 15:13:28 Sathya Adame [facility] CONTRAST Kody POC GLUCOSE 2021-05-09 02:38:00 Alissa Aguiar Ho spital CV PACEMAKER DEFIB ILR 2021-05-09 00:00:[address] [facility] INTERROGATION POC GLUCOSE 2021-05-08 23:06:00 Alissa Aguiar Ho spital POC GLUCOSE 2021-05-08 17:38:00 Alissa Aguiar Ho spital POC GLUCOSE 2021-05-08 12:36:00 Alissa Aguiar Ho spital HC COMPLETE BLD COUNT 2021-05-08 11:00:00 Kyle [facility] W/AUTO DIFF COMPREHENSIVE METABOLIC 2021-05-08 11:00:00 Kyle [facility] PANEL ESTIMATED GFR 2021-05-08 11:00:00 Alissa Aguiar Ho spital POC GLUCOSE 2021-05-08 02:08:00 Alissa Aguiar Ho spital POC GLUCOSE 2021-05-07 21:44:00 Alissa Aguiar Ho spital POC GLUCOSE 2021-05-07 13:04:00 Alissa Aguiar Ho spital POC GLUCOSE 2021-05-07 10:17:00 Alissa Aguiar Ho spital COVID-19 ANTI-SPIKE IGG 2021-05-07 09:33:00 Pérez Aldana [facility] ANTIBODY TITER Dashawn HC COMPLETE BLD COUNT 2021-05-07 09:33:00 [facility] W/AUTO DIFF COMPREHENSIVE METABOLIC 2021-05-07 09:33:00 Aguiar [facility] PANEL COVID-19 SEROLOGY PATIENT 2021-05-07 09:33:00 Pérez Aldana [facility] SURVEILLANCE Dashawn ESTIMATED GFR 2021-05-07 09:33:00 Alissa Aguiar Ho spital POC GLUCOSE 2021-05-07 04:52:00 Alissa Aguiar Ho spital POC GLUCOSE 2021-05-07 02:10:00 Alissa Aguiar Ho spital TTE COMPLETE, WO 2021-05-06 22:35:00 Sathya Adame H ospital CONTRAST, W DOPPLER Kody ([id number]) POC GLUCOSE 2021-05-06 22:30:00 Alissa Aguiar Ho spital POC GLUCOSE 2021-05-06 16:22:00 Alissa Aguiar Ho spital POC GLUCOSE 2021-05-06 12:42:00 Alissa Aguiar spital HC COMPLETE BLD COUNT 2021-05-06 09:57:[address] [facility] W/AUTO DIFF COMPREHENSIVE METABOLIC 2021-05-06 09:57:00 [facility] PANEL ESTIMATED GFR 2021-05-06 09:57:00 Alissa Aguiar spital XR CHEST 1 VW PORTABLE 2021-05-06 01:15:00 [facility] Kody POC GLUCOSE 2021-05-06 00:39:00 Alissa Aguiar spital CV PACEMAKER DEFIB ILR 2021-05-06 00:00:00 [facility] INTERROGATION Kody ECG 12-LEAD 2021-05-05 23:15:36 Jess Colestony Banuelos spital Kody POC GLUCOSE 2021-05-05 21:42:00 Alissa Aguiar spital Plan of Care Planned Activity Planned Date Details Comments Source Future Scheduled 2029-08-12 Screening for [facility] Test 00:00:00 osteoporosis [facility] (procedure) [code = Branch [id number]] Future Scheduled 2029-08-12 Screening for [facility] Test 00:00:00 osteoporosis [facility] (procedure) [code = Branch [id number]] Future Scheduled 2021-12-22 HEPATITIS B VACCINES Met hodist Test 09:45:45 (1 of 3 - 3-dose Hospital series) [code = HEPATITIS B VACCINES (1 of 3 - 3-dose series)] Future Scheduled 2021-12-22 SHINGLES VACCINES (1 Met hodist Test 09:45:45 of 2) [code = Hospital SHINGLES VACCINES (1 of 2)] Future Scheduled 2021-12-22 COVID-19 VACCINE (5 Meth odist Test 09:45:45 - Booster for Hospital Moderna series) [code = COVID-19 VACCINE (5 - Booster for Moderna series)] Future Scheduled 2021-12-22 INFLUENZA VACCINE Method ist Test 09:45:45 [code = INFLUENZA Hospital VACCINE] Future Scheduled 2021-10-17 HEPATITIS B VACCINES Met [...] 2021-06-19 Creatinine [facility] Test 00:00:00 measurement [facility] (procedure) [code = Branch [id number]] Future Scheduled 2021-06-19 Creatinine [facility] Test 00:00:00 measurement [facility] (procedure) [code = Branch [id number]] Future Scheduled 2021-06-15 Calculated low [facility]it [facility] Test 00:00:00 density lipoprotein [facility] cholesterol level [facility] (procedure) [code = 736618555] Future Scheduled 2021-06-15 Calculated low [facility] Test 00:00:00 density lipoprotein [place] [facility] cholesterol level [facility] (procedure) [code = 397442132] Future Scheduled 2020-12-15 Hemoglobin A1c Universit y of Test 00:00:00 measurement [facility] (procedure) [code = Branch 09409449] Future Scheduled 2020-12-15 Hemoglobin A1c Universit y of Test 00:00:00 measurement [facility] (procedure) [code = Branch [id number]] Future Scheduled 2020-09-15 Diabetic foot [facility] Test 00:00:00 examination [facility] (regime/therapy) Branch [code = 282691550] Future Scheduled 2020-09-15 Diabetic foot [facility] Test 00:00:00 examination [facility] (regime/therapy) Branch [code = 676761888] Future Scheduled 2020-09-11 Examination of [facility]it [facility] Test 00:00:00 retina (procedure) [place] [facility] [code = 504983265] Branch Future Scheduled 2020-09-11 Examination of Universit [facility] of Test 00:00:00 retina (procedure) [place] [facility] [code = 728298193] Branch Future Scheduled 2020-08-20 Depression screening Uni versity of Test 00:00:00 (procedure) [code = [place] [facility] 420977199] Branch Future Scheduled 2020-08-20 Depression screening Uni versity of Test 00:00:00 (procedure) [code = [place] [facility] 857318024] Branch Future Scheduled 2020-07-22 DTaP,Tdap,and Td Postponed from Unive rsity of Test 00:00:00 Vaccines (1 - Tdap) 09/10/1959 [facility] [code = (Alternative Branch DTaP,Tdap,and Td Guidelines) Vaccines (1 - Tdap)] Future Scheduled 2020-07-22 Microalbumin University of Test 00:00:00 measurement, urine, [facility] dical quantitative Branch (procedure) [code = 037295299] Future Scheduled 2020-07-22 Zoster Recombinant Postponed from Uni versity of Test 00:00:00 Vaccine (SHINGRIX) 1990 [facility] (1 of 2) [code = (Insurance / Branch Zoster Recombinant Financial) Vaccine (SHINGRIX) (1 of 2)] Future Scheduled 2020-07-22 DTaP,Tdap,and Td Postponed from Unive rsity of Test 00:00:00 Vaccines (1 - Tdap) 09/10/1959 [place] [facility] [code = (Alternative Branch DTaP,Tdap,and Td Guidelines) Vaccines (1 - Tdap)] Future Scheduled 2020-07-22 Microalbumin [facility] Test 00:00:00 measurement, urine, [facility] dical quantitative Branch (procedure) [code = 044850653] Future Scheduled 2020-07-22 Zoster Recombinant Postponed from Uni versity of Test 00:00:00 Vaccine (SHINGRIX) 1990 [place] [facility] (1 of 2) [code = (Insurance / Branch Zoster Recombinant Financial) Vaccine (SHINGRIX) (1 of 2)] Future Scheduled 2005 Medicare Annual Universi ty of Test 00:00:00 Wellness Visit [facility] (procedure) [code = Branch 817193614971635] Future Scheduled 2005 Medicare Annual Universi ty of Test 00:00:00 Wellness Visit [facility] (procedure) [code = Branch [id number]] Future Scheduled 1958 Hepatitis C [facility] Test 00:00:00 screening [facility] (procedure) [code = Branch 677386445] Future Scheduled 1958 Hepatitis C [facility] Test 00:00:00 screening [facility] (procedure) [code = Branch 933435629] Future Scheduled 1956 SARS-CoV-2 [facility] Test 00:00:00 (COVID-19) Vaccine [place] [facility] (1) [code = Branch SARS-CoV-2 (COVID-19) Vaccine (1)] Future Scheduled 1956 SARS-CoV-2 [facility] Test 00:00:00 (COVID-19) Vaccine [place] [facility] (1) [code = Branch SARS-CoV-2 (COVID-19) Vaccine (1)] Encounters Start End Encounter Admission Attending Care Care Encounter Source Date/Time Date/Time Type Type Clinicians Facility Department ID 2021-05-23 Outpatient 3 KoreyYULISSA RAMANDEEP [id number] [facility] 09:07:35 [facility] [place] 2021-05-19 Outpatient 3 Korey YULISSA RAMANDEEP [id number] [facility] 10:32:01 [facility] [place] 2021-05-16 Outpatient 3 [id number] [facility] REF [id number] [facility] 14:15:44 [facility] [place] 2021-05-13 Outpatient 3 [id number] [facility] REF [id number] [facility] 10:38:18 [facility] [place] 2021-05-12 Outpatient 3 [id number] E[facility] REF [id number] [facility] 11:13:53 0[facility] [place] 2020-12-19 Emergency [facility] [id number] Univers 23:52:06 ity [facility] 2020-12-19 Emergency [facility] [id number] [facility]-12-21 2021-12-21 Outpatient R [facility] [id number] Univers 08:07:08 23:59:00 ity [facility] 2021-12-21 2021-12-21 [facility] [id number] Univers 08:07:08 23:59:00 [facility]686 [facility] [id number] [facility] [address] [place] 2021-10-28 2021-10-28 [facility] [id number] Univers 15:40:00 15:40:00 FABIANA mcdonough [facility] 2021-10-28 2021-10-28 [facility] [id number] Univers 13:00:00 13:00:00 [facility] 2021-10-19 2021-10-19 Travel 1.2.840.1 [id number] Methodi 00:00:00 00:00:[address] 3.430.2.7 0.2.7.3.698 spita .3.961531 084.8 l .8 2021-10-18 2021-10-18 Telephone Bone, 1.2.840.1 [id number] Methodi 00:00:00 00:00:[address] 3.430.2.7 Hospit a .3.838212 l .8 2021-10-17 2021-10-17 Travel 1.2.840.1 1.2.990.492 [id number] Methodi 00:00:00 00:00:[address] 3.430.2.7 0.2.7.3.698 Ho spita .3.487535 084.8 l .8 2021-10-17 2021-10-17 Travel 1.2.840.1 1.2.957.185 [id number] Methodi 00:00:00 00:00:[address] 3.430.2.7 0.2.7.3.698 Ho spita .3.021506 084.8 l .8 2021-10-14 2021-10-14 Lab Candida, 1.2.840.1 [id number] Methodi 15:35:00 15:40:00 [facility] [address] 3.430.2.7 Hospit a .3.996367 l .8 2021-10-14 2021-10-14 Lab Candida, 1.2.840.1 [id number] Methodi 15:35:00 15:40:00 [facility] [address]10.[address] 3.430.2.7 Hospit a .3.923753 l .8 2021-10-14 2021-10-14 Office Candida, 1.2.840.1 [id number] Methodi 13:00:00 15:29:30 Visit [facility] [address]9110.1.[address] 3.430.2.7 Hospit a .3.585155 l .8 2021-10-14 2021-10-14 Office Candida, 1.2.840.1 [id number] Methodi 13:00:00 15:29:30 Visit [facility] [address]10.1.[address] 3.430.2.7 Hospit a .3.181397 l .8 2021-10-14 2021-10-14 Travel 1.2.840.1 1.2.745.212 [id number] Methodi 00:00:00 00:00:[address] 3.430.2.7 0.2.7.3.698 Ho spita .3.591943 084.8 l .8 2021-10-14 2021-10-14 Telephone Iammarino, 1.2.840.1 [id number] Methodi 00:00:00 00:00:[address] 3.430.2.7 Hospit a .3.078458 l .8 2021-10-14 2021-10-14 Travel 1.2.840.1 1.2.305.958 7053 [id number] Methodi 00:00:00 00:00:[address] 3.430.2.7 0.2.7.3.698 Ho spita .3.618987 084.8 l .8 2021-10-14 2021-10-14 Telephone [place], 1.2.840.1 [id number] 2 [id number] Methodi 00:00:00 00:00:[address] 3.430.2.7 Hospit a .3.789342 l .8 2021-09-05 2021-09-05 Office Valderr[place] 1.2.840.1 [id number] 21 [id number] Methodi 13:00:00 13:15:00 Visit oCarlito 58498.1.[address] V. 3.430.2.7 Hospit a .3.835046 l .8 2021-09-05 2021-09-05 Office Valderraban 1.2.840.1 [id number] 21 [id number] Methodi 13:00:00 13:15:00 Visit oSumeetCarlito 78563.1.[address] V. 3.430.2.7 Hospit a .3.799699 l .8 2021-09-05 2021-09-05 Orders Valderraban 1.2.840.1 [id number] 21 [id number] Methodi 00:00:00 00:00:00 Only oCarlito 69057.1.[address] V. 3.430.2.7 Hospit a .3.690627 l .8 2021-09-05 2021-09-05 Travel 1.2.840.1 1.2.581.997 6129 [id number] Methodi 00:00:00 00:00:[address] 3.430.2.7 0.2.7.3.698 Ho spita .3.155078 084.8 l .8 2021-09-05 2021-09-05 Orders Valderraban 1.2.840.1 [id number] 21 [id number] Methodi 00:00:00 00:00:00 Only o, Carlito 90958.1.[address] 3.430.2.7 Hospit a .3.663746 l .8 2021-09-05 2021-09-05 Travel 1.2.840.1 1.2.240.296 2057 197679 Methodi 00:00:00 00:00:[address] 3.430.2.7 0.2.7.3.698 Ho spita .3.997430 084.8 l .8 2021-08-25 2021-08-25 Orders Doctor NO 1.2.840.114 [id number] 86 Univers 00:00:00 00:00:00 Only Unassigned, EL 350.1.13.10 ity of [place] [facility] 4.2.7.2.686 Gregory as [phone] [place] [address] Branch 2021-08-19 2021-08-19 Orders Doctor NO 1.2.840.114 [id number] Univers 00:00:00 00:00:00 Only Unassigned, EL 350.1.13.10 ity of [place] [facility] 4.2.7.2.686 Gregory as [phone] [place] [address] Branch 2021-08-16 2021-08-16 Patient Doctor SAUL 1.2.840.114 [id number] 12 Univers 00:00:00 00:00:00 Secure Msg Unassigned, [place] 350.1.13.10 ity of [place] [phone] Sd dical NAL 9 [facility] 2021-08-10 2021-08-10 Telephone Valderraban 1.2.840.1 [id number] Methodi 00:00:00 00:00:[address] V. 3.430.2.7 Hospit a .3.623880 l .8 2021-08-10 2021-08-10 Travel 1.2.840.1 1.2.428.674 4952 781683 Methodi 00:00:00 00:00:[address] 3.430.2.7 0.2.7.3.698 Ho spita .3.098688 084.8 l .8 2021-08-10 2021-08-10 Telephone Valderraban 1.2.840.1 [id number] Methodi 00:00:00 00:00:[address] V. 3.430.2.7 Hospit a .3.603313 l .8 2021-08-10 2021-08-10 Travel 1.2.840.1 1.2.470.088 4322 585944 Methodi 00:00:00 00:00:[address] 3.430.2.7 0.2.7.3.698 Ho spita .3.480598 084.8 l .8 2021-08-04 2021-08-04 Patient [facility] 1.2.840.114 [id number] 99 Univers 00:00:00 00:00:00 Secure Msg Fabiana MOREAU 350.1.13.10 Yi 4.2.7.2.686 Nanette BARNEY [phone] Sd dical NAL [address] [place] [address] 2021-08-03 2021-08-03 Outpatient Radha HERNADEZ [facility] [id number] 7188 Univers 09:00:00 09:00:00 SWAPNA mcdonough [facility] 2021-08-03 2021-08-03 Outpatient R HERNADEZ, [facility] [id number] Univers 09:00:00 09:00:[address] [facility] 2021-07-22 2021-07-22 Outpatient R CHRISTOPHER, [facility] [id number] 635 Univers 15:00:00 15:47:37 FABIANA mcdonough o f [facility] 2021-07-22 2021-07-[address] [facility] 1.2.840.114 [id number] 31 Univers 15:00:00 15:47:37 Visit Fabiana PEREZSUZI 350.1.13.10 ity [facility] 4.2.7.2.[place] [phone] Sd dical NAL [address] [place] [address] 2021-07-22 2021-07-22 Outpatient R CHRISTOPHER, [facility] [id number] 635 Univers 15:00:00 15:00:00 FABIANA mcdonough o [facility] 2021-07-22 2021-07-22 Orders Doctor SARABIA 1.2.840.114 [id number] 21 Univers 00:00:00 00:00:00 Only Unassigned, EL 350.1.13.10 ity of [place] [facility] 4.2.7.2.686 Gregory as [phone] [address] 2021-06-22 2021-06-22 Outpatient R CHRISTOPHER, [facility] [id number] 083 Univers 11:20:00 12:26:26 FABIANA mcdonough o luis alberto [facility] 2021-06-22 2021-06-22 Office [facility] 1.2.840.114 [id number] 99 Univers 11:20:00 12:26:26 Visit Juan Daviddanilonilam PEREZSUZI 350.1.13.10 ity of [place] [phone] Sd dical NAL [address] [place] [address] 2021-06-22 2021-06-[address] [facility] 1.2.467.344 4820 0427 Univers 00:00:00 00:00:00 Juan Daviddanilonilam PEREZSUZI 350.1.13.10 ity [facility] 4.2.7.2.[place] [phone] [address] 2021-06-22 2021-06-22 Telephone Valderraban 1.2.840.1 [id number] Methodi 00:00:00 00:00:00 o, Carlito 26055.1.[address] V. 3.430.2.7 Hospit a .3.486412 l .8 2021-06-22 2021-06-22 Telephone Valderraban 1.2.840.1 [id number] Methodi 00:00:00 00:00:00 o, Carlito 06490.1.[address] V. 3.430.2.7 Hospit a .3.454519 l .8 2021-06-21 2021-06-21 Telephone Valderraban 1.2.840.1 [id number] Methodi 00:00:00 00:00:00 o, Carlito 82732.1.[address] V. 3.430.2.7 Hospit a .3.227311 l .8 2021-06-21 2021-06-21 Telephone Valderraban 1.2.840.1 [id number] Methodi 00:00:00 00:00:00 o, Carlito 01897.1.[address] V. 3.430.2.7 Hospit a .3.786556 l .8 2021-06-20 2021-06-20 Office Valderraban 1.2.840.1 [id number] 21 [id number] Methodi 15:15:00 16:36:35 Visit o, Carlito 39636.1.[address] V. 3.430.2.7 Hospit a .3.669163 l .8 2021-06-20 2021-06-20 Office Valderraban 1.2.840.1 [id number] 21 [id number] Methodi 15:15:00 16:36:35 Visit o, Carlito 10598.1.[address] V. 3.430.2.7 Hospit a .3.240260 l .8 2021-06-20 2021-06-20 Refill Valderraban 1.2.840.1 [id number] Methodi 00:00:00 00:00:[address] V. 3.430.2.7 Hospit a .3.641540 l .8 2021-06-20 2021-06-20 Travel 1.2.840.1 1.2.496.024 9914 921487 Methodi 00:00:00 00:00:[address] 3.430.2.7 0.2.7.3.698 Ho spita .3.634605 084.8 l .8 2021-06-20 2021-06-20 Refill Valderraban 1.2.840.1 [id number] [id number] Methodi 00:00:00 00:00:[address] V. 3.430.2.7 Hospit a .3.281198 l .8 2021-06-20 2021-06-20 Travel 1.2.840.1 1.2.136.760 8370 488302 Methodi 00:00:00 00:00:[address] 3.430.2.7 0.2.7.3.698 Ho spita .3.068853 084.8 l .8 2021-05-05 2021-06-08 [facility], 1.2.840.1 [id number] Methodi 16:25:00 19:00:00 Encounter Alissa 77795.1.[address] 3.430.2.7 Hospit a .3.239905 l .8 2021-05-05 2021-06-08 [facility], 1.2.840.1 [id number] Methodi 16:25:00 19:00:00 Encounter Alissa 95300.1.[address] 3.430.2.7 Hospit a .3.031549 l .8 2021-06-01 2021-06-01 Anesthesia Romaine Rodriguez 1.2.840.1 [id number] Methodi 08:35:00 13:00:00 Event Aurora Lal 78614.1.[address] 3.430.2.7 Hospit a .3.195718 l .8 2021-06-01 2021-06-01 Anesthesia Romaine Rodriguez 1.2.840.1 [id number] Methodi 08:35:00 13:00:00 Event Aurora Lal 61449.1.[address] 3.430.2.7 Hospit a .3.282859 l .8 2021-06-01 2021-06-01 Surgery Valderraban 1.2.840.1 [id number] Methodi 09:00:00 12:10:[address] V. 3.430.2.7 Hospit a .3.624679 l .8 2021-06-01 2021-06-01 Surgery Valderraban 1.2.840.1 [id number] 21 [id number] Methodi 09:00:00 12:10:00 o, Carlito 83734.1.[address] V. 3.430.2.7 Hospit a .3.116259 l .8 2021-05-30 2021-05-30 Orders Delos 1.2.840.1 776722702 [id number] 5723 Methodi 00:00:00 00:00:00 Only Davin, 04520.1.[address] Catrina F. 3.430.2.7 Hosp betty .3.542891 l .8 2021-05-30 2021-05-30 Orders Delos 1.2.840.1 841231587 631791 8024 Methodi 00:00:00 00:00:00 Only Davin, 30230.1.[address] Catrina F. 3.430.2.7 Hosp betty .3.464485 l .8 2021-05-27 2021-05-27 Rehan HAMLIN [facility] 893016L -20 Univers 11:20:00 11:20:00 [facility] [id number] 2021-05-23 2021-05-23 Orders Delos 1.2.840.1 [id number] 9195 Methodi 00:00:00 00:00:00 Only Davin, 94935.1.[address] Catrina F. 3.430.2.7 Hosp betty .3.835225 l .8 2021-05-23 2021-05-23 Orders Delos 1.2.840.1 [id number] 744199 2573 Methodi 00:00:00 00:00:00 Only Davin, 30597.1.[address] Catrina F. 3.430.2.7 Hosp betty .3.667958 l .8 2021-05-19 2021-05-19 Orders Valderraban 1.2.840.1 [id number] Methodi 00:00:00 00:00:00 Only raghav Carlito 93021.1.[address] V. 3.430.2.7 Hospit a .3.972947 l .8 2021-05-19 2021-05-19 Orders Valderraban 1.2.840.1 [id number] 21 [id number] Methodi 00:00:00 00:00:00 Only Carlito avilez 26415.1.[address] V. 3.430.2.7 Hospit a .3.174284 l .8 2021-05-11 2021-05-11 Anesthesia Ashley Ramírez 1.2.840.1 1040 54933 [id number] Methodi 08:08:00 15:19:00 Event Saqib Colón 05053.1.[address] 3.430.2.7 Hospit a .3.359708 l .8 2021-05-11 2021-05-11 Anesthesia Ashley Ramírez 1.2.840.1 1040 05992 [id number] Methodi 08:08:00 15:19:00 Event Saqib Colón 05393.1.[address] 3.430.2.7 Hospit a .3.731379 l .8 2021-05-11 2021-05-11 Surgery Valderraban 1.2.840.1 [id number] Methodi 08:15:00 11:25:00 o, Carlito 27663.1.[address] V. 3.430.2.7 Hospit a .3.551000 l .8 2021-05-11 2021-05-11 Surgery Valderraban 1.2.840.1 687844876 [id number] Methodi 08:15:00 11:25:[address] V. 3.430.2.7 Hospit a .3.579977 l .8 2021-05-09 2021-05-09 Orders Nabi, 1.2.840.1 442172700 [id number] 6429 Methodi 00:00:00 00:00:00 Only Mando 33340.1.[address] 3.430.2.7 Hospit a .3.951997 l .8 2021-05-09 2021-05-09 Orders Nabi, 1.2.840.1 146863270 723536 1761 Methodi 00:00:00 00:00:00 Only Mando 75941.1.[address] 3.430.2.7 Hospit a .3.167019 l .8 2021-05-06 2021-05-06 Transition INOCENCIO DavidMariel 1.2.840.114 920 65259 Univers 00:00:00 00:00:00 of Care Shireen CERVANTES 350.1.13.10 it y [place] [phone] Medi vee [address] 2021-05-06 2021-05-06 Orders Pandat, 1.2.840.1 [id number] 7787 Methodi 00:00:00 00:00:00 Only Coles 41488.1.[address] Kody 3.430.2.7 Hospit a .3.603091 l .8 2021-05-06 2021-05-06 Orders Pandat, 1.2.840.1 [id number] [id number] 4514 Methodi 00:00:00 00:00:00 Only Coles 78794.1.[address] Kody 3.430.2.7 Hospit a .3.011261 l .8 2021-04-18 2021-05-05 [facility] [id number] 90 Univers 21:13:00 16:22:00 ATHERSHRUTHI, ity o f [facility] 2021-04-18 2021-05-05 [facility] Virgilio Collins [facility] 1.2.840 .114 [id number] Univers 21:13:00 16:22:00 Encounter Abu [facility] HEALTH 350.1.13. 10 ity of [place] [phone] [place] [address] [place] ([facility]) 2021-04-18 2021-05-05 Inpatient [facility] [id number] 90 Univers 21:13:00 16:22:00 ATHERSHRUTHI, ity o f [facility] 2021-05-05 2021-05-05 Orders Valderraban 1.2.840.1 [id number] 21 [id number] Methodi 00:00:00 00:00:00 Only o Carlito 86177.1.[address] V. 3.430.2.7 Hospit a .3.961815 l .8 2021-05-05 2021-05-05 Orders Valderraban 1.2.840.1 [id number] 21 [id number] Methodi 00:00:00 00:00:00 Only o Carlito 43877.1.[address] V. 3.430.2.7 Hospit a .3.394153 l .8 2021-05-04 2021-05-04 Telephone Wally [facility] 1.2.524.480 1132 3372 Univers 00:00:00 00:00:00 Ten HEALTH 350.1.13.10 it y [place] [phone] [place] [address] Branch OFFICE BUILDING 2021-04-26 2021-04-26 Telephone Thuy SILVA 1.2.840.114 [id number] Univers 00:00:00 00:00:00 , Kyra PEDIATRIC 350.1.13.10 ity of [place] [phone] [facility] PRIMARY [address] CARE CLINIC 2021-04-18 2021-04-18 Inpatient X ABU [facility] RADHA [id number] 90 Univers 21:13:00 21:13:00 sharonda PAPPAS o f JARED [facility] 2021-04-18 2021-04-18 Transition ELEANOR David 1.2.840.114 [id number] [id number] Univers 00:00:00 00:00:00 of Care Shireen ROBERTSY 350.1.13.10 it [place] [phone] [facility] [address] 2021-04-18 2021-04-18 Telephone NO [place] 1.2.287.713 9425 6304 Univers 00:00:00 00:00:00 Jed EL 350.1.13.10 i ty of [facility] 4.2.7.2.686 Gregory as [phone] [facility] 008 Branch 2021-04-18 2021-04-18 Telephone RICARDO White 1.2.577.680 6438 2145 Univers 00:00:00 00:00:00 Qiangnilam PEDIATRIC 350.1.13.10 ity [place] [id number] [facility] PRIMARY 059 [address] CARE [facility] 2021-04-17 2021-04-17 Orders Doctor SARABIA 1.2.840.114 [id number] Univers 00:00:00 00:00:00 Only Unassigned, EL 350.1.13.10 ity of [place] [facility] 4.2.7.2.686 Gregory as [phone] [facility] 009 Branch 2021-04-13 2021-04-16 Outpatient U [facility] 1038 [id number] Univers 19:50:00 15:30:[address] [facility] 2021-04-13 2021-04-16 Outpatient U [facility] 1038 [id number] Univers 19:50:00 15:30:00 DASHAWN mcdonough [facility] 2021-04-13 2021-04-16 Outpatient U [facility] 1038 [id number] [facility] 19:50:00 15:30:00 DASHAWN mcdonough [facility] 2021-04-16 2021-04-16 Telephone NO [place] 1.2.876.535 3194 5557 Univers 00:00:00 00:00:00 Jed EL 350.1.13.10 i ty of [facility] 4.2.7.2.686 [place] as [phone] [address] 2021-04-16 2021-04-16 Telephone RICARDO White 1.2.403.585 8172 5527 Univers 00:00:00 00:00:00 Qiangjun PEDIATRIC 350.1.13.10 [place] [phone] [address] CARE CLINIC 2021-04-13 2021-04-13 Emergency EM Keila, [facility] FATOU [id number] 82 [facility] 10:18:00 19:26:00 Jed 20 [facility] 2021-04-13 2021-04-13 Telephone NO [place] 1.2.907.968 5626 4899 Univers 00:00:00 00:00:00 Jed EL 350.1.13.10 i ty of [facility] 4.2.7.2.686 [place] as [phone] [address] 2021-04-13 2021-04-13 Telephone Andressa WYREKHA 1.2.840.114 914 11305 Univers 00:00:00 00:00:00 Amer [facility] 350.1.13.10 it y of [place] [phone] [place] [address] [address] OFFICE BUILDING 2021-04-13 2021-04-13 Telephone RICARDO White 1.2.355.893 4396 4898 Univers 00:00:00 00:00:00 Qiangjun PEDIATRIC 350.1.13.10 ity [place] [phone] [address] 2021-04-13 2021-04-13 Telephone Venkata NO 1.2.009.401 1671 8111 Univers 00:00:00 00:00:00 Jed EL 350.1.13.10 i ty of [facility] 4.2.7.2.686 [place] as [phone] [address] 2021-04-13 2021-04-13 Telephone Venkata NO 1.2.139.706 2229 9062 Univers 00:00:00 00:00:00 Jed EL 350.1.13.10 i ty of [facility] 4.2.7.2.686 [place] as [phone] [address] 2021-04-13 2021-04-13 Telephone RICARDO White 1.2.922.508 6292 7870 Univers 00:00:00 00:00:00 Fabiana PEDIATRIC 350.1.13.10 ity [place] [id number] [address] 2021-04-13 2021-04-13 Telephone Enrique Rai 1.2.840.114 [id number] Univers 00:00:00 00:00:00 EL 350.1.13.10 it y of HOSPITAL 4.2.7.2.686 [place] as [id number] [address] 2021-04-10 2021-04-10 Telephone NO Bo 1.2.840.114 91 [id number] Univers 00:00:00 00:00:00 Carol GALLEGOS 350.1.13.10 it y of HOSPITAL 4.2.7.2.686 [place] as [phone] [address] 2021-04-10 2021-04-10 Telephone SAUL White 1.2.272.582 2045 2349 Univers 00:00:00 00:00:00 Fabiana PEREZTON 350.1.13.10 ity of [place] [id number] [address] 2021-04-08 2021-04-08 Outpatient R JOSIAH SIMONS [facility] 1 [id number] Univers 16:23:05 23:59:00 JOSIAH SIMONS [facility] 2021-04-08 2021-04-08 [facility] 1.2.873.918 [id number] 3457 Univers 16:23:05 23:59:00 Encounter Josiah MOREAU 350.1.13.10 ity of [place] [phone] Sd dical [facility] 846 [facility] 2021-04-08 2021-04-08 Outpatient R JOSIAH SIMONS [facility] 1 [id number] Univers 16:23:05 23:59:00 JOSIAH SIMONS [facility] 2021-04-07 2021-04-07 [facility] [id number] 776 Univers 16:20:00 16:45:59 FABIANA mcdonough o f [facility] 2021-04-07 2021-04-07 Office RICARDO White 1.2.840.114 [id number] Univers 16:20:00 16:45:59 Visit Fabiana PEDIATRIC 350.1.13.10 it[place] [phone] [facility] PRIMARY 0[address] CARE CLINIC 2021-04-07 2021-04-07 Outpatient R CHRISTOPHER [facility] [id number] 776 Univers 16:20:00 16:45:59 F[address]IANA mcdonough o f [facility] 2021-04-04 2021-04-04 Transition ELEANOR Felix 1.2.840.114 [id number] Univers 00:00:00 00:00:00 of Care Angy CERVANTES 350.1.13.10 i ty of [place] [phone] [facility] [address] 2021-03-31 2021-04-01 Inpatient [facility] [id number] Univers 07:14:00 17:00:00 EPIFANIO ity [facility] 2021-03-31 2021-04-01 [facility] Felicia Chilel [facility] 1.2.840.114 [id number] Univers 07:14:00 17:00:00 Encounter Kevin Chinchilla 350.1.13.10 ity of Te[place]agmary [place] 4.2.7.2.686 [place] [phone] [address] ([facility]) 2021-03-31 2021-04-01 [facility] 1037 [id number] Univers 07:14:00 17:00:[address] [facility] 2021-03-31 2021-04-01 Outpatient X [facility] 1037 [id number] Univers 07:14:00 17:00:00 EPIFANIO ity [facility] 2021-01-23 2021-01-23 Refill Thuy SILVA 1.2.840.114 [id number] Univers 00:00:00 00:00:00 , Kyra PEDIATRIC 350.1.13.10 ity of [place] [phone] [facility] PRIMARY [facility] Branch CARE CLINIC 2020-12-27 2020-12-27 Office Enzo [facility] 1.2.840.114 [id number] Univers 08:06:57 08:57:20 Visit Celestina ROMEROPEC 350.1.13.10 ity of [place] 4.2.7.2.686 Gregory as CENTER [phone] [facility] [place] [address] Branch DIABETES CLINIC 2020-12-27 2020-12-27 Outpatient R ENZO [facility] [id number] Univers 08:00:00 08:57:20 AISHAT ity [facility] 2020-12-06 2020-12-06 Outpatient R ENZO [facility] [id number] Univers 09:00:00 09:00:00 AISHAT ity [facility] 2020-11-26 2020-11-26 Patient Ricardo Lindsey 1.2.840.114 [id number] Univers 00:00:00 00:00:00 Outreach Marlee Delgadillo Pediatric 350.1.13.10 it[place] of [place] [phone] [address] 2020-11-24 2020-11-24 Office Thuy Silva 1.2.840.114 [id number] Univers 16:20:36 16:59:30 Visit , Kyra Pediatric 350.1.13.10 ity of [place] [id number] [address] 2020-11-24 2020-11-24 Outpatient R THUY [facility] [id number] [id number] Univers 16:30:00 16:30:00 , KYRA it y of [facility] 2020-11-17 2020-11-17 Office Jasen [facility] 1.2.962.856 [id number] [facility] 16:13:04 16:33:04 Visit Antonia Moreau 350.1.13.10 ity of [place] Profess[place] [phone] [address] 2020-11-17 2020-11-17 Outpatient R ANTONIA CHOE [facility] [id number] Univers 16:00:00 16:00:00 ANTONIA CHOE [facility] 2020-11-04 2020-11-04 Telephone Thuy Silva 1.2.840.114 [id number] Univers 00:00:00 00:00:00 , Kyra Pediatric 350.1.13.10 ity of [place] [phone] [address] 2020-10-29 2020-10-29 Orders Doctor SARABIA 1.2.840.114 [id number] Univers 00:00:00 00:00:00 Only Unassigned, EL 350.1.13.10 ity of [place] [facility] 4.2.7.2.686 Rgegory as [phone] [address] 2020-10-27 2020-10-27 Telephone Thuy Silva 1.2.840.114 [id number] Univers 00:00:00 00:00:00 , Kyra Pediatric 350.1.13.10 ity of [place] [phone] [address] 2020-10-25 2020-10-25 Telephone Thuy Silva 1.2.840.114 [id number] Univers 00:00:00 00:00:00 , Kyra Pediatric 350.1.13.10 ity of [place] [phone] [address] 2020-10-21 2020-10-21 Orders Doctor SARABIA 1.2.840.114 [id number] Univers 00:00:00 00:00:00 Only Unassigned, EL 350.1.13.10 ity of [place] [facility] 4.2.7.2.686 Gregory as [phone] [address] 2020-10-20 2020-10-20 Office Thuy Silva 1.2.840.114 [id number] Univers 16:21:33 16:58:25 Visit , Kyra Pediatric 350.1.13.10 ity of [place] [phone] [address] 2020-10-20 2020-10-20 Office Thuy Silva 1.2.840.114 [id number] Univers 16:21:33 16:58:25 Visit , [facility] 350.1.13.10 it[place] [phone] [address] 2020-10-20 2020-10-20 Outpatient R THUY [facility] [id number] Univers 16:30:00 16:30:00 , KYRA it y of [facility] 2020-10-08 2020-10-08 Orders Doctor SARABIA 1.2.840.114 [id number] Univers 00:00:00 00:00:00 Only Unassigned, EL 350.1.13.10 ity of [facility] 4.2.7.2.686 [place] as [phone] [address] 2020-10-08 2020-10-08 Orders Doctor NO 1.2.840.114 [id number] Univers 00:00:00 00:00:00 Only Unassigned, EL 350.1.13.10 ity of [facility] 4.2.7.2.686 [place] as [phone] [address] 2020-10-07 2020-10-07 Telephone Thuy Ricardo 1.2.840.114 [id number] Univers 00:00:00 00:00:00 , [facility] 350.1.13.10 [place] [phone] [address] 2020-10-07 2020-10-07 Telephone Argyle Ricardo 1.2.840.114 [id number] Univers 00:00:00 00:00:00 , [facility] 350.1.13.10 [place]y [place] [id number] [address] 2020-10-07 2020-10-07 Telephone Argyle Ricardo 1.2.840.114 [id number] Univers 00:00:00 00:00:00 , [facility] 350.1.13.10 [place]y [place] [id number] [address] 2020-10-07 2020-10-07 Telephone Argyle Ricardo 1.2.840.114 [id number] Univers 00:00:00 00:00:00 , [facility] 350.1.13.10 [place]y [place] [phone] [address] 2020-10-05 2020-10-05 Outpatient R ANTONIA CHOE [facility] [id number] Univers 09:00:00 09:00:00 ANTONIA CHOE ity of [facility] 2020-10-01 2020-10-01 Outpatient R [facility] [id number] Univers 13:00:00 13:00:[address] [facility] 2020-09-30 2020-09-30 Telephone Thuy Ricardo 1.2.840.114 [id number] Univers 00:00:00 00:00:00 , [facility] 350.1.13.10 [place] [phone] [facility] [address] [facility] 2020-09-23 2020-09-23 Office Ricardo White 1.2.840.114 [id number] Univers 13:12:42 13:48:11 Visit Fabiana Pediatric 350.1.13.10 ity of [place] [phone] [facility] [address] [facility] 2020-09-23 2020-09-23 Outpatient R CHRISTOPHER [facility] [id number] Univers 13:20:00 13:20:00 FABIANA jimenezy o f [facility] 2020-09-21 2020-09-21 [employer], Adc Sleep Lab [facility] 1.2 .840.114 [id number] Univers 13:27:33 13:42:33 Visit Antonia Choe 350.1.13. 10 ity [facility] 4[place]2.7.2.[place] [phone] [place] [address] [address] 2020-09-21 2020-09-21 Outpatient R ANTONIA CHOE [facility] [id number] Univers 13:00:00 13:00:00 [address] ity of [facility] 2020-09-21 2020-09-21 Orders Doctor SARABIA 1.2.840.114 [id number] Univers 00:00:00 00:00:00 Only Unassigned, EL 350.1.13.10 ity of [facility] 4.2.7.2.686 [place] [phone] [place] [address] [address] 2020-09-20 2020-09-20 Laboratory Only, Adc Test [facility] 1.2.840. 114 [id number] Univers 14:22:26 14:37:26 Only Rubén Lehman 350.1.13.10 ity of [place].2.[place] [phone] [place] [address] [address] 2020-09-20 2020-09-20 Outpatient R [facility] [id number] Univers 14:15:00 14:15:[address] [facility] 2020-09-16 2020-09-16 Telephone Jasen WYREKHA 1.2.840.114 [id number] Univers 00:00:00 00:00:00 Antonia Gaviria MULTISPEC 350.1.13.10 [place] [phone] [facility] AND ISAIAH [address] [place] [address] [facility] 2020-09-10 2020-09-10 Patient Thuy Silva 1.2.840.114 [id number] Univers 00:00:00 00:00:00 Secure Kyra Gross Pediatric 350.1.13.10 [place] [phone] [facility] [address] [facility] 2020 2020 Telephone Thuy Silva 1.2.840.114 [id number] Univers 00:00:00 00:00:00 , Kyra Pediatric 350.1.13.10 it[place] [id number] [facility] 2020-09-06 2020-09-06 Office Nicole [facility] 1.2.840.114 [id number] Univers 08:40:03 09:44:35 Visit Renea MORRISSEY 350.1.13.10 it[place] of [place] [phone] [facility] AND [address] [facility] 2020-09-06 2020-09-06 Outpatient R NICOLE [facility] [id number] Univers 08:40:00 08:40:[address] [facility] 2020-08-27 2020-08-27 Office Thuy Silva 1.2.840.114 [id number] Univers 07:44:17 08:30:01 Visit , Kyra Pediatric 350.1.13.10 ity [place] [phone] [address] 2020-08-27 2020-08-27 Outpatient R THUY [facility] [id number] Univers 07:45:00 07:45:00 , KYRA jimenez y of [facility] 2020-08-27 2020-08-27 Telephone Thuy Silva 1.2.840.114 [id number] Univers 00:00:00 00:00:00 , Kyra Pediatric 350.1.13.10 ity [place] [phone] [address] 2020-08-22 2020-08-22 Orders Doctor SARABIA 1.2.840.114 [id number] Univers 00:00:00 00:00:00 Only Unassigned, EL 350.1.13.10 ity of [place] [facility] 4.2.7.2.686 [place] as [phone] [place] [address] [address] 2020-08-18 2020-08-18 Telephone Thuy Silva 1.2.840.114 [id number] Univers 00:00:00 00:00:00 , Kyra Pediatric 350.1.13.10 ity of [place] [phone] [address] 2020-08-11 2020-08-11 Outpatient R THUY [facility] [id number] Univers 14:00:00 14:00:00 , KYRA jimenez y [facility] 2020-08-04 2020-08-04 Office Jasen [facility] 1.2.090.798 [id number] [facility] 10:01:29 10:31:29 Visit Antonia Moreau 350.1.13.10 ity of [place] Profess[place] [phone] [address] 2020-08-04 2020-08-04 Office Thuy Silva 1.2.840.114 [id number] Univers 08:19:00 09:14:37 Visit , Kyra Pediatric 350.1.13.10 ity of [place]ud[place] nam and 4.2.7.2.686 [facility] Adult [phone] [facility] Primary [address] [facility] 2020-08-04 2020-08-04 Outpatient R THUY [facility] [id number] Univers 08:15:00 08:15:00 , KYRA jimenez y of [facility] 2020-07-29 2020-07-29 Hospital Kyra Daley [facility] 1.2.840.114 [id number] Univers 12:25:22 23:59:00 Encounter Anselmo Eduardo [facility] 350.1.13. 10 ity of [place] 4.2.7.2 .686 [facility] [place] [phone] [address] ([facility]) 2020-07-29 2020-07-29 Outpatient R THUY [facility] RAD 449 [id number] Univers 13:00:00 13:00:00 , KYRA jimenez y of [facility] 2020-07-29 2020-07-[address] [facility] 1.2.840.114 [id number] Univers 09:21:56 10:59:25 Visit Swapna MORRISSEY 350.1.13.10 ity of [place] BUI 4.2.7.2.686 [facility] [phone] [facility] AND [address] DIABETES [facility]INIC 2020-07-27 2020-07-27 Emergency Singer [facility] 1.2.442.955 [id number] Univers 12:02:00 16:13:00 Jean-Paul Moreau 350.1.13.10 i ty of [place] 4.2.7.2.686 [facility] [phone] [place] 007334 Branch 2020-07-27 2020-07-27 Telephone Thuy Silva 1.2.840.114 [id number] Univers 00:00:00 00:00:00 , Kyra Pediatric 350.1.13.10 ity of [place] [phone] [address] 2020-07-21 2020-07-21 Patient CarissaPolloin 1.2.917.458 [id number] Univers 00:00:00 00:00:00 Secure Msg Nguyensey Pediatric 350.1.13.10 ity of [place] and [place] [id number] [address] 2020-07-21 2020-07-21 Refill Thuy Silva 1.2.840.114 [id number] Univers 00:00:00 00:00:00 , Kyra Pediatric 350.1.13.10 ity of [place] [id number] [address] 2020-07-21 2020-07-21 Refill Venu [facility] 1.2.840.114 [id number] Univers 00:00:00 00:00:00 maryumramses, SPECIALTY 350.1.13.10 [facility] [place] AT [phone] Sd darrell EPSTEINY 198 [facility] 2020-07-21 2020-07-21 Refill Thuy Silva 1.2.840.114 84 [id number] Univers 00:00:00 00:00:00 , Kyra Pediatric 350.1.13.10 ity of [place] and [place] [id number] [address] 2020-07-20 2020-07-20 Stephon Valdes WYREKHA 1.2.840.114 [id number] Univers 08:47:31 10:39:38 Visit Adam Moreau 350.1.13.10 [place]y of [place] Profess[place] [phone] Sd darrell mcrae 092 [facility] 2020-07-20 2020-07-20 Outpatient ADAM CAMACHO [facility] [id number] Univers 08:40:00 08:40:[address]ES ity of [facility] 2020-07-16 2020-07-16 Refill Thuy Silva 1.2.840.114 [id number] Univers 00:00:00 00:00:00 , Kyra Pediatric 350.1.13.10 ity of [place] and [place] [phone] [address] 2020-07-08 2020-07-08 Case Thuy Silva 1.2.840.114 84 [id number] Univers 00:00:00 00:00:00 Management , Kyra Pediatric 350.1.13.10 ity of [place].2.[place] [phone] [address] 2020-07-07 2020-07-07 [facility] 1.2.840.114 [id number] Univers 16:30:00 23:59:00 Encounter , Kyra Moreau 350.1.13.10 ity of [place] 4.2.7.2.686 [place] [phone] [facility] [address] 2020-07-07 2020-07-07 Outpatient R THUY [facility] [id number] Univers 00:00:00 00:00:00 , KYRA it y of [facility] 2020-07-07 2020-07-07 Orders Doctor NO 1.2.840.114 [id number] Univers 00:00:00 00:00:00 Only Unassigned, EL 350.1.13.10 ity of [place] [facility] 4.2.7.2.686 [place] [id number] [place] [address] [address] 2020-07-07 2020-07-07 Refill Thuy Silva 1.2.840.114 [id number] Univers 00:00:00 00:00:00 , Kyra Pediatric 350.1.13.10 ity of [place] [phone] [address] 2020-07-06 2020-07-06 Telephone Thuy Silva 1.2.840.114 [id number] Univers 00:00:00 00:00:00 , Kyra Pediatric 350.1.13.10 ity of [place] and [place] [phone] [address] 2020-07-06 2020-07-06 Telephone Thuy Silva 1.2.840.114 [id number] Univers 00:00:00 00:00:00 , Kyra Pediatric 350.1.13.10 ity of [place] [phone] [address] 2020-07-02 2020-07-02 Patient Christopher [facility] 1.2.840.114 [id number] Univers 00:00:00 00:00:00 Secure Msg Fabiana Moreau 350.1.13.10 ity of [place]2.[place] [id number] [address] 2020-06-30 2020-06-30 Office Thuymark Silva 1.2.840.114 [id number] Univers 13:56:09 14:58:39 Visit , Kyra Pediatric 350.1.13.10 ity of [place] and [place] [phone] [address] 2020-06-30 2020-06-30 Outpatient R THUY [facility] [id number] Univers 13:45:00 13:45:00 , KYRA it y of [facility] 2020-06-29 2020-06-29 Telephone Thuy Ricardo 1.2.840.114 [id number] Univers 00:00:00 00:00:00 , Kyra Pediatric 350.1.13.10 ity of [place] and [place] [id number] [address] 2020-06-29 2020-06-29 Orders Doctor SARABIA 1.2.840.114 [id number] Univers 00:00:00 00:00:00 Only Unassigned, EL 350.1.13.10 ity of [place] [facility] 4.2.7.2.686 [place] as [id number] [facility] [address] 2020-06-24 2020-06-24 Office Ricardo White 1.2.840.114 [id number] Univers 14:34:45 14:54:45 Visit Fabiana Pediatric 350.1.13.10 ity of s and [place]2.[place].2.[place] [phone] [facility] Primary [facility] [facility] 2020-06-24 2020-06-24 Outpatient R CHRISTOPHER [facility] [id number] Univers 14:40:00 14:40:00 FABIANA mcdonough o f [facility] 2020-06-24 2020-06-24 Orders Doctor NO 1.2.840.114 [id number] Univers 00:00:00 00:00:00 Only Unassigned, EL 350.1.13.10 ity of [place] [facility] 4.2.7.2.686 [place] as [phone] [facility] [address] 2020-06-23 2020-06-23 Transition Eleanor Luke 1.2.840.114 [id number] Univers 00:00:00 00:00:00 of Care Amilcar Chris Cervantes 350.1.13.10 ity of [place].2.[place] [id number] [facility] [address] 2020-06-15 2020-06-22 Hospital Jessica Davis [facility] 1.2.84 0.114 [id number] Univers 23:19:00 14:37:00 Encounter Alena Schafer 350.1.13.10 ity of [place] 4.2.7.2.686 [facility] [phone] [address] 2020-06-15 2020-06-22 [facility] [id number] Univers 23:19:00 14:37:[address] [facility] 2020-06-18 2020-06-18 Patient Thuy Silva 1.2.840.114 [id number] Univers 00:00:00 00:00:00 Secure Msg , Kyra Pediatric 350.1.13.10 ity of [place] and [place] [phone] [address] 2020-06-17 2020-06-17 Outpatient R CHRISTOPHER [facility] [id number] Univers 08:20:00 08:20:00 CONNERNILAM tonyy o f [facility] 2020-06-15 2020-06-15 Orders Doctor NO 1.2.840.114 [id number] Univers 00:00:00 00:00:00 Only Unassigned, EL 350.1.13.10 ity of [place] [facility] 4.2.7.2.686 [place] as [phone] [address] 2020-05-20 2020-05-20 Refill Thuy Silva 1.2.840.114 [id number] Univers 00:00:00 00:00:00 , Kyra Pediatric 350.1.13.10 ity of [place] and [place]2.[place] [phone] [address] 2020-05-17 2020-05-17 Refill Thuy Silva 1.2.840.114 83 [id number] Univers 00:00:00 00:00:00 , Kyra Pediatric 350.1.13.10 ity of [place] and [place].2.[place] [id number] [address] 2020-05-10 2020-05-10 Outpatient R VENU [facility] [id number] Univers 14:00:00 14:00:00 sharonda MOHR of [facility] 2020-03-17 2020-03-17 Outpatient R MARICARMEN [facility] [id number] Univers 16:00:00 16:00:00 SWAPNA mcdonough [facility] 2020-03-13 2020-03-13 Patient Darrian [facility] 1.2.840.114 [id number] Univers 00:00:00 00:00:00 Outreach Seth PRIMARY 350.1.13.10 i ty of [facility] 4.2.7.2.[place] [phone] Sd dical [address] 2020-03-12 2020-03-12 Patient Ricardo Ferrer 1.2.107.142 [id number] Univers 00:00:00 00:00:00 Secure Msg Keisha Pediatric 350.1.13.10 ity of [place] and [place].2.[place] [phone] [facility] [address] [facility] 2020-03-11 2020-03-11 [facility] 1.2.840.114 [id number] Univers 16:21:49 16:57:08 Visit CHARLOTTE mohr 350.1.13.10 ity of [facility] 4.2.7.2.[place] C[place] AT [phone] [facility] 198 [facility] 2020-03-11 2020-03-11 [facility] [id number] Univers 16:20:00 16:20:00 sharonda MOHR of [facility] 2020-03-09 2020-03-09 Refill Thuy Silva 1.2.840.114 [id number] Univers 00:00:00 00:00:00 , Kyra Pediatric 350.1.13.10 ity of [place] and [place].7.2.[place] [phone] [facility] [address] [facility] 2020-02-27 2020-02-27 Office Thuy Silva 1.2.840.114 [id number] Univers 16:11:38 16:26:38 Visit , Kyra Pediatric 350.1.13.10 ity of [place] and 4[place].2.[place] [phone] [address] 2020-02-27 2020-02-27 Outpatient R THUY [facility] [id number] Univers 16:15:00 16:15:00 , KYRA shukla of [facility] 2020-02-24 2020-02-24 [facility] [id number] Univers 08:20:00 08:20:00 NJUMON, ity of [facility] 2020-02-19 2020-02-19 Office Ricardo White 1.2.840.114 [id number] Univers 08:38:23 09:19:00 Visit Fabiana Pediatric 350.1.13.10 ity of [place] and [place]2.[place] [id number] [facility] [address] [facility] 2020-02-19 2020-02-19 Outpatient R CHRISTOPHER [facility] [id number] Univers 08:20:00 08:20:00 JUAN DAVIDYANE tonyy o f [facility] 2020-02-19 2020-02-19 Orders NO White 1.2.840.114 [id number] Univers 00:00:00 00:00:00 Only Fabiana EL 350.1.13.10 i ty of [facility] 4.2.7.2.686 [place] as [phone] [place] [address] [address] 2020-02-03 2020-02-03 Telephone Thuy Silva 1.2.840.114 [id number] Univers 00:00:00 00:00:00 , Kyra Pediatric 350.1.13.10 ity of [place] and [place]2.[place] [phone] [facility] [address] [facility] 2020-02-02 2020-02-02 Refill Thuy Silva 1.2.840.114 [id number] Univers 00:00:00 00:00:00 , Kyra Pediatric 350.1.13.10 ity of [place] and [place]7.2.[place] [phone] [facility] [address] [facility] 2020-01-30 2020-01-30 Refill Thuy Silva 1.2.840.114 [id number] Univers 00:00:00 00:00:00 , Kyra Pediatric 350.1.13.10 ity of [place] and [place]2.[place] [id number] [facility] [address] [facility] 2020-01-26 2020-01-26 Office Noelle [facility] 1.2.840.114 [id number] Univers 16:12:44 16:27:44 Visit Jeannette GRIGSBY 350.1.13.10 i ty of [facility] [place]2.[id number] [place] [address] [place] 2020-01-26 2020-01-26 Outpatient R NOELLE, [facility] 1029 [id number] Univers 16:00:00 16:00:[address] [facility] 2020-01-22 2020-01-22 Outpatient R CHRISTOPHER, [facility] [id number] Univers 16:20:00 16:20:00 FABIANA sharonda o f [facility] 2020-01-21 2020-01-21 Patient Thuy Silva 1.2.840.114 [id number] Univers 00:00:00 00:00:00 Secure Msluis miguel , Kyra Pediatric 350.1.13.10 ity of [place] [id number] [address] 2020-01-07 2020-01-07 Refill Thuy Silva 1.2.840.114 [id number] Univers 00:00:00 00:00:00 , Kyra Pediatric 350.1.13.10 ity of [place]2.[place] [id number] [address] 2019-12-21 2019-12-21 Orders Doctor NO 1.2.840.114 [id number] Univers 00:00:00 00:00:00 Only Unassigned, EL 350.1.13.10 ity of [place] [facility] 4.2.7.2.686 [place] as [id number] [place] [address] [address] 2019-12-19 2019-12-19 Refill Thuy Silva 1.2.840.114 [id number] Univers 00:00:00 00:00:00 , Kyra Pediatric 350.1.13.10 ity of [place]2.[place] [id number] [address] 2019-12-15 2019-12-15 Telephone Thuy Silva 1.2.840.114 [id number] Univers 00:00:00 00:00:00 , Kyra Pediatric 350.1.13.10 ity of [place] and 4[place]7.2.[place] [id number] [address] 2019-12-02 2019-12-02 Telephone Thuy Silva 1.2.840.114 [id number] Univers 00:00:00 00:00:00 , Kyra Pediatric 350.1.13.10 ity of [place] and [place].2.[place] [id number] [address] 2019-12-01 2019-12-01 Telephone Thuy Silva 1.2.840.114 [id number] Univers 00:00:00 00:00:00 , Krya Pediatric 350.1.13.10 ity of [place] and [place]2.[place] [id number] [address] 2019-11-28 2019-11-28 Patient Ricardo Lindsey 1.2.840.114 [id number] Univers 00:00:00 00:00:00 Outreach Marlee L Pediatric 350.1.13.10 ity of [place] and [place]2.[place].2.[place] [id number] [address] 2019-11-27 2019-11-27 Office Thuy Silva 1.2.840.114 [id number] Univers 16:21:52 17:07:33 Visit , Kyra Pediatric 350.1.13.10 ity of [place] and [place].2.[place] [id number] [address] 2019-11-27 2019-11-27 Outpatient R THUY [facility] 099 [id number] Univers 16:15:00 16:15:00 , KYRA it y of [facility] 2019-11-25 2019-11-25 Telephone Thuy Silva 1.2.840.114 [id number] Univers 00:00:00 00:00:00 , Kyra Pediatric 350.1.13.10 ity of [place] and [place].2.[place] [id number] [facility] Primary [address] [facility] 2019-11-25 2019-11-25 Telephone Thuy Silva 1.2.840.114 [id number] Univers 00:00:00 00:00:00 , Kyra Pediatric 350.1.13.10 ity of [place] and [place]7.2.[place] [id number] [facility] [address] [facility] 2019-11-24 2019-11-24 Ancillary JoannaVelvet [facility] 1.2.840.114 [id number] Univers 09:14:28 09:59:28 Visit Sofía Truong 350.1.13.1 0 ity of [facility] [place]2.[place] [id number] [facility] [address] 2019-11-24 2019-11-24 Office Noelle [facility] 1.2.840.114 [id number] Univers 09:16:53 09:31:53 Visit Jeannette GRIGSBY 350.1.13.10 i ty of [facility] [place]7.2.[place] 621.7543992 [facility] [address] 2019-11-24 2019-11-24 Outpatient R DIONNE [facility] [id number] Univers 09:15:00 09:15:00 SOFÍA itgayla of [facility] 2019-11-24 2019-11-24 Orders Doctor NO 1.2.840.114 [id number] Univers 00:00:00 00:00:00 Only Unassigned, EL 350.1.13.10 ity of [place] [facility] 4.2.7.2.686 [place] as [phone] [facility] [address] 2019-11-14 2019-11-14 Patient Ricardo White 1.2.840.114 [id number] Univers 00:00:00 00:00:00 Secure Msg Juan Davidngjun Pediatric 350.1.13.10 ity of [place] and [place]2.[place] [id number] [facility] [address] [facility] 2019-11-13 2019-11-13 Nurse Nurse, Pollo Silva 1.2.84 0.114 [id number] Univers 15:41:37 16:28:18 Visit Kyra Daley Pediatric 350 .1.13.10 ity of [place] and [place].2.[place] 167.2485998 [address] 2019-11-13 2019-11-13 Outpatient R THUY [facility] [id number] Univers 15:40:00 15:40:00 , KYRA it y of [facility] 2019-11-10 2019-11-10 Outpatient R THUY [facility] [id number] Univers 15:40:00 15:40:00 , KYRA jimenez y of [facility] 2019-11-10 2019-11-10 Outpatient R ADRIANNE-PEBBLES [facility] [id number] Univers 15:30:00 15:30:[address] sharonda M[address] of [facility] 2019-10-31 2019-10-31 Patient Ricardo Lindsey 1.2.840.114 [id number] Univers 00:00:00 00:00:00 Outreach Marlee Delgadillo Pediatric 350.1.13.10 ity of [place]2.7.2.[place] [phone] [address] 2019-10-31 2019-10-31 Patient Christopher [facility] 1.2.840.114 [id number] Univers 00:00:00 00:00:00 Secure [facility] 350.1.13.10 ity of [place].2.[place] [phone] [place] [address] [facility] Office Building 2019-10-30 2019-10-30 Office Thuy Silva 1.2.840.114 [id number] Univers 16:14:41 16:58:19 Visit Kyra Pediatric 350.1.13.10 ity of [place]2.[place] [id number] [address] 2019-10-30 2019-10-30 Outpatient R THUY [facility] [id number] Univers 16:15:00 16:15:00 , KYRA shukla of [facility] 2019-10-30 2019-10-30 Orders Doctor NO 1.2.840.114 [id number] Univers 00:00:00 00:00:00 Only Unassigned, EL 350.1.13.10 ity of [place] [facility] 4.2.7.2.686 [place] as [id number] [address] 2019-10-24 2019-10-24 Outpatient R ADRIANNE-KU [facility] [id number] Univers 09:00:00 09:00:00 FANI, ity of [facility] 2019-10-24 2019-10-[address] [facility] 1.2.930.899 [id number] Univers 00:00:00 00:00:00 Fabiana Perezton 350.1.13.10 ity of [place]2.[place] Profess[place] [id number] [address] 2019-10-23 2019-10-23 Office Ricardo White 1.2.840.114 [id number] Univers 15:40:15 16:26:03 Visit Fabiana Pediatric 350.1.13.10 ity of [place] and [place].2.[place] [phone] [facility] [address] [facility] 2019-10-23 2019-10-23 Outpatient R CHRISTOPHER [facility] [id number] Univers 15:40:00 15:40:00 FABIANA jimenezy o f [facility] 2019-10-16 2019-10-16 Outpatient R THUY [facility] [id number] Univers 15:45:00 15:45:00 , KYRA it y of [facility] 2019-10-07 2019-10-07 Telephone Thuy Silva 1.2.840.114 [id number] Univers 00:00:00 00:00:00 , Kyra Pediatric 350.1.13.10 ity of [place]2.7.2.[place] [phone] [facility] [address] [facility] 2019-10-01 2019-10-01 Telephone Thuy Silva 1.2.840.114 [id number] Univers 00:00:00 00:00:00 , Kyra Pediatric 350.1.13.10 ity of [place].2.[place] [id number] [address] 2019-09-30 2019-09-30 Outpatient R CE [facility] [id number] Univers 13:30:00 13:30:00 LLOYD ity [facility] 2019-09-27 2019-09-27 Telephone Thuy Ricardo 1.2.840.114 [id number] Univers 00:00:00 00:00:00 , Kyra Pediatric 350.1.13.10 ity of [place]2.[place] [phone] [address] 2019-09-26 2019-09-26 Patient Argyle Ricardo 1.2.840.114 [id number] Univers 00:00:00 00:00:00 Secure Msg , Kyra Pediatric 350.1.13.10 ity of [place]2.[place] [id number] [address] 2019-09-26 2019-09-26 Telephone Thuy Ricardo 1.2.840.114 [id number] Univers 00:00:00 00:00:00 , Kyra Pediatric 350.1.13.10 ity of [place] [id number] [address] 2019-09-26 2019-09-26 Orders Doctor SARABIA 1.2.840.114 [id number] Univers 00:00:00 00:00:00 Only Unassigned, EL 350.1.13.10 ity of [place] [facility] 4.2.7.2.686 Gregory as [phone] [address] 2019-09-25 2019-09-25 Outpatient Radha ENCINAS [facility] [id number] Univers 13:30:00 13:30:00 LLOYD ity [facility] 2019-09-25 2019-09-25 Orders Doctor SARABIA 1.2.840.114 [id number] Univers 00:00:00 00:00:00 Only Unassigned, EL 350.1.13.10 ity of [facility] 4.2.7.2.686 Gregory as [phone] [facility] [address] 2019-09-24 2019-09-24 Orders Doctor NO 1.2.840.114 [id number] Univers 00:00:00 00:00:00 Only Unassigned, EL 350.1.13.10 ity of [facility] 4.2.7.2.686 [place] as [phone] [place] [address] [address] 2019-09-23 2019-09-23 Telephone [facility] 1.2.840.114 [id number] Univers 00:00:00 00:00:00 fani, SPECIALTY 350.1.13.10 ity [place] AT [phone] [address] 2019-09-22 2019-09-22 Refill Thuy Silva 1.2.840.114 [id number] Univers 00:00:00 00:00:00 , [facility] 350.1.13.10 [place] [phone] [facility] [address] [facility] 2019-09-17 2019-09-17 Orders Doctor NO 1.2.840.114 [id number] Univers 00:00:00 00:00:00 Only Unassigned, EL 350.1.13.10 ity of [facility] 4.2.7.2.686 [place] as [phone] [address] 2019-09-16 2019-09-16 Office Maricarmen [facility] 1.2.840.114 [id number] Univers 08:22:42 09:25:01 Visit Swapna MORRISSEY 350.1.13.10 ity [place] [phone] [facility] AND [address] [facility] 2019-09-16 2019-09-16 Outpatient R MARICARMEN [facility] [id number] Univers 08:20:00 08:20:[address] [facility] 2019-09-12 2019-09-[address] [facility] 1.2.840.114 [id number] Univers 14:15:49 14:30:49 Visit Celestina MORRISSEY 350.1.13.10 ity of [place] DOEY 4.2.7.2.686 [place] as CENTER [phone] [facility] AND [address] [facility] 2019-09-12 2019-09-12 [facility] [id number] Univers 14:30:00 14:30:[address] [facility] 2019-09-10 2019-09-10 Telephone Thuy Silva 1.2.840.114 [id number] Univers 00:00:00 00:00:00 , [facility] 350.1.13.10 [place] [phone] [address] 2019-08-26 2019 Office Venu [facility] 1.2.840.114 [id number] Univers 08:29:45 23:29:49 Visit fani, SPECIALTY 350.1.13.10 ity of [facility] [place]7.2.[place] [phone] [facility] [address] [place] [address] 2019 2019 Telephone Thuy Silva 1.2.840.114 [id number] Univers 00:00:00 00:00:00 , [facility] 350.1.13.10 [place] [phone] [address] 2019 2019 Orders Doctor NO 1.2.840.114 [id number] Univers 00:00:00 00:00:00 Only Unassigned, EL 350.1.13.10 ity of [place] [facility] 4.2.7.2.686 Gregory as [phone] [place] [address] Branch 2019-09-04 2019-09-04 Nurse Nurse, Pollo Silva 1.2.84 0.114 [id number] Univers 10:38:45 10:58:45 Visit Kyra Daley Pediatric 350 .1.13.10 it[place] of [place] [id number] [facility] [address] [facility] 2019-09-04 2019-09-04 [facility] 1.2.840.114 [id number] Univers 08:51:39 09:51:01 Visit Renea MORRISSEY 350.1.13.10 ity of [facility] [place] [id number] [facility] AND [address] [facility] 2019-09-04 2019-09-04 [facility] [id number] Univers 09:00:00 09:00:[address] [facility] 2019-08-27 2019-08-27 Orders Doctor NO 1.2.840.114 [id number] Univers 00:00:00 00:00:00 Only Unassigned, EL 350.1.13.10 ity of [place] [facility] 4.2.7.2.686 [place] [id number] [place] [address] Branch 2019-08-26 2019-08-26 Outpatient R [facility] [id number] Univers 08:30:00 08:30:00 sharonda MOHR of [facility] 2019-08-26 2019-08-26 Telephone [facility] 1.2.840.114 [id number] Univers 00:00:00 00:00:00 Jeannette GRIGSBY 350.1.13.10 i ty of [facility] [place] [id number] [place] [address] Branch 2019-08-25 2019-08-25 [facility] 1.2.840.114 [id number] Univers 08:31:32 08:46:32 Visit Jeannette GRIGSBY 350.1.13.10 i ty [place] [id number] [place] [address] Branch 2019-08-25 2019-08-25 [facility] [id number] Univers 08:45:00 08:45:[address] [facility] 2019-08-21 2019-08-21 Office Ricardo White 1.2.840.114 [id number] Univers 15:51:18 16:59:40 Visit Fabiana Pediatric 350.1.13.10 it[place] [id number] [facility] [address] [facility] 2019-08-21 2019-08-21 Office Thuy Silva 1.2.840.114 [id number] Univers 15:29:25 16:26:59 Visit , Kyra Pediatric 350.1.13.10 ity [place] [id number] [facility] 314 [facility] 2019-08-21 2019-08-21 Outpatient R [facility] [id number] Univers 15:30:00 15:30:00 , KYRA jimenez y of [facility] 2019-08-20 2019-08-20 Telephone Thuy Silva 1.2.840.114 [id number] Univers 00:00:00 00:00:00 , Kyra Pediatric 350.1.13.10 [place]y [place] [id number] [address] 2019-08-13 2019-08-13 [facility] [id number] Univers 13:01:54 23:59:00 , KYRA jimenez y of [facility] 2019-08-13 2019-08-13 [facility] 1.2.840.114 [id number] Univers 13:00:00 23:59:00 Encounter , Kyra SPECIALTY 350.1.13.10 ity [place] [id number] Sd darrell [address] 2019-08-12 2019-08-12 Telephone Thuy Silva 1.2.840.114 [id number] Univers 00:00:00 00:00:00 , Kyra Pediatric 350.1.13.10 ity of [place] [id number] [address] 2019-08-08 2019-08-08 Telephone Thuy Silva 1.2.840.114 [id number] Univers 00:00:00 00:00:00 , Kyra Pediatric 350.1.13.10 ity of [place] [id number] [address] 2019-08-05 2019-08-05 Telephone Thuy Silva 1.2.840.114 [id number] Univers 00:00:00 00:00:00 , Kyra Pediatric 350.1.13.10 ity of [place] [id number] [address] 2019-08-01 2019-08-01 Telephone Thuy Silva 1.2.840.114 [id number] Univers 00:00:00 00:00:00 , Kyra Pediatric 350.1.13.10 ity of [place] [id number] [address] 2019-07-25 2019-07-25 Telephone Thuy Silva 1.2.840.114 [id number] Univers 00:00:00 00:00:00 , Kyra Pediatric 350.1.13.10 ity of [place] [id number] [address] 2019-07-23 2019-07-23 Office Thuy Alvin 1.2.840.114 [id number] Univers 11:01:27 12:44:20 Visit , Kyra Pediatric 350.1.13.10 ity of [place] [id number] [address] 2019-07-23 2019-07-23 Outpatient R [facility] [id number] Univers 11:00:00 11:00:00 , KYRA jimenez y of [facility] 2019-07-23 2019-07-23 Rohit SARABIA 1.2.840.114 [id number] Univers 00:00:00 00:00:00 Only Unassigned, EL 350.1.13.10 ity of [place] 4.2.7.2.686 [place] as [id number] [facility] [address] 2019-07-23 2019-07-23 Patient Ricardo Garcia 1.2.840.114 [id number] Univers 00:00:00 00:00:00 Outreach Berenice D Pediatric 350.1.13.10 ity of [place] [id number] [facility] 2019-06-22 2019-06-22 Orders Doctor NO 1.2.840.114 [id number] Univers 00:00:00 00:00:00 Only Unassigned, EL 350.1.13.10 ity of [place] [facility] 4.2.7.2.686 [place] as [id number] [facility] [address] 2019-05-07 2019-05-07 Orders Doctor NO 1.2.840.114 [id number] Univers 00:00:00 00:00:00 Only Unassigned, EL 350.1.13.10 ity of [place] 4.2.7.2.686 [place] as [id number] [address] Results Test Description Test Time Test Comments Results Result Comments Source ECG 12 lead 2021-09-06 16:36:51 Test Item Value Reference Range Interpretation Comme nts Ventricular rate (test code = 253) Atrial rate (test code = 255) CT interval (test code = 266) QRSD interval (test code = 260) QT interval (test code = 264) QTC interval (test code = 265) P axis 1 (test code = 267) QRS axis 1 (test code = 268) T wave axis (test code = 270) EKG impression (test code = 273) Normal sinus rhythm-Right bundle b ranch block-T wave abnormality, consider inferior ischemia-Abnormal ECG-- [facility] 12 [id number] 16:36:51 Test Item Value Reference Range Interpretation Comments Ventricular rate (test code = 253) Atrial rate (test code = 255) CT interval (test code = 266) QRSD interval (test code = 260) QT interval (test code = 264) QTC interval (test code = 265) P axis 1 (test code = 267) QRS axis 1 (test code = 268) T wave axis (test code = 270) EKG impression (test Normal sinus code = 273) rhythm-Right bundle branch block-T wave abnormality, consider inferior ischemia-Abnormal ECG-- [facility] [id number] 22:02:00 Test Item Value Reference Range Interpretation Comments POC glucose (test 70 mg/dL 65-99 Weaving Professor N aiden: Bertin code = 11360-5) Juliocesar e ID: [id number] able: [facility] Notified RN [facility] [id number] 22:02:00 Test Item Value Reference Range Interpretation Comments POC glucose (test 70 mg/dL 65-99 Weaving Professor N aiden: Bertin code = 76617-7) Juliocesar e ID: [id number] able: [facility] Notified CHER [facility] [id number]-UmJ-5 (COVID-19) RNA [Presence] in Respiratory specimen by DAYSI with probe [id number] 14:03:47 Test Item Value Reference Range Interpretation Comments SARS-CoV-2 (COVID-19) RNA Not detected [Presence] in Respiratory specimen by DAYSI with probe detection (test code = 12528-4) Whether patient is employed in a Unknown healthcare setting (test code = 16454-1) Whether the patient has symptoms Unknown related to condition of interest (test code = 05189-1) Whether the patient was Unknown hospitalized for condition of interest (test code = 68630-7) Whether the patient was admitted Unknown to intensive care unit (ICU) for condition of interest (test code = 86836-9) Whether patient resides in a Unknown congregate care setting (test code = 62621-0) status (test code = Unknown 03061-0) Date and time of symptom onset Unknown (test code = 69994-6) TIMA HUMPHREY-CoV-2 (COVID-19) RNA [Presence] in Respiratory specimen by DAYSI with probe [id number] 15:19:43 Test Item Value Reference Range Interpretation Comments SARS-CoV-2 (COVID-19) RNA Not detected [Presence] in Respiratory specimen by DAYSI with probe detection (test code = 97586-4) Whether patient is employed in a Unknown healthcare setting (test code = 26570-0) Whether the patient has symptoms Unknown related to condition of interest (test code = 87554-4) Whether the patient was Unknown hospitalized for condition of interest (test code = 81221-9) Whether the patient was admitted Unknown to intensive care unit (ICU) for condition of interest (test code = 53748-4) Whether patient resides in a Unknown congregate care setting (test code = 77452-0) status (test code = Unknown 95247-1) Date and time of symptom onset Unknown (test code = 68512-2) [facility] Pre/Post [id number] 01:41:54 Test Item Value Reference Range Interpretation Comments Ventricular rate (test code = 253) Atrial rate (test code = 255) CT interval (test code = 266) QRSD interval (test code = 260) QT interval (test code = 264) QTC interval (test code = 265) P axis 1 (test code = 267) QRS axis 1 (test code = 268) T wave axis (test code = 270) EKG impression (test AV dual-paced rhythm code = 273) with prolonged AV conduction-Abnormal ECG-- [facility] [id number] 01:41:54 Test Item Value Reference Range Interpretation Comments Ventricular rate (test code = 253) Atrial rate (test code = 255) CT interval (test code = 266) QRSD interval (test code = 260) QT interval (test code = 264) QTC interval (test code = 265) P axis 1 (test code = 267) QRS axis 1 (test code = 268) T wave axis (test code = 270) EKG impression (test AV dual-paced rhythm code = 273) with prolonged AV conduction-Abnormal [facility]-- [facility] [id number] 18:07:00 Test Item Value Reference Range Interpretation Comments Activated clotting See_Comment Weaving Professor Name: time (test code = Malena Jarrett 5298) ID: [id number] [A utomated message] The sy stem which generated this result transmitted ref erence range: 96 - 152 sec. The reference range was not used to interpr et this result as robby l/abnormal. [facility] [id number] 18:07:00 Test Item Value Reference Range Interpretation Comments Activated clotting See_Comment Weaving Professor Name: time (test code = Malena Jarrett 5298) ID: [id number] [A utomated message] The sy stem which generated this result transmitted ref erence range: 96 - 152 sec. The reference range was not used to interpr et this result as robby l/abnormal. [facility], [id number] 17:14:00 Test Item Value Reference Range Interpretation [...] [A utomated message] = 2703-7) The system [employer] h generated this result transmitted ref erence range: 80 - 90 mmHg. The reference r alissa was not used to interpret this result as normal/abnor mal. Temperature, Celsius Degrees C (test code = 8310-5) O2 saturation, arterial 100 % 95-100 (test code = 2708-6) pH, arterial corrected (test code = 08697-2) pCO2, arterial corrected mmHg (test code = 70110-3) pO2, arterial corrected mmHg (test code = 45345-6) Base excess, arterial See_Comment [Auto mated message] (test code = 1925-7) The sys tem which generated this result transmitted ref erence range: -2 - 2 m Eq/L. The reference r alissa was not used to interpret this result as normal/abnor mal. Lab Interpretation (test Abnormal code = 72979-7) [facility], [id number] 17:14:00 Test Item Value Reference Range Interpretation Comments Glucose, syringe (test code = 241 mg/dL 65-99 H 2345-7) Lab Interpretation (test code = Abnormal 15964-1) [facility], [id number] 17:14:00 Test Item Value Reference Range Interpretation Comments Hemoglobin, syringe (test code = 8.9 g/dL 12.0-16.0 L 718-7) Lab Interpretation (test code = Abnormal 61413-3) [facility] Center[facility] calcium, [id number] 17:14:00 Test Item Value Reference Range Interpretation Comments Ionized calcium, arterial (test 1.06 mmol/L 1.11-1.32 L code = 86107-9) Lab Interpretation (test code = Abnormal 83795-7) [facility], [id number] 17:14:00 Test Item Value Reference Range Interpretation Comments Potassium, syringe (test See_Comment H [A utomated message] code = 2007) The system [employer] generated this result transmitted ref erence range: 3.5 - 5. 0 mEq/L. The refe rence range was not u sed to interpret this result as normal/abnor mal. Lab Interpretation (test Abnormal code = 09773-7) [facility], [id number] 17:14:00 Test Item Value Reference Range Interpretation Comments Sodium, syringe (test See_Comment [Auto mated message] The code = 2947-0) system which generated this result tra nsmitted reference range : 135 - 148 mEq/L. The refe rence range was not used to interpret this result as normal/abnormal . [facility], [id number] 17:14:00 Test Item Value Reference Range Interpretation [...] [A utomated message] = 2703-7) The system [employer] generated this result transmitted ref erence range: 80 - 90 mmHg. The reference r alissa was not used to interpret this result as normal/abnor mal. Temperature, Celsius Degrees C (test code = 8310-5) O2 saturation, arterial 100 % 95-100 (test code = 2708-6) pH, arterial corrected (test code = 27491-4) pCO2, arterial corrected mmHg (test code = 25341-1) pO2, arterial corrected mmHg (test code = 16250-9) Base excess, arterial See_Comment [Auto mated message] (test code = 1925-7) The s tem which generated this result transmitted ref erence range: -2 - 2 m Eq/L. The reference r alissa was not used to interpret this result as normal/abnor mal. Lab Interpretation (test Abnormal code = 62522-4) [facility], [id number] 17:14:00 Test Item Value Reference Range Interpretation Comments Glucose, syringe (test code = 241 mg/dL 65-99 H 2345-7) Lab Interpretation (test code = Abnormal 31041-8) [facility], [id number] 17:14:00 Test Item Value Reference Range Interpretation Comments Hemoglobin, syringe (test code = 8.9 g/dL 12-16 L 718-7) Lab Interpretation (test code = Abnormal 76066-6) [facility] Center[facility] calcium, [id number] 17:14:00 Test Item Value Reference Range Interpretation Comments Ionized calcium, arterial (test 1.06 mmol/L 1.11-1.32 L code = 44503-7) Lab Interpretation (test code = Abnormal 72273-7) [facility] CenterPotassium, [id number] 17:14:00 Test Item Value Reference Range Interpretation Comments Potassium, syringe (test See_Comment H [A utomated message] code = 2007) The system [employer] generated this result transmitted ref erence range: 3.5 - 5. 0 mEq/L. The refe rence range was not u sed to interpret this result as normal/abnor mal. Lab Interpretation (test Abnormal code = 97229-5) [facility] Hospital[facility], [id number] 17:14:00 Test Item Value Reference Range Interpretation Comments Sodium, syringe (test See_Comment [Auto mated message] The code = 2947-0) system which generated this result tra nsmitted reference range : 135 - 148 mEq/L. The refe rence range was not used to interpret this result as normal/abnormal . [facility] CenterLactic acid, [id number] 16:20:00 Test Item Value Reference Range Interpretation Comments Lactic acid, syringe (test code = 1.3 mmol/L 0.5-2.2 28185-9) [facility] CenterL[facility] acid, [id number] 16:20:00 Test Item Value Reference Range Interpretation Comments Lactic acid, syringe (test code = 1.3 mmol/L 0.5-2.2 74414-4) [facility]-CoV-2 (COVID-19) RNA [Presence] in Respiratory specimen by DAYSI with probe [id number] 01:10:48 Test Item Value Reference Range Interpretation Comments SARS-CoV-2 (COVID-19) RNA Not detected [Presence] in Respiratory specimen by DAYSI with probe detection (test code = 58700-3) Whether patient is employed in a Unknown healthcare setting (test code = 41736-9) Whether the patient has symptoms Unknown related to condition of interest (test code = 10757-2) Whether the patient was Unknown hospitalized for condition of interest (test code = 76024-4) Whether the patient was admitted Unknown to intensive care unit (ICU) for condition of interest (test code = 92685-6) Whether patient resides in a Unknown congregate care setting (test code = 07402-4) status (test code = Unknown 97736-3) Date and time of symptom onset Unknown (test code = 79685-7) [facility] [id number] 13:16:00 Test Item Value Reference Range Interpretation Comments Urine culture (test SEE COMMENT Bacteriu nanette screen code = 7009699) negative. [facility] [id number] 13:16:00 Test Item Value Reference Range Interpretation Comments Urine culture (test SEE COMMENT Bacteriu nanette screen code = 4854241) negative. [facility]-CoV-2 (COVID-19) RNA [Presence] in Respiratory specimen by DAYSI with probe [id number] 23:22:41 Test Item Value Reference Range Interpretation Comments SARS-CoV-2 (COVID-19) RNA Not detected [Presence] in Respiratory specimen by DAYSI with probe detection (test code = 51643-5) Whether patient is employed in a Unknown healthcare setting (test code = 53235-3) Whether the patient has symptoms Unknown related to condition of interest (test code = 00861-1) Whether the patient was Unknown hospitalized for condition of interest (test code = 15096-4) Whether the patient was admitted Unknown to intensive care unit (ICU) for condition of interest (test code = 74826-0) Whether patient resides in a Unknown congregate care setting (test code = 93885-9) status (test code = Unknown 33670-0) Date and time of symptom onset Unknown (test code = 47580-2) [facility] 19 INHOUSE [id number] 18:14:00 Test Item Value Reference Range Interpretation Comments COVID 19 INHOUSE Negative Negative A negative result is AG (test code = presumptive and should be [id number]) confirmedwith a n FDA authorized mole cular [...] high or waivedcomplexit y tests. TROP-I HIGH [id number] 16:38:00 Test Item Value Reference Range Interpretation [...] and URLs mayvary by method. TROP-I HIGH [id number] 13:08:00 Test Item Value Reference Range Interpretation Comments TROP-I HIGH 41 ng/L 0-34 H CAUTION: Units of the SENSITIVITY (test current te st methodology code = TROPIHS) (ng/L) diffe rfrom the prior test methodolog y (ng/mL) by a factor of 1000. 99th Percentile Upper Reference Limit (URL): Females: 34 ng/LMales: 54 ng/L In order to distin [facility] acute elevations of h igh sensitivitytrop onin [...] results and URLs mayvary by method. LIPOPROTEIN [id number] 12:15:00 Test Item Value Reference Range Interpretation Comments LIPOPROTEIN LDL 145.9 mg/dL 0-100 H <100 OPTIMAL 100-129 (test code = LDL) NEAR OPTIM AL/ABOVE [id number] OQRHJZZLJR991-0 89 HIGH>FD=260 NEAL Y HIGH*Guidelines provided by the [facility] terol EducationProa Adult Treatment Panel III B-TYPE NATRIURETIC [id number] 11:21:00 Test Item Value Reference Range Interpretation Comments B-TYPE NATRIURETIC PEPTIDE (test 259.0 PG/ML 0-100 H code = BNP) PROTHROMBIN [id number] 11:15:00 Test Item Value Reference Range Interpretation [...] (to prevent recurrent infar ct). BASIC METABOLIC [id number] 11:14:00 Test Item Value Reference Range Interpretation [...] 9.1 mg/dL 8.0-10.5 N CA) HEPATIC FUNCTION [id number] 11:14:00 Test Item Value Reference Range Interpretation [...] INDIRECT (test code = 0.50 MG/DL BILIND) [id number] 11:14:00 Test Item Value Reference Range Interpretation Comments MAGNESIUM (test code = MAG) 1.78 mg/dL 1.80-2.40 L TROP-I HIGH [id number] 11:14:00 Test Item Value Reference Range Interpretation [...] These resu lts were obtained using [employer] IM TnI Hreagent. Results from di fferent methodologies s hould not becompared to o ne another as quantitative results and URLs mayvary by method. CBC W/AUTO [id number] 10:56:00 Test Item Value Reference Range Interpretation [...] 0.0-0.1 N NRBC#) - XR CHEST 1 [id number] 00:00:00 [facility] RADHA THOMASTONName: FLY FUENTES : 1940 Sex: F FAX: Jed Dumont DO [phone] [place]: St: REG Name: FLY FUENTES [facility] : 1940 Age/S: 80/F [address] [place] [address] Unit #: [id number] Loc: [place] [address] Phys: Jed Pedraza DO Acct: [id number] Date: Status: REG ER PHONE #: [phone] Exam Date: 04/13/2021 1107 FAX #: [phone] Reason: Chest Pain EXAMS: CPT CODE: [id number] XR CHEST 1 V 75477 PROCEDURE INFORMATION: Exam: XR Chest Exam date [...] Grey M.D. CC: Jed Pedraza DO Technologist: ALEE Munoz) Trnscrd Date/Time/By: 04/13/2021 (1120) : By: [email or web address] Orig Print D/T: S: 04/13/2021 (4361) PAGE 1 Signed Report
--- NOTE | 2021-12-22 17:19 | RAD REPORT ---
EXAM DESCRIPTION: RAD - Chest Single View - 12/22/2021 5:04 pm CLINICAL HISTORY: weakness Chest pain. COMPARISON: Chest Single View dated 10/17/2021; Chest Single View dated 09/02/2021; Chest Single View dated 07/31/2021; Chest Single View dated 07/23/2015 FINDINGS: Portable technique limits examination quality. The lungs are grossly clear. The heart is normal in size. Dual lead pacer/defibrillator device. No di splaced fractures. IMPRESSION: No acute intrathoracic process suspected.
[2021-12-22] MEDS ORDERED: Ringers Lactate 1,000 ML IV ONE (17:37)
[2021-12-22 18:31] LABS: SARS-CoV-2 Antigen Rapid Res Negative (Negative)
[2021-12-22 19:07] LABS: Hematocrit 38.1 % (36.0-45.0); Lymphocytes % 26.3 % (15.3-44.8); MCV 86.2 fL (80-100); MPV 9.7 fL (7.6-11.3); RBC Red Blood Cell Count 4.42 M/uL (3.86-4.86)
[2021-12-22 19:08] LABS: Protime INR 0.92
[2021-12-22 19:26] LABS: Albumin 4.3 g/dL (3.4-5.0); Bilirubin Direct 0.1 mg/dL (0-0.2); Bilirubin Total 0.6 mg/dL (0.2-1.0); Magnesium 2.8 mg/dL (1.8-2.4); Potassium 4.3 mmol/L (3.5-5.1); Protein, Total 7.9 g/dL (6.4-8.2)
[2021-12-22 19:41] LABS: Troponin High Sensitivity 59.1 pg/mL (<58.9)
--- NOTE | 2021-12-22 20:37 | EDPHYS ---
Physician Documentation [facility] Name: Shilpi Pierson Age: 81 yrs Sex: Female : 1940 Arrival Date: 12/22/2021 Time: 15:38 Bed 16 Private MD: ED Physician Tomas Richmond HPI: 12/22 16:10 This 81 yrs old Female presents to ER via Wheelchair with complaints of Abnormal Lab [place] Results, Diarrhea. 16:10 This is an 81 year old female with a history of anemia, chg, dm, that presents to the [place] ED with complaints of weakness, decreased oral intake and diarrhea. Outpatient labs revealed phong. Patient denies chest pain or shortness of breath. . Historical: - Allergies: 15:51 Actos; 5 15:51 Benicar; 5 15:51 Famotidine; 5 15:51 lactose (bulk); 5 15:51 Lactulose; 5 15:51 Lisinopril; 5 15:51 Losartan; 5 15:51 olmesartan; 5 15:51 pioglitazone; 5 15:51 Simvastatin; 5 15:51 Tramadol HCl; 5 - PMHx: 15:51 Anemia; Congestive heart failure; Diabetes - NIDDM; Gastroesophageal reflux disease; 5 Hypertension; ventricular tachycardia; - Immunization history:: Adult Immunizations up to date. - Social history:: Smoking status: Patient denies any tobacco usage or history of. ROS: 16:10 Cardiovascular: Negative for chest pain, palpitations, and edema, Respiratory: Negative [place] for shortness of breath, cough, wheezing, and pleuritic chest pain. 16:10 Constitutional: Positive for body aches. 16:10 Abdomen/GI: Positive for diarrhea. 16:10 All other systems are negative. Exam: 16:10 Constitutional: This is a well developed, well nourished patient who is awake, alert, [place] and in no acute distress. Head/Face: atraumatic. Eyes: EOMI, no conjunctival erythema appreciated ENT: Moist Mucus Membranes Neck: Trachea midline, Supple Chest/axilla: Normal chest wall appearance and motion. Cardiovascular: Regular rate and rhythm. No edema appreciated Respiratory: Normal respirations, no respiratory distress appreciated Abdomen/GI: Non distended Back: Normal ROM Skin: General appearance color normal 16:10 Musculoskeletal/extremity: ROM: intact in all extremities. 16:10 Skin: Appearance: Color: normal in color. 16:10 Neuro: Motor: is normal. Vital Signs: 15:46 BP 150 / 59; Pulse 89; Resp 16; Temp 98.6; Pulse Ox 100% ; Weight 50.35 kg; Height 5 [facility] ft. 0 in. (152.40 cm); Pain 5/10; 17:38 BP 119 / 70; Pulse 68; Resp 12; Temp 98.3(O); Pulse Ox 98% on R/A; eh3 18:30 BP 94 / 46; Pulse 74; Resp 10; Pulse Ox 89% ; eh3 19:00 BP 103 / 48; Pulse 73; Resp 13; Pulse Ox 100% on R/A; eh3 20:00 BP 138 / 56; Pulse 69; Resp 12; Pulse Ox 100% on R/A; eh3 21:00 BP 131 / 59; Pulse 74; Resp 13; Pulse Ox 100% on R/A; eh3 15:46 Body Mass Index 21.68 (50.35 kg, 152.40 cm) [facility] MDM: 16:10 Patient medically screened. [place] 20:33 Data reviewed: vital signs, nurses notes. Counseling: I had a detailed discussion with [place] the patient and/or guardian regarding: the historical points, exam findings, and any diagnostic results supporting the discharge/admit diagnosis, lab results, radiology results, the need for further work-up and treatment in the hospital. ED course: I discussed the patient with Jacqueline Rodriguez whom accepted the patient to Dr. Alves's service. . 12/22 16:11 Order name: Basic Metabolic Panel; Complete Time: 19:42 [place] 12/22 16:11 Order name: CBC with Diff; Complete Time: 19:12 [place] 12/22 16:11 Order name: LFT's; Complete Time: 19:42 [place] 12/22 16:11 Order name: Magnesium; Complete Time: 19:42 [place] 12/22 16:11 Order name: NT PRO-BNP; Complete Time: 19:42 [place] 12/22 16:11 Order name: PT-INR; Complete Time: 19:12 [place] 12/22 16:11 Order name: Troponin HS; Complete Time: 19:42 [place] 12/22 16:11 Order name: XRAY Chest (1 view); Complete Time: 17:33 [place] 12/22 16:11 Order name: EKG; Complete Time: 16:12 [place] 12/22 16:11 Order name: SARS RAPID; Complete Time: 18:31 [place] 12/22 16:12 Order name: Lactate; Complete Time: 20:44 [place] 12/22 16:12 Order name: Blood Culture Adult (2) [place] 12/22 16:11 Order name: Cardiac monitoring; Complete Time: 19:17 [place] 12/22 16:11 Order name: EKG - Nurse/Tech; Complete Time: 19:17 [place] 12/22 16:11 Order name: IV Saline Lock; Complete Time: 19:17 [place] 12/22 16:11 Order name: Labs collected and sent; Complete Time: 19:17 [place] 12/22 16:11 Order name: O2 Per Protocol; Complete Time: 19:17 [place] 12/22 16:11 Order name: O2 Sat Monitoring; Complete Time: 19:17 [place] Administered Medications: 18:55 Drug: Lactated Ringers Solution 1000 ml Route: IV; Rate: 150 ml/hr; Site: left wrist; db Disposition Summary: 12/22/21 20:35 Hospitalization Ordered Hospitalization Status: Observation [place] Provider: Anupam Alves [facility] [place] Condition: Stable [place] Problem: new [place] Symptoms: are unchanged [place] Bed/Room Type: Standard [place] Room Assignment: 414(12/22/21 21:12) Diagnosis - Acute Kidney Injury [place] Forms: - Medication Reconciliation Form [place] - SBAR form [place] Addendum: 01/05/2022 10:17 Co-signature as Attending Physician, Tomas Richmond MD I agree with the assessment and c cruz plan of care. Signatures: Dispatcher [employer] EDMS Zahra Varghese, RN Tomas Perkins MD MD cha Mickail, Joel, PA PA Becki Tapia RN RN [id number] Charity Brannon RN RN db Brown, Sophia PA-C PA-C [id number] Corrections: (The following items were deleted from the chart) 12/22 21:12 20:35 [facility]
--- NOTE | 2021-12-22 20:37 | ER ---
Nurse's Notes [facility] Name: Shilpi Pierson Age: 81 yrs Sex: Female : 1940 Arrival Date: 12/22/2021 Time: 15:38 Bed 16 Private MD: Diagnosis: Acute Kidney Injury Presentation: 12/22 15:46 Chief complaint: Patient states: cant eat Patient's son or daughter states: repeat [facility] blood work and urine last week; all came back negative. Did "full blood work up" yesterday and found EUGENIE and to admit per Dr. ANN. Coronavirus screen: Vaccine status: Patient reports receiving the 2nd dose of the covid vaccine. Client denies travel out of the [place] in the last 14 days. Ebola Screen: Patient negative for fever greater than or equal to 101.5 degrees Fahrenheit, and additional compatible Ebola Virus Disease symptoms Patient denies exposure to infectious person. Patient denies travel to an Ebola-affected area in the 21 days before illness onset. Initial Sepsis Screen: Does the patient meet any 2 criteria? No. Patient's initial sepsis screen is negative. Does the patient have a suspected source of infection? No. Patient's initial sepsis screen is negative. Risk Assessment: Do you want to hurt yourself or someone else? Patient reports no desire to harm self or others. 15:46 Method Of Arrival: Wheelchair [facility] 15:46 Acuity: MARIA D 3 5 Triage Assessment: 15:51 General: Appears uncomfortable, slender, well groomed, well developed, Behavior is 5 calm, cooperative, appropriate for age. Pain: Complains of pain in abdomen. GI: Reports anorexia, diarrhea. Historical: - Allergies: 15:51 Actos; 5 15:51 Benicar; jh5 15:51 Famotidine; jh5 15:51 lactose (bulk); jh5 15:51 Lactulose; jh5 15:51 Lisinopril; jh5 15:51 Losartan; jh5 15:51 olmesartan; jh5 15:51 pioglitazone; jh5 15:51 Simvastatin; jh5 15:51 Tramadol HCl; 5 - PMHx: 15:51 Anemia; Congestive heart failure; Diabetes - NIDDM; Gastroesophageal reflux disease; 5 Hypertension; ventricular tachycardia; - Immunization history:: Adult Immunizations up to date. - Social history:: Smoking status: Patient denies any tobacco usage or history of. Screenin:11 Abuse screen: Denies threats or abuse. Denies injuries from another. Nutritional eh3 screening: No deficits noted. Tuberculosis screening: No symptoms or risk factors identified. Fall Risk IV access (20 points). Gait- Weak (10 pts.). Total Morales Fall Scale indicates Low Risk Score (25-44 pts). Fall prevention measures have been instituted. Side Rails Up X 2 Placed close to Nursing Station Frequent Obs/Assesments occuring Family Present and informed to notify staff if they need to leave bedside As available Patient and Family Educated on Fall Prevention Program and strategies. Assessment: 17:11 General: Appears in no apparent distress. comfortable, Behavior is calm, cooperative, eh3 appropriate for age. Pain: Denies pain. Complains of pain in anterior aspect of left lateral abdomen and left lower quadrant Pain does not radiate. Pain currently is 0 out of 10 on a pain scale. at worst was 9 out of 10 on a pain scale. Quality of pain is described as sharp, Is intermittent, Aggravated by repositioning, pt states it does not hurt right now in this position (Fowlers) but complains of sharp shooting pain 2-3 times while sleeping at night. Neuro: Level of Consciousness is awake, alert, obeys commands, Oriented to person, place, time, situation. Cardiovascular: Capillary refill < 3 seconds Patient's skin is warm and dry. Respiratory: Airway is patent Respiratory effort is even, unlabored, Respiratory pattern is regular, symmetrical. GI: Abdomen is round non-distended, Reports diarrhea, drank barium contrast yesterday. : No signs and/or symptoms were reported regarding the genitourinary system. EENT: No signs and/or symptoms were reported regarding the EENT system. Derm: No signs and/or symptoms reported regarding the dermatologic system. Musculoskeletal: No signs and/or symptoms reported regarding the musculoskeletal system. 18:00 Reassessment: Patient and/or family updated on plan of care and expected duration. Pain eh3 level reassessed. Patient is alert, oriented x 3, equal unlabored respirations, skin warm/dry/pink. 19:00 Reassessment: Patient and/or family updated on plan of care and expected duration. Pain eh3 level reassessed. Patient is alert, oriented x 3, equal unlabored respirations, skin warm/dry/pink. 20:00 Reassessment: Patient and/or family updated on plan of care and expected duration. Pain eh3 level reassessed. Patient is alert, oriented x 3, equal unlabored respirations, skin warm/dry/pink. 21:00 Reassessment: Patient and/or family updated on plan of care and expected duration. Pain eh3 level reassessed. Patient is alert, oriented x 3, equal unlabored respirations, skin warm/dry/pink. 21:20 Reassessment: Attempted to call report to 4th floor, corporate receptionist stated nurse is in pt 3 room and will call back. Vital Signs: 15:46 BP 150 / 59; Pulse 89; Resp 16; Temp 98.6; Pulse Ox 100% ; Weight 50.35 kg; Height 5 [facility] ft. 0 in. (152.40 cm); Pain 5/10; 17:38 BP 119 / 70; Pulse 68; Resp 12; Temp 98.3(O); Pulse Ox 98% on R/A; eh3 18:30 BP 94 / 46; Pulse 74; Resp 10; Pulse Ox 89% ; eh3 19:00 BP 103 / 48; Pulse 73; Resp 13; Pulse Ox 100% on R/A; eh3 20:00 BP 138 / 56; Pulse 69; Resp 12; Pulse Ox 100% on R/A; eh3 21:00 BP 131 / 59; Pulse 74; Resp 13; Pulse Ox 100% on R/A; eh3 15:46 Body Mass Index 21.68 (50.35 kg, 152.40 cm) [facility] Vitals: 17:38 Cardiac Rhythm Assessment Paced. 3 ED Course: 15:38 Patient arrived in ED. mr 15:[address] [facility] 15:51 Arm band placed on right wrist. [facility] 16:01 Herson Keyes PA is PHCP. [facility] 16:01 Tomas Richmond MD is Attending Physician. [facility] 17:06 XRAY Chest (1 view) In Process Unspecified. EDMS 17:11 Patient has correct armband on for positive identification. Bed in low position. Call [facility] light in reach. Side rails up X2. Adult w/ patient. Client placed on continuous cardiac and pulse oximetry monitoring. NIBP monitoring applied. 17:55 Lani Bonilla, RN is Primary Nurse. 3 18:19 Missed attempt(s): 22 gauge in right wrist. db 18:19 Missed attempt(s): 22 gauge in left antecubital area. Bleeding controlled, band aid db applied, catheter tip intact. 18:40 Inserted saline lock: 22 gauge in left wrist, using aseptic technique. Blood collected. eh3 Inserted by Laverne Buckner RN. 19:41 Notified Nurse Practitioner and/or Physician Premium Note Interest Calculator Clerk of a critical lab result(s), bb troponin of 59.1 Herson LOWRY notified. 20:35 Anupam Alves is Hospitalizing Provider. [facility] 21:59 No provider procedures requiring assistance completed. Patient admitted, IV remains in [address] Administered Medications: 18:55 Drug: Lactated Ringers Solution 1000 ml Route: IV; Rate: 150 ml/hr; Site: left wrist; db Medication: 22:05 VIS not applicable for this client. [facility] Outcome: 20:35 Decision to Hospitalize by Provider. esha 22:05 Admitted to Med/surg accompanied by tech, family with patient, via wheelchair, room [facility] 414, with chart, Report called to Anahi Guillen RN 22:05 Condition: stable 22:05 Instructed on the need for admit. 22:26 Patient left the ED. bb Signatures: Dispatcher [employer] EDMS Herson Keyes PA PA jmm NevilleLu mr TeresaEloise, RN RN bb Becki Gutierrez, RN CHER [facility] Lani Bonilla, CHER KWON [facility] Charity Brannon RN RN db
--- NOTE | 2021-12-22 21:53 | P.HP ---
Certification for Inpatient Patient admitted to: Inpatient With expected LOS: <2 Midnights Patient will require the following post-hospital care: None Practitioner: I am a practitioner with admitting privileges, knowledge of patient current condition, hospital course, and medical plan of care. Services: Services provided to patient in accordance with Admission requirements found in Title 42 Section 412.3 of the Code of Federal Regulations Patient History Date of Service: 12/22/21 Reason for admission: EUGENIE History of Present Illness: Patient is an 80-year-old female with hypertension, NIDDM, diastolic CHF, anemia, afib on eliquis, CAD s/p pacemaker with defibrillator, and GERD who presented to the ED reporting abnormal lab results. Patient had routine labs done by her PCP and was noted to have BUN of 69 and Cr 1.31 and was told to come to the ED. Patient also reports that she has had several episodes of diarrhea after barium swallow yesterday (labs completed before). Her labs today are significant for CO2 18, BUN 74, Cr 2.77, mag 2.8, BNP 2925. trop HS 59, lactate 3.5. CT abdomen pelvis showed " Bilateral nephrolithiasis without hydronephr osis. Cholelithiasis. Atherosclerosis." Patient's daughter reports that patient has barely been eating/drinking lately and has lost weight. Patient states she does not have an appetite. She is admitted for further management. Allergies famotidine Allergy (Verified 12/22/21 23:05) Hallucinations lactulose Allergy (Verified 12/22/21 23:05) GI intolerance lisinopril Allergy (Verified 12/22/21 23:05) Hives morphine Allergy (Verified 12/22/21 23:05) Itching olmesartan [From Benicar] Allergy (Verified 12/22/21 23:05) Hives pioglitazone [From Actos] Allergy (Verified 12/22/21 23:05) Hives simvastatin Allergy (Verified 12/22/21 23:05) Hives tramadol Allergy (Verified 12/22/21 23:05) Hallucinations hydrochloric acid Allergy (Mild, Uncoded 12/22/21 23:05) Hives Losartan potassium Allergy (Mild, Uncoded 12/22/21 23:05) Hives Home medications list reviewed: Yes Home Medications: Amiodarone HCl [Cordarone*] 0.5 tab PO DAILY 07/31/21 Amlodipine [Norvasc*] 5 mg PO BID 07/31/21 Buspirone HCl 15 mg PO TID 07/31/21 Clopidogrel Bisulfate [Plavix*] 1 tab PO DAILY 07/31/21 Docusate Sodium 100 mg PO DAILY 07/31/21 Ezetimibe [Zetia*] 10 mg PO BEDTIME 07/31/21 Folic Acid 1 mg PO DAILY 07/31/21 Melatonin 5 mg PO BEDTIME 07/31/21 Metformin HCl 1,000 mg PO BID 07/31/21 Oxymetazoline HCl [Dristan] 2 spray IH BID 07/31/21 Spironolactone [Aldactone*] 25 mg PO DAILY 07/31/21 Trazodone HCl 50 mg PO BEDTIME 07/31/21 cloNIDine HCL [Clonidine HCl] 1 tab PO BID 07/31/21 glipiZIDE [Glipizide] 1 tab PO DAILY 07/31/21 Furosemide 40 mg PO BID 30 Days #60 tablet 08/01/21 Isosorbide Mononitrate [Isosorbide Mononitrate ER] 30 mg PO DAILY 09/02/21 Cephalexin [Keflex] 500 mg PO Q6HR 5 Days #20 cap 10/21/21 Ferrous Sulfate 325 mg PO DAILY 30 Days #30 tab 10/21/21 Pantoprazole Sodium [Protonix] 40 mg PO BID 30 Days #60 tab 10/21/21 - Past Medical/Surgical History Diabetic: Yes -: HLD -: DM2 -: HTN -: CHF -: Anemia -: GERD -: V TACH -: Cardiac stent x1 -: Pacemaker with Debrillator -: Ablations x2 in April and May 2021 Psychosocial/ Personal History: Patient lives at [facility]. - Family History Father -: Cancer - Social History Smoking Status: Never smoker Alcohol use: No CD- Drugs: No Caffeine use: Yes Place of Residence: Home Review of Systems Gastrointestinal: Diarrhea Physical Examination - Physical Exam General: Alert, In no apparent distress HEENT: Atraumatic, PERRLA, EOMI, Sclerae nonicteric Neck: Supple, 2+ carotid pulse no bruit, No LAD, Without JVD or thyroid abnormality Respiratory: Clear to auscultation bilaterally, Normal air movement Cardiovascular: Regular rate/rhythm, Normal S1 S2 Gastrointestinal: Normal bowel sounds, No tenderness Musculoskeletal: No tenderness Integumentary: No rashes Neurological: Normal speech, Normal strength at 5/5 x4 extr, Normal tone, Normal affect - Studies Laboratory Data (last 24 hrs) 12/22/21 18:51: PT 10.1, INR 0.92 12/22/21 18:51: WBC 7.50, Hgb 12.5, Hct 38.1, Plt Count 182 12/22/21 18:51: Sodium 137, Potassium 4.3, BUN 74 H, Creatinine 2.66 H, Glucose 83, Magnesium 2.8 H, Total Bilirubin 0.6, AST 18, ALT 20, Alkaline Phosphatase 68 Assessment and Plan - Problems (Diagnosis) (1) EUGENIE (acute kidney injury) Current Visit: Yes Status: Acute (2) CHF (congestive heart failure) Current Visit: Yes Status: Chronic Qualifiers: Heart failure type: diastolic Heart failure chronicity: chronic Qualified Code(s): I50.32 - Chronic diastolic (congestive) heart failure (3) Hypertension Current Visit: Yes Status: Chronic Qualifiers: Hypertension type: primary hypertension Qualified Code(s): I10 - Essential (primary) hypertension (4) Type 2 diabetes mellitus Current Visit: Yes Status: Chronic Qualifiers: Diabetes mellitus oysterman insulin use: without care home use Diabetes mellitus complication status: with kidney complications Diabetes mellitus complication detail: with chronic kidney disease Chronic kidney disease stage: stage 4 (severe) Qualified Code(s): E11.22 - Type 2 diabetes mellitus with diabetic chronic kidney disease; N18.4 - Chronic kidney disease, stage 4 (severe) - Plan CT abdomen pelvis negative. Diarrhea secondary to laxative use for barium swallow. No concern for infectious process. Likely contributing to EUGENIE. Lactate likely elevated secondary to dehydration. Repeat pending. IV hydration for EUGENIE. Nephrology consulted. Urine electrolytes, renal panel, and renal ultrasound ordered. BMP daily to monitor kidney function. Troponin slightly elevated at 59. Patient denies chest pain. Trend serial cardiac enzymes. Hold nephroxic drugs, renally dose medications. Monitor and replete electrolytes per protocol. Reconcile and continue home medications. Heparin for VTE prophylaxis. Full code. Discharge Plan: Home Plan to discharge in: 24 Hours - Advance Directives Does patient have a Living Will: No Does patient have a Durable POA for Healthcare: No - Code Status/Comfort Care Code Status Assessed: Yes (Full) Critical Care: No Time Spent Managing Pts Care (In Minutes): 50
--- NOTE | 2021-12-22 22:43 | RAD REPORT ---
EXAM DESCRIPTION: CT - Abdomen Pelvis Wo Contrast - 12/22/2021 10:34 pm CLINICAL HISTORY: Abdominal pain. diarrhea, elevated lactate, [place] COMPARISON: No comparisons TECHNIQUE: CT imaging of the abdomen and pelvis was performed without contrast. Solid organ, bowel a nd vascular assessment is limited due to lack of IV and oral contrast. All CT scans are performed using dose optimization technique as appropriate and may include automated exposure control or mA/KV adjustment according to patient size. FINDINGS: The lower lung jackson are clear.Pacemaker wires noted inferior aspect of the heart. The liver, spleen, pancreas, adrenal glands are within normal limits for a limited non-contrast exami nation.Bilateral renal calculi without hydronephrosis. Cholelithiasis. Atherosclerosis of the abdomin al aorta. No bowel obstruction, free air, free fluid or abscess. Mild sigmoid diverticulosis without diverticul itis. The appendix is normal. The osseous structures are within normal limits. IMPRESSION: Bilateral nephrolithiasis without hydronephrosis. Cholelithiasis. Atherosclerosis. A limited non-contrast examination was performed as detailed.
[2021-12-22] MEDS ORDERED: ONDANSETRON 4 MG/2 ML VIAL IV PRN (22:44)
[2021-12-22] MEDS ORDERED: ALBUTEROL 2.5 MG/3 ML NEB SOL NEB PRN (22:44)
[2021-12-22] MEDS: LACTOSE-REDUCED FOOD 330 ML LIQUID PO SCH (22:45)
[2021-12-22 23:51] LABS: CKMB Creatine Kinase MB 1.8 ng/mL (1.0-3.6); Troponin High Sensitivity 56.2 pg/mL (<58.9)
[2021-12-23] MEDS: NA CHLORIDE 0.9% 1,000 ML IV SCH ×3 (00:04→21:39)
[2021-12-23] MEDS: HEPARIN 5000 UNIT/ML 1 ML VIAL SQ SCH ×3 (01:00→17:04)
[2021-12-23 03:58] LABS: Absolute Lymphocytes (CBC) 1.6 K/uL (0.7-4.9); Hematocrit 34.8 % (36.0-45.0); Lymphocytes % 26.7 % (15.3-44.8); MCV 85.9 fL (80-100); MPV 9.2 fL (7.6-11.3); RBC Red Blood Cell Count 4.05 M/uL (3.86-4.86)
[2021-12-23 04:21] LABS: Albumin 3.6 g/dL (3.4-5.0); Magnesium 2.6 mg/dL (1.8-2.4); Phosphorus 3.2 mg/dL (2.5-4.9); Potassium 3.2 mmol/L (3.5-5.1); Thyroid Stimulating Hormone 1.38 uIU/mL (0.360-3.740)
[2021-12-23] MEDS: INSULIN -REGULAR HUMAN 50 UNIT/0.5 ML ML SQ SCH ×4 (07:30→21:00)
[2021-12-23] MEDS ORDERED: INFLUENZA VACCINE (for 6+ mo) 0.5 ML DOSE IMVAC ONE (08:00)
--- NOTE | 2021-12-23 08:33 | RAD REPORT ---
EXAM DESCRIPTION: US - Renal Ultrasound-Limited - 12/22/2021 11:39 pm CLINICAL HISTORY: EUGENIE COMPARISON: Abdomen Pelvis Wo Contrast dated 12/22/2021 FINDINGS: Both kidneys are normal in size, shape and echotexture. The right kidney measures 10.6 cm. No hydronephrosis, focal mass or perinephric fluid. 6 mm stone natalie ntified in the right kidney. The left kidney measures 9.9 cm. No hydronephrosis, focal mass or perinephric fluid. 10 mm stone in t he left kidney. The urinary bladder is incompletely distended without gross abnormality seen. IMPRESSION: Bilateral nonobstructive nephrolithiasis.
[2021-12-23] MEDS: LACTOSE-REDUCED FOOD 330 ML LIQUID PO SCH ×2 (08:42→21:00)
--- NOTE | 2021-12-23 13:12 | P.CNS ---
Date of Consult: 12/23/21 Chief Complaint: EUGENIE History of Present Illness: 81F w/ PMHx of Htn, DM2, chronic diastolic HF, anemia, afib on eliquis, CAD s/p pacemaker/defibrillator, and GERD who presented to the ED w/ abnormal labs. SCr showed 2.77. BNP elevated. Admitted for EUGENIE eval/mngt. CT A/P showed yumiko ateral nephrolithiasis. She is receiving IV fluids. SCr improved to 2.1. Allergies famotidine Allergy (Verified 12/22/21 23:05) Hallucinations lactulose Allergy (Verified 12/22/21 23:05) GI intolerance lisinopril Allergy (Verified 12/22/21 23:05) Hives morphine Allergy (Verified 12/22/21 23:05) Itching olmesartan [From Benicar] Allergy (Verified 12/22/21 23:05) Hives pioglitazone [From Actos] Allergy (Verified 12/22/21 23:05) Hives simvastatin Allergy (Verified 12/22/21 23:05) Hives tramadol Allergy (Verified 12/22/21 23:05) Hallucinations hydrochloric acid Allergy (Mild, Uncoded 12/22/21 23:05) Hives Losartan potassium Allergy (Mild, Uncoded 12/22/21 23:05) Hives Home Medications: Amiodarone HCl [Cordarone*] 0.5 tab PO DAILY 07/31/21 Amlodipine [Norvasc*] 5 mg PO BID 07/31/21 Buspirone HCl 15 mg PO TID 07/31/21 Clopidogrel Bisulfate [Plavix*] 1 tab PO DAILY 07/31/21 Docusate Sodium 100 mg PO Q12HP 07/31/21 Ezetimibe [Zetia*] 10 mg PO BEDTIME 07/31/21 Folic Acid 1 mg PO DAILY 07/31/21 Melatonin 5 mg PO BEDTIME 07/31/21 Metformin HCl 1,000 mg PO BID 07/31/21 Oxymetazoline HCl [Dristan] 2 spray IH BID 07/31/21 Trazodone HCl 50 mg PO BEDTIME 07/31/21 cloNIDine HCL [Clonidine HCl] 1 tab PO BID 07/31/21 Furosemide 40 mg PO BID 30 Days #60 tablet 08/01/21 Ferrous Sulfate 325 mg PO DAILY 30 Days #30 tab 10/21/21 Pantoprazole Sodium [Protonix] 40 mg PO BID 30 Days #60 tab 10/21/21 Diphenhydramine [Benadryl Tab/Cap] 25 mg PO Q12HP 12/23/21 Empagliflozin [Jardiance] 25 mg PO DAILY 12/23/21 Fexofenadine HCl 180 mg PO DAILY 12/23/21 Fluticasone Propionate [24 Hour Allergy] 50 mcg NS BID 12/23/21 Ibuprofen 400 mg PO Q4H PRN 12/23/21 Metoprolol Tartrate 50 mg PO BID 12/23/21 Mirtazapine 15 mg PO BEDTIME 12/23/21 - Past Medical/Surgical History Diabetic: Yes -: HLD -: DM2 -: HTN -: CHF -: Anemia -: GERD -: V TACH -: Cardiac stent x1 -: Pacemaker with Debrillator -: Ablations x2 in April and May 2021 Psychosocial/ Personal History: Patient lives at [facility]. - Family History Father Medical History: Cancer - Social History Smoking Status: Unknown if ever smoked Alcohol use: No CD- Drugs: No Caffeine use: Yes Place of Residence: Home Review of Systems General: Weakness Eyes: Unremarkable ENT: Unremarkable Respiratory: Unremarkable Cardiovascular: Unremarkable Gastrointestinal: Unremarkable Genitourinary: Unremarkable Musculoskeletal: Unremarkable Integumentary: Unremarkable Neurological: Unremarkable Lymphatics: Unremarkable Physical Examination Temp Pulse Resp BP Pulse Ox 97.6 F 71 18 142/60 H 98 12/23/21 08:00 12/23/21 08:00 12/23/21 08:00 12/23/21 08:00 12/23/21 08:00 General: In no apparent distress HEENT: Atraumatic, Normocephalic Neck: Supple Respiratory: Other (Symmetric chest expansion) Cardiovascular: No rubs Gastrointestinal: Soft and benign, No guarding Musculoskeletal: No clubbing Integumentary: No warmth Neurological: Normal speech, Normal tone Urinary: Other (No bladder distention) External genitalia: Deferred Rectal: Deferred Laboratory Data (last 24 hrs) 12/22/21 18:51: PT 10.1, INR 0.92 12/22/21 18:51: WBC 7.50, Hgb 12.5, Hct 38.1, Plt Count 182 12/22/21 18:51: Sodium 137, Potassium 4.3, BUN 74 H, Creatinine 2.66 H, Glucose 83, Magnesium 2.8 H, Total Bilirubin 0.6, AST 18, ALT 20, Alkaline Phosphatase 68 Conclusions/Impression: # EUGENIE 2/2 prerenal state / diuretic use +/- ATN from prolonged prerenal SCr 2.8 on adm, improved to 2.[address] A/P showed bilateral nephrolithiasis F/u urine studies Monitor renal panel # Bilateral nephrolithiases Start tamsulosin qhs IV/PO hydration 24 hr urine for stone panel x 2 sets, at least 1 mo apart, as outpt Low Na diet < 2g/d # Htn Cont current med regimen # DM2 Mngt per primary team # Chronic diastolic HF Hx of CAD s/p PPM/AICD, chronic afib on eliquis BNP elevated Diuretics on hold Per other services
--- NOTE | 2021-12-23 14:26 | P.PN ---
Subjective Date of Service: 12/23/21 Chief Complaint: EUGENIE Patient reports loss of appetite. She denies any abdominal pain. She also endorsed easy satiety. She denies constipation. Physical Examination - Vital Signs Temperature: 98.1 F Blood Pressure: 143/49 Pulse: 83 Respirations: 18 Pulse Ox (%): 96 - Studies Laboratory Data (last 24 hrs) 12/22/21 18:51: PT 10.1, INR 0.92 12/22/21 18:51: WBC 7.50, Hgb 12.5, Hct 38.1, Plt Count 182 12/22/21 18:51: Sodium 137, Potassium 4.3, BUN 74 H, Creatinine 2.66 H, Glucose 83, Magnesium 2.8 H, Total Bilirubin 0.6, AST 18, ALT 20, Alkaline Phosphatase 68 Microbiology Data (last 24 hrs): 12/22/21 18:51 Blood - Blood Anaerobic Blood Culture - Final 12/22/21 19:04 Blood - Blood Anaerobic Blood Culture - Final Assessment And Plan - Current Problems (Diagnosis) (1) EUGENIE (acute kidney injury) Current Visit: Yes Status: Acute (2) Hypertension Current Visit: Yes Status: Chronic Qualifiers: Hypertension type: primary hypertension Qualified Code(s): I10 - Essential (primary) hypertension (3) Type 2 diabetes mellitus Current Visit: Yes Status: Chronic Qualifiers: Diabetes mellitus fpc insulin use: without fpc use Diabetes mellitus complication status: with kidney complications Diabetes mellitus complication detail: with chronic kidney disease Chronic kidney disease stage: stage 4 (severe) Qualified Code(s): E11.22 - Type 2 diabetes mellitus with diabetic chronic kidney disease; N18.4 - Chronic kidney disease, stage 4 (severe) (4) Chronic diastolic heart failure Current Visit: No Status: Acute - Plan Physical Exam General: Alert, In no apparent distress Neck: Supple, no elevated JVD. Respiratory: Clear to auscultation bilaterally, Normal air movement Cardiovascular: Regular rate/rhythm, Normal S1 S2 Gastrointestinal: Normal bowel sounds, No tenderness Musculoskeletal: No tenderness Integumentary: No rashes Neurological: Normal speech, Normal strength at 5/5 x4 extr, Normal tone, Normal affect. Plan: Continue IV fluid Monitor renal function. Nephrology input appreciated. Renal ultrasound shows nephrolithiasis, no obstructive uropathy. Patient with poor appetite. Continue Remeron PPI. Hold diuretics.
[2021-12-23] MEDS ORDERED: DOCUSATE NA 100 MG CAP PO PRN (15:00)
[2021-12-23] MEDS ORDERED: [UNRECOGNIZED DRUG - REMARK] NS SCH (21:00)
[2021-12-23] MEDS: PANTOPRAZOLE 40MG TABLET PO SCH (21:41)
[2021-12-23] MEDS: AMLODIPINE 5 MG TAB PO SCH (21:42)
[2021-12-23] MEDS: BUSPIRONE HCL 15 MG TABLET PO SCH (21:42)
[2021-12-23] MEDS: cloNIDine HCL 0.1 MG TAB PO SCH (21:43)
[2021-12-23] MEDS: MIRTAZAPINE 15 MG TAB PO SCH (21:43)
[2021-12-23] MEDS: TRAZODONE 50 MG TABLET PO SCH (21:43)
[2021-12-23] MEDS: EZETIMIBE 10 MG TAB PO SCH (21:43)
[2021-12-23] MEDS: FLUTICASONE 50MCG NASAL SPRAY NAS SCH (21:44)
[2021-12-23] MEDS ORDERED: KCL 20 MEQ/100 mL IVPB 20 MEQ/100 ML BAG IV SCH (23:45)
[2021-12-24] MEDS: HEPARIN 5000 UNIT/ML 1 ML VIAL SQ SCH ×4 (00:46→17:03)
[2021-12-24 04:24] LABS: Absolute Lymphocytes (CBC) 1.5 K/uL (0.7-4.9); Hematocrit 32.6 % (36.0-45.0); Lymphocytes % 31.9 % (15.3-44.8); MCV 86.8 fL (80-100); MPV 9.1 fL (7.6-11.3); RBC Red Blood Cell Count 3.76 M/uL (3.86-4.86)
[2021-12-24 04:39] LABS: Potassium 3.5 mmol/L (3.5-5.1)
[2021-12-24] MEDS: INSULIN -REGULAR HUMAN 50 UNIT/0.5 ML ML SQ SCH ×4 (07:30→21:00)
[2021-12-24 07:40] LABS: Specific Gravity 1.013 (1.005-1.030); Urine Bilirubin NEGATIVE (Negative); Urine Blood Negative (Negative); Urine Clarity Clear (Clear); Urine Color Light-Yellow (Yellow); Urine Glucose 4+ (Over) (Negative); Urine Mucus Slight /HPF (None Seen); Urine Protein NEGATIVE (Negative); Urine RBC <5 /HPF (None Seen); Urine Urobilinogen Normal (Normal)
[2021-12-24] MEDS ORDERED: POTASSIUM CL SA 10 MEQ TAB PO ONE (09:00)
[2021-12-24] MEDS: LACTOSE-REDUCED FOOD 330 ML LIQUID PO SCH ×2 (09:00→21:00)
[2021-12-24] MEDS: FOLIC ACID 1 MG TABLET PO SCH (09:39)
[2021-12-24] MEDS: PANTOPRAZOLE 40MG TABLET PO SCH ×2 (09:39→21:52)
[2021-12-24] MEDS: cloNIDine HCL 0.1 MG TAB PO SCH ×2 (09:39→21:55)
[2021-12-24] MEDS: AMIODARONE HCL 200 MG TAB PO SCH (09:39)
[2021-12-24] MEDS: CLOPIDOGREL 75 MG TABLET PO SCH (09:40)
[2021-12-24] MEDS: BUSPIRONE HCL 15 MG TABLET PO SCH ×3 (09:40→21:53)
[2021-12-24] MEDS: AMLODIPINE 5 MG TAB PO SCH ×2 (09:41→21:54)
[2021-12-24] MEDS: FLUTICASONE 50MCG NASAL SPRAY NAS SCH ×2 (09:41→22:01)
--- NOTE | 2021-12-24 12:38 | EKG ---
Test Date: 2021-12-22 Test Time: 17:47:44 Methods Analyst Data Processing: DEEPALI MEASUREMENT RESULTS: Intervals: Rate: 72 MO: 150 QRSD: 132 QT: 450 QTc: 492 [place]: P: MO: 150 QRS: 96 T: -82 INTERPRETIVE STATEMENTS: Normal sinus rhythm Right bundle branch block Septal infarct, age undetermined Lateral infarct, age undetermined T wave abnormality, consider inferior ischemia Abnormal ECG Compared to ECG 10/19/2021 03:47:50 No significant changes Electronically Signed On 12-24-21 12:36:04 CDT by Tate Ribeiro
--- NOTE | 2021-12-24 14:27 | P.PN ---
Subjective Date of Service: 12/24/21 Chief Complaint: EUGENIE Patient states she is eating better today She has no new complain. Physical Examination - Vital Signs Temperature: 96.7 F Blood Pressure: 142/61 Pulse: 84 Respirations: 14 Pulse Ox (%): 100 - Studies Microbiology Data (last 24 hrs): 12/22/21 19:04 Blood - Blood Anaerobic Blood Culture - Final 12/22/21 18:51 Blood - Blood Anaerobic Blood Culture - Final Assessment And Plan - Current Problems (Diagnosis) (1) EUGENIE (acute kidney injury) Current Visit: Yes Status: Acute (2) Hypertension Current Visit: Yes Status: Chronic Qualifiers: Hypertension type: primary hypertension Qualified Code(s): I10 - Essential (primary) hypertension (3) Type 2 diabetes mellitus Current Visit: Yes Status: Chronic Qualifiers: Diabetes mellitus chcf insulin use: without laborer marine terminal use Diabetes mellitus complication status: with kidney complications Diabetes mellitus complication detail: with chronic kidney disease Chronic kidney disease stage: stage 4 (severe) Qualified Code(s): E11.22 - Type 2 diabetes mellitus with diabetic chronic kidney disease; N18.4 - Chronic kidney disease, stage 4 (severe) (4) Chronic diastolic heart failure Current Visit: No Status: Acute - Plan Physical Exam General: Alert, In no apparent distress Respiratory: Clear to auscultation bilaterally, Normal air movement Cardiovascular: Regular rate/rhythm, Normal S1 S2 Gastrointestinal: Normal bowel sounds, No tenderness Integumentary: No rashes Neurological: No focal motor deficit. Plan: EUGENIE resolved. Patient with metabolic acidosis. Continue IV fluid Monitor renal function. Nephrology is following Renal ultrasound shows nephrolithiasis, no obstructive uropathy. Diet as tolerated Continue Remeron PPI. Hold diuretics.
[2021-12-24] MEDS: NA CHLORIDE 0.9% 1,000 ML IV SCH (17:04)
--- NOTE | 2021-12-24 21:27 | PN ---
Date of Progress Note: 12/24/2021 Chief Complaint: Acute kidney injury. Subjective: The patient has multiple medical problems. She is an 81-year-old woman with history of hypertension, diabetes mellitus type 2, chronic diastolic congestive heart failure, anemia, atrial fi brillation on Eliquis, coronary artery disease status post pacemaker and defibrillator, history of GE RD. The patient presented to the hospital because of generalized weakness and she was found to have elevated BNP and is admitted for acute kidney injury. Serum creatinine level was up to 2.[address] s can showed bilateral nephrolithiasis. The patient received IV fluids. Review of Systems: Denies fever or chills. Physical Examination: Lungs: Clear to auscultation bilaterally. Heart: S1, S2. Abdomen: Soft. Extremities: No edema. Impression And Plan: 1.Acute kidney injury secondary to prerenal azotemia and diuretic use. The patient developed acute tubular necrosis from prolonged renal hypoperfusion. Serum creatinine level on admission was up to 2 .8 and improved to 2.1 yesterday and today it is further improving. Blood work today showed creatini ne level of 0.96 and BUN 23. There is still prerenal azotemia secondary to diuretics, although overa ll her renal function has improved. Metabolic acidosis is minimal and potassium level is within norm al limits. Patient will continue to avoid nonsteroidal antiinflammatory medication. Plan is to hold IV fluids and reevaluate renal function tomorrow. 2.The patient was found to have bilateral nonobstructive nephrolithiasis and she will need further w orkup to rule out secondary hyperparathyroidism or primary hyperparathyroidism and she will need a 24 hour urine for stone protocol. 3.Diabetes mellitus with renal manifestation. Monitor proteinuria. The plan is to avoid RINKU inhibi tor due to acute kidney injury, although [facility] patient may need to take RINKU inhibitor. 4.Congestive heart failure. Currently, patient is euvolemic. 5.Bilateral nephrolithiasis. There is no hydronephrosis present. The patient has nonobstructive ca lculi bilaterally. Plan was already made to check 24 hours urine collection and stone protocol x2 se ts at least 1 month apart. Continue low-sodium diet and adequate hydration. 6.Chronic diastolic congestive heart failure. Patient is on Eliquis for atrial fibrillation. Ramona ntjarrod diuretic on hold due to acute kidney injury. EB/MODL Voice ID: [id number] Report ID: [id number]
[2021-12-24] MEDS: EZETIMIBE 10 MG TAB PO SCH (21:51)
[2021-12-24] MEDS: TAMSULOSIN 0.4 MG SR CAP PO SCH (21:52)
[2021-12-24] MEDS: MIRTAZAPINE 15 MG TAB PO SCH (21:52)
[2021-12-24] MEDS: TRAZODONE 50 MG TABLET PO SCH (21:52)
[2021-12-25] MEDS: NA CHLORIDE 0.9% 1,000 ML IV SCH ×4 (00:44→20:42)
[2021-12-25] MEDS: HEPARIN 5000 UNIT/ML 1 ML VIAL SQ SCH ×3 (01:17→17:27)
[2021-12-25 04:13] LABS: Absolute Lymphocytes (CBC) 1.2 K/uL (0.7-4.9); Hematocrit 29.3 % (36.0-45.0); Lymphocytes % 29.4 % (15.3-44.8); MCV 87.6 fL (80-100); MPV 9.3 fL (7.6-11.3); RBC Red Blood Cell Count 3.34 M/uL (3.86-4.86)
[2021-12-25 04:26] LABS: Potassium 3.5 mmol/L (3.5-5.1)
[2021-12-25] MEDS: INSULIN -REGULAR HUMAN 50 UNIT/0.5 ML ML SQ SCH ×4 (07:30→20:43)
[2021-12-25] MEDS: CLOPIDOGREL 75 MG TABLET PO SCH (08:34)
[2021-12-25] MEDS: FOLIC ACID 1 MG TABLET PO SCH (08:34)
[2021-12-25] MEDS: PANTOPRAZOLE 40MG TABLET PO SCH ×2 (08:34→20:43)
[2021-12-25] MEDS: AMIODARONE HCL 200 MG TAB PO SCH (08:35)
[2021-12-25] MEDS: cloNIDine HCL 0.1 MG TAB PO SCH ×2 (08:35→20:43)
[2021-12-25] MEDS: BUSPIRONE HCL 15 MG TABLET PO SCH ×3 (08:35→20:43)
[2021-12-25] MEDS: AMLODIPINE 5 MG TAB PO SCH ×2 (08:36→20:44)
[2021-12-25] MEDS: FLUTICASONE 50MCG NASAL SPRAY NAS SCH ×2 (08:46→20:42)
[2021-12-25] MEDS: LACTOSE-REDUCED FOOD 330 ML LIQUID PO SCH ×2 (08:47→20:45)
[2021-12-25] MEDS ORDERED: POTASSIUM CL SA 10 MEQ TAB PO ONE (09:00)
--- NOTE | 2021-12-25 13:57 | P.DS ---
Admission Date: 12/22/21 Discharge Date: 12/25/21 Disposition: DC HOME/HOME HEALTH CARE Discharge Condition: FAIR Reason for Admission: EUGENIE - Problems (1) EUGENIE (acute kidney injury) Current Visit: Yes Status: Acute (2) Hypertension Current Visit: Yes Status: Chronic Qualifiers: Hypertension type: primary hypertension Qualified Code(s): I10 - Essential (primary) hypertension (3) Type 2 diabetes mellitus Current Visit: Yes Status: Chronic Qualifiers: Diabetes mellitus skilled nursing insulin use: without skilled nursing use Diabetes mellitus complication status: with kidney complications Diabetes mellitus complication detail: with chronic kidney disease Chronic kidney disease stage: stage 4 (severe) Qualified Code(s): E11.22 - Type 2 diabetes mellitus with diabetic chronic kidney disease; N18.4 - Chronic kidney disease, stage 4 (severe) (4) Chronic diastolic heart failure Current Visit: No Status: Acute Brief History of Present Illness: Patient is an 81-year-old woman with hypertension, NIDDM, diastolic CHF, anemia, afib on eliquis, CAD s/p pacemaker with defibrillator, and GERD who presented to the ED reporting abnormal lab results. Patient had routine labs done by her PCP and was noted to have BUN of 69 and Cr 1.31 and was told to come to the ED. Patient also reports that she has had several episodes of diarrhea after barium swallow 1 day prior. Her labs today are significant for CO2 18, BUN 74, Cr 2.77, mag 2.8, BNP 2925. trop HS 59, lactate 3.5. CT abdomen pelvis showed " Bilateral nephrolithiasis without hydronephrosis. Cholelithiasis. Atherosclerosis." Patient's daughter reports that patient has barely been eating/drinking lately and has lost weight. Patient states she does not have an appetite. She was admitted for further management. Hospital Course: Patient admitted to the medical floor and hydrated with IV fluid. She was seen in consultation by nephrology who assisted with management. There was no sign of infection. UA negative, blood cultures yielded no growth. Her renal function improved with IV hydration. Metformin which may be contributing to her anorexia was discontinued. Patient had 1 episode of hypoglycemia otherwise her blood sugar readings were within normal range. She was able to eat more during the hospital stay. She was also able to ambulate about 500 feet with a rolling walker. Patient has clinically improved, ambulatory and eating and deemed stable for discharge. She was on Lasix at home which is just discontinued due to high risk for dehydration. Vital Signs/Physical Exam: Temp Pulse Resp BP Pulse Ox 97.7 F 86 14 128/60 100 12/25/21 08:00 12/25/21 08:36 12/25/21 08:00 12/25/21 08:36 12/25/21 08:00 General: Alert, In no apparent distress, Oriented x3 HEENT: Mucous membr. moist/pink Neck: JVD not distended Respiratory: Clear to auscultation bilaterally, Normal air movement Cardiovascular: No edema, Regular rate/rhythm, Normal S1 S2 Gastrointestinal: Normal bowel sounds, Soft and benign, Non-distended, No tenderness Musculoskeletal: No swelling Integumentary: No cyanosis Neurological: Normal strength at 5/5 x4 extr Laboratory Data at Discharge: WBC 4.20 K/uL (4.3-10.9) L 12/25/21 03:30 Hgb 9.7 g/dL (12.0-15.0) L D 12/25/21 03:30 Hct 29.3 % (36.0-45.0) L 12/25/21 03:30 Plt Count 135 K/uL (152-406) L 12/25/21 03:30 PT 10.1 SECONDS (9.5-12.5) 12/22/21 18:51 INR 0.92 12/22/21 18:51 Sodium 144 mmol/L (136-145) 12/25/21 03:30 Potassium 3.5 mmol/L (3.5-5.1) 12/25/21 03:30 BUN 12 mg/dL (7-18) 12/25/21 03:30 Creatinine 0.96 mg/dL (0.55-1.3) 12/25/21 03:30 Glucose 112 mg/dL (74-106) H 12/25/21 03:30 Phosphorus 3.2 mg/dL (2.5-4.9) 12/23/21 03:43 Magnesium 2.6 mg/dL (1.8-2.4) H 12/23/21 03:43 Total Bilirubin 0.6 mg/dL (0.2-1.0) 12/22/21 18:51 AST 18 U/L (15-37) 12/22/21 18:51 ALT 20 U/L (12-78) 12/22/21 18:51 Alkaline Phosphatase 68 U/L (45-117) 12/22/21 18:51 Triglycerides 213 mg/dL (<150) H 12/23/21 03:43 Cholesterol 213 mg/dL (<200) H 12/23/21 03:43 HDL Cholesterol 46 mg/dL (40-60) 12/23/21 03:43 Cholesterol/HDL Ratio 4.63 12/23/21 03:43 Home Medications: Amiodarone HCl [Cordarone*] 0.5 tab PO DAILY 07/31/21 Amlodipine [Norvasc*] 5 mg PO BID 07/31/21 Buspirone HCl 15 mg PO TID 07/31/21 Clopidogrel Bisulfate [Plavix*] 1 tab PO DAILY 07/31/21 Docusate Sodium 100 mg PO Q12HP 07/31/21 Ezetimibe [Zetia*] 10 mg PO BEDTIME 07/31/21 Folic Acid 1 mg PO DAILY 07/31/21 Melatonin 5 mg PO BEDTIME 07/31/21 Trazodone HCl 50 mg PO BEDTIME 07/31/21 cloNIDine HCL [Clonidine HCl] 1 tab PO BID 07/31/21 Ferrous Sulfate 325 mg PO DAILY 30 Days #30 tab 10/21/21 Pantoprazole Sodium [Protonix] 40 mg PO BID 30 Days #60 tab 10/21/21 Empagliflozin [Jardiance] 25 mg PO DAILY 12/23/21 Fexofenadine HCl 180 mg PO DAILY 12/23/21 Fluticasone Propionate [24 Hour Allergy] 50 mcg NS BID 12/23/21 Mirtazapine 15 mg PO BEDTIME 12/23/21 Lactose-Reduced Food [Ensure Max Protein] 330 ml PO BID #60 can 12/25/21 Tamsulosin [Flomax*] 0.4 mg PO BEDTIME #30 cap 12/25/21 New Medications: Lactose-Reduced Food [Ensure Max Protein] 330 ml PO BID #60 can Tamsulosin [Flomax*] 0.4 mg PO BEDTIME #30 cap Diet: ADA Activity: Ad perico Followup: John Lynn MD [Primary Care Provider] - Time spent managing pt's care (in minutes): 35
--- NOTE | 2021-12-25 16:56 | P.PN ---
Subjective Date of Service: 12/25/21 Chief Complaint: EUGENIE Patient states she is eating better today She thought she felt some sharp pains in the right lateral chest. Patient's telemetry showing wide-complex tachycardia versus V. tach. Physical Examination - Vital Signs Temperature: 98.2 F Blood Pressure: 106/54 Pulse: 90 Respirations: 14 Pulse Ox (%): 97 Assessment And Plan - Current Problems (Diagnosis) (1) EUGENIE (acute kidney injury) Current Visit: Yes Status: Acute (2) Hypertension Current Visit: Yes Status: Chronic Qualifiers: Hypertension type: primary hypertension Qualified Code(s): I10 - Essential (primary) hypertension (3) Type 2 diabetes mellitus Current Visit: Yes Status: Chronic Qualifiers: Diabetes mellitus long distance operator insulin use: without long distance operator use Diabetes mellitus complication status: with kidney complications Diabetes mellitus complication detail: with chronic kidney disease Chronic kidney disease stage: stage 4 (severe) Qualified Code(s): E11.22 - Type 2 diabetes mellitus with diabetic chronic kidney disease; N18.4 - Chronic kidney disease, stage 4 (severe) (4) Chronic diastolic heart failure Current Visit: No Status: Acute - Plan Physical Exam General: Alert, In no apparent distress Respiratory: Clear to auscultation bilaterally, Normal air movement Cardiovascular: Regular rate/rhythm, Normal S1 S2 Gastrointestinal: Normal bowel sounds, No tenderness Integumentary: No rashes Neurological: No focal motor deficit. Plan: EUGENIE resolved. Metabolic acidosis improved. Continue IV fluid Monitor renal function. Nephrology is following Renal ultrasound shows nephrolithiasis, no obstructive uropathy. Diet as tolerated Continue Remeron PPI. Diuretics on hold. Metformin on hold. I discussed telemetry strip and EKG with Dr. Ribeiro. Strip appear to be showing wide-complex tachycardia. Dr. Ribeiro recommend AICD interrogation. We will keep patient for AICD interrogation tomorrow. Optimize electrolytes, check magnesium level. Continue amiodarone. Metoprolol on hold due to soft blood pressure.
[2021-12-25 18:04] LABS: Magnesium 2.2 mg/dL (1.8-2.4); Phosphorus 1.9 mg/dL (2.5-4.9)
[2021-12-25] MEDS: MIRTAZAPINE 15 MG TAB PO SCH (20:43)
[2021-12-25] MEDS: TAMSULOSIN 0.4 MG SR CAP PO SCH (20:44)
[2021-12-25] MEDS: TRAZODONE 50 MG TABLET PO SCH (20:44)
[2021-12-25] MEDS: EZETIMIBE 10 MG TAB PO SCH (20:44)
--- NOTE | 2021-12-25 21:44 | PN ---
Date of Progress Note: 12/25/2021 Chief Complaint: Acute kidney injury. Subjective: Patient has history of diabetes mellitus. She was found to have bilateral renal calculi and acute kidney injury. Patient responded to IV fluids. She is transferred to ICU today because o f wide-complex tachycardia versus V tach. Patient denies chest pain, palpitation. Denies syncope. Physical Examination: Lungs: Normal respiratory effort. Heart: S1, S2. Abdomen: Soft. Extremities: No edema. Impression And Plan: 1.Acute kidney injury. Patient responded to IV fluids. Patient was found to have kidney stones and she will follow up with urologist. 2.Hypertension. Continue blood pressure medication. 3.Diabetes mellitus with renal manifestation. Monitor proteinuria. RINKU inhibitor on hold because o f acute kidney injury. Avoid nephrotoxic medication. [place]UGUSTA/MODL Voice ID: [id number] Report ID: [id number]
[2021-12-26] MEDS: HEPARIN 5000 UNIT/ML 1 ML VIAL SQ SCH ×3 (00:10→16:21)
[2021-12-26 04:53] LABS: Absolute Lymphocytes (CBC) 1.1 K/uL (0.7-4.9); Hematocrit 31.4 % (36.0-45.0); MCV 88.1 fL (80-100); MPV 9.6 fL (7.6-11.3); RBC Red Blood Cell Count 3.56 M/uL (3.86-4.86)
[2021-12-26 05:09] LABS: Magnesium 2.1 mg/dL (1.8-2.4); Phosphorus 2.3 mg/dL (2.5-4.9); Potassium 3.7 mmol/L (3.5-5.1)
[2021-12-26 05:59] VITALS: BMI 24.6
[2021-12-26] MEDS: NA CHLORIDE 0.9% 1,000 ML IV SCH ×2 (06:03→17:24)
[2021-12-26] MEDS: INSULIN -REGULAR HUMAN 50 UNIT/0.5 ML ML SQ SCH ×4 (07:24→21:20)
[2021-12-26] MEDS ORDERED: ALBUTEROL 2.5 MG/3 ML NEB SOL NEB PRN (09:00)
[2021-12-26] MEDS: AMIODARONE HCL 200 MG TAB PO SCH ×3 (09:00→21:05)
[2021-12-26] MEDS ORDERED: POTASSIUM PHOS IN 0.9 % NACL 15 MMOL/250 ML BAG IV ONE (09:00)
[2021-12-26] MEDS: FLUTICASONE 50MCG NASAL SPRAY NAS SCH ×3 (09:00→21:00)
[2021-12-26] MEDS: FOLIC ACID 1 MG TABLET PO SCH (09:31)
[2021-12-26] MEDS: BUSPIRONE HCL 15 MG TABLET PO SCH ×3 (09:31→21:04)
[2021-12-26] MEDS: PANTOPRAZOLE 40MG TABLET PO SCH ×2 (09:32→21:05)
[2021-12-26] MEDS: CLOPIDOGREL 75 MG TABLET PO SCH (09:33)
[2021-12-26] MEDS: POTASS/SODIUM PHOSPHATE 1 PKT POWD.PACK PO SCH (09:33)
[2021-12-26] MEDS: AMLODIPINE 5 MG TAB PO SCH ×2 (09:33→21:05)
[2021-12-26] MEDS: LACTOSE-REDUCED FOOD 330 ML LIQUID PO SCH ×2 (09:34→21:00)
[2021-12-26] MEDS: cloNIDine HCL 0.1 MG TAB PO SCH ×2 (09:34→21:04)
--- NOTE | 2021-12-26 13:54 | CON ---
Date of Consultation: 12/26/[address] Alves and Pam on 12/22/2021. I saw the patient on 12/26/2021 for ventricular tach ycardia. History Of Present Illness: Ms. Pierson is 81. Has had a history of VT, paroxysmal atrial fibrillation . Has a pacemaker. Has had a history of CHF, diabetes, and hypertension. Came in with acute kidney injury on 12/22/2021. Normal ejection fraction of 65% in July 2021, LVH, appropriate pacemaker. Danielson d episode what looked like ventricular tachycardia versus atrial fibrillation with aberrancy. Remain ed in AFib at 124. Had palpitation, but no symptoms. Come with palpitation, but no chest pain. No nausea, vomiting, diaphoresis, PND, orthopnea, pedal edema, or syncope. We decided to keep her on e hospital because of arrhythmia. Past Medical History: As stated above. Allergies: INCLUDE MORPHINE, ZOCOR, TRAMADOL, OLMESARTAN, LISINOPRIL, AND PEPCID. Review of Systems: Negative. Social History: Negative. Family History: Negative. Medications: At home include amiodarone 100 mg daily, Norvasc, insulin, Plavix, Zetia. She is now o n heparin subcu. Physical Examination: General: Very pleasant, no acute distress. Vital Signs: Heart rate 124, atrial fibrillation. HEENT: Negative. Neck: Supple with no bruit. Chest: Clear. Cardiac: Revealed atrial fibrillation. No murmurs, gallops, or rubs. Abdomen: Benign. Extremities: Revealed no clubbing, cyanosis, or edema. Diagnostic Data: All within normal limit except for the atrial fibrillation. Impression And Plan: Atrial fibrillation with aberrancy versus VT. Increase amiodarone to 200 mg b. i.d. She can go home as far as I am concerned after that. No need to repeat any cardiac workup, she just had an echo in July 2021. Her other problems include a pacemaker that is functioning appropria tely. She has congestive heart failure that is chronic, diastolic that is stable. Diabetes, hyperte nsion, chronic renal disease that is stable. Again increase amiodarone to 200 b.i.d. I will see her in the office soon, get a 24-hour monitor with event monitor and see what she is having as far as [facility] on a higher dose of amiodarone. Again, she can go home. If she stays in the hospital, I will k eep following her. HORTENSIA/ASHLEY Voice ID: [id number] Report ID: [id number]
[2021-12-26] MEDS ORDERED: INFLUENZA VACCINE (for 6+ mo) 0.5 ML DOSE IMVAC ONE (16:00)
--- NOTE | 2021-12-26 18:14 | P.PN ---
Subjective Date of Service: 12/26/21 Chief Complaint: EUGENIE Patient has no complaint. Patient heart rate has been rapid since last night. He is currently in rapid atrial fibrillation. Physical Examination - Vital Signs Temperature: 97.6 F Blood Pressure: 152/55 Pulse: 87 Respirations: 18 Pulse Ox (%): 96 Assessment And Plan - Current Problems (Diagnosis) (1) EUGENIE (acute kidney injury) Current Visit: Yes Status: Acute (2) Hypertension Current Visit: Yes Status: Chronic Qualifiers: Hypertension type: primary hypertension Qualified Code(s): I10 - Essential (primary) hypertension (3) Type 2 diabetes mellitus Current Visit: Yes Status: Chronic Qualifiers: Diabetes mellitus long term care pharmacist insulin use: without longterm use Diabetes mellitus complication status: with kidney complications Diabetes mellitus complication detail: with chronic kidney disease Chronic kidney disease stage: stage 4 (severe) Qualified Code(s): E11.22 - Type 2 diabetes mellitus with diabetic chronic kidney disease; N18.4 - Chronic kidney disease, stage 4 (severe) (4) Chronic diastolic heart failure Current Visit: No Status: Acute - Plan Physical Exam General: Alert, In no apparent distress Respiratory: Clear to auscultation bilaterally, Normal air movement Cardiovascular: Irregular rhythm, rapid, normal S1 S2 Gastrointestinal: Normal bowel sounds, No tenderness Integumentary: No rashes Neurological: No focal motor deficit. Plan: EUGENIE resolved. Metabolic acidosis improved but not resolved. Continue IV fluid Monitor renal function. Nephrology is following Renal ultrasound shows nephrolithiasis, no obstructive uropathy. Diet as tolerated Continue Remeron PPI. Diuretics on hold. Metformin on hold. Possible V. tach on telemetry strip. I discussed telemetry strip and EKG with Dr. Ribeiro. Strip appear to be showing wide-complex tachycardia. AICD interrogation: Unremarkable. Patient seen by cardiology Dr. Ribeiro who has decreased her amiodarone dose to 200 mg twice daily Monitor and optimize electrolytes. Patient's metoprolol has been on hold due to soft blood pressure. Her blood pressure has improved and she is currently hypertensive. Heart rate is currently controlled with the current dose of amiodarone. Continue to hold metoprolol.
[2021-12-26] MEDS: TRAZODONE 50 MG TABLET PO SCH (21:05)
[2021-12-26] MEDS: TAMSULOSIN 0.4 MG SR CAP PO SCH (21:05)
[2021-12-26] MEDS: MIRTAZAPINE 15 MG TAB PO SCH (21:05)
[2021-12-26] MEDS: EZETIMIBE 10 MG TAB PO SCH (21:05)
--- NOTE | 2021-12-26 23:14 | PN ---
Date of Progress Note: 12/26/2021 Chief Complaint: Acute kidney injury. Subjective: Patient has multiple medical problems including history of diabetes mellitus. She was f ound to have bilateral renal calculi and acute kidney injury. She responded to IV fluids. She did n ot have hydronephrosis. Patient was transferred to ICU yesterday because of wide-complex tachycardia versus V tach. Patient denies chest pain, palpitation. Patient was found to have hypophosphatemia and is tolerating p.o. intake as well as phosphate replacement by mouth. Review of Systems: Denies fever, chills. Physical Examination: Lungs: Clear to auscultation bilaterally. Heart: S1, S2. Abdomen: Soft. Extremities: No edema. Impression And Plan: 1.Acute kidney injury. The patient responded to IV fluids. Renal function has improved. Patient w as found to have kidney stones and she will follow up with urologist. 2.Hypertension. Continue current medication. 3.Diabetes mellitus with renal manifestation. Monitor proteinuria. Patient may resume RINKU inhibito r. Renal function at this point is at baseline. AUGUSTA/DOCL Voice ID: [id number] Report ID: [id number]
[2021-12-27] MEDS: HEPARIN 5000 UNIT/ML 1 ML VIAL SQ SCH ×3 (01:01→17:33)
[2021-12-27] MEDS: NA CHLORIDE 0.9% 1,000 ML IV SCH (02:32)
[2021-12-27 05:13] LABS: Magnesium 1.9 mg/dL (1.8-2.4); Potassium 3.6 mmol/L (3.5-5.1)
[2021-12-27] MEDS: INSULIN -REGULAR HUMAN 50 UNIT/0.5 ML ML SQ SCH ×4 (07:30→23:09)
[2021-12-27] MEDS ORDERED: POTASSIUM CL SA 10 MEQ TAB PO ONE (09:00)
[2021-12-27] MEDS: FLUTICASONE 50MCG NASAL SPRAY NAS SCH ×2 (09:00→23:18)
[2021-12-27] MEDS: CLOPIDOGREL 75 MG TABLET PO SCH (09:38)
[2021-12-27] MEDS: PANTOPRAZOLE 40MG TABLET PO SCH ×2 (09:39→22:58)
[2021-12-27] MEDS: AMIODARONE HCL 200 MG TAB PO SCH ×2 (09:39→22:59)
[2021-12-27] MEDS: BUSPIRONE HCL 15 MG TABLET PO SCH ×3 (09:39→22:58)
[2021-12-27] MEDS: AMLODIPINE 5 MG TAB PO SCH ×2 (09:39→22:59)
[2021-12-27] MEDS: FOLIC ACID 1 MG TABLET PO SCH (09:39)
[2021-12-27] MEDS: POTASS/SODIUM PHOSPHATE 1 PKT POWD.PACK PO SCH (09:39)
[2021-12-27] MEDS: cloNIDine HCL 0.1 MG TAB PO SCH ×2 (09:40→23:00)
[2021-12-27] MEDS: LACTOSE-REDUCED FOOD 330 ML LIQUID PO SCH ×2 (09:53→21:00)
[2021-12-27] MEDS ORDERED: KCL 20 MEQ/100 mL IVPB 20 MEQ/100 ML BAG IV SCH (12:00)
--- NOTE | 2021-12-27 14:51 | PN ---
Date of Progress Note: 12/27/2021 Subjective: The patient was admitted to the hospital with acute kidney injury secondary to prerenal, poor perfusion, ATN, superimposed with over diuresis, and obstructive uropathy has been ruled out. The patient was started on hydration. Kidney function gradually has been improved, currently normali zed. Physical Examination: Vital Signs: Blood pressure 153/77, pulse of 112, afebrile. The patient had good urine output of 17 00, positive of 1500. Chest: Clear to auscultation. Heart: S1, S2. Systolic murmur. Abdomen: Soft, nontender. Extremities: No edema. Neurologic: Alert. No focality. Laboratory Data: Sodium 145, potassium 3.6, bicarb 19, BUN 8, creatinine 0.8, calcium 8.6, magnesium 1.9, phosphorus 2.3. Current Medications: The patient on; 1.Albuterol. 2.Flomax. 3.Plavix. 4.Amiodarone. 5.Amlodipine 5 mg b.i.d. 6.Clonidine 0.1 b.i.d. 7.Trazodone. Renal ultrasound, 10.6 x 9.9. Chest x-ray done on the 3rd; no cardiomegaly, emphysematous changes. Assessment And Plan: 1.Acute kidney injury secondary to prerenal, dehydration, superimposed with over-diuresis with diure sis, recovered, resolved. We will continue to monitor the patient. The patient cleared from the Tim al standpoint for discharge planning. 2.Hypomagnesemia, hypokalemia. We will supplement. 3.Acidosis non-anion gap metabolic acidosis secondary to renal failure/IV fluid. I am going to go a head and start the patient on gentle sodium bicarb oral. 4.Hypertension, not controlled. Given the cardiac history and hypokalemia, I could not start the pa tient on RINKU inhibitor or ARB secondary to the allergy. We will start the patient on low dose of bet a emiliano. MA/MODL Voice ID: [id number] Report ID: [id number]
[2021-12-27] MEDS: carvediloL 3.125 MG TAB PO SCH (17:33)
--- NOTE | 2021-12-27 21:30 | P.PN ---
Date of Service: 12/27/21 Subjective: agitated overnight, with chest pain felt like she was going to defibrillator shocked patient ROS: 10 point ROS as noted above, otherwise negative Physical Exam: Gen: NAD, AOx3 HEENT: normal conjunctiva, sclera anicteric CV: regular rate & rhythm, no edema Pulm: non-labored respirations, clear bilaterally Abd: soft, non-tender, non-distended Neuro: normal speech, normal affect, moves all extremities vitals reviewed Problem List EUGENIE secondary to dehydration h/o afib, s/p ablation HTN NIDDM2 CKD4 Chronic diastolic CHF EUGENIE resolved. with IVF decrease IVF nephrology consulted renal U/S: nephrolithiasis, no obstructive uropathy continue remeron continue PPI diuretics, metformin held seocndary to EUGENIE possible vtach vs afib with aberrancy h/o recent vtach, s/p defibrillator and ablation ablation done at [facility] Dr. Ribeiro recommended increasing amiodarone to 200mg BID, stop metoprolol PM / defibrillator interrogated 12/26, findings discussed with pt's table cover folder - Dr. Lo, no changes recommended at that time pt with another episode overnight and shocked by her defibrillator discussed with Dr. Ribeiro, recommended increasing amiodarone further to 400mg spoke to Dr. Lo, agrees with transfer to [facility] for continuity of care and suspect she needs ablation - with Dr. Thomason VTE: heparin SQ Code: full Dispo: initiated transfer to [facility] Time Spent Managing Pts Care (In Minutes): 35
[2021-12-27] MEDS: SODIUM BICARB 325 MG TAB PO SCH (22:59)
[2021-12-27] MEDS: TAMSULOSIN 0.4 MG SR CAP PO SCH (23:00)
[2021-12-27] MEDS: MIRTAZAPINE 15 MG TAB PO SCH (23:00)
[2021-12-27] MEDS: EZETIMIBE 10 MG TAB PO SCH (23:00)
[2021-12-27] MEDS: TRAZODONE 50 MG TABLET PO SCH (23:00)
[2021-12-28] MEDS: HEPARIN 5000 UNIT/ML 1 ML VIAL SQ SCH ×3 (01:00→17:21)
[2021-12-28] MEDS: carvediloL 3.125 MG TAB PO SCH ×2 (06:17→17:21)
[2021-12-28 06:34] LABS: Hematocrit 33.2 % (36.0-45.0); MCV 88.4 fL (80-100); MPV 9.2 fL (7.6-11.3); RBC Red Blood Cell Count 3.76 M/uL (3.86-4.86)
[2021-12-28 06:56] LABS: Magnesium 2.1 mg/dL (1.8-2.4); Potassium 3.7 mmol/L (3.5-5.1)
[2021-12-28] MEDS: INSULIN -REGULAR HUMAN 50 UNIT/0.5 ML ML SQ SCH ×4 (07:30→22:03)
[2021-12-28] MEDS: BUSPIRONE HCL 15 MG TABLET PO SCH ×3 (08:07→22:05)
[2021-12-28] MEDS: SODIUM BICARB 325 MG TAB PO SCH ×2 (08:07→22:05)
[2021-12-28] MEDS: FOLIC ACID 1 MG TABLET PO SCH (08:08)
[2021-12-28] MEDS: CLOPIDOGREL 75 MG TABLET PO SCH (08:09)
[2021-12-28] MEDS: AMLODIPINE 5 MG TAB PO SCH ×2 (08:09→22:06)
[2021-12-28] MEDS: FLUTICASONE 50MCG NASAL SPRAY NAS SCH ×2 (08:09→21:00)
[2021-12-28] MEDS: AMIODARONE HCL 200 MG TAB PO SCH ×2 (08:09→22:05)
[2021-12-28] MEDS: PANTOPRAZOLE 40MG TABLET PO SCH ×2 (08:09→22:06)
[2021-12-28] MEDS: POTASS/SODIUM PHOSPHATE 1 PKT POWD.PACK PO SCH (08:10)
[2021-12-28] MEDS: cloNIDine HCL 0.1 MG TAB PO SCH ×2 (08:10→22:07)
[2021-12-28] MEDS: LACTOSE-REDUCED FOOD 330 ML LIQUID PO SCH ×2 (08:13→21:00)
--- NOTE | 2021-12-28 08:27 | PN ---
Ms. Pierson today had an another episode of AICD shock secondary to ventricular tachycardia. She is on amiodarone 200 b.i.d. now, I will increase her dose to 400 b.i.d. She continues to be on Norvasc, Pl avix, Zetia, insulin, no beta-blockers. Last creatinine is 1.85. Remains in atrial fibrillation tod ay at a rate of 95. I think she needs to be transferred to her primary citrus peeler in [facility] for further workup to include possible VT ablation. Case was discussed with Dr. Narvaez. HORTENSIA/ASHLEY Voice ID: [id number] Report ID: [id number]
[2021-12-28] MEDS ORDERED: POTASSIUM CL SA 10 MEQ TAB PO ONE (09:00)
--- NOTE | 2021-12-28 16:20 | P.PN ---
Date of Service: 12/28/21 Subjective: acute delirium this morning, doing better now no vtach episodes, no defibrillation overnight feeling ok ROS: 10 point ROS as noted above, otherwise negative Physical Exam: Gen: NAD, AOx3 HEENT: normal conjunctiva, sclera anicteric CV: regular rate & rhythm, no edema Pulm: non-labored respirations, clear bilaterally Abd: soft, non-tender, non-distended Neuro: normal speech, normal affect, moves all extremities vitals reviewed Problem List EUGENIE secondary to dehydration h/o afib, s/p ablation HTN NIDDM2 CKD4 Chronic diastolic CHF EUGENIE resolved. with IVF dc IVF nephrology consulted renal U/S: nephrolithiasis, no obstructive uropathy continue remeron continue PPI diuretics, metformin held secondary to EUGENIE possible vtach vs afib with aberrancy h/o recent vtach, s/p defibrillator and ablation ablation done at [facility] Dr. Ribeiro recommended increasing amiodarone to 200mg BID, stopped metoprolol patient had second shock, Amiodarone increased to 400mg BID as recommended by Dr. Ribeiro PM / defibrillator interrogated 12/26, findings discussed with pt's raise driller - Dr. Lo, no changes recommended at that time spoke to Dr. Lo, agrees with transfer to [facility] for continuity of care and suspect she needs ablation - with Dr. Thomason transfer initiated 12/27 evening, no beds available currently VTE: heparin SQ Code: full Dispo: initiated transfer to [facility] Time Spent Managing Pts Care (In Minutes): 35
[2021-12-28] MEDS: TRAZODONE 50 MG TABLET PO SCH (22:05)
[2021-12-28] MEDS: MIRTAZAPINE 15 MG TAB PO SCH (22:05)
[2021-12-28] MEDS: TAMSULOSIN 0.4 MG SR CAP PO SCH (22:06)
[2021-12-28] MEDS: EZETIMIBE 10 MG TAB PO SCH (22:18)
[2021-12-29] MEDS: ACETAMINOPHEN 500 MG TAB PO PRN ×2 (01:19→22:09)
[2021-12-29] MEDS: HEPARIN 5000 UNIT/ML 1 ML VIAL SQ SCH ×3 (01:19→16:14)
[2021-12-29 03:44] LABS: Hematocrit 27.5 % (36.0-45.0); MCV 87.5 fL (80-100); MPV 9.2 fL (7.6-11.3); RBC Red Blood Cell Count 3.14 M/uL (3.86-4.86)
[2021-12-29 03:49] LABS: Magnesium 1.8 mg/dL (1.8-2.4); Potassium 3.4 mmol/L (3.5-5.1)
[2021-12-29] MEDS ORDERED: MAGNESIUM SULFATE 1 gm IVPB 1 GM/100 ML BAG IV ONE ×2 (05:44→15:00)
[2021-12-29] MEDS: carvediloL 3.125 MG TAB PO SCH ×2 (06:01→17:02)
--- NOTE | 2021-12-29 06:37 | EKG ---
Test Date: 2021-12-25 Test Time: 15:59:38 Templer Head: EVELIA MEASUREMENT RESULTS: Intervals: Rate: 107 MD: QRSD: 136 QT: 418 QTc: 558 [place]: P: MD: QRS: 95 T: -88 INTERPRETIVE STATEMENTS: Demand pacemaker, interpretation is based on intrinsic rhythm Atrial fibrillation with rapid ventricular response with premature ventricular or aberrantly conducted complexes Right bundle branch block T wave abnormality, consider inferolateral ischemia or digitalis effect Abnormal ECG Compared to ECG 12/22/2021 17:47:44 Ventricular premature complex(es) now present Sinus rhythm no longer present Myocardial infarct finding no longer present T-wave abnormality still present Possible ischemia still present Electronically Signed On 12-29-21 06:31:13 ASSEMBLYMAN OR WOMAN by Tate Ribeiro
[2021-12-29] MEDS: INSULIN -REGULAR HUMAN 50 UNIT/0.5 ML ML SQ SCH ×4 (07:30→21:20)
[2021-12-29] MEDS: AMLODIPINE 5 MG TAB PO SCH ×2 (07:55→21:19)
[2021-12-29] MEDS: SODIUM BICARB 325 MG TAB PO SCH ×2 (07:55→21:16)
[2021-12-29] MEDS: PANTOPRAZOLE 40MG TABLET PO SCH ×2 (07:55→21:18)
[2021-12-29] MEDS: cloNIDine HCL 0.1 MG TAB PO SCH ×2 (07:56→21:17)
[2021-12-29] MEDS: CLOPIDOGREL 75 MG TABLET PO SCH (07:56)
[2021-12-29] MEDS: AMIODARONE HCL 200 MG TAB PO SCH ×2 (07:56→21:18)
[2021-12-29] MEDS: FOLIC ACID 1 MG TABLET PO SCH (07:56)
[2021-12-29] MEDS: BUSPIRONE HCL 15 MG TABLET PO SCH ×3 (07:57→21:18)
[2021-12-29] MEDS: LACTOSE-REDUCED FOOD 330 ML LIQUID PO SCH ×2 (07:57→21:00)
[2021-12-29] MEDS: FLUTICASONE 50MCG NASAL SPRAY NAS SCH ×2 (07:57→21:00)
[2021-12-29] MEDS: POTASS/SODIUM PHOSPHATE 1 PKT POWD.PACK PO SCH (08:04)
[2021-12-29] MEDS ORDERED: POTASSIUM CL SA 10 MEQ TAB PO ONE (09:00)
--- NOTE | 2021-12-29 15:38 | PN ---
Date of Progress Note: 12/29/2021 Subjective: The patient was admitted with acute kidney injury secondary to prerenal, dehydration, sen perimposed with over diuresis. The patient recover. The patient feeling much better. Physical Examination: Vital Signs: Blood pressure 142/64, pulse of 72, afebrile. Chest: Clear to auscultation. Heart: S1, S2. Regular. Abdomen: Soft, nontender. Extremity: No edema. Neurologic: Alert. No focality. Laboratory Data: Hemoglobin 9.2. Sodium 146, potassium 3.4, bicarb 21, BUN 13, creatinine 0.8, calc ium 8.3, magnesium 1.8. Current Medications: The patient on include; 1.Amiodarone. 2.Carvedilol 3.25 b.i.d. 3.Clonidine 0.1 b.i.d. 4.Zetia. 5.Tylenol. 6.Sodium bicarb 650 b.i.d. 7.Lactulose. 8.Folic acid. 9.KCl. Assessment And Plan: 1.Acute kidney injury secondary to prerenal, dehydration, superimposed with over diuresis. The jaziel ent recovered back to baseline. We will continue to monitor. The patient cleared for discharge plan eva. 2.Marginal hypernatremia. Encourage p.o. hydration. 3.Hypokalemia. Continue supplement. 4.Hypomagnesemia. We will supplement. 5.Hypertension, controlled, optimal. Keep avoiding RINKU inhibitor or ARB. TAL/ASHLEY Voice ID: [id number] Report ID: [id number]
--- NOTE | 2021-12-29 20:57 | P.PN ---
Date of Service: 12/29/21 Subjective: no acute events overnight patient ambulating ok to bathroom ROS: 10 point ROS as noted above, otherwise negative Physical Exam: Gen: NAD, AOx3 HEENT: normal conjunctiva, sclera anicteric CV: regular rate & rhythm, no edema Pulm: non-labored respirations, clear bilaterally Abd: soft, non-tender, non-distended Neuro: normal speech, normal affect, moves all extremities vitals reviewed Problem List EUGENIE secondary to dehydration h/o afib, s/p ablation HTN NIDDM2 CKD4 Chronic diastolic CHF EUGENIE resolved. with IVF off IVF now nephrology consulted renal U/S: nephrolithiasis, no obstructive uropathy mild hypernatremia continue remeron continue PPI diuretics, metformin held secondary to EUGENIE possible vtach vs afib with aberrancy h/o recent vtach, s/p defibrillator and ablation ablation done at [facility] Dr. Ribeiro recommended increasing amiodarone to 200mg BID, stopped metoprolol patient had second shock, Amiodarone increased to 400mg BID as recommended by Dr. Ribeiro PM / defibrillator interrogated 12/26, findings discussed with pt's farm machine operator - Dr. Lo, no changes recommended at that time spoke to Dr. Lo, agrees with transfer to [facility] for continuity of care and suspect she needs ablation - with Dr. Thomason transfer initiated 12/27 evening, no beds available currently VTE: heparin SQ Code: full Dispo: [facility] Time Spent Managing Pts Care (In Minutes): 25
[2021-12-29] MEDS: TRAZODONE 50 MG TABLET PO SCH (21:16)
[2021-12-29] MEDS: TAMSULOSIN 0.4 MG SR CAP PO SCH (21:17)
[2021-12-29] MEDS: MIRTAZAPINE 15 MG TAB PO SCH (21:18)
[2021-12-29] MEDS: EZETIMIBE 10 MG TAB PO SCH (21:18)
[2021-12-30] MEDS: HEPARIN 5000 UNIT/ML 1 ML VIAL SQ SCH ×3 (01:26→16:20)
[2021-12-30 04:41] LABS: Hematocrit 30.2 % (36.0-45.0); MCV 88.5 fL (80-100); RBC Red Blood Cell Count 3.41 M/uL (3.86-4.86)
[2021-12-30 04:56] LABS: Magnesium 2.5 mg/dL (1.8-2.4); Potassium 3.6 mmol/L (3.5-5.1)
[2021-12-30] MEDS: carvediloL 3.125 MG TAB PO SCH ×2 (06:08→16:49)
[2021-12-30] MEDS: INSULIN -REGULAR HUMAN 50 UNIT/0.5 ML ML SQ SCH ×4 (07:26→20:14)
[2021-12-30] MEDS: AMLODIPINE 5 MG TAB PO SCH ×2 (08:09→20:13)
[2021-12-30] MEDS: FOLIC ACID 1 MG TABLET PO SCH (08:09)
[2021-12-30] MEDS: cloNIDine HCL 0.1 MG TAB PO SCH ×2 (08:10→20:13)
[2021-12-30] MEDS: AMIODARONE HCL 200 MG TAB PO SCH ×2 (08:10→20:13)
[2021-12-30] MEDS: BUSPIRONE HCL 15 MG TABLET PO SCH ×3 (08:10→20:13)
[2021-12-30] MEDS: CLOPIDOGREL 75 MG TABLET PO SCH (08:10)
[2021-12-30] MEDS: SODIUM BICARB 325 MG TAB PO SCH ×2 (08:10→20:12)
[2021-12-30] MEDS: PANTOPRAZOLE 40MG TABLET PO SCH ×2 (08:10→20:13)
[2021-12-30] MEDS: LACTOSE-REDUCED FOOD 330 ML LIQUID PO SCH ×2 (08:11→20:23)
[2021-12-30] MEDS: FLUTICASONE 50MCG NASAL SPRAY NAS SCH ×2 (08:11→20:23)
[2021-12-30] MEDS ORDERED: POTASSIUM CL SA 10 MEQ TAB PO ONE (09:00)
[2021-12-30 17:21] VITALS: O2SAT 96
--- NOTE | 2021-12-30 19:00 | P.PN ---
Subjective Date of Service: 12/30/21 Chief Complaint: EUGENIE Subjective: No new changes Physical Examination - Vital Signs Temperature: 97.7 F Blood Pressure: 145/63 Pulse: 76 Respirations: 18 Pulse Ox (%): 97 - Physical Exam General: Other (Chronically ill appearing) HEENT: Atraumatic, Normocephalic Neck: Supple Respiratory: Other (Symmetric chest expansion) Cardiovascular: No rubs, No murmurs Gastrointestinal: Soft and benign, No rebound Musculoskeletal: No clubbing Integumentary: No warmth Neurological: Normal tone Urinary: Other (No bladder distention) External genitalia: Deferred Rectal: Deferred Assessment And Plan - Plan 1. Acute kidney injury secondary to prerenal, dehydration, superimposed with over diuresis. Improved/resolved. [place] po fluid intake. 2. Hypokalemia. KCl repletion prn. 3. HyperMg. Monitor. 4. Hypertension. BP controlled. Cont current med regimen. 5. Chronic diastolic HF, afib s/p ablation. For transfer to [facility] for p ossible ablation
[2021-12-30] MEDS: TAMSULOSIN 0.4 MG SR CAP PO SCH (20:12)
[2021-12-30] MEDS: EZETIMIBE 10 MG TAB PO SCH (20:13)
[2021-12-30] MEDS: TRAZODONE 50 MG TABLET PO SCH (20:13)
[2021-12-30] MEDS: MIRTAZAPINE 15 MG TAB PO SCH (20:13)
--- NOTE | 2021-12-30 21:06 | P.PN ---
Date of Service: 12/30/21 Subjective: no acute events overnight ROS: 10 point ROS as noted above, otherwise negative Physical Exam: Gen: NAD, AOx3, mild dementia HEENT: normal conjunctiva, sclera anicteric CV: regular rate & rhythm, no edema Pulm: non-labored respirations, clear bilaterally Abd: soft, non-tender, non-distended Neuro: normal speech, normal affect, moves all extremities vitals reviewed Problem List EUGENIE secondary to dehydration h/o afib, s/p ablation HTN NIDDM2 CKD4 Chronic diastolic CHF EUGENIE resolved with IVF off IVF now nephrology consulted renal U/S: nephrolithiasis, no obstructive uropathy continue remeron continue PPI diuretics, metformin held secondary to EUGENIE possible vtach vs afib with aberrancy h/o recent vtach, s/p defibrillator and ablation ablation done at [facility] Dr. Ribeiro recommended increasing amiodarone to 200mg BID, stopped metoprolol patient had second shock, Amiodarone increased to 400mg BID as recommended by Dr. Ribeiro PM / defibrillator interrogated 12/26, findings discussed with pt's registered safety engineer - Dr. Lo, no changes recommended at that time spoke to Dr. Lo, agrees with transfer to [facility] for continuity of care and suspect she needs ablation - with Dr. Thomason transfer initiated 12/27 evening, no beds available currently VTE: heparin SQ Code: full Dispo: initiated transfer to [facility] awaiting bed Time Spent Managing Pts Care (In Minutes): 25
[2021-12-31] MEDS ORDERED: DIPHENHYDRAMINE 25 MG TAB/CAP PO ONE (00:21)
[2021-12-31] MEDS: HEPARIN 5000 UNIT/ML 1 ML VIAL SQ SCH ×2 (01:00→08:35)
[2021-12-31] MEDS: carvediloL 3.125 MG TAB PO SCH (05:11)
[2021-12-31 06:38] LABS: Potassium 3.7 mmol/L (3.5-5.1)
[2021-12-31] MEDS: AMIODARONE HCL 200 MG TAB PO SCH (08:31)
[2021-12-31] MEDS: AMLODIPINE 5 MG TAB PO SCH (08:31)
[2021-12-31] MEDS: CLOPIDOGREL 75 MG TABLET PO SCH (08:31)
[2021-12-31] MEDS: SODIUM BICARB 325 MG TAB PO SCH (08:32)
[2021-12-31] MEDS: PANTOPRAZOLE 40MG TABLET PO SCH (08:32)
[2021-12-31] MEDS: FOLIC ACID 1 MG TABLET PO SCH (08:32)
[2021-12-31] MEDS: cloNIDine HCL 0.1 MG TAB PO SCH (08:32)
[2021-12-31] MEDS: BUSPIRONE HCL 15 MG TABLET PO SCH (08:33)
[2021-12-31] MEDS: FLUTICASONE 50MCG NASAL SPRAY NAS SCH (08:33)
[2021-12-31] MEDS: LACTOSE-REDUCED FOOD 330 ML LIQUID PO SCH (08:35)
[2021-12-31] MEDS: INSULIN -REGULAR HUMAN 50 UNIT/0.5 ML ML SQ SCH (08:44)
[2021-12-31] MEDS ORDERED: POTASSIUM CL SA 10 MEQ TAB PO ONE (11:24)
[2021-12-31 13:34] VITALS: BP 142/66; TEMP 97.1
--- NOTE | 2021-12-31 15:03 | PN ---
Date of Progress Note: 12/31/2021 Subjective: The patient was admitted with acute kidney injury secondary to prerenal with acidosis an d electrolyte imbalance. The patient's kidney function has been improved. Physical Examination: Vital Signs: Blood pressure 144/84, pulse of 82, afebrile. Chest: Clear to auscultation. Heart: S1, S2. Regular. Systolic murmur. Abdomen: Soft, nontender. Extremities: No edema. Neurologic: Alert. No focality. Laboratory Data: For the patient; hemoglobin 10. Sodium 141, potassium 3.7, bicarb 20, BUN 13, crea tinine 0.7, calcium 8.7. Current Medications: The patient on include: 1.Albuterol. 2.Amiodarone. 3.Amlodipine 5 mg b.i.d. 4.Carvedilol 3.125. 5.Clonidine 0.1 b.i.d. 6.Zetia. 7.Mirtazapine. 8.Trazodone. Assessment And Plan: 1.Acute kidney injury secondary to prerenal, recovered, resolved. 2.Hypokalemia. We will supplement. 3.Hypomagnesemia, resolved. 4.Hypertension, controlled. Optimal. Continue current treatment. 5.Cardiac arrhythmia. We will follow up with primary. Continue amiodarone. The patient planned for transfer to her property management accountant's at [facility]. RHODA Voice ID: [id number] Report ID: [id number]
--- NOTE | 2021-12-31 21:39 | P.DS ---
Admission Date: 12/22/21 Discharge Date: 12/31/21 Disposition: TRANSFER TO [facility] Condition: FAIR Reason for Admission: EUGENIE Consultations: Cardiology - Dr. Ribeiro Nephrology - Dr. Durbin Brief History of Present Illness: 80-year-old female with hypertension, NIDDM, diastolic CHF, anemia, afib on eliquis, CAD s/p pacemaker with defibrillator, and GERD who presented to the ED reporting abnormal lab results. Patient had routine labs done by her PCP and was noted to have BUN of 69 and Cr 1.31 and was told to come to the ED. Patient also reports that she has had several episodes of diarrhea after barium swallow yesterday (labs completed before). Her labs today are significant for CO2 18, BUN 74, Cr 2.77, mag 2.8, BNP 2925. trop HS 59, lactate 3.5. CT abdomen pelvis showed " Bilateral nephrolithiasis without hydronephrosis. Cholelithiasis. Atherosclerosis." Patient's daughter reports that patient has barely been eating/drinking lately and has lost weight. Patient states she does not have an appetite. She is admitted for further management. Hospital Course: Problem List EUGENIE secondary to dehydration afib with aberrancy vs vtach with defibrillator shocks h/o afib, s/p ablation HTN NIDDM2 CKD4 Chronic diastolic CHF Patient had improvement with IV fluids and amiodarone. EUGENIE resolved with IV hydration. Nephrology was consulted She was noted to have 2 episodes of what appeared to vtach vs afib with aberrancy. Cardiology was consulted, increased amiodarone to 200mg BID after the first shock, and subsequently increased to 400mg BID due to a 2nd shock from her defibrillator Patient's voice intercept technician was consulted over the phone and recommended transfer to [facility] to f/u with her water resource engineering specialist since she may need an ablation. transfer initiated on 12/27, and a bed became available on 12/31. Vital Signs/Physical Exam: Temp Pulse Resp BP Pulse Ox 97.1 F 83 16 142/66 H 98 12/31/21 12:00 12/31/21 12:00 12/31/21 12:00 12/31/21 12:00 12/31/21 12:00 General: Alert, In no apparent distress HEENT: EOMI, Abnormal EOM Neck: Supple, No LAD Respiratory: Clear to auscultation bilaterally, Normal air movement Cardiovascular: No edema, Regular rate/rhythm Gastrointestinal: Soft and benign, Non-distended, No tenderness Musculoskeletal: No contractures, No tenderness Integumentary: No rashes, No significant lesion Neurological: Normal speech, Normal strength at 5/5 x4 extr, Normal affect Laboratory Data at Discharge: WBC 3.40 K/uL (4.3-10.9) L 12/30/21 04:16 Hgb 10.0 g/dL (12.0-15.0) L D 12/30/21 04:16 Hct 30.2 % (36.0-45.0) L 12/30/21 04:16 Plt Count 150 K/uL (152-406) L 12/30/21 04:16 PT 10.1 SECONDS (9.5-12.5) 12/22/21 18:51 INR 0.92 12/22/21 18:51 Sodium 141 mmol/L (136-145) 12/31/21 05:16 Potassium 3.7 mmol/L (3.5-5.1) 12/31/21 05:16 BUN 13 mg/dL (7-18) 12/31/21 05:16 Creatinine 0.76 mg/dL (0.55-1.3) 12/31/21 05:16 Glucose 180 mg/dL (74-106) H 12/31/21 05:16 Phosphorus 2.3 mg/dL (2.5-4.9) L 12/26/21 04:30 Magnesium 2.5 mg/dL (1.8-2.4) H 12/30/21 04:16 Total Bilirubin 0.6 mg/dL (0.2-1.0) 12/22/21 18:51 AST 18 U/L (15-37) 12/22/21 18:51 ALT 20 U/L (12-78) 12/22/21 18:51 Alkaline Phosphatase 68 U/L (45-117) 12/22/21 18:51 Triglycerides 213 mg/dL (<150) H 12/23/21 03:43 Cholesterol 213 mg/dL (<200) H 12/23/21 03:43 HDL Cholesterol 46 mg/dL (40-60) 12/23/21 03:43 Cholesterol/HDL Ratio 4.63 12/23/21 03:43 Home Medications: Amiodarone HCl [Cordarone*] 0.5 tab PO DAILY 07/31/21 Amlodipine [Norvasc*] 5 mg PO BID 07/31/21 Buspirone HCl 15 mg PO TID 07/31/21 Clopidogrel Bisulfate [Plavix*] 1 tab PO DAILY 07/31/21 Docusate Sodium 100 mg PO Q12HP 07/31/21 Ezetimibe [Zetia*] 10 mg PO BEDTIME 07/31/21 Folic Acid 1 mg PO DAILY 07/31/21 Melatonin 5 mg PO BEDTIME 07/31/21 Trazodone HCl 50 mg PO BEDTIME 07/31/21 cloNIDine HCL [Clonidine HCl] 1 tab PO BID 07/31/21 Ferrous Sulfate 325 mg PO DAILY 30 Days #30 tab 10/21/21 Pantoprazole Sodium [Protonix] 40 mg PO BID 30 Days #60 tab 10/21/21 Empagliflozin [Jardiance] 25 mg PO DAILY 12/23/21 Fexofenadine HCl 180 mg PO DAILY 12/23/21 Fluticasone Propionate [24 Hour Allergy] 50 mcg NS BID 12/23/21 Mirtazapine 15 mg PO BEDTIME 12/23/21 Lactose-Reduced Food [Ensure Max Protein] 330 ml PO BID #60 can 12/25/21 Tamsulosin [Flomax*] 0.4 mg PO BEDTIME #30 cap 12/25/21 New Medications: Lactose-Reduced Food [Ensure Max Protein] 330 ml PO BID #60 can Tamsulosin [Flomax*] 0.4 mg PO BEDTIME #30 cap Diet: ADA Activity: Ad perico Followup: John Lynn MD [Primary Care Provider] - Time spent managing pt's care (in minutes): 45
== END 2021-12-31 12:00 | disposition short-term general hospital (02) | DRG 683 ==
LOC: ER 15:33 → ERHOLD 21:09 → 4TH 21:56 → 3RD-ICU 12-25 19:09 → 4TH 12-27 14:00
PROVIDERS: ADMIT Internal Medicine; ATTEND Hospitalist
DX: N17.0 Acute kidney failure with tubular necrosis (principal); E44.0 Moderate protein-calorie malnutrition; I50.32 Chronic diastolic (congestive) heart failure; I13.0 Hypertensive heart and chronic kidney disease with heart failure and stage 1 through stage 4 chronic kidney disease, or unspecified chronic kidney disease; I48.20 Chronic atrial fibrillation, unspecified; E87.20 Acidosis, unspecified; I47.20 Ventricular tachycardia, unspecified; E87.0 Hyperosmolality and hypernatremia; N18.4 Chronic kidney disease, stage 4 (severe); E11.22 Type 2 diabetes mellitus with diabetic chronic kidney disease; E78.5 Hyperlipidemia, unspecified; N20.0 Calculus of kidney; E86.0 Dehydration; E87.6 Hypokalemia; E83.41 Hypermagnesemia; I25.10 Atherosclerotic heart disease of native coronary artery without angina pectoris; E83.39 Other disorders of phosphorus metabolism; E83.42 Hypomagnesemia; K21.9 Gastro-esophageal reflux disease without esophagitis; F03.90 Unspecified dementia, unspecified severity, without behavioral disturbance, psychotic disturbance, mood disturbance, and anxiety; R41.0 Disorientation, unspecified; Z23 Encounter for immunization; Z88.5 Allergy status to narcotic agent; Z88.8 Allergy status to other drugs, medicaments and biological substances; Z68.24 Body mass index [BMI] 24.0-24.9, adult; Z79.01 Long term (current) use of anticoagulants; Z79.02 Long term (current) use of antithrombotics/antiplatelets; Z79.84 Long term (current) use of oral hypoglycemic drugs; Z95.810 Presence of automatic (implantable) cardiac defibrillator; Z79.899 Other long term (current) drug therapy; Z20.822 Contact with and (suspected) exposure to COVID-19
CPT/HCPCS: 36415; 71045; 74176; 76775; 80048; 80061; 80069; 80076; 81001; 82550; 82553; 82570; 82947; 83605; 83735; 83880; 84100; 84132; 84300; 84443; 84484; 85025; 85027; 85610; 87040; 87811; 90471; 93005; 94760; 97116; 97161; 97164; 97530; 99285; J1644; J1815; J3475; J3480; J7030; J7120; Q2035